=== PATIENT | male | born 1965 | race Caucasian/White ===

== ENCOUNTER → 2020-01-03 10:02 | Outpatient (BNVA) | payer OTHER, SELFPAY | PROVIDERS: PCP Internal Medicine; Referring Provider Internal Medicine; Visit Provider Surgery | DX: R91.8 Other nonspecific abnormal finding of lung field (principal); F17.200 Nicotine dependence, unspecified, uncomplicated; J44.9 Chronic obstructive pulmonary disease, unspecified; Z98.890 Other specified postprocedural states | CPT/HCPCS: 99211 ==

== ENCOUNTER → 2020-01-23 10:55 | Outpatient (BNVA) | payer OTHER, SELFPAY | PROVIDERS: PCP Internal Medicine; Referring Provider Internal Medicine; Visit Provider Internal Medicine | DX: Z76.89 Persons encountering health services in other specified circumstances (principal) ==

== ENCOUNTER 2020-03-04 09:12 | Outpatient (REF) | payer OTHER, SELFPAY ==
--- NOTE | 2020-03-04 09:14 | CT_ITS ---
EXAMINATION: CT CHEST WITHOUT CONTRAST CLINICAL INFORMATION: Follow-up pulmonary nodules. COMPARISON: Comparison CT chest 12/03/2019 and 03/13/2019. TECHNIQUE: Multidetector volumetric CT imaging of the chest was done. Axial MIP volume rendering provided. Sagittal and coronal reformatted images were obtained. This CT examination was performed using dose optimization techniques as appropriate, variously including the following: *Automated exposure control *Adjustment of mA and/or kV according to patient size (this includes techniques or standardized protocols for targeted exams where dose is matched to indication/reason for exam; i.e. extremities or head) *Use of iterative reconstruction technique DLP: 129 mGy-cm FINDINGS: BELL RINGER: Hyperinflated lungs. LUNGS: There is diffuse emphysematous changes of both lungs. There is a slightly lobulated nodule, right upper lobe, measuring 1.6 x 1.4 cm on axial image 300/7. Previously it measured 1.2 x 1.4 cm. There is a spiculated lesion in the left lower lobe measuring 1.4 x 1.8 cm on axial image 467/7. Previously it measured 1.2 x 2.5 cm. Both these lesions are stable. There are multiple 1-2 mm calcified nodules seen scattered throughout all segments of the lungs likely old granulomatous disease. There are bilateral peripheral reticular interstitial changes are seen in dependent segments of both lung bases similar to previous study. No new pulmonary nodule. No acute consolidation seen. Minimal atelectatic changes, right middle lobe, are noted. MEDIASTINUM: The thyroid lobes are symmetrical and normal. Central trachea and the bronchi are widely patent. Heart size and the great vessels are normal caliber. There are several shotty lymph nodes in the mediastinum. The largest left precarinal short axis lymph node measures 9 mm, axial image 32/3. PLEURA: There is no pleural effusion. No pleural mass or thickening. AXILLA: No lymphadenopathy. UPPER ABDOMEN: Visualized liver, spleen, pancreas and bilateral adrenal glands are unremarkable. OSSEOUS STRUCTURES: Unremarkable. CT/CT chest wo con IMPRESSION: 1. Essentially stable spiculated nodule in left lower lobe and a lobulated nodule in the right upper lobe. Multiple calcified granulomas are stable as well. 2. Reactionary lymph nodes in the mediastinum are stable. 3. There is significant emphysema most prominent in the upper lobes with chronic interstitial dependent changes in both lung bases. No pneumothorax.
== END 2020-03-04 09:13 | disposition home or self-care (01) ==
LOC: HO.CT 09:12
PROVIDERS: PCP Internal Medicine; Visit Provider Surgery
DX: R91.1 Solitary pulmonary nodule (principal)
CPT/HCPCS: 71250

== ENCOUNTER → 2020-04-10 11:14 | Outpatient (BNVA) | payer OTHER, SELFPAY | PROVIDERS: PCP Internal Medicine; Visit Provider Surgery | DX: Z76.89 Persons encountering health services in other specified circumstances (principal) | CPT/HCPCS: 99215 ==

== ENCOUNTER 2020-09-30 07:25 | Outpatient (REF) | payer OTHER, SELFPAY ==
--- NOTE | ~2020-09-30 | CT_ITS ---
EXAMINATION: CT CHEST WITHOUT CONTRAST CLINICAL INFORMATION: Pulmonary nodules COMPARISON: Previous chest CT scans most recent March 2020 TECHNIQUE: Multidetector volumetric CT imaging of the chest was done. Axial MIP volume rendering provided. Sagittal and coronal reformatted images were obtained. This CT examination was performed using dose optimization techniques as appropriate, variously including the following: *Automated exposure control *Adjustment of mA and/or kV according to patient size (this includes techniques or standardized protocols for targeted exams where dose is matched to indication/reason for exam; i.e. extremities or head) *Use of iterative reconstruction technique DLP: 121 mGy-cm FINDINGS: LUNGS: There is evidence of severe emphysema. There is interval increase in size in the lobulated right upper lobe nodule. This is irregular in shape and difficult to measure. The central nodule measures 1 x 1.5 cm axial image 243 series 6 0.6 x 1.2 cm axial image 299 series 7 on March 2020 exam. Including the exophytic posterior nodular component this measures 1.5 x 1.8 cm axial image 244 series 6 compared to 1.2 x 1.6 cm axial image 300 series 7. The spiculated left lower lobe nodule measures 0.9 x 1.7 cm axial image 388 series 6 compared to 1 x 1.8 cm axial image 467 series 7 and does not appear appreciably changed from most recent exam. There are numerous small calcified and noncalcified less than 4 mm coronary nodules that appear unchanged. No new pulmonary nodule is seen. There are increased peripheral interstitial markings questionable for interstitial lung disease. MEDIASTINUM: There are are small mediastinal lymph nodes. There is coronary artery calcification. The mediastinum is otherwise normal. PLEURA: There is no pleural effusion. No pleural mass or thickening. AXILLA: No lymphadenopathy. UPPER ABDOMEN: There is a small stone in the upper pole of the left kidney. OSSEOUS STRUCTURES: Unremarkable. CT/CT chest wo con IMPRESSION: Severe emphysema. Slight interval increase in size in the lobulated right upper lobe nodule. No appreciable change in the spiculated left lower lobe nodule. The numerous small calcified and noncalcified micronodules are stable.
== END 2020-09-30 07:26 | disposition home or self-care (01) ==
LOC: HO.CT 07:25
PROVIDERS: Visit Provider Surgery
DX: R91.8 Other nonspecific abnormal finding of lung field (principal)
CPT/HCPCS: 71250

== ENCOUNTER → 2020-10-23 11:01 | Outpatient (BNVA) | payer OTHER, SELFPAY | PROVIDERS: PCP Internal Medicine; Visit Provider Surgery | DX: R91.8 Other nonspecific abnormal finding of lung field (principal); J43.9 Emphysema, unspecified; F17.210 Nicotine dependence, cigarettes, uncomplicated; Z79.899 Other long term (current) drug therapy | CPT/HCPCS: 99212 ==

== ENCOUNTER → 2020-10-28 10:01 | Outpatient (BNVA) | payer OTHER, SELFPAY | PROVIDERS: PCP Internal Medicine; Visit Provider Internal Medicine ==

== ENCOUNTER 2021-03-09 13:05 | Outpatient (REF) | payer OTHER, SELFPAY ==
--- NOTE | ~2021-03-09 | PE_ITS ---
EXAMINATION: Fluorine-18 FDG PET/CT Scan CLINICAL INDICATION: Initial treatment management. Right upper lobe pulmonary nodule. PROCEDURE: 54 minutes following the intravenous administration of 17.3 mCi of fluorine 18 FDG, images from the base of the skull to the mid thighs were obtained using a combined PET/CT scanner with CT scan based attenuation correction. No oral contrast was administered. No intravenous contrast was administered. Transverse, coronal, sagittal, and volume reconstruction projections were obtained. The patient's blood glucose as determined by a finger stick, was 85 mg/dl immediately prior to injection. Total CT exam dose-length product 396.97 mGy-cm * These CT images were obtained using dose optimization techniques as appropriate, variously including the following: Automated exposure control * Adjustment of mA and/or kV according to patient size (this includes techniques or standardized protocols for targeted exams where dose is matched to indication/reason for exam; i.e. extremities or head) * Use of iterative reconstruction technique COMPARISON: No previous PET/CT scan is available for comparison. The diagnostic CT scan of the chest dated 09/30/2020 is available for comparison. FINDINGS: (Slice numbers described in this report are numbered superiorly to inferiorly with slice #1 in the head) NECK AND VISUALIZED HEAD: No foci of abnormal FDG activity are noted. The distribution of FDG activity is physiological. There is no cervical lymphadenopathy. THORAX: There is abnormal FDG activity associated with an irregular posterior right upper lobe pulmonary nodule showing SUVmax 7.8, slice 91/267. This corresponds to an irregular nodule on the CT images that measures approximately 1.7 x 1.3 cm in largest transverse dimensions and approximately 0.9 cm cephalocaudad. This appears slightly larger, more irregular and more spiculated when compared to the diagnostic CT scan dated 09/30/2020. 09/30/2020 CT scan also showed a spiculated posterior left lower lobe pulmonary nodule which is less well delineated on these nondiagnostic CT images, and on these images appears as a poorly marginated groundglass opacity measuring 1.4 x 0.9 cm in largest transverse dimensions and with weak FDG activity, SUVmax 1.9, slice 113/267. No additional foci of abnormal FDG activity are present in the chest. These nodules are superimposed in the setting of severe emphysema. There is also mild dependent atelectasis posteriorly in the lower lobes bilaterally. Most of the additional small subcentimeter nodules visualized on the 09/30/[address] scan are not well visualized on these nondiagnostic CT images performed without a breath-hold. A 0.4 cm calcified granuloma in the anterolateral base of the right upper lobe is visualized, slice 140/349, unchanged from 09/30/2020, an additional 0.5 cm densely calcified right lower lobe granuloma, slice 149/349 are unchanged from 09/30/2020, but additional small subcentimeter nodules visualized in the 09/30/2020 diagnostic study are not well visualized. There is no pleural or pericardial fluid or pneumothorax. A subcentimeter AP window lymph node shows mild FDG activity, SUVmax 2.7, slice 121/349. There is an additional left lower pretracheal mediastinal lymph node, subcentimeter in size, slice 125/349 showing no abnormal FDG activity. No additional mediastinal, supraclavicular, or axillary lymphadenopathy is present. ABDOMEN AND PELVIS: No foci of abnormal FDG activity are present in the abdomen or pelvis. There is some retained urinary FDG activity in the mid right ureter at the level of the pelvic inlet. There is mild FDG activity throughout the gastrointestinal tract without a suspicious focal component. The liver, gallbladder, spleen, kidneys, adrenal glands and pancreas appear unremarkable. There is no retroperitoneal, mesenteric, pelvic or inguinal lymphadenopathy. Several metallic surgical clips are present bilaterally in the anterior lower abdominal wall. The prostate gland is enlarged measuring 5.7 cm in largest transverse dimension. The pelvic organs are otherwise unremarkable. MUSCULOSKELETAL: There is mildly increased activity in the acromioclavicular joints bilaterally, likely arthritic. No other foci of abnormal FDG activity are present in the osseous structures. There are degenerative changes in the spine but no suspicious sclerotic or lytic lesions are visualized. VASCULAR: Diffuse vascular calcifications including coronary are noted. PET/PET CT fusion skull to thigh IMPRESSION: 1. An FDG avid right upper lobe pulmonary nodule shows abnormal FDG activity, strongly suspicious for malignancy. 2. A left lower lobe nodule shows weak FDG activity and is nonspecific. This appears to have decreased in size when compared to the previous diagnostic CT scan dated 09/30/2020, but the CT techniques are significantly different and this change may not be evidence of improvement. Correlation with a current diagnostic CT scan to better evaluate the CT changes of this lesion is recommended. 3. Mildly FDG avid normal-sized AP window and left lower paratracheal lymph nodes are nonspecific and may be inflammatory or malignant in etiology. 4. No additional abnormalities suspicious for metastatic or other malignant lesions are noted. 5. Severe emphysema. 6. Vascular calcifications including coronary.
== END 2021-03-09 13:06 | disposition home or self-care (01) ==
LOC: HO.PET 13:05
PROVIDERS: Visit Provider Surgery
DX: Z13.89 Encounter for screening for other disorder (principal)

== ENCOUNTER → 2021-03-19 10:37 | Outpatient (BNVA) | payer OTHER, SELFPAY | PROVIDERS: PCP Internal Medicine; Visit Provider Surgery | DX: R91.8 Other nonspecific abnormal finding of lung field (principal); J44.9 Chronic obstructive pulmonary disease, unspecified; F17.210 Nicotine dependence, cigarettes, uncomplicated; Z79.899 Other long term (current) drug therapy | CPT/HCPCS: 99212 ==

== ENCOUNTER → 2021-03-29 09:36 | Outpatient (BNVA) | payer OTHER, SELFPAY | PROVIDERS: PCP Internal Medicine; Visit Provider Internal Medicine ==

== ENCOUNTER → 2021-05-14 08:44 | Outpatient (BNVA) | payer OTHER, SELFPAY | PROVIDERS: PCP Internal Medicine; Visit Provider Surgery | DX: R91.8 Other nonspecific abnormal finding of lung field (principal); J44.9 Chronic obstructive pulmonary disease, unspecified; F17.210 Nicotine dependence, cigarettes, uncomplicated; Z71.6 Tobacco abuse counseling; Z79.899 Other long term (current) drug therapy | CPT/HCPCS: 99212 ==

== ENCOUNTER 2021-05-21 10:35 | Outpatient (REF) | payer OTHER, SELFPAY ==
--- NOTE | ~2021-05-21 | CT_ITS ---
EXAMINATION: CT CHEST WITHOUT CONTRAST CLINICAL INFORMATION: Follow-up pulmonary nodule COMPARISON: Previous chest CT most recent September 2020 and PET/CT March 2021 TECHNIQUE: Multidetector volumetric CT imaging of the chest was done. Axial MIP volume rendering provided. Sagittal and coronal reformatted images were obtained. This CT examination was performed using dose optimization techniques as appropriate, variously including the following: *Automated exposure control *Adjustment of mA and/or kV according to patient size (this includes techniques or standardized protocols for targeted exams where dose is matched to indication/reason for exam; i.e. extremities or head) *Use of iterative reconstruction technique DLP: 118 mGy-cm FINDINGS: DIRECTOR TRADING: Hyperinflation. Right pulmonary nodule. LUNGS: There is evidence of severe emphysema. There is an irregularly-shaped right upper lobe pulmonary nodule. This is increased in size from most recent chest CT September 2020. This measures 1.4 x 1.7 cm in AP and transverse dimension axial image 302 series 6 compared to 1.4 x 1 cm September 2020 exam. This is increased in longitudinal dimension and measures 1.7 cm in length and sagittal reconstructed image 79 compared to 0.4 cm sagittal reconstructed image 78 on October 2020 exam. There are small calcified right pulmonary nodules that are stable, right greater than left. The spiculated left lower lobe nodule may be slightly decreased in size in size and measures 9 x 11 mm axial image 465 series 6 compared to 10 x 13 mm on prior exam. There may be evidence of mild interstitial lung disease is seen at the lung bases with increased peripheral interlobular septal thickening and some, groundglass attenuation and traction bronchiolectasis. Some of these changes may be secondary to marked bolus changes in the upper lobes, particularly on the right. MEDIASTINUM: There are small mediastinal lymph nodes that are stable. No enlarged lymph nodes are seen. There is coronary artery calcification. The thoracic aorta is normal in caliber. The main pulmonary artery is upper normal in size. PLEURA: There is no pleural effusion. No pleural mass or thickening. AXILLA: No lymphadenopathy. UPPER ABDOMEN: Unremarkable. OSSEOUS STRUCTURES: Unremarkable CT/CT chest wo con IMPRESSION: Severe emphysema. Interval increase in size in the right upper lobe nodule. Stable to slightly smaller smaller spiculated left lower lobe nodule. Coronary artery calcification. Fleischner guidelines were followed.
== END 2021-05-21 10:36 | disposition home or self-care (01) ==
LOC: HO.CT 10:35
PROVIDERS: Visit Provider Surgery
DX: R91.8 Other nonspecific abnormal finding of lung field (principal)
CPT/HCPCS: 71250

== ENCOUNTER → 2021-06-04 11:19 | Outpatient (BNVA) | payer OTHER, SELFPAY | PROVIDERS: PCP Internal Medicine; Visit Provider Surgery | DX: R91.8 Other nonspecific abnormal finding of lung field (principal); F17.210 Nicotine dependence, cigarettes, uncomplicated; Z79.899 Other long term (current) drug therapy; Z71.6 Tobacco abuse counseling | CPT/HCPCS: 99212 ==

== ENCOUNTER → 2021-06-29 09:47 | Outpatient (BNVA) | payer OTHER, SELFPAY | PROVIDERS: PCP Internal Medicine; Visit Provider Internal Medicine | DX: J44.9 Chronic obstructive pulmonary disease, unspecified (principal); R09.02 Hypoxemia; R91.8 Other nonspecific abnormal finding of lung field; F17.210 Nicotine dependence, cigarettes, uncomplicated | CPT/HCPCS: 94618 ==

== ENCOUNTER → 2021-08-20 10:15 | Outpatient (BNVA) | payer OTHER, SELFPAY | PROVIDERS: PCP Internal Medicine; Visit Provider Surgery | DX: R91.8 Other nonspecific abnormal finding of lung field (principal) | CPT/HCPCS: 99212 ==

== ENCOUNTER → 2022-05-25 11:04 | Outpatient (BNVA) | payer OTHER, SELFPAY | PROVIDERS: PCP Internal Medicine; Visit Provider Internal Medicine | DX: Z13.89 Encounter for screening for other disorder (principal) ==

== ENCOUNTER → 2022-06-06 10:21 | Outpatient (BNVA) | payer OTHER, SELFPAY | PROVIDERS: PCP Nurse Practitioner Family; Visit Provider Internal Medicine | DX: Z13.89 Encounter for screening for other disorder (principal) ==

== ENCOUNTER 2022-06-16 13:04 | Emergency (ER) | payer OTHER, SELFPAY ==
--- NOTE | ~2022-06-16 | XR_ITS ---
EXAMINATION: XR CHEST CLINICAL INFORMATION: Short of breath COMPARISON: 02/20/2018 TECHNIQUE: Frontal view of the chest was obtained. FINDINGS: Hyperexpanded lungs. Patchy opacities at the left midlung. Right mid and lower lung patchy opacities. Mild interstitial prominence. No pleural effusion or pneumothorax. Oligemia of the upper lungs consistent with known severe emphysema. The cardiomediastinal silhouette is within normal limits. XR/XR chest 1V IMPRESSION: 1. Patchy opacities at the left midlung and right mid and lower lung. This could be infectious or inflammatory. 2. Background of severe emphysema.
[2022-06-16 13:06] VITALS: BP 113/78; PULSE 112; RESP 20; TEMP 36.1; O2SAT 91; BMI 16.5
--- NOTE | 2022-06-16 13:07 | ED.GENADULT ---
HPI - General Adult General Chief complaint: General Medical <CHING Wallace - Last Filed: 06/16/22 13:15> Stated complaint: Diarrhea/Not eating <CHING Wallace - Last Filed: 06/16/22 13:15> Time Seen by Provider: 06/16/22 16:05 <CHING Wallace - Last Filed: 06/16/22 13:15> Source: patient, family, RN notes reviewed and old records reviewed <Ender Hannah - Last Filed: 06/16/22 19:13> Mode of arrival: ambulatory <Ender Hannah - Last Filed: 06/16/22 19:13> Limitations: no limitations <Ender Hannah - Last Filed: 06/16/22 19:13> History of Present Illness HPI narrative: 57-year-old male past medical history significant for COPD O2 dependent, hyperlipidemia, recent diagnosis of mycobacterium avium complex presents for evaluation of fatigue Patient was seen by infectious disease specialist, Dr. Gabriel on 06/06/2022 and diagnosed with mycobacterium avium complex infection. He was recently started on azithromycin, ethambutol and rifampin daily Patient reports over the last 3 days he is complaint of increasing weakness, frequent nonbloody stools and shortness of breath the Denies any significant pain including abdominal pain, chest pain or back pain. He reports that he has felt the need to use his as needed oxygen almost constantly over the last few days. He continues to smoke half a pack of cigarettes per day <Ender Hannah - Last Filed: 06/16/22 19:13> Related Data Home medications: Home Medications Medication Instructions Recorded Confirmed Asprin PO DAILY 12/28/19 12/13/21 gabapentin 300 mg capsule 300 mg PO TID PAIN AND INSOMNIA 12/13/21 12/13/21 Previous Rx's Medication Instructions Recorded albuterol sulfate 90 mcg/actuation 2 puff inhalation Q4-6H PRN 03/12/20 aerosol inhaler (ProAir HFA) shortness of breath or wheezing #1 ea Trelegy Ellipta 100 mcg-62.5 1 ea PO DAILY #60 ea 04/05/22 mcg-25 mcg powder for inhalation (aazqwtykjdn-jncqfomqf-klefzvpl) simvastatin 40 mg tablet 40 mg PO BEDTIME #90 tabs 04/24/22 azithromycin 500 mg tablet 500 mg PO DAILY 30 days #30 tabs 06/06/22 ethambutol 400 mg tablet 800 mg PO DAILY 30 days #60 tabs 06/06/22 rifampin 300 mg capsule 300 mg PO DAILY 30 days #30 caps 06/06/22 <CHING Wallace - Last Filed: 06/16/22 13:15> Allergies/adverse reactions: Allergies Allergy/AdvReac Type Severity Reaction Status Date / Time No Known Allergies Allergy Verified 06/06/22 11:05 [No Known Allergies*] <CHING Wallace - Last Filed: 06/16/22 13:15> Review of Systems Constitutional: Constitutional: Reports as per HPI, Reports anorexia, Reports fatigue, Reports fever(s), Denies headache(s), Reports lethargy, Reports malaise and Reports poor appetite <Ender Hannah - Last Filed: 06/16/22 19:13> ENT: Denies headache(s) <Ender Hannah - Last Filed: 06/16/22 19:13> Cardiovascular: Cardiovascular: Denies chest pain and Reports dyspnea <Ender Hannah - Last Filed: 06/16/22 19:13> Respiratory: Respiratory: Denies cough and Reports dyspnea <Ender Hannah - Last Filed: 06/16/22 19:13> Gastrointestinal: Gastrointestinal: Denies abdominal pain, Denies constipation and Denies vomiting <Ender Hannah - Last Filed: 06/16/22 19:13> Genitourinary: Genitourinary: Denies difficulty urinating and Denies dysuria <Ender Hannah - Last Filed: 06/16/22 19:13> Neurologic: Denies headache(s) and Denies focal weakness <Ender Hannah - Last Filed: 06/16/22 19:13> Endocrine: Endocrine: Reports fatigue <Ender Hannah - Last Filed: 06/16/22 19:13> FORMERLY [facility] Past Medical History Medical History: Medical History COPD (chronic obstructive pulmonary disease) Exercise hypoxemia Hyperlipidemia Multiple pulmonary nodules Nicotine dependence, unspecified, uncomplicated <CHING Wallace - Last Filed: 06/16/22 13:15> Surgical History: Surgical History History of bronchoscopy (~12/2019) History of bronchoscopy (~04/2021) History of eye surgery (~11/2020) <CHING Wallace - Last Filed: 06/16/22 13:15> Family History Family History: Family History Father Lung cancer Brother COPD (chronic obstructive pulmonary disease) <CHING Wallace - Last Filed: 06/16/22 13:15> Social History Social History: Social History Patient Tobacco Use Status: Current someday Tobacco user Cigarette Packs Per Day: 0.5 Cigarettes Per Day: 5 Advance Directives: No Advance Directives Information Provided: Yes <CHING Wallace - Last Filed: 06/16/22 13:15> Physical Exam ED Vital Signs: Vital Signs - 24 hr 06/16/22 13:06 06/16/22 14:53 Temperature 97 F 97.6 F Pulse Rate 112 H 95 Respiratory Rate 20 14 Blood Pressure 113/78 111/66 Pulse Oximetry 91 L 94 Oxygen Delivery Method Nasal Cannula Nasal Cannula Oxygen Flow Rate 2.5 BMI result Body Mass Index 16.5 <CHING Wallace - Last Filed: 06/16/22 13:15> Vital Signs - 24 hr 06/16/22 13:06 06/16/22 14:53 Temperature 97 F 97.6 F Pulse Rate 112 H 95 Respiratory Rate 20 14 Blood Pressure 113/78 111/66 Pulse Oximetry 91 L 94 Oxygen Delivery Method Nasal Cannula Nasal Cannula Oxygen Flow Rate 2.5 BMI result Body Mass Index 16.5 <Ender Hannah - Last Filed: 06/16/22 19:13> Const General: comfortable, no acute distress, alert, awake and ill appearing <Ender Hannah - Last Filed: 06/16/22 19:13> Nutritional Appearance: malnourished and thin <Ender Hannah - Last Filed: 06/16/22 19:13> Orientation/consciousness: patient oriented x3 < - Last Filed: 06/16/22 19:13> HENMT Head: Yes normocephalic and Yes atraumatic < - Last Filed: 06/16/22 19:13> Throat: Yes posterior oropharynx normal < - Last Filed: 06/16/22 19:13> Eyes Eyelids: Yes eyelids normal < - Last Filed: 06/16/22 19:13> Conjunctivae: conjunctivae normal < - Last Filed: 06/16/22 19:13> Sclerae: sclerae normal < - Last Filed: 06/16/22 19:13> Corneas: corneas normal < - Last Filed: 06/16/22 19:13> Pupils: Equal, round and reactive pupils present < - Last Filed: 06/16/22 19:13> EOM: EOMs intact bilaterally < Last Filed: 06/16/22 19:13> Neck Neck: Yes full ROM < - Last Filed: 06/16/22 19:13> Resp Effort & Inspection: normal respiratory effort, able to speak in complete sentences and not labored < Last Filed: 06/16/22 19:13> Auscultation: other (Decreased breath sounds bilaterally) < - Last Filed: 06/16/22 19:13> Cardio Rate: regular rate < Last Filed: 06/16/22 19:13> Rhythm: regular rhythm < - Last Filed: 06/16/22 19:13> GI Inspection: No distended < - Last Filed: 06/16/22 19:13> Palpation (GI): Soft to palpation, not firm, nontender, no guarding and not rigid < - Last Filed: 06/16/22 19:13> Auscultation: normoactive bowel sounds < - Last Filed: 06/16/22 19:13> Skin General skin exam: no rashes or lesions noted and elasticity normal <Ender Machucay - Last Filed: 06/16/22 19:13> Neuro General: patient oriented x3 <Ender [place] - Last Filed: 06/16/22 19:13> Cranial nerves: Yes CN's II-XII intact bilaterally, Yes Equal, round and reactive pupils present and Yes Bilaterally intact EOM present <Ender [place] - Last Filed: 06/16/22 19:13> Cognition (Neuro): normal cognition <Ender LynneSanna - Last Filed: 06/16/22 19:13> Extrem Other: Moving all extremities well without any obvious deformities <Ender GenaroYuriy - Last Filed: 06/16/22 19:13> Course Course Course Narrative: RME-- 57 yo M w/PMHx COPD on home O2 2L, recently Dx with Mycobaterium avium started on Azithromycin, Ethambutol & Rifampin, presenting c/o worsening SOB, generalized fatigue/weakness, anorexia w/decreased PO intake and nonbloody diarrhea since Monday. Also reports fever 101. Admits O2 dropped as low as 79% on O2 at home with exertion. Satting 91% on 2L O2, diminished lung sounds bibsailarly. Appears chronically ill EKG, Labs, UA, CXR, SARS/FLU/RSV, Lactic/Blood Cx, stool studies ordered <CHING Wallace - Last Filed: 06/16/22 13:15> Reevaluation(s) Reevaluation #1: Patient feels better after IV fluids. He ambulated on department on oxygen saturation maintaining 87-88% lowest on her baseline O2. The patient reports that his baseline oxygen is 88% and he feels comfortable being discharged home. He has follow-up with infectious disease as well. <Ender Hannah - Last Filed: 06/16/22 19:13> Time: 19:09 <Ender Hannah - Last Filed: 06/16/22 19:13> Medications Administered Discontinued Medications Generic Name Dose Route Start Last Admin Trade Name Freq PRN Reason Stop Dose Admin Sodium Chloride 1,000 mls @ 999 mls/hr 06/16/22 16:30 06/16/22 18:17 Ns IV 06/16/22 17:30 Infused .Q1H1M JOSHUA Infusion Magnesium Sulfate 2 gm in 50 mls @ 25 mls/hr 06/16/22 16:24 06/16/22 17:03 Magnesium Sulfate/H2o IV 06/16/22 18:23 25 mls/hr ONCE ONE Administration <CHING Wallace - Last Filed: 06/16/22 13:15> Medications Administered Discontinued Medications Generic Name Dose Route Start Last Admin Trade Name Courtney PRN Reason Stop Dose Admin Sodium Chloride 1,000 mls @ 999 mls/hr 06/16/22 16:30 06/16/22 18:17 Ns IV 06/16/22 17:30 Infused .Q1H1M JOSHUA Infusion Magnesium Sulfate 2 gm in 50 mls @ 25 mls/hr 06/16/22 16:24 06/16/22 17:03 Magnesium Sulfate/H2o IV 06/16/22 18:23 25 mls/hr ONCE ONE Administration <Ender Hannah - Last Filed: 06/16/22 19:13> Medical Decision Making Medical Decision Making MDM Narrative: With 57-year-old male past medical history significant for is COPD on as needed oxygen at home presenting for evaluation of increased weakness. He was recently diagnosed with VICKY and was treated with azithromycin, rifampin, and ethambutol. This could be contributing to his increased lethargy. His labs are relatively unremarkable. He has a mild left shift which is likely related to his infection and recent antibiotic use. His magnesium was low at 1.5 which was treated with IV magnesium. We will treat with IV fluids, attempt to get a stool sample to rule out C diff. the patient will trial a ambulation trial to determine disposition. On arrival the patient's oxygen saturation was 91% with his 2 L any was slightly tachycardic to 116. <Ender Hannah - Last Filed: 06/16/22 19:13> Differential Diagnosis Weakness Mycobacterium avium complex Lethargy COPD exacerbation <Ender Hannah - Last Filed: 06/16/22 19:13> Lab Data [facility] Lab Attestation statement: I reviewed the patient's lab results. <Ender Hannah - Last Filed: 03/16/23 19:13> Result Diagrams: 06/16/22 13:59 06/16/22 13:59 <CHING Wallace - Last Filed: 06/16/22 13:15> Labs: Lab Results 06/16/22 06/16/22 06/16/22 Range/Units 13:58 13:58 13:59 WBC 8.3 (4.8-10.8) X10*3/uL RBC 5.29 (4.60-5.80) X10*6/uL Hgb 17.5 (14.0-18.0) g/dl Hct 50.7 (42.0-52.0) % MCV 95.8 (80.0-98.0) fL MCH 33.1 H (27.0-33.0) pg MCHC 34.5 (31.0-36.0) g/dl RDW 12.9 (11.0-16.0) % Plt Count 210 (160-400) X10*3/uL MPV 10.2 (9.4-12.4) fL Immature Gran % (Auto) 0.4 (0.0-0.4) % Neut % (Auto) 74.9 H (45-73) % Lymph % (Auto) 10.3 L (20-40) % Beadle % (Auto) 5.4 (2-11) % Eos % (Auto) 7.8 H (0-4) % Baso % (Auto) 1.2 (0-2) % Lymph # (Auto) 0.9 L (1.2-4.9) X10*3/uL Beadle # (Auto) 0.5 (0.1-1.2) X10*3/uL Eos # (Auto) 0.7 H (0.0-0.4) X10*3/uL Baso # (Auto) 0.1 (0.0-0.2) X10*3/uL Abs Immat Gran (auto) 0.03 (0.00-0.03) X10*3/uL Absolute Neuts (auto) 6.2 (2.0-8.3) x10*3/uL Absolute Nucleated RBC 0.000 (0.0-0.012) X10*3/uL Nucleated RBC % (auto) 0.0 (0.0-0.2) /100WBC PT (10.0-13.1) SEC INR (0.9-1.1) Sodium (135-145) mmol/L Potassium (3.3-5.1) mmol/L Chloride (96-108) mmol/L Carbon Dioxide (22-29) mmol/L Anion Gap (12-20) BUN (9-16) mg/dL Creatinine (0.5-1.4) mg/dL Estim Creat Clear Calc Estimated GFR Random Glucose (60-115) mg/dL Lactic Acid (0.5-2.0) mmol/L Calcium (8.4-10.2) mg/dL Magnesium (1.6-2.6) mg/dL Total Bilirubin (0.0-1.0) mg/dL Direct Bilirubin (0.0-0.5) mg/dL AST (5-37) U/L ALT (0-40) U/L Alkaline Phosphatase (39-117) U/L Troponin I High Sens (<3.5-35.0) ng/L B-Natriuretic Peptide 286 H (<100) pg/mL Total Protein (6.5-8.0) g/dL Albumin (3.5-5.0) g/dL Lipase (8-78) U/L Influenza Type A (PCR) NEGATIVE (Negative) Influenza Type B (PCR) NEGATIVE (Negative) RSV RNA Qual (PCR) NEGATIVE (Negative) SARS-CoV-2 RNA (RT-PCR) NEGATIVE (Negative) 06/16/22 06/16/22 06/16/22 Range/Units 13:59 13:59 13:59 WBC (4.8-10.8) X10*3/uL RBC (4.60-5.80) X10*6/uL Hgb (14.0-18.0) g/dl Hct (42.0-52.0) % MCV (80.0-98.0) fL MCH (27.0-33.0) pg MCHC (31.0-36.0) g/dl RDW (11.0-16.0) % Plt Count (160-400) X10*3/uL MPV (9.4-12.4) fL Immature Gran % (Auto) (0.0-0.4) % Neut % (Auto) (45-73) % Lymph % (Auto) (20-40) % Beadle % (Auto) (2-11) % Eos % (Auto) (0-4) % Baso % (Auto) (0-2) % Lymph # (Auto) (1.2-4.9) X10*3/uL Beadle # (Auto) (0.1-1.2) X10*3/uL Eos # (Auto) (0.0-0.4) X10*3/uL Baso # (Auto) (0.0-0.2) X10*3/uL Abs Immat Gran (auto) (0.00-0.03) X10*3/uL Absolute Neuts (auto) (2.0-8.3) x10*3/uL Absolute Nucleated RBC (0.0-0.012) X10*3/uL Nucleated RBC % (auto) (0.0-0.2) /100WBC PT 12.2 (10.0-13.1) SEC INR 1.1 (0.9-1.1) Sodium 142 (135-145) mmol/L Potassium 4.3 (3.3-5.1) mmol/L Chloride 105 (96-108) mmol/L Carbon Dioxide 25 (22-29) mmol/L Anion Gap 16 (12-20) BUN 9 (9-16) mg/dL Creatinine 0.80 (0.5-1.4) mg/dL Estim Creat Clear Calc 74.2 Estimated GFR > 60 Random Glucose 104 (60-115) mg/dL Lactic Acid 1.5 (0.5-2.0) mmol/L Calcium 9.5 (8.4-10.2) mg/dL Magnesium 1.5 L (1.6-2.6) mg/dL Total Bilirubin 1.1 H (0.0-1.0) mg/dL Direct Bilirubin 0.4 (0.0-0.5) mg/dL AST 16 (5-37) U/L ALT 12 (0-40) U/L Alkaline Phosphatase 173 H (39-117) U/L Troponin I High Sens (<3.5-35.0) ng/L B-Natriuretic Peptide (<100) pg/mL Total Protein 7.0 (6.5-8.0) g/dL Albumin 4.0 (3.5-5.0) g/dL Lipase 17 (8-78) U/L Influenza Type A (PCR) (Negative) Influenza Type B (PCR) (Negative) RSV RNA Qual (PCR) (Negative) SARS-CoV-2 RNA (RT-PCR) (Negative) 06/16/22 Range/Units 13:59 WBC (4.8-10.8) X10*3/uL RBC (4.60-5.80) X10*6/uL Hgb (14.0-18.0) g/dl Hct (42.0-52.0) % MCV (80.0-98.0) fL MCH (27.0-33.0) pg MCHC (31.0-36.0) g/dl RDW (11.0-16.0) % Plt Count (160-400) X10*3/uL MPV (9.4-12.4) fL Immature Gran % (Auto) (0.0-0.4) % Neut % (Auto) (45-73) % Lymph % (Auto) (20-40) % Beadle % (Auto) (2-11) % Eos % (Auto) (0-4) % Baso % (Auto) (0-2) % Lymph # (Auto) (1.2-4.9) X10*3/uL Beadle # (Auto) (0.1-1.2) X10*3/uL Eos # (Auto) (0.0-0.4) X10*3/uL Baso # (Auto) (0.0-0.2) X10*3/uL Abs Immat Gran (auto) (0.00-0.03) X10*3/uL Absolute Neuts (auto) (2.0-8.3) x10*3/uL Absolute Nucleated RBC (0.0-0.012) X10*3/uL Nucleated RBC % (auto) (0.0-0.2) /100WBC PT (10.0-13.1) SEC INR (0.9-1.1) Sodium (135-145) mmol/L Potassium (3.3-5.1) mmol/L Chloride (96-108) mmol/L Carbon Dioxide (22-29) mmol/L Anion Gap (12-20) BUN (9-16) mg/dL Creatinine (0.5-1.4) mg/dL Estim Creat Clear Calc Estimated GFR Random Glucose (60-115) mg/dL Lactic Acid (0.5-2.0) mmol/L Calcium (8.4-10.2) mg/dL Magnesium (1.6-2.6) mg/dL Total Bilirubin (0.0-1.0) mg/dL Direct Bilirubin (0.0-0.5) mg/dL AST (5-37) U/L ALT (0-40) U/L Alkaline Phosphatase (39-117) U/L Troponin I High Sens 9.7 (<3.5-35.0) ng/L B-Natriuretic Peptide (<100) pg/mL Total Protein (6.5-8.0) g/dL Albumin (3.5-5.0) g/dL Lipase (8-78) U/L Influenza Type A (PCR) (Negative) Influenza Type B (PCR) (Negative) RSV RNA Qual (PCR) (Negative) SARS-CoV-2 RNA (RT-PCR) (Negative) <CHING Wallace - Last Filed: 06/16/22 13:15> Lab Results 06/16/22 06/16/22 06/16/22 Range/Units 13:58 13:58 13:59 WBC 8.3 (4.8-10.8) X10*3/uL RBC 5.29 (4.60-5.80) X10*6/uL Hgb 17.5 (14.0-18.0) g/dl Hct 50.7 (42.0-52.0) % MCV 95.8 (80.0-98.0) fL MCH 33.1 H (27.0-33.0) pg MCHC 34.5 (31.0-36.0) g/dl RDW 12.9 (11.0-16.0) % Plt Count 210 (160-400) X10*3/uL MPV 10.2 (9.4-12.4) fL Immature Gran % (Auto) 0.4 (0.0-0.4) % Neut % (Auto) 74.9 H (45-73) % Lymph % (Auto) 10.3 L (20-40) % Beadle % (Auto) 5.4 (2-11) % Eos % (Auto) 7.8 H (0-4) % Baso % (Auto) 1.2 (0-2) % Lymph # (Auto) 0.9 L (1.2-4.9) X10*3/uL Beadle # (Auto) 0.5 (0.1-1.2) X10*3/uL Eos # (Auto) 0.7 H (0.0-0.4) X10*3/uL Baso # (Auto) 0.1 (0.0-0.2) X10*3/uL Abs Immat Gran (auto) 0.03 (0.00-0.03) X10*3/uL Absolute Neuts (auto) 6.2 (2.0-8.3) x10*3/uL Absolute Nucleated RBC 0.000 (0.0-0.012) X10*3/uL Nucleated RBC % (auto) 0.0 (0.0-0.2) /100WBC PT (10.0-13.1) SEC INR (0.9-1.1) Sodium (135-145) mmol/L Potassium (3.3-5.1) mmol/L Chloride (96-108) mmol/L Carbon Dioxide (22-29) mmol/L Anion Gap (12-20) BUN (9-16) mg/dL Creatinine (0.5-1.4) mg/dL Estim Creat Clear Calc Estimated GFR Random Glucose (60-115) mg/dL Lactic Acid (0.5-2.0) mmol/L Calcium (8.4-10.2) mg/dL Magnesium (1.6-2.6) mg/dL Total Bilirubin (0.0-1.0) mg/dL Direct Bilirubin (0.0-0.5) mg/dL AST (5-37) U/L ALT (0-40) U/L Alkaline Phosphatase (39-117) U/L Troponin I High Sens (<3.5-35.0) ng/L B-Natriuretic Peptide 286 H (<100) pg/mL Total Protein (6.5-8.0) g/dL Albumin (3.5-5.0) g/dL Lipase (8-78) U/L Influenza Type A (PCR) NEGATIVE (Negative) Influenza Type B (PCR) NEGATIVE (Negative) RSV RNA Qual (PCR) NEGATIVE (Negative) SARS-CoV-2 RNA (RT-PCR) NEGATIVE (Negative) 06/16/22 06/16/22 06/16/22 Range/Units 13:59 13:59 13:59 WBC (4.8-10.8) X10*3/uL RBC (4.60-5.80) X10*6/uL Hgb (14.0-18.0) g/dl Hct (42.0-52.0) % MCV (80.0-98.0) fL MCH (27.0-33.0) pg MCHC (31.0-36.0) g/dl RDW (11.0-16.0) % Plt Count (160-400) X10*3/uL MPV (9.4-12.4) fL Immature Gran % (Auto) (0.0-0.4) % Neut % (Auto) (45-73) % Lymph % (Auto) (20-40) % Beadle % (Auto) (2-11) % Eos % (Auto) (0-4) % Baso % (Auto) (0-2) % Lymph # (Auto) (1.2-4.9) X10*3/uL Beadle # (Auto) (0.1-1.2) X10*3/uL Eos # (Auto) (0.0-0.4) X10*3/uL Baso # (Auto) (0.0-0.2) X10*3/uL Abs Immat Gran (auto) (0.00-0.03) X10*3/uL Absolute Neuts (auto) (2.0-8.3) x10*3/uL Absolute Nucleated RBC (0.0-0.012) X10*3/uL Nucleated RBC % (auto) (0.0-0.2) /100WBC PT 12.2 (10.0-13.1) SEC INR 1.1 (0.9-1.1) Sodium 142 (135-145) mmol/L Potassium 4.3 (3.3-5.1) mmol/L Chloride 105 (96-108) mmol/L Carbon Dioxide 25 (22-29) mmol/L Anion Gap 16 (12-20) BUN 9 (9-16) mg/dL Creatinine 0.80 (0.5-1.4) mg/dL Estim Creat Clear Calc 74.2 Estimated GFR > 60 Random Glucose 104 (60-115) mg/dL Lactic Acid 1.5 (0.5-2.0) mmol/L Calcium 9.5 (8.4-10.2) mg/dL Magnesium 1.5 L (1.6-2.6) mg/dL Total Bilirubin 1.1 H (0.0-1.0) mg/dL Direct Bilirubin 0.4 (0.0-0.5) mg/dL AST 16 (5-37) U/L ALT 12 (0-40) U/L Alkaline Phosphatase 173 H (39-117) U/L Troponin I High Sens (<3.5-35.0) ng/L B-Natriuretic Peptide (<100) pg/mL Total Protein 7.0 (6.5-8.0) g/dL Albumin 4.0 (3.5-5.0) g/dL Lipase 17 (8-78) U/L Influenza Type A (PCR) (Negative) Influenza Type B (PCR) (Negative) RSV RNA Qual (PCR) (Negative) SARS-CoV-2 RNA (RT-PCR) (Negative) 06/16/22 Range/Units 13:59 WBC (4.8-10.8) X10*3/uL RBC (4.60-5.80) X10*6/uL Hgb (14.0-18.0) g/dl Hct (42.0-52.0) % MCV (80.0-98.0) fL MCH (27.0-33.0) pg MCHC (31.0-36.0) g/dl RDW (11.0-16.0) % Plt Count (160-400) X10*3/uL MPV (9.4-12.4) fL Immature Gran % (Auto) (0.0-0.4) % Neut % (Auto) (45-73) % Lymph % (Auto) (20-40) % Beadle % (Auto) (2-11) % Eos % (Auto) (0-4) % Baso % (Auto) (0-2) % Lymph # (Auto) (1.2-4.9) X10*3/uL Beadle # (Auto) (0.1-1.2) X10*3/uL Eos # (Auto) (0.0-0.4) X10*3/uL Baso # (Auto) (0.0-0.2) X10*3/uL Abs Immat Gran (auto) (0.00-0.03) X10*3/uL Absolute Neuts (auto) (2.0-8.3) x10*3/uL Absolute Nucleated RBC (0.0-0.012) X10*3/uL Nucleated RBC % (auto) (0.0-0.2) /100WBC PT (10.0-13.1) SEC INR (0.9-1.1) Sodium (135-145) mmol/L Potassium (3.3-5.1) mmol/L Chloride (96-108) mmol/L Carbon Dioxide (22-29) mmol/L Anion Gap (12-20) BUN (9-16) mg/dL Creatinine (0.5-1.4) mg/dL Estim Creat Clear Calc Estimated GFR Random Glucose (60-115) mg/dL Lactic Acid (0.5-2.0) mmol/L Calcium (8.4-10.2) mg/dL Magnesium (1.6-2.6) mg/dL Total Bilirubin (0.0-1.0) mg/dL Direct Bilirubin (0.0-0.5) mg/dL AST (5-37) U/L ALT (0-40) U/L Alkaline Phosphatase (39-117) U/L Troponin I High Sens 9.7 (<3.5-35.0) ng/L B-Natriuretic Peptide (<100) pg/mL Total Protein (6.5-8.0) g/dL Albumin (3.5-5.0) g/dL Lipase (8-78) U/L Influenza Type A (PCR) (Negative) Influenza Type B (PCR) (Negative) RSV RNA Qual (PCR) (Negative) SARS-CoV-2 RNA (RT-PCR) (Negative) <Ender O'Yuriy - Last Filed: 06/16/22 19:13> Radiology Impression Discussion of test interpretation with radiology: I have reviewed the radiologist's reading. <Ender Hannah - Last Filed: 06/16/22 19:13> Discharge Plan Discharge Clinical Impression: Mycobacterium avium complex <CHING Wallace - Last Filed: 06/16/22 13:15> Patient Disposition: Home, Self-Care <CHING Wallace - Last Filed: 06/16/22 13:15> Instructions: Acute Diarrhea (ED) <CHING Wallace - Last Filed: 06/16/22 13:15> Additional Instructions: Your symptoms are most likely related to side effects of the 3 antibiotics that you are taking. Your workup in the emergency department was reassuring. Your lab work was without significant abnormalities. Your chest x-ray confirms right-sided lung infection. Continue taking your antibiotics You may use [id number] Imodium for any further loose stools <CHING Wallace - Last Filed: 06/16/22 13:15> Prescriptions: No Action albuterol sulfate [ProAir HFA] 90 mcg/actuation HFA aerosol inhaler 2 puff inhalation Q4-6H PRN (Reason: shortness of breath or wheezing) Qty: 1 3RF Trelegy Ellipta 100-62.5-25 mcg blister with device 1 ea PO DAILY Qty: 60 3RF simvastatin 40 mg tablet 40 mg PO BEDTIME Qty: 90 1RF Asprin 81 mg tablet PO DAILY gabapentin 300 mg capsule 300 mg PO TID azithromycin 500 mg tablet 500 mg PO DAILY 30 Days Qty: 30 5RF ethambutol 400 mg tablet 800 mg PO DAILY 30 Days Qty: 60 5RF rifampin 300 mg capsule 300 mg PO DAILY 30 Days Qty: 30 0RF <CHING Wallace - Last Filed: 06/16/22 13:15>
--- NOTE | 2022-06-16 13:12 | ECG_ITS ---
Test Reason : SOB Blood Pressure : / mmHG Vent. Rate : 102 BPM Atrial Rate : 102 BPM P-R Int : 148 ms QRS Dur : 082 ms QT Int : 366 ms P-R-T Axes : 092 182 -61 degrees QTc Int : 477 ms Sinus tachycardia Right superior axis deviation Pulmonary disease pattern Cannot rule out Inferior infarct , age undetermined Abnormal ECG No previous ECGs available Referred By: Violet Young Electronically Signed By:Miller Last
--- OUTSIDE RECORDS SUMMARY | 2022-06-16 13:44 | XMS_ITS | Continuity of Care Document ---
:1965 Author Organization [facility] Address [address] [place] [id number]- Care Team Providers Name Role Phone Sarita SIMPSON, Merlin Hidalgo Primary Care Physician En[place] [facility] [place](s): 09/05/19 - 09/12/19 [facility] [address] [place] [id number]- [facility] Attending Physician: Vaishali Hernandez NP Admitting Physician: Vaishali Hernandez NP Referring Physician: Merlin Stein MD Allergies, Adverse Reactions, Alerts Substance Reaction Severity Status NKA Active Medications Aspir 81 Oral Enteric Coated Tablet 1 tablet = 81 mg, By Mouth, Daily, 0 Refills, Maintenance, 08/05/13 8:51:22 Start Date: 08/05/13 Status: OrderedSimvastatin By Mouth, Daily at bedtime, 0 Refills, Maintenance Start Date: 02/15/13 Status: OrderedTrelegy Ellipta 1 puffs, Inhalation, Daily, 0 Refills, Maintenance, 09/04/18 11:56:14 EDT Start Date: 09/04/18 Status: Ordered Social History Social History Type Response Smoking Status Current every day smoker entered on: 05/15/14 Sex
--- OUTSIDE RECORDS SUMMARY | 2022-06-16 13:44 | XMS_ITS | Continuity of Care Document ---
:1965 Author Organization [facility] Address [address] [place] [id number]- Care Team Providers Name Role Phone Sarita SIMPSON, Merlin Hidalgo Primary Care Physician [phone] Encounter [facility] [place] Date(s): 06/05/19 - 10/03/19 [facility] [address] [place] [id number]- [facility] Attending Physician: Vaishali Hernandez NP Admitting Physician: Vaishali Hernandez NP Referring Physician: Vaishali Hernandez NP Allergies, Adverse Reactions, Alerts Substance Reaction Severity [...]
--- OUTSIDE RECORDS SUMMARY | 2022-06-16 13:44 | XMS_ITS | Continuity of Care Document ---
:1965 Author Organization [facility] Address [address] [place] [id number]- Care Team Providers Name Role Phone Sarita SIMPSON, Merlin Hidalgo Primary Care Physician Encounter [facility] [place] Date(s): 09/12/19 - 01/10/20 [facility] [address] [place] [id number]- [facility] Attending Physician: Vaishali Hernandez NP Admitting [...]
--- OUTSIDE RECORDS SUMMARY | 2022-06-16 13:45 | XMS_ITS | Continuity of Care Document ---
:1965 Author Organization [facility] Address [address] [place] [id number]- Care Team Providers Name Role Phone Sarita SIMPSON, Merlin Hidalgo Primary Care Physician Encounter [facility] [place] Date(s): 12/11/19 - 01/10/20 [facility] [address] [place] [address]- [facility] Attending Physician: Rhiannon Miller Admitting Physician: AdmtrRhiannon Referring Physician: Admtr, ArConstantine Allergies, Adverse Reactions, Alerts Substance Reaction Severity [...]
--- OUTSIDE RECORDS SUMMARY | 2022-06-16 13:45 | XMS_ITS | Continuity of Care Document ---
:1965 Author Organization [facility] Address [address] [place] [address]- Care Team Providers Name Role Phone Sarita SIMPSON, Merlin Hidalgo Primary Care Physician Encounter [facility] [place] Date(s): 11/09/20 - 11/09/[address] [address]- Discharge Disposition: A-D/C Home Attending Physician: Leah Mckeon MD Admitting Physician: Leah Mckeon MD Referring Physician: Leah Mckeon MD Allergies, Adverse Reactions, Alerts Substance Reaction [...] 11:56:14 EDT Start Date: 09/04/18 Status: Ordered Vital Signs Most recent to oldest [Reference 1 2 3 Range]: Oxygen Saturation [94-100 %] 92 % 100 % 99 % *L* (11/09/20 4:30 PM) (11/09/20 4:28 PM ) (11/09/20 6:04 PM) Pulse Rate [55-90 bpm] 87 bpm (11/09/20 1:58 PM) Blood Pressure [90-138/55-84 mm 134/75 mm Hg 133/91 mm Hg 123/79 mm Hg Hg] (11/09/20 6:04 PM) (11/09/20 4:30 PM) (11/09/20 4:28 P M) Respiratory Rate [16-30 br/min] 18 br/min 21 br/min 23 br/min (11/09/20 6:04 PM) (11/09/20 4:30 PM) (11/09/20 1:58 P M) Temperature [96.8-100.4 DegF] 98.5 DegF 99.2 DegF (11/09/20 6:04 PM) (11/09/20 1:58 PM) Liters per Minute 3 L/min 3 L/min (11/09/20 4:30 PM) (11/09/20 4:28 PM) Mode of Delivery (Oxygen) Room air Room air Room a ir (11/09/20 6:30 PM) (11/09/20 6:04 PM) (11/09/20 4:30 P M) Blood pressure sites Arm, right Arm, left (11/09/20 6:04 PM) (11/09/20 1:58 PM) Temperature Route Temporal Temporal (11/09/20 6:04 PM) (11/09/20 1:58 PM) Dry Weight 56.1 kg (11/09/20 1:58 PM) Dry Weight Obtained Via Standing scale (11/09/20 1:58 PM) Social History Social History Type Response Smoking Status Current every day smoker entered on: 05/15/14 Sex
--- OUTSIDE RECORDS SUMMARY | 2022-06-16 13:45 | XMS_ITS | Continuity of Care Document ---
:1965 Author Organization [facility] Address [address] [place] [id number]- Care Team Providers Name Role Phone Sarita SIMPSON, Merlin Hidalgo Primary Care Physician [phone] [place] [facility] [place] 09/[place]19 - 01/05/20 [facility] [address] [place] [id number]- [facility] Attending Physician: Vaishali Hernandez NP Admitting [...]
--- OUTSIDE RECORDS SUMMARY | 2022-06-16 13:45 | XMS_ITS | Continuity of Care Document ---
:1965 Author Organization [facility] Address [address] [place] [id number]- Care Team Providers Name Role Phone Sarita SIMPSON, Merlin Hidalgo Primary Care Physician [phone] [place] [facility] [place] 12[place]06[place]19 - 01/05/20 [facility] [address] [place] [address]- [facility] Attending Physician: Rhiannon Miller Admitting Physician: Rhiannon Miller Referring Physician: AdmtrRhiannon Allergies, Adverse Reactions, Alerts Substance Reaction Severity [...]
[2022-06-16 14:06] LABS: MANUAL DIFF FLAG NO
[2022-06-16 14:08] LABS: Basophils Absolute Auto 0.1 X10*3/uL (0.0-0.2); Basophils Percent Auto 1.2 % (0-2); Eosinophils Absolute Auto 0.7 X10*3/uL (0.0-0.4); Eosinophils Percent Auto 7.8 % (0-4); Hematocrit 50.7 % (42.0-52.0); Hemoglobin 17.5 g/dl (14.0-18.0); Imm Gran Abs Auto 0.03 X10*3/uL (0.00-0.03); Imm Gran Pct Auto 0.4 % (0.0-0.4); Lymphocytes Absolute Auto 0.9 X10*3/uL (1.2-4.9); Lymphocytes Percent Auto 10.3 % (20-40); Mean Corpuscular HGB Conc 34.5 g/dl (31.0-36.0); Mean Corpuscular Hemoglobin 33.1 pg (27.0-33.0); Mean Corpuscular Volume 95.8 fL (80.0-98.0); Mean Platelet Volume 10.2 fL (9.4-12.4); Monocytes Absolute Auto 0.5 X10*3/uL (0.1-1.2); Monocytes Percent Auto 5.4 % (2-11); Neutrophils Absolute Auto 6.2 x10*3/uL (2.0-8.3); Neutrophils Percent Auto 74.9 % (45-73); Platelet Count 210 X10*3/uL (160-400); Red Blood Count 5.29 X10*6/uL (4.60-5.80); Red Cell Distribution Width 12.9 % (11.0-16.0); White Blood Count 8.3 X10*3/uL (4.8-10.8)
[2022-06-16 14:19] LABS: Lactic Acid 1.5 mmol/L (0.5-2.0)
[2022-06-16 14:20] LABS: INTERNATIONAL NORM RATIO 1.1 (0.9-1.1); Prothrombin Time 12.2 SEC (10.0-13.1)
[2022-06-16 14:23] LABS: Alanine Aminotransferase 12 U/L (0-40); Alkaline Phosphatase 173 U/L (39-117); Anion Gap 16 (12-20); Aspartate Amino Transferase 16 U/L (5-37); Bilirubin Direct 0.4 mg/dL (0.0-0.5); Bilirubin Total 1.1 mg/dL (0.0-1.0); Blood Urea Nitrogen 9 mg/dL (9-16); Calcium 9.5 mg/dL (8.4-10.2); Carbon Dioxide 25 mmol/L (22-29); Chloride 105 mmol/L (96-108); Creatinine Clr Calc Pharmacy 74.2; Estimated Glomerular Filt Rate > 60; Glucose Random 104 mg/dL (60-115); Lipase 17 U/L (8-78); Magnesium 1.5 mg/dL (1.6-2.6); Potassium 4.3 mmol/L (3.3-5.1); Sodium 142 mmol/L (135-145)
[2022-06-16 14:27] LABS: Troponin-I High Sensitivity 9.7 ng/L (<3.5-35.0)
[2022-06-16 14:28] LABS: B Type Natriuretic Peptide 286 pg/mL (<100)
[2022-06-16 14:48] LABS: Influenza A PCR NEGATIVE (Negative); Influenza B PCR NEGATIVE (Negative); Resp Syncy Virus RNA Qual PCR NEGATIVE (Negative); SARS COV2 PCR INHOUSE NEGATIVE (Negative)
[2022-06-16 14:53] VITALS: BP 111/66; PULSE 95; RESP 14; TEMP 36.4; O2SAT 94
[2022-06-16] MEDS: 0.9 % Sodium Chloride 1,000 ML 999 ML IV (17:01)
[2022-06-16] MEDS: Magnesium Sulfate/H2O 2 GM/50 ML PIGGYBACK IV (17:03)
--- NOTE | 2022-06-16 20:05 | PC.NURSE ---
Pt a&o, no sob or chest pain, Reviewed discharge instruction with pt, pt verbalized understanding notified understanding. Reported to Rn Jane.
--- NOTE | 2022-06-17 07:50 | ECG_ITS ---
Test Reason : SOB Blood Pressure : / mmHG Vent. Rate : 104 BPM Atrial Rate : 104 BPM P-R Int : 136 ms QRS Dur : 080 ms QT Int : 380 ms P-R-T Axes : 087 183 -61 degrees QTc Int : 499 ms Sinus tachycardia Right superior axis deviation Pulmonary disease pattern Nonspecific T wave abnormality Abnormal ECG When compared with ECG of 16-JUN-2022 13:38, No significant change was found Referred By: Radha Dutton Electronically Signed By:Miller Last
== END 2022-06-16 20:07 | disposition home or self-care (01) ==
PROVIDERS: Physician Assistant; Emergency Provider Emergency Medicine; PCP Nurse Practitioner Family
DX: A31.0 Pulmonary mycobacterial infection (principal); R19.7 Diarrhea, unspecified; R06.02 Shortness of breath; Z20.822 Contact with and (suspected) exposure to COVID-19; Z20.828 Contact with and (suspected) exposure to other viral communicable diseases; E78.5 Hyperlipidemia, unspecified; J44.9 Chronic obstructive pulmonary disease, unspecified; Z99.81 Dependence on supplemental oxygen; F17.210 Nicotine dependence, cigarettes, uncomplicated; Z79.02 Long term (current) use of antithrombotics/antiplatelets; Z79.82 Long term (current) use of aspirin; Z79.899 Other long term (current) drug therapy
CPT/HCPCS: 0241U; 71045; 80048; 80076; 83605; 83690; 83735; 83880; 84484; 85025; 85610; 87040; 93005; 96361; 96374; 99284; J3475

== ENCOUNTER → 2022-08-24 10:49 | Outpatient (BNVA) | payer OTHER, SELFPAY | PROVIDERS: PCP Nurse Practitioner Family; Visit Provider Internal Medicine ==

== ENCOUNTER 2022-09-14 07:10 | Emergency (ER) | payer OTHER, SELFPAY ==
--- NOTE | ~2022-09-14 | XR_ITS ---
EXAMINATION: XR CHEST CLINICAL INFORMATION: Left-sided shoulder pain. History of lung cancer. COMPARISON: Previous chest x-ray [address] May 2021 TECHNIQUE: 2 views of the chest were obtained. FINDINGS: The cardiac and mediastinal contours are stable. The lungs are well-inflated suggestive of emphysema and COPD. There are increased markings in the left suprahilar perihilar regions. These appear slightly more prominent than seen on prior chest x-ray. Previously identified right pulmonary nodule not definitely not appreciated. The lungs are otherwise clear. Atherosclerotic blunting at the costophrenic angles probably representing pleural thickening. No pleural effusion or pneumothorax. Bony structures are unremarkable. XR/XR chest 2V IMPRESSION: Severe emphysema/COPD. Increased markings in the left supra and perihilar regions question slightly increased from prior exams. Previously identified right pulmonary nodule not definitely seen. Findings could be better evaluated with chest CT.
--- NOTE | ~2022-09-14 | XR_ITS ---
EXAMINATION: XR SHOULDER, LEFT CLINICAL INFORMATION: Unable to move left arm COMPARISON: None available. TECHNIQUE: Three views of the left shoulder. FINDINGS: Bone alignment is normal. No fracture or dislocation. Normal glenohumeral joint. Mild arthritis at the acromioclavicular joint. Normal soft tissues. Question 1.5 cm left upper lobe nodule seen on the Y view. Perihilar suprahilar parenchymal changes. XR/XR shoulder LT min 2V IMPRESSION: 1. Mild arthritis at the acromioclavicular joint. 2. Question 1.5 cm left upper lobe nodule.
--- NOTE | ~2022-09-14 | US_ITS ---
EXAMINATION: US ABDOMEN LIMITED CLINICAL INFORMATION: Right upper quadrant pain. COMPARISON: None available. TECHNIQUE: Real-time imaging of the gallbladder only. FINDINGS: GALLBLADDER: The exam is somewhat limited secondary to the patient's inability to move into the decubitus position. The gallbladder is physiologically distended without evidence of stones, sludge, polyps, wall thickening or pericholecystic fluid. COMMON BILE DUCT: Normal in caliber measuring 0.3 cm in diameter. FREE FLUID: None. US/US abdomen limited IMPRESSION: No gallstones are seen.
--- NOTE | 2022-09-14 07:18 | ED.GENADULT ---
HPI - General Adult General Chief complaint: Extremity Injury, Upper Stated complaint: severe pain in L shoulder Time Seen by Provider: 09/14/22 07:18 Source: patient Mode of arrival: wheelchair Limitations: no limitations History of Present Illness HPI narrative: Patient is a 57 year old assigned male at with a history of COPD, HLD, lung cancer s/p radiation on 3LPM of oxygen via nasal cannula at all times, presenting to the emergency department today with severe left shoulder pain. Patient states that he has been having severe left shoulder pain since the evening of 09/12/2022. Patient states that this happened once last year when he had to lift his left arm all the way up for radiation but it resolved. Patient states that he is having difficulty lifting his left arm to put his shirt on secondary to pain. Patient states that he has never seen an orthopedic provider for this issue. Patient states he gets all of his care through [facility]. Patient denies any dizziness, lightheadedness, abdominal pain, nausea, vomiting, fever, chills, blurry vision, double vision, loss of vision, chest pain, difficulty breathing, shortness of breath, back pain, night sweats, pain with urination, increased urinary frequency, increased urinary urgency, blood in his urine or stool, syncope or a near syncopal episode, recent trauma or falls, bowel incontinence, bladder incontinence, bowel retention, bladder retention, or any other complaints at this time. Onset (ago): day(s) (2) Location: left and upper extremity Radiation: non-radiation Severity: mild Severity scale (1-10): 3 Quality: aching and dull Pain Consistency: constant Relieving factors: none Exacerbating factors: none and movement Associated symptoms: denies other symptoms Treatments prior to arrival: none Related Data Home Medications Medication Instructions Recorded Confirmed Asprin PO DAILY 12/28/19 08/09/22 Previous Rx's Medication Instructions Recorded simvastatin 40 mg tablet 40 mg PO BEDTIME #90 tabs 04/24/22 Trelegy Ellipta 100 mcg-62.5 1 ea PO DAILY #60 ea 08/24/22 mcg-25 mcg powder for inhalation ([id number]) gabapentin 400 mg capsule 400 mg PO TID #90 caps 08/25/22 Allergies Allergy/AdvReac Type Severity Reaction Status Date / Time No Known Allergies Allergy Verified 08/24/22 11:17 [No Known Allergies*] Review of Systems Constitutional: Constitutional: Reports no additional constitutional complaints, Denies chills, Denies fever(s) and Denies night sweats Eyes: Eyes: Reports no additional eye complaints, Denies blurry vision, Denies change in vision, Denies diplopia, Denies eye discharge, Denies loss of vision and Denies eye pain ENT: Denies dizziness Cardiovascular: Cardiovascular: Reports no additional cardiovascular complaints, Denies chest pain, Denies lightheadedness, Denies Loss of Consciousness and Denies dyspnea Respiratory: Respiratory: Reports no additional respiratory complaints and Denies dyspnea Gastrointestinal: Gastrointestinal: Reports no additional gastrointestinal complaints, Denies abdominal pain, Denies melena, Denies hematochezia, Denies change in bowel habits and Denies change in stool character Genitourinary: Genitourinary: Reports no additional male genitourinary complaints, Denies hematuria, Denies oliguria, Denies difficulty urinating, Denies dysuria, Denies urinary frequency, Denies urinary hesitancy, Denies urinary incontinence and Denies urinary urgency Musculoskeletal: Musculoskeletal: Reports no additional musculoskeletal complaints, Denies numbness and Denies tingling Comments: left shoulder pain Neurologic: Denies dizziness, Denies loss of vision, Denies numbness and Denies tingling Psychiatric: Psychiatric: Reports no additional psychiatric complaints Endocrine: Endocrine: Reports no additional endocrine complaints Hematologic/Lymphatic: Hematologic/Lymphatic: Reports no additional hematologic/lymphatic complaints Allergic/Immunologic: Allergic/Immunologic: Reports no additional allergic/immunologic complaints [facility] Past Medical History Attestation statement: The following information was validated with the patient. Source: old records reviewed and nursing notes reviewed Medical History COPD (chronic obstructive pulmonary disease) Exercise hypoxemia Hyperlipidemia Multiple pulmonary nodules Nicotine dependence, unspecified, uncomplicated Surgical History History of bronchoscopy (~12/2019) History of bronchoscopy (~04/2021) History of eye surgery (~11/2020) Family History Family History Father Lung cancer Brother COPD (chronic obstructive pulmonary disease) Substance use disorder Son Substance use disorder Social History Social History Housing: House Patient Tobacco Use Status: Current someday Tobacco user Cigarette Packs Per Day: 0.5 Cigarettes Per Day: 5 e-Cigarette/Vaping Use: Never Used Second Hand Smoke Exposure: Yes Advance Directives: No service: No Current occupational status: disabled Current occupational exposures/hazards: No Cognitive needs: No Hearing needs: No Vision needs: No Physical Exam ED Vital Signs: Vital Signs - 24 hr 09/14/22 07:25 09/14/22 08:34 Temperature 98 F Pulse Rate 101 H 96 Respiratory Rate 18 16 Blood Pressure 104/74 111/68 Pulse Oximetry 95 97 Oxygen Delivery Method Nasal Cannula Nasal Cannula Oxygen Flow Rate 3 BMI result Body Mass Index 15.6 Const General: cooperative, no acute distress, alert and awake Nutritional Appearance: well nourished Orientation/consciousness: patient oriented x3 Limitations: no limitations HENMT Head: Yes normal to inspection and Yes atraumatic Ears: hearing grossly normal bilaterally and external ears normal General nose exam: Normal external nose present, no nasal discharge noted and no epistaxis Face and sinus: Yes normal facial exam, No abrasion and No laceration Mouth: Normal oral and palatal mucosa present, no drooling and no muffled voice Eyes General: appearance normal, both eyes and all related structures Periorbital: periorbital findings normal Eyelids: Yes eyelids normal Conjunctivae: conjunctivae normal Pupils: Equal, round and reactive pupils present EOM: EOMs intact bilaterally Neck Neck: Yes normal visual inspection, Yes full ROM and Yes no lymphadenopathy Chest Chest palpation & inspection: normal inspection of the chest Resp Other: patient on 3LPM of oxygen via nasal cannula per his baseline Effort & Inspection: normal respiratory effort and able to speak in complete sentences GI Inspection: Yes normal to inspection Neuro General: patient oriented x3 and moves all extremities Cranial nerves: Yes Equal, round and reactive pupils present Cognition (Neuro): normal cognition Motor exam (neuro): 5/5 motor strength present throughout Sensory Exam: Normal double simultaneous stimulation for sensation Coordination: [id number] test normal Extrem Other: limited ROM of the left shoulder secondary to pain General: Yes normal to inspection and Yes capillary refill normal Psych Appearance: grossly normal Mental Status: mental status grossly normal Affect: normal affect Attitude: cooperative Thought process: Normal thought process present Thought content: Normal thought content present Insight: Good insight present (Psych) Medications Administered Discontinued Medications Generic Name Dose Route Start Last Admin Trade Name Courtney PRN Reason Stop Dose Admin Sodium Chloride 1,000 mls @ 999 mls/hr 09/14/22 08:30 09/14/22 09:50 Ns IV 09/14/22 09:30 Infused .Q1H1M JOSHUA Infusion Morphine Sulfate 2 mg 09/14/22 08:12 09/14/22 08:18 Morphine Sulfate 2 Mg/Ml Cartridge IVPUSH 09/14/22 08:13 2 mg ONCE ONE Administration Protocol Ondansetron HCl 4 mg 09/14/22 07:26 09/14/22 08:18 Ondansetron Hcl 4 Mg/2 Ml Vial IVPUSH 09/14/22 07:27 4 mg ONCE ONE Administration Medical Decision Making Medical Decision Making [facility] Narrative: Patient is a 57 year old assigned male at with a history of COPD, HLD, lung cancer s/p radiation on 3LPM of oxygen via nasal cannula at all times presenting to the emergency department today with left shoulder pain. Patient's physical exam was as noted in the physical exam portion of this chart. Patient's blood work showed a mildly elevated WBC count of 13.9, hyponatremia of 134, an elevated bilirubin of 2.8, an initial trop of 11.3 with a repeat of 12.6, and an initial lactic acid of 2.6. Patient's EKG was unremarkable. Patient's chest x-ray showed severe emphysema/COPD but otherwise unremarkable. Patent's left shoulder x-ray showed evidence of arthritis. Given the patient's elevated bilirubin, I obtained a gallbladder ultrasound that showed no acute process. I explained my physical exam findings as well as all test results to the patient. I answered all questions asked by the patient. Patient received IV fluids and morphine which he stated helped his symptoms significantly. Patient's clinical presentation is most consistent with a chronically ill individual with acute musculoskeletal left shoulder pain. Patient's clinical presentation is not consistent with sepsis (@1100). I stressed the importance of the patient taking his medication as prescribed. I stressed the importance of the patient following up with his primary care provider, his oncologist, and an orthopedic provider. I stressed the importance of the patient returning to the emergency department immediately if his symptoms were to worsen or if he were to develop any dizziness, shortness of breath, difficulty breathing, chest pain, blurry vision, loss of vision, nausea, vomiting, abdominal pain, fever, chills, back pain, or any other complaints. Patient verbalized agreement and understanding with this treatment plan and discharge. Differential Diagnosis Differential Diagnoses: The differential diagnosis associated with the presentation includes shoulder pain, COPD Admission/Observation Consideration of admission/observation: Escalation of care including admission/observation considered Patient would have been admitted to the hospital had his work up had any findings where hospital admission was appropriate. Lab Data [facility] Lab Attestation statement: I reviewed the patient's lab results. My interpretation of these results was documented in the [facility] portion of this chart. 09/14/22 07:26 09/14/22 07:27 Labs: Lab Results 09/14/22 09/14/22 09/14/22 Range/Units 07:26 07:27 07:27 WBC 13.9 H (4.8-10.8) X10*3/uL RBC 5.15 (4.60-5.80) X10*6/uL Hgb 16.6 (14.0-18.0) g/dl Hct 48.3 (42.0-52.0) % MCV 93.8 (80.0-98.0) fL MCH 32.2 (27.0-33.0) pg MCHC 34.4 (31.0-36.0) g/dl RDW 14.3 (11.0-16.0) % Plt Count 199 (160-400) X10*3/uL MPV 10.4 (9.4-12.4) fL Immature Gran % (Auto) 0.4 (0.0-0.4) % Neut % (Auto) 79.4 H (45-73) % Lymph % (Auto) 9.8 L (20-40) % [place] % (Auto) 9.3 (2-11) % Eos % (Auto) 0.8 (0-4) % Baso % (Auto) 0.3 (0-2) % Lymph # (Auto) 1.4 (1.2-4.9) X10*3/uL [place] # (Auto) 1.3 H (0.1-1.2) X10*3/uL Eos # (Auto) 0.1 (0.0-0.4) X10*3/uL Baso # (Auto) 0.0 (0.0-0.2) X10*3/uL Abs Immat Gran (auto) 0.05 H (0.00-0.03) X10*3/uL Absolute Neuts (auto) 11.1 H (2.0-8.3) x10*3/uL Absolute Nucleated RBC 0.000 (0.0-0.012) X10*3/uL Nucleated RBC % (auto) 0.0 (0.0-0.2) /100WBC VBG pH (7.32-7.43) VBG pCO2 mmHg VBG pO2 mmHg VBG HCO3 (22-26) mmol/L VBG O2 Saturation % VBG Base Excess mmol/L Sodium 134 L (135-145) mmol/L Potassium 4.2 (3.3-5.1) mmol/L Chloride 102 (96-108) mmol/L Carbon Dioxide 23 (22-29) mmol/L Anion Gap 13 (12-20) BUN 13 (9-16) mg/dL Creatinine 0.76 (0.5-1.4) mg/dL Estim Creat Clear Calc 73.7 Estimated GFR > 60 Random Glucose 120 H (60-115) mg/dL Lactic Acid (0.5-2.0) mmol/L Calcium 9.5 (8.4-10.2) mg/dL Magnesium 1.7 (1.6-2.6) mg/dL Total Bilirubin 2.8 H (0.0-1.0) mg/dL AST 17 (5-37) U/L ALT 13 (0-40) U/L Alkaline Phosphatase 214 H (39-117) U/L Troponin I High Sens 11.3 (<3.5-35.0) ng/L Total Protein 7.4 (6.5-8.0) g/dL Albumin 3.8 (3.5-5.0) g/dL 09/14/22 09/14/22 09/14/22 Range/Units 07:57 08:42 10:14 WBC (4.8-10.8) X10*3/uL RBC (4.60-5.80) X10*6/uL Hgb (14.0-18.0) g/dl Hct (42.0-52.0) % MCV (80.0-98.0) fL MCH (27.0-33.0) pg MCHC (31.0-36.0) g/dl RDW (11.0-16.0) % Plt Count (160-400) X10*3/uL MPV (9.4-12.4) fL Immature Gran % (Auto) (0.0-0.4) % Neut % (Auto) (45-73) % Lymph % (Auto) (20-40) % [place] % (Auto) (2-11) % Eos % (Auto) (0-4) % Baso % (Auto) (0-2) % Lymph # (Auto) (1.2-4.9) X10*3/uL [place] # (Auto) (0.1-1.2) X10*3/uL Eos # (Auto) (0.0-0.4) X10*3/uL Baso # (Auto) (0.0-0.2) X10*3/uL Abs Immat Gran (auto) (0.00-0.03) X10*3/uL Absolute Neuts (auto) (2.0-8.3) x10*3/uL Absolute Nucleated RBC (0.0-0.012) X10*3/uL Nucleated RBC % (auto) (0.0-0.2) /100WBC VBG pH 7.53 H (7.32-7.43) VBG pCO2 32 mmHg VBG pO2 67 mmHg VBG HCO3 27 H (22-26) mmol/L VBG O2 Saturation 95.0 % VBG Base Excess 5.2 mmol/L Sodium (135-145) mmol/L Potassium (3.3-5.1) mmol/L Chloride (96-108) mmol/L Carbon Dioxide (22-29) mmol/L Anion Gap (12-20) BUN (9-16) mg/dL Creatinine (0.5-1.4) mg/dL Estim Creat Clear Calc Estimated GFR Random Glucose (60-115) mg/dL Lactic Acid 2.6 H* (0.5-2.0) mmol/L Calcium (8.4-10.2) mg/dL Magnesium (1.6-2.6) mg/dL Total Bilirubin (0.0-1.0) mg/dL AST (5-37) U/L ALT (0-40) U/L Alkaline Phosphatase (39-117) U/L Troponin I High Sens 12.6 (<3.5-35.0) ng/L Total Protein (6.5-8.0) g/dL Albumin (3.5-5.0) g/dL Independent Interpretation I performed an independent interpretation of an: EKG, Plain X-Ray and Ultrasound Interpretation: Vent. Rate: 101 BPM ? ? Atrial Rate: 101 BPM P-R Int: 138 ms? QRS Dur: 084 ms QT Int: 358 ms ? ? ? P-R-T Axes: 090 145 011 degrees QTc Int: 464 ms ? Suspect limb lead reversal, interpretation assumes no reversal Sinus tachycardia with occasional Premature ventricular complexes Right axis deviation Pulmonary disease pattern Possible Inferior infarct , age undetermined T wave abnormality, consider anterior ischemia or RV strain Abnormal ECG When compared with ECG of 16-JUN-2022 13:38, Premature ventricular complexes are now Present Inverted T waves have replaced nonspecific T wave abnormality in Anterior leads Nonspecific T wave abnormality, improved in Lateral leads ? Electronically Signed By:VITOR ESCOBEDO MD Dictated By: Vitor Escobedo MD Signed By: Electronically signed by Vitor Escobedo MD 09/14/22 1149 My interpretation is in agreement with the radiologist's impression of this imaging study. EXAMINATION: XR CHEST CLINICAL INFORMATION: Left-sided shoulder pain. History of lung cancer. COMPARISON: Previous chest x-ray [address] May 2021 TECHNIQUE: 2 views of the chest were obtained. FINDINGS: The cardiac and mediastinal contours are stable. The lungs are well-inflated suggestive of emphysema and COPD. There are increased markings in the left suprahilar perihilar regions. These appear slightly more prominent than seen on prior chest x-ray. Previously identified right pulmonary nodule not definitely not appreciated. The lungs are otherwise clear. Atherosclerotic blunting at the costophrenic angles probably representing pleural thickening. No pleural effusion or pneumothorax. Bony structures are unremarkable. XR/XR chest 2V IMPRESSION: Severe emphysema/COPD. Increased markings in the left supra and perihilar regions question slightly increased from prior exams. Previously identified right pulmonary nodule not definitely seen. Findings could be better evaluated with chest CT. Dictated By: Soni Bates MD Signed By: Electronically signed by Soni Bates MD 09/14/22 0835 EXAMINATION: XR SHOULDER, LEFT CLINICAL INFORMATION: Unable to move left arm? COMPARISON: None available.? TECHNIQUE: Three views of the left shoulder. FINDINGS: Bone alignment is normal. No fracture or dislocation. Normal glenohumeral joint. Mild arthritis at the acromioclavicular joint. Normal soft tissues. Question 1.5 cm left upper lobe nodule seen on the Y view. Perihilar suprahilar parenchymal changes. XR/XR shoulder LT min 2V IMPRESSION: 1.? Mild arthritis at the acromioclavicular joint. 2.? Question 1.5 cm left upper lobe nodule. Dictated By: Soni Bates MD Signed By: Electronically signed by Soni Bates MD 09/14/22 0837 EXAMINATION: US ABDOMEN LIMITED CLINICAL INFORMATION: Right upper quadrant pain. COMPARISON: None available. TECHNIQUE: Real-time imaging of the gallbladder only. FINDINGS: GALLBLADDER: The exam is somewhat limited secondary to the patient's inability to move into the decubitus position. The gallbladder is physiologically distended without evidence of stones, sludge, polyps, wall thickening or pericholecystic fluid. COMMON BILE DUCT: Normal in caliber measuring 0.3 cm in diameter. FREE FLUID: None. US/US abdomen limited IMPRESSION: No gallstones are seen. Dictated By: Bc Wiggins MD Signed By: Electronically signed by Bc Wiggins MD 09/14/22 0857 Critical Care Time Critical Care Time Critical Care Time: Yes Total Critical Care Time: 30 Attestation: I spent 30 minutes of Critical Care Time with this patient. This does not include time spent on separately reported billable procedures. Discharge Plan Discharge Clinical Impression: Acute shoulder pain Patient Disposition: Home, Self-Care Instructions: Shoulder Pain (ED) Additional Instructions: Follow up with your primary care provider, your oncologist, and an orthopedic provider. Return to the emergency department immediately if your symptoms worsen or if you develop any dizziness, shortness of breath, difficulty breathing, chest pain, blurry vision, loss of vision, nausea, vomiting, abdominal pain, fever, chills, back pain, or any other complaints. Prescriptions: No Action simvastatin 40 mg tablet 40 mg PO BEDTIME Qty: 90 1RF Trelegy Ellipta 100-62.5-25 mcg blister with device 1 ea PO DAILY Qty: 60 0RF gabapentin 400 mg capsule 400 mg PO TID Qty: 90 2RF Asprin 81 mg tablet PO DAILY Referrals: [facility] [Provider Group] (Call to establish and follow up with an orthopedic provider. ) John Jurado, PULLING MACHINE OPERATOR-BC [Primary Care Provider] - Interventions: ED Discharge Assessment Last Done: 09/14/22 11:24 Discharge Date/Time: 09/14/22 11:26 Print Language: Tanzanian
[2022-09-14 07:25] VITALS: BP 104/74; PULSE 101; RESP 18; TEMP 36.6; O2SAT 95; BMI 15.6
--- NOTE | 2022-09-14 07:27 | ECG_ITS ---
Test Reason : LT SHLDR PAIN Blood Pressure : / mmHG Vent. Rate : 101 BPM Atrial Rate : 101 BPM P-R Int : 138 ms QRS Dur : 084 ms QT Int : 358 ms P-R-T Axes : 090 145 011 degrees QTc Int : 464 ms Suspect limb lead reversal, interpretation assumes no reversal Sinus tachycardia with occasional Premature ventricular complexes Right axis deviation Pulmonary disease pattern Possible Inferior infarct , age undetermined T wave abnormality, consider anterior ischemia or RV strain Abnormal ECG When compared with ECG of 16-JUN-2022 13:38, Premature ventricular complexes are now Present Inverted T waves have replaced nonspecific T wave abnormality in Anterior leads Nonspecific T wave abnormality, improved in Lateral leads Referred By: Mariella Ambrose Electronically Signed By:SUSANA ESCOBEDO MD
[2022-09-14 07:59] LABS: MANUAL DIFF FLAG NO
[2022-09-14 08:01] LABS: Venous Blood Gas Refer to POC result
[2022-09-14 08:02] LABS: Basophils Percent Auto 0.3 % (0-2); Eosinophils Absolute Auto 0.1 X10*3/uL (0.0-0.4); Eosinophils Percent Auto 0.8 % (0-4); Hematocrit 48.3 % (42.0-52.0); Hemoglobin 16.6 g/dl (14.0-18.0); Imm Gran Abs Auto 0.05 X10*3/uL (0.00-0.03); Imm Gran Pct Auto 0.4 % (0.0-0.4); Lymphocytes Absolute Auto 1.4 X10*3/uL (1.2-4.9); Lymphocytes Percent Auto 9.8 % (20-40); Mean Corpuscular HGB Conc 34.4 g/dl (31.0-36.0); Mean Corpuscular Hemoglobin 32.2 pg (27.0-33.0); Mean Corpuscular Volume 93.8 fL (80.0-98.0); Mean Platelet Volume 10.4 fL (9.4-12.4); Monocytes Absolute Auto 1.3 X10*3/uL (0.1-1.2); Monocytes Percent Auto 9.3 % (2-11); Neutrophils Absolute Auto 11.1 x10*3/uL (2.0-8.3); Neutrophils Percent Auto 79.4 % (45-73); Platelet Count 199 X10*3/uL (160-400); Red Blood Count 5.15 X10*6/uL (4.60-5.80); Red Cell Distribution Width 14.3 % (11.0-16.0); White Blood Count 13.9 X10*3/uL (4.8-10.8)
[2022-09-14 08:04] LABS: VBG Base Excess 5.2 mmol/L; VBG HCO3 27 mmol/L (22-26); VBG pCO2 32 mmHg; VBG pH 7.53 (7.32-7.43); VBG pO2 67 mmHg
[2022-09-14 08:17] LABS: Alanine Aminotransferase 13 U/L (0-40); Albumin Level 3.8 g/dL (3.5-5.0); Alkaline Phosphatase 214 U/L (39-117); Anion Gap 13 (12-20); Aspartate Amino Transferase 17 U/L (5-37); Bilirubin Total 2.8 mg/dL (0.0-1.0); Blood Urea Nitrogen 13 mg/dL (9-16); Calcium 9.5 mg/dL (8.4-10.2); Carbon Dioxide 23 mmol/L (22-29); Chloride 102 mmol/L (96-108); Creatinine Clr Calc Pharmacy 73.7; Estimated Glomerular Filt Rate > 60; Glucose Random 120 mg/dL (60-115); Magnesium 1.7 mg/dL (1.6-2.6); Potassium 4.2 mmol/L (3.3-5.1); Sodium 134 mmol/L (135-145); Total Protein 7.4 g/dL (6.5-8.0)
[2022-09-14] MEDS: ondansetron HCL 4 MG/2 ML VIAL IVPUSH (08:18)
[2022-09-14] MEDS: Morphine Sulfate 2 MG/ML CARTRIDGE IVPUSH (08:18)
[2022-09-14 08:24] LABS: Troponin-I High Sensitivity 11.3 ng/L (<3.5-35.0)
[2022-09-14] MEDS: 0.9 % Sodium Chloride 1,000 ML 999 ML IV (08:27)
[2022-09-14 08:34] VITALS: BP 111/68; PULSE 96; RESP 16; O2SAT 97
[2022-09-14 09:07] LABS: Lactic Acid 2.6 mmol/L (0.5-2.0)
[2022-09-14 10:39] LABS: Troponin-I High Sensitivity 12.6 ng/L (<3.5-35.0)
[2022-09-14 10:47] LABS: Reflex Lactate? Lactic Acid Added
== END 2022-09-14 11:26 | disposition home or self-care (01) ==
PROVIDERS: Physician Assistant Medical; Emergency Provider Internal Medicine; PCP Nurse Practitioner Family
DX: M25.512 Pain in left shoulder (principal); J44.9 Chronic obstructive pulmonary disease, unspecified; E78.5 Hyperlipidemia, unspecified; R10.11 Right upper quadrant pain; Z85.118 Personal history of other malignant neoplasm of bronchus and lung; Z92.3 Personal history of irradiation; Z99.3 Dependence on wheelchair; Z99.81 Dependence on supplemental oxygen
CPT/HCPCS: 36415; 71046; 73030; 76705; 80053; 82803; 83605; 83735; 84484; 85025; 87040; 93005; 96361; 96374; 96375; 99284; J2270; J2405

== ENCOUNTER → 2022-09-29 12:56 | Outpatient (BNVA) | payer OTHER, SELFPAY | PROVIDERS: PCP Nurse Practitioner Family; Visit Provider Orthopaedic Surgery ==

== ENCOUNTER 2022-10-11 13:34 | Inpatient (IN) | payer OTHER, SELFPAY ==
--- NOTE | ~2022-10-11 | CT_ITS ---
Examination: CT chest, abdomen pelvis with IV contrast. TECHNIQUE: Left perihilar mass. COMPARISON: Chest x-ray 10/11/2022. CT chest TECHNIQUE: 3 mm thin axial and reformatted 3 minutes thin sagittal coronal images of chest, abdomen pelvis were obtained following IV however mL Omnipaque 350. DLP 407. This CT examination was performed using dose optimization technique as appropriate, variously including the following: Automated exposure control Adjustment of MA and/or KV according to patient size(this includes techniques or standardized protocols for targeted exams where dose is matched to indication/reason for exam; extremities or head. Use of iterative reconstruction techniques. FINDINGS: Chest: LUNGS: There is diffuse emphysematous changes with significant bullous changes in both upper lobes. A dense opacity left upper lobe with air bronchogram suggestive of a primary lung mass, new since the last study . Differential diagnoses includes pneumonic infiltrate. It measures approximately 5.7 x 3.3 cm on axial image 38/6. Previously seen right upper lobe pulmonary nodule posteriorly has resolved with chronic scarring or atelectasis seen in its place. Focal subpleural left lower lobe pleural-based parenchymal density with air bronchograms likely chronic atelectasis or scarring is noted. This is new since 2021.Focal atelectatic changes seen right middle and lower lobe. There is a calcified nodule right upper lobe axial image 48/6 and right lower lobe axial image 50/6 Mediastinum: Thyroid lobes are symmetrical and normal. There is good opacification of thoracic arch and the pulmonary arteries without aneurysmal dilatation. There are numerous abnormal size mediastinal lymph nodes which are slightly larger than the previous exam. They are abnormal. The largest left paratracheal lymph node measures 1.4 cm axial image 36/5. No hilar lymph nodes seen. There is mild coronary artery calcifications present. No pericardial effusion. Pleura: There is pleural thickening or calcified pleural plaques. No effusion seen. Axilla: No abnormal size axillary lymph nodes seen. Abdomen and pelvis: Liver, ducts and gallbladder: The liver is normal size, density and contour. No focal lesion or intrahepatic ductal dilatation seen. The gallbladder is well delineated appears unremarkable. Spleen: Unremarkable. Pancreas: Unremarkable. Adrenal glands: Unremarkable. Kidneys: There is normal bilateral symmetrical nephrograms without any enhancing renal mass, cyst, radiopaque calculi or hydronephrosis. GI tract: There is scattered stool, diverticuli and gas seen throughout the colon without any distention or diverticulitis.. The small bowel loops are normal caliber. Appendix is not visualized. No free air or inflammatory process. Lymphovascular structures: The abdominal aorta is atherosclerotic and calcified. No abnormal size retroperitoneal lymph nodes or mass seen. Abdominal wall: There is likely lower anterior abdominal wall mesh from hernia repair. No evidence of recurrent hernia. Pelvis: The bladder is unremarkable and not distended. No free fluid seen. The prostate gland is mildly enlarged. Osseous structures: No aggressive lytic or sclerotic process seen. CT/CT abdomen pelvis w IV con IMPRESSION: 1. Large left upper lobe mass with air bronchograms, new since the last study 2221. Differential diagnoses includes pneumonic infiltrate. Recommend follow-up chest x-ray following course of antibiotic treatment. Diffuse severe emphysema with bullous changes in both upper lobes 2. Previously seen right upper lobe pulmonary nodule has resolved. There is chronic scarring or atelectasis in the right upper lobe and left lower lobe. 3. There are abnormal mediastinal lymph nodes which have slightly increased in size. 4. No acute process seen in the abdomen or pelvis. 5. Mild constipation with colonic diverticulosis without diverticulitis. 6. Lower anterior abdominal wall mesh from hernia repair. No recurrent hernia seen.
--- NOTE | ~2022-10-11 | US_ITS ---
EXAMINATION: US ABDOMEN LIMITED CLINICAL INFORMATION: Elevated LFTs. COMPARISON: CT scan of the abdomen and pelvis dated 10/11/2022 and abdominal ultrasound dated 09/14/2022. TECHNIQUE: Real-time imaging of the right upper quadrant abdominal viscera. FINDINGS: PANCREAS: Visualized portions unremarkable. LIVER: Unremarkable. GALLBLADDER: Unremarkable. COMMON BILE DUCT: Normal in caliber measuring 0.5 cm in diameter. RIGHT KIDNEY: 10.1 cm. Unremarkable. FREE FLUID: None. US/US abdomen limited IMPRESSION: Unremarkable right upper quadrant ultrasound.
--- NOTE | ~2022-10-11 | XR_ITS ---
EXAMINATION: XR CHEST CLINICAL INFORMATION: SOB (shortness of breath) COMPARISON: Chest 09/14/2022, chest 06/16/2022 TECHNIQUE: Frontal and lateral views of the chest was obtained. FINDINGS: The lungs are hyperinflated. Right mid lung streaky opacity are unchanged since 06/16/2022 and likely represents scar. Streaky opacity in the left midlung is minimally more extensive compared to chest 09/14/2022 or possibly simply better aerated. No significant opacity is seen in the right lung base. There is blunting of the costophrenic angles which may be due to hyperinflation and/or small pleural effusions. Oligemia of the upper lungs is consistent with known severe emphysema. The hemidiaphragms are flat. There is increase of the anterior clear space. No significant abnormality is noted involving the heart, mediastinum, bony thorax or soft tissues. XR/XR chest 1V IMPRESSION: 1. Streaky opacity in the left midlung is minimally more extensive compared to chest radiograph 09/14/2022 or possibly better aerated. 2. No significant opacity in the right lung base.
[2022-10-11 13:36] VITALS: BP 96/68; PULSE 108; RESP 20; TEMP 37; O2SAT 89; BMI 14.3
--- NOTE | 2022-10-11 13:36 | ED.GENADULT ---
HPI - General Adult General Chief complaint: Upper Respiratory Symptoms Stated complaint: Fever Infection Time Seen by Provider: 10/11/22 14:05 Source: patient Mode of arrival: ambulatory Limitations: no limitations History of Present Illness HPI narrative: 57-year-old male past medical history of COPD lung cancer presents to the emergency department with multiple complaints. Patient and his spouse states that they been taking his temperature with rebound on his abdomen. He has episodes where his belly is warm and the temperature has been up to 103. He has never had fever orally. They are concerned that he has some kind of infection. Patient initially told triage that he had nausea and vomiting he states he has not had any nausea vomiting but has had no appetite. Patient is obviously cachectic and has not been eating for several months he states this has been getting worse since October 03. Onset (ago): minute(s) Related Data Home Medications Medication Instructions Recorded Confirmed aspirin 81 mg tablet,delayed 81 mg PO BEDTIME 10/11/22 10/11/22 release fluticasone fur. 100 mcg-umeclid 1 ea PO BEDTIME 10/11/22 10/11/22 62.5 mcg-vilant 25 mcg inhalat.powder (Trelegy Ellipta) Previous Rx's Medication Instructions Recorded simvastatin 40 mg tablet 40 mg PO BEDTIME #90 tabs 04/24/22 gabapentin 400 mg capsule 400 mg PO TID #90 caps 08/25/22 Allergies Allergy/AdvReac Type Severity Reaction Status Date / Time No Known Allergies Allergy Verified 08/24/22 11:17 [No Known Allergies*] Review of Systems Review of Systems: Review of systems: General: Patient denies any fever chills recent illness or falls Musculoskeletal: Denies back pain or body aches or other injuries HEENT: denies headache, runny nose, ear pain Respiratory: shortness of breath, cough Cardiovascular: no chest pain or palpitations : denies dysuria, frequency Abdomen: no nausea vomiting denies abdominal pain Extremities: no swelling, no pain Skin: no diaphoresis Yes all other systems are reviewed and are negative [facility] Past Medical History Medical History COPD (chronic obstructive pulmonary disease) Exercise hypoxemia Hyperlipidemia Multiple pulmonary nodules Nicotine dependence, unspecified, uncomplicated Surgical History History of bronchoscopy (~12/2019) History of bronchoscopy (~04/2021) History of eye surgery (~11/2020) Family History Family History Father Lung cancer Brother COPD (chronic obstructive pulmonary disease) Substance use disorder Son Substance use disorder Social History Social History Housing: House Alcohol intake: never Patient Tobacco Use Status: Current someday Tobacco user Cigarette Packs Per Day: 0.5 Cigarettes Per Day: 5 Smoked in Last 30 Days: Yes e-Cigarette/Vaping Use: Never Used Second Hand Smoke Exposure: Yes Use of substances other than those prescribed or required for medical reasons: No Advance Directives: No Advance Directives Information Provided: Yes service: No Current occupational status: disabled Current occupational exposures/hazards: No Cognitive needs: No Hearing needs: No Vision needs: No Physical Exam ED Vital Signs: Vital Signs - 24 hr 10/11/22 13:36 10/11/22 16:07 10/11/22 16:20 Temperature 98.6 F Pulse Rate 108 H 96 Respiratory Rate 20 24 H Blood Pressure 96/68 100/64 Pulse Oximetry 89 L 96 93 Oxygen Delivery Method Nasal Cannula Nasal Cannula Nasal Cannula Oxygen Flow Rate 3 10/11/22 16:23 Temperature 97.6 F Pulse Rate 96 Respiratory Rate 20 Blood Pressure 94/64 Pulse Oximetry 94 Oxygen Delivery Method Nasal Cannula Oxygen Flow Rate 3 BMI result Body Mass Index 14.3 Neurological exam: CN II- XII tested. Patient is alert and oriented to person place and time. Patient has no dysphagia or dysarthia, denies good vision in all four vision lobo no nystagmus on exam, good strength to upper and lower extremities with normal reflexes to brachioradialis, wrist, patella and achilles. Negative romberg, good finger to nose and heel to dickey. General: Cachectic Well-appearing well-nourished in no signs of distress HEENT: Normocephalic atraumatic Neck: No signs of JVD, no masses no tenderness or lymphadenopathy Cardiovascular: Regular rate and rhythm Respiratory: Clear to auscultation bilaterally Abdomen: Soft nontender no masses Extremities: Normal pedal pulses no signs of edema Skin: Dry warm no rashes Back: No tenderness full ROM Course Course Course Narrative: This is an RME: Additional HPI, ROS, PE not included below will be deferred to primary provider. Patient is a 57 year old male with a PMH of COPD and hyperlipidemia presenting with abdominal pain, difficulty breathing, fatigue, malaise for 7 days. patient denies nausea, vomiting, numbnes, tingling. Plan: labs, imaging Medications Administered Discontinued Medications Generic Name Dose Route Start Last Admin Trade Name Freq PRN Reason Stop Dose Admin Sodium Chloride 1,000 mls @ 999 mls/hr 10/11/22 16:30 10/11/22 16:48 Ns IV 10/11/22 17:30 999 mls/hr .Q1H1M JOSHUA Administration Iohexol 100 ml 10/11/22 15:57 10/11/22 15:58 Iohexol 350 Mg/Ml 100 Ml Infus..Btl IV 10/11/22 15:58 85 ml ONCE ONE Administration Medical Decision Making Medical Decision Making [facility] Narrative: Patient with complaints of concern he has some sort of infection x-ray was performed which shows the same lesion in the left perihilar region they recommend getting CT scan on the previous x-ray so order a CT of the chest CT abdomen pelvis was ordered by triage apparently did have some belly pain at that time does not have belly pain for me I will continue with labs CT chest abdomen. Differential Diagnosis Differential Diagnoses: The differential diagnosis associated with the presentation includes Continue mycobacterium pneumonia lung cancer weakness depression patient is adamant he is not depressed. Admission/Observation Consideration of admission/observation: Escalation of care including admission/observation considered Consult Healthcare Provider Management of the patient was discussed with: Hospitalist Lab Data [facility] Lab Attestation statement: I reviewed the patient's lab results. 10/11/22 14:30 10/11/22 14:30 Labs: Lab Results 10/11/22 10/11/22 10/11/22 Range/Units 14:30 14:30 14:30 WBC 7.9 (4.8-10.8) X10*3/uL RBC 5.05 (4.60-5.80) X10*6/uL Hgb 15.9 (14.0-18.0) g/dl Hct 46.7 (42.0-52.0) % MCV 92.5 (80.0-98.0) fL MCH 31.5 (27.0-33.0) pg MCHC 34.0 (31.0-36.0) g/dl RDW 13.0 (11.0-16.0) % Plt Count 259 D (160-400) X10*3/uL MPV 9.9 (9.4-12.4) fL Immature Gran % (Auto) 0.3 (0.0-0.4) % Neut % (Auto) 77.5 H (45-73) % Lymph % (Auto) 8.1 L (20-40) % [place] % (Auto) 11.2 H (2-11) % Eos % (Auto) 2.1 (0-4) % Baso % (Auto) 0.8 (0-2) % Lymph # (Auto) 0.6 L (1.2-4.9) X10*3/uL [place] # (Auto) 0.9 (0.1-1.2) X10*3/uL Eos # (Auto) 0.2 (0.0-0.4) X10*3/uL Baso # (Auto) 0.1 (0.0-0.2) X10*3/uL Abs Immat Gran (auto) 0.02 (0.00-0.03) X10*3/uL Absolute Neuts (auto) 6.1 (2.0-8.3) x10*3/uL Absolute Nucleated RBC 0.000 (0.0-0.012) X10*3/uL Nucleated RBC % (auto) 0.0 (0.0-0.2) /100WBC Sodium 133 L (135-145) mmol/L Potassium 4.2 (3.3-5.1) mmol/L Chloride 98 (96-108) mmol/L Carbon Dioxide 26 (22-29) mmol/L Anion Gap 13 (12-20) BUN 11 (9-16) mg/dL Creatinine 0.74 (0.5-1.4) mg/dL Estim Creat Clear Calc 69.8 Estimated GFR > 60 Random Glucose 104 (60-115) mg/dL Lactic Acid 1.3 (0.5-2.0) mmol/L Calcium 10.1 D (8.4-10.2) mg/dL Magnesium 1.7 (1.6-2.6) mg/dL Total Bilirubin 1.8 H (0.0-1.0) mg/dL AST 26 (5-37) U/L ALT 21 (0-40) U/L Alkaline Phosphatase 436 H (39-117) U/L Troponin I High Sens (<3.5-35.0) ng/L B-Natriuretic Peptide (<100) pg/mL Total Protein 7.1 (6.5-8.0) g/dL Albumin 3.5 (3.5-5.0) g/dL Lipase 10 (8-78) U/L Urine Color Urine Appearance Urine pH (5.0-9.0) Ur Specific [place] (1.005-1.025) Urine Protein (Neg-Trace) mg/dL Urine Glucose (UA) (Negative) mg/dL Urine Ketones (Negative) mg/dL Urine Blood (Negative) Urine Nitrite (Negative) Ur Leukocyte Esterase (Negative) Urine RBC (0-2) /HPF Urine WBC (0-5) /HPF Ur Squamous Epith Cells (0-2) /HPF Urine Bacteria (None Seen) Hyaline Casts (0-2) /LPF COVID-19 (KAREL) (Negative) COVID-19 Clin Com 10/11/22 10/11/22 10/11/22 Range/Units 14:30 14:30 14:30 WBC (4.8-10.8) X10*3/uL RBC (4.60-5.80) X10*6/uL Hgb (14.0-18.0) g/dl Hct (42.0-52.0) % MCV (80.0-98.0) fL MCH (27.0-33.0) pg MCHC (31.0-36.0) g/dl RDW (11.0-16.0) % Plt Count (160-400) X10*3/uL MPV (9.4-12.4) fL Immature Gran % (Auto) (0.0-0.4) % Neut % (Auto) (45-73) % Lymph % (Auto) (20-40) % [place] % (Auto) (2-11) % Eos % (Auto) (0-4) % Baso % (Auto) (0-2) % Lymph # (Auto) (1.2-4.9) X10*3/uL [place] # (Auto) (0.1-1.2) X10*3/uL Eos # (Auto) (0.0-0.4) X10*3/uL Baso # (Auto) (0.0-0.2) X10*3/uL Abs Immat Gran (auto) (0.00-0.03) X10*3/uL Absolute Neuts (auto) (2.0-8.3) x10*3/uL Absolute Nucleated RBC (0.0-0.012) X10*3/uL Nucleated RBC % (auto) (0.0-0.2) /100WBC Sodium (135-145) mmol/L Potassium (3.3-5.1) mmol/L Chloride (96-108) mmol/L Carbon Dioxide (22-29) mmol/L Anion Gap (12-20) BUN (9-16) mg/dL Creatinine (0.5-1.4) mg/dL Estim Creat Clear Calc Estimated GFR Random Glucose (60-115) mg/dL Lactic Acid (0.5-2.0) mmol/L Calcium (8.4-10.2) mg/dL Magnesium (1.6-2.6) mg/dL Total Bilirubin (0.0-1.0) mg/dL AST (5-37) U/L ALT (0-40) U/L Alkaline Phosphatase (39-117) U/L Troponin I High Sens 8.3 (<3.5-35.0) ng/L B-Natriuretic Peptide 220 H (<100) pg/mL Total Protein (6.5-8.0) g/dL Albumin (3.5-5.0) g/dL Lipase (8-78) U/L Urine Color Urine Appearance Urine pH (5.0-9.0) Ur Specific [place] (1.005-1.025) Urine Protein (Neg-Trace) mg/dL Urine Glucose (UA) (Negative) mg/dL Urine Ketones (Negative) mg/dL Urine Blood (Negative) Urine Nitrite (Negative) Ur Leukocyte Esterase (Negative) Urine RBC (0-2) /HPF Urine WBC (0-5) /HPF Ur Squamous Epith Cells (0-2) /HPF Urine Bacteria (None Seen) Hyaline Casts (0-2) /LPF COVID-19 (KAREL) Negative (Negative) COVID-19 Clin Com See Note 10/11/22 Range/Units 15:05 WBC (4.8-10.8) X10*3/uL RBC (4.60-5.80) X10*6/uL Hgb (14.0-18.0) g/dl Hct (42.0-52.0) % MCV (80.0-98.0) fL MCH (27.0-33.0) pg MCHC (31.0-36.0) g/dl RDW (11.0-16.0) % Plt Count (160-400) X10*3/uL MPV (9.4-12.4) fL Immature Gran % (Auto) (0.0-0.4) % Neut % (Auto) (45-73) % Lymph % (Auto) (20-40) % [place] % (Auto) (2-11) % Eos % (Auto) (0-4) % Baso % (Auto) (0-2) % Lymph # (Auto) (1.2-4.9) X10*3/uL [place] # (Auto) (0.1-1.2) X10*3/uL Eos # (Auto) (0.0-0.4) X10*3/uL Baso # (Auto) (0.0-0.2) X10*3/uL Abs Immat Gran (auto) (0.00-0.03) X10*3/uL Absolute Neuts (auto) (2.0-8.3) x10*3/uL Absolute Nucleated RBC (0.0-0.012) X10*3/uL Nucleated RBC % (auto) (0.0-0.2) /100WBC Sodium (135-145) mmol/L Potassium (3.3-5.1) mmol/L Chloride (96-108) mmol/L Carbon Dioxide (22-29) mmol/L Anion Gap (12-20) BUN (9-16) mg/dL Creatinine (0.5-1.4) mg/dL Estim Creat Clear Calc Estimated GFR Random Glucose (60-115) mg/dL Lactic Acid (0.5-2.0) mmol/L Calcium (8.4-10.2) mg/dL Magnesium (1.6-2.6) mg/dL Total Bilirubin (0.0-1.0) mg/dL AST (5-37) U/L ALT (0-40) U/L Alkaline Phosphatase (39-117) U/L Troponin I High Sens (<3.5-35.0) ng/L B-Natriuretic Peptide (<100) pg/mL Total Protein (6.5-8.0) g/dL Albumin (3.5-5.0) g/dL Lipase (8-78) U/L Urine Color Dark Yellow Urine Appearance Clear Urine pH 5.5 (5.0-9.0) Ur Specific [place] 1.025 (1.005-1.025) Urine Protein Trace (Neg-Trace) mg/dL Urine Glucose (UA) Negative (Negative) mg/dL Urine Ketones Trace (Negative) mg/dL Urine Blood Negative (Negative) Urine Nitrite Negative (Negative) Ur Leukocyte Esterase Trace H (Negative) Urine RBC 0-2 (0-2) /HPF Urine WBC 0-5 (0-5) /HPF Ur Squamous Epith Cells 0-2 (0-2) /HPF Urine Bacteria None Seen (None Seen) Hyaline Casts 0-2 (0-2) /LPF COVID-19 (KAREL) (Negative) COVID-19 Clin Com Independent Interpretation I performed an independent interpretation of an: EKG, Plain X-Ray and CT Scan Interpretation: CT shows a large mass versus infiltrate obstruct the patient vancomycin Zosyn will give patient has sepsis fluids the patient has no other signs of sepsis Independent Historian Clinical information obtained from an independent historian. History obtained from or confirmed by: Spouse is at the bedside in External Record Review External record reviewed: Inpatient record, Office record and Outpatient record Chronic Conditions Patient?s care impacted by: Cancer Social Determinants Patient?s care significantly limited by Social Determinants of Health including: Inadequate housing Core Measures AMI core measures followed: Yes Critical Care Time Critical Care Time Critical Care Time: Yes Total Critical Care Time: 40 Attestation: Patient with pneumonia concern for weight loss and cachexia labs are okay but XR showed infiltrate vs mass CT confirms pneumonia. I consulted medicine. Did have low BP requiring fluids. Discharge Plan Discharge Clinical Impression: Upper respiratory infection, Pneumonia, Multiple pulmonary nodules Prescriptions: No Action simvastatin 40 mg tablet 40 mg PO BEDTIME Qty: 90 1RF gabapentin 400 mg capsule 400 mg PO TID Qty: 90 2RF aspirin 81 mg Tablet,Delayed Release (Dr/Ec) 81 mg PO BEDTIME Trelegy Ellipta 100-62.5-25 mcg blister with device 1 ea PO BEDTIME
--- NOTE | 2022-10-11 13:40 | ECG_ITS ---
Test Reason : weakness Blood Pressure : / mmHG Vent. Rate : 103 BPM Atrial Rate : 103 BPM P-R Int : 134 ms QRS Dur : 086 ms QT Int : 388 ms P-R-T Axes : 091 115 -30 degrees QTc Int : 508 ms Suspect limb lead reversal, interpretation assumes no reversal Sinus tachycardia Right axis deviation Pulmonary disease pattern Possible Inferior infarct (cited on or before 14-SEP-2022) Abnormal ECG When compared with ECG of 14-SEP-2022 07:30, Premature ventricular complexes are no longer Present Referred By: Светлана Magaña Electronically Signed By:SUSANA ESCOBEDO MD
[2022-10-11 14:38] LABS: MANUAL DIFF FLAG NO
[2022-10-11 14:40] LABS: Basophils Absolute Auto 0.1 X10*3/uL (0.0-0.2); Basophils Percent Auto 0.8 % (0-2); Eosinophils Absolute Auto 0.2 X10*3/uL (0.0-0.4); Eosinophils Percent Auto 2.1 % (0-4); Hematocrit 46.7 % (42.0-52.0); Hemoglobin 15.9 g/dl (14.0-18.0); Imm Gran Abs Auto 0.02 X10*3/uL (0.00-0.03); Imm Gran Pct Auto 0.3 % (0.0-0.4); Lymphocytes Absolute Auto 0.6 X10*3/uL (1.2-4.9); Lymphocytes Percent Auto 8.1 % (20-40); Mean Corpuscular Hemoglobin 31.5 pg (27.0-33.0); Mean Corpuscular Volume 92.5 fL (80.0-98.0); Mean Platelet Volume 9.9 fL (9.4-12.4); Monocytes Absolute Auto 0.9 X10*3/uL (0.1-1.2); Monocytes Percent Auto 11.2 % (2-11); Neutrophils Absolute Auto 6.1 x10*3/uL (2.0-8.3); Neutrophils Percent Auto 77.5 % (45-73); Platelet Count 259 X10*3/uL (160-400); Red Blood Count 5.05 X10*6/uL (4.60-5.80); White Blood Count 7.9 X10*3/uL (4.8-10.8)
[2022-10-11 14:54] LABS: Alanine Aminotransferase 21 U/L (0-40); Albumin Level 3.5 g/dL (3.5-5.0); Alkaline Phosphatase 436 U/L (39-117); Anion Gap 13 (12-20); Aspartate Amino Transferase 26 U/L (5-37); Bilirubin Total 1.8 mg/dL (0.0-1.0); Blood Urea Nitrogen 11 mg/dL (9-16); Calcium 10.1 mg/dL (8.4-10.2); Carbon Dioxide 26 mmol/L (22-29); Chloride 98 mmol/L (96-108); Creatinine Clr Calc Pharmacy 69.8; Estimated Glomerular Filt Rate > 60; Glucose Random 104 mg/dL (60-115); Lactic Acid 1.3 mmol/L (0.5-2.0); Lipase 10 U/L (8-78); Magnesium 1.7 mg/dL (1.6-2.6); Potassium 4.2 mmol/L (3.3-5.1); Sodium 133 mmol/L (135-145); Total Protein 7.1 g/dL (6.5-8.0)
[2022-10-11 14:55] LABS: COVID-19 Test Negative (Negative); IDNOW Serial# 08D9AD1C
[2022-10-11 15:00] LABS: B Type Natriuretic Peptide 220 pg/mL (<100)
[2022-10-11 15:02] LABS: Troponin-I High Sensitivity 8.3 ng/L (<3.5-35.0)
[2022-10-11 15:13] LABS: Appearance Urine Clear; Color Urine Dark Yellow; Glucose Urine UA Negative (Negative); Leukocyte Esterase Urine Trace (Negative); Nitrite Urine Negative (Negative); PH 5.5 (5.0-9.0); Specific Gravity - Urine 1.025 (1.005-1.025); UMIC TRIGGER UACC YES; Urine Blood Negative (Negative); Urine Ketones Trace mg/dL (Negative); Urine Protein Trace mg/dL (Neg-Trace)
[2022-10-11 15:18] LABS: Bacteria Urine None Seen (None Seen); Hyaline Casts Urine 0-2 /LPF (0-2); RBC Urine 0-2 /HPF (0-2); Squamous Epithelial Cell Urine 0-2 /HPF (0-2); WBC Urine 0-5 /HPF (0-5)
[2022-10-11] MEDS: iohexoL 350 MG/ML 100 ML INFUS..BTL IV (15:58)
--- NOTE | 2022-10-11 15:59 | PHA.MEDREC ---
Pharmacy Consult ? Medication Reconciliation Pharmacy has completed the medication reconciliation. Spoke to patient's spouse to confirm meds.
[2022-10-11 16:07] VITALS: BP 100/64; PULSE 96; RESP 24; O2SAT 96
[2022-10-11 16:20] VITALS: O2SAT 93
[2022-10-11 16:23] VITALS: BP 94/64; PULSE 96; RESP 20; TEMP 36.4; O2SAT 94
[2022-10-11] MEDS: 0.9 % Sodium Chloride 1,000 ML 999 ML IV ×3 (16:48→20:41)
[2022-10-11] MEDS: Piperacillin Sodium/Tazobactam 4.5 GM in 0.9 % Sodium Chloride 100 ML IV (18:02)
[2022-10-11 18:29] VITALS: BP 95/62; PULSE 71; RESP 26; TEMP 36.5; O2SAT 94
--- NOTE | 2022-10-11 18:42 | P.HPHOSP_ITS ---
patient seen and examined at bedside. I agree with the AP P assessment and plan. Patient will be admitted for further management of pneumonia likely postobstructive with likely cancerous lung mass. Her pulmonology consulted, patient will be on IV antibiotics. For full H&P please see below History of Present Illness Date of Service: 10/11/22 Attending physician on admission: Tamar Almaguer Chief Complaint: weakness, anorexia 57-year-old male with history of COPD, hyperlipidemia, chronic hypoxemic respiratory failure using 3 L supplemental O2 at baseline, multiple pulmonary nodules, left lung mass, multiple mediastinal lymph nodes (never diagnosed as cancer per patient) following with [facility] and Dr. Condon treated with right sided radiation, and VICKY started on azithro ethambutol and rifampin but stopped these after having seizure and did not resume presented to the ED for evaluation. He has had fevers at home with temp up to 103, rebound tender ness, weight loss of 40 pounds, anorexia, nausea, but no vomiting. Has chronic cough at baseline and no increased sob. No lightheadedness, palpitations, chest pain, urinary symptoms, focal weakness, or paresthesias. He has been smoking 0.5 PPD for many years and states he his quitting as of today. Also smokes MJ. No etoh or illicit drug use. He follows with Dr. Francois in pulmonology. On arrival, VSS. No leukocytosis. Renal function and electorlytes normal. Total bili 1.8, AST 26, ALT 21, Alk phos 436, trops WNL, BNP 220. GGT pending. UA unremarkable. Abdominal U.S. was unremarkable. CXR showed streaky opacity in the left mid lung minimally more extensive compared to priors. CT abdomen/pe lvis and chest also ordered showing large left upper lobe mass with air bronchograms which are new since prior study, differential to include pneumonic infiltrate. There is also diffuse severe emphysema with bullous changes in the bilateral upper lobes. Previously seen right upper lobe nodule has resolved. Chronic scarring versus atelectasis in the right upper lobe and left lower lobe. There also abnormal mediastinal lymph nodes which have slightly increased in size. No acute process in the abdomen or pelvis. In the ED, given 2L IV NS, IV zosyn, and Vanco. Review of Systems Review of Systems: General: +subjective fevers, +malaise, +anorexia, +unintentional weight loss HEENT: No blurred vision, diplopia. No sore throat, nasal congestion, rhinorrhea, sinus pain, ear pain Cardiovascular: No chest pain, palpitations, or leg edema Respiratory: +cough. No shortness of breath, wheezing GI: No abdominal pain, nausea, vomiting, diarrhea, constipation, melena, hematochezia : No dysuria, hematuria, increased urinary frequency, decreased urinary output MSK: No myalgia, back pain Neuro: No headaches, weakness, paresthesias Skin: No rashes or lesions [facility] Medical History COPD (chronic obstructive pulmonary disease) Exercise hypoxemia Hyperlipidemia Multiple pulmonary nodules Nicotine dependence, unspecified, uncomplicated Family History Father Lung cancer Brother COPD (chronic obstructive pulmonary disease) Substance use disorder Son Substance use disorder Surgical History History of bronchoscopy (~12/2019) History of bronchoscopy (~04/2021) History of eye surgery (~11/2020) Social History Housing: House Alcohol intake: never Patient Tobacco Use Status: Current someday Tobacco user Cigarette Packs Per Day: 0.5 Cigarettes Per Day: 5 Smoked in Last 30 Days: Yes e-Cigarette/Vaping Use: Never Used Second Hand Smoke Exposure: Yes Use of substances other than those prescribed or required for medical reasons: No Advance Directives: No Advance Directives Information Provided: Yes service: No Current occupational status: disabled Current occupational exposures/hazards: No Cognitive needs: No Hearing needs: No Vision needs: No Meds Allergies Allergy/AdvReac Type Severity Reaction Status Date / Time No Known Allergies Allergy Verified 08/24/22 11:17 [No Known Allergies*] Active Medications: Current Medications Acetaminophen (Acetaminophen 325 Mg Tablet) 650 mg PO Q6H PRN PRN Reason: Pain, Mild (Pain Scale 1-3) Aspirin (Aspirin Enteric Coated 81 Mg Tablet.) 81 mg PO BEDTIME JOSHUA Atorvastatin Calcium (Atorvastatin Calcium 20 Mg Tablet) 20 mg PO BEDTIME JOSHUA Docusate Sodium (Docusate Sodium 100 Mg Capsule) 100 mg PO DAILY PRN PRN Reason: Constipation Enoxaparin Sodium (Enoxaparin Sodium 40 Mg/0.4 Ml Syringe) 40 mg SUBCUT Q24H JOSHUA Fluticasone/Umeclidinium/Vilanterol (Fluticasone/Umeclidinium/Vilanterol 100/62.5/25 Blst.W.Dev) 1 puff INHALE BEDTIME [facility] Gabapentin (Gabapentin 400 Mg Capsule) 400 mg PO TID JOSHUA Sodium Chloride (Ns) 1,000 mls @ 999 mls/hr IV .Q1H1M JOSHUA Stop: 10/11/22 18:45 Last Admin: 10/11/22 18:06 Dose: 999 mls/hr Vancomycin HCl 1,000 mg/ (Sodium Chloride) 270 mls @ 270 mls/hr IV ONCE ONE Stop: 10/11/22 18:45 Sodium Chloride (Ns) 1,000 mls @ 999 mls/hr IV .Q1H1M [facility] Stop: 10/11/22 19:00 Piperacillin Sod/Tazobactam (Sod 4.5 gm/ Sodium Chloride) 100 mls @ 200 mls/hr IV Q6H JOSHUA Ondansetron HCl (Ondansetron Hcl 4 Mg/2 Ml Vial) 4 mg IVPUSH Q8H PRN PRN Reason: Nausea and Vomiting Pharmacy Consult (Consult Rx Perform Med Rec) 1 each MISCELLANE ONCE PRN PRN Reason: Consult order Sodium Chloride (0.9 % Sodium Chloride Flush 3 Ml Syringe) 3 ml IVFLUSH QSHIFT [facility] Home Medications Medication Instructions Recorded Confirmed Last Taken Type aspirin 81 mg tablet,delayed 81 mg PO BEDTIME 10/11/22 10/11/22 10/10/22 History release fluticasone fur. 100 mcg-umeclid 1 ea PO BEDTIME 10/11/22 10/11/22 10/10/22 History 62.5 mcg-vilant 25 mcg inhalat.powder (Trelegy Ellipta) Physical Exam Vital Signs and Narrative: Vital Signs: Last Vital Signs Temp 97.6 F 10/11/22 16:23 Pulse 96 10/11/22 16:23 Resp 20 10/11/22 16:23 BP 94/64 10/11/22 16:23 Pulse Ox 94 10/11/22 16:23 O2 Del Method Nasal Cannula 10/11/22 16:23 O2 Flow Rate 3 10/11/22 16:23 Oxygen Flow Rate 3 10/11/22 13:36 BMI result Body Mass Index 14.3 Constitutional - Awake and Alert, No apparent distress, cachectic appearing Eyes - PERRLA, EOMI Cardiovascular - S1S2, RRR, No edema Respiratory - Normal lung expansion, Normal respiratory effort, No respiratory distress, CTA bilaterally Gastrointestinal - NT / ND; +BS; No rebound or guarding Extremities - no calf tenderness bilaterally, no swelling Skin - Warm/Dry Neurological - Alert & oriented x3, CN II-XII in tact, 5/5 strength BUE and BLE Psychological - Appropriate affect Results Labs 10/11/22 14:30 10/11/22 14:30 Labs: Laboratory Results - last 24 hr 10/11/22 10/11/22 10/11/22 14:30 14:30 14:30 MCV 92.5 MCH 31.5 MCHC 34.0 RDW 13.0 Plt Count 259 D MPV 9.9 Immature Gran % (Auto) 0.3 Neut % (Auto) 77.5 H Lymph % (Auto) 8.1 L Bailey % (Auto) 11.2 H Eos % (Auto) 2.1 Baso % (Auto) 0.8 Lymph # (Auto) 0.6 L Bailey # (Auto) 0.9 Eos # (Auto) 0.2 Baso # (Auto) 0.1 Abs Immat Gran (auto) 0.02 Absolute Neuts (auto) 6.1 Absolute Nucleated RBC 0.000 Nucleated RBC % (auto) 0.0 Anion Gap 13 Estim Creat Clear Calc 69.8 Estimated GFR > 60 Random Glucose 104 Lactic Acid 1.3 Calcium 10.1 D Magnesium 1.7 Total Bilirubin 1.8 H AST 26 ALT 21 Alkaline Phosphatase 436 H Troponin I High Sens B-Natriuretic Peptide Total Protein 7.1 Albumin 3.5 Lipase 10 Urine Color Urine Appearance Urine pH Ur Specific [place] Urine Protein Urine Glucose (UA) Urine Ketones Urine Blood Urine Nitrite Ur Leukocyte Esterase Urine RBC Urine WBC Ur Squamous Epith Cells Urine Bacteria Hyaline Casts COVID-19 (KAREL) COVID-19 Clin Com 10/11/22 10/11/22 10/11/22 14:30 14:30 14:30 MCV MCH MCHC RDW Plt Count MPV Immature Gran % (Auto) Neut % (Auto) Lymph % (Auto) Bailey % (Auto) Eos % (Auto) Baso % (Auto) Lymph # (Auto) Bailey # (Auto) Eos # (Auto) Baso # (Auto) Abs Immat Gran (auto) Absolute Neuts (auto) Absolute Nucleated RBC Nucleated RBC % (auto) Anion Gap Estim Creat Clear Calc Estimated GFR Random Glucose Lactic Acid Calcium Magnesium Total Bilirubin AST ALT Alkaline Phosphatase Troponin I High Sens 8.3 B-Natriuretic Peptide 220 H Total Protein Albumin Lipase Urine Color Urine Appearance Urine pH Ur Specific [place] Urine Protein Urine Glucose (UA) Urine Ketones Urine Blood Urine Nitrite Ur Leukocyte Esterase Urine RBC Urine WBC Ur Squamous Epith Cells Urine Bacteria Hyaline Casts COVID-19 (KAREL) Negative COVID-19 Clin Com See Note 10/11/22 15:05 MCV MCH MCHC RDW Plt Count MPV Immature Gran % (Auto) Neut % (Auto) Lymph % (Auto) Bailey % (Auto) Eos % (Auto) Baso % (Auto) Lymph # (Auto) Bailey # (Auto) Eos # (Auto) Baso # (Auto) Abs Immat Gran (auto) Absolute Neuts (auto) Absolute Nucleated RBC Nucleated RBC % (auto) Anion Gap Estim Creat Clear Calc Estimated GFR Random Glucose Lactic Acid Calcium Magnesium Total Bilirubin AST ALT Alkaline Phosphatase Troponin I High Sens B-Natriuretic Peptide Total Protein Albumin Lipase Urine Color Dark Yellow Urine Appearance Clear Urine pH 5.5 Ur Specific [place] 1.025 Urine Protein Trace Urine Glucose (UA) Negative Urine Ketones Trace Urine Blood Negative Urine Nitrite Negative Ur Leukocyte Esterase Trace H Urine RBC 0-2 Urine WBC 0-5 Ur Squamous Epith Cells 0-2 Urine Bacteria None Seen Hyaline Casts 0-2 COVID-19 (KAREL) COVID-19 Clin Com Imaging Radiologist's Impressions: Impressions Chest X-Ray 10/11/22 14:02 IMPRESSION: 1. Streaky opacity in the left midlung is minimally more extensive compared to chest radiograph 09/14/2022 or possibly better aerated. 2. No significant opacity in the right lung base. Chest CT 10/11/22 15:50 IMPRESSION: 1. Large left upper lobe mass with air bronchograms, new since the last study 2221. Differential diagnoses includes pneumonic infiltrate. Recommend follow-up chest x-ray following course of antibiotic treatment. Diffuse severe emphysema with bullous changes in both upper lobes 2. Previously seen right upper lobe pulmonary nodule has resolved. There is chronic scarring or atelectasis in the right upper lobe and left lower lobe. 3. There are abnormal mediastinal lymph nodes which have slightly increased in size. 4. No acute process seen in the abdomen or pelvis. 5. Mild constipation with colonic diverticulosis without diverticulitis. 6. Lower anterior abdominal wall mesh from hernia repair. No recurrent hernia seen. Abdomen/Pelvis CT 10/11/22 15:55 IMPRESSION: 1. Large left upper lobe mass with air bronchograms, new since the last study 2221. Differential diagnoses includes pneumonic infiltrate. Recommend follow-up chest x-ray following course of antibiotic treatment. Diffuse severe emphysema with bullous changes in both upper lobes 2. Previously seen right upper lobe pulmonary nodule has resolved. There is chronic scarring or atelectasis in the right upper lobe and left lower lobe. 3. There are abnormal mediastinal lymph nodes which have slightly increased in size. 4. No acute process seen in the abdomen or pelvis. 5. Mild constipation with colonic diverticulosis without diverticulitis. 6. Lower anterior abdominal wall mesh from hernia repair. No recurrent hernia seen. Abdomen Ultrasound 10/11/22 16:35 IMPRESSION: Unremarkable right upper quadrant ultrasound. Assessment and Plan (1) Postobstructive pneumonia: Status: Acute (2) Mass of left lung: Status: Acute (3) Mediastinal adenopathy: Status: Acute Plan 57-year-old male with history of COPD, hyperlipidemia, chronic hypoxemic respiratory failure using 3 L supplemental O2 at baseline, multiple pulmonary no dules, left lung mass, multiple mediastinal lymph nodes (never diagnosed as cancer per patient) following with [facility] and Dr. Condon treated with right sided radiation, and VICKY started on azithro ethambutol and rifampin but stopped these after having seizure and did not resume admitted for post obstructive pneumonia. #Acute postobstructive pneumonia -Large CASSIUS mass with new air bronchograms -IV zosyn (initiated 10/11) -symptomatic management -pulmonology consult -no leukocytosis, VSS. No sepsis -follow CBC, cultures #Large CASSIUS Mass with concern for malignangy and metastasis -with abn mediastinal nodes and elevated alk-phos (ggt pending) -pulmonology consult -Follow with [facility] outpt- obtain notes, and consider inpt onc consult #Recent VICKY lung infection -positive culture, seen by ID 06/2022 and started on triple therapy -Pt stopped meds due to seizure and did not resume -Pulmonology consult #Chronic hypoxemic respiratory failure 2/2 COPD -no acute exacerbation -Continue baseline supplemental O2 at 2 L -continue home maintenance inhaler, albuterol p.r.n. #HLD -continue statin #Moderate malnutrition r/t protein deficiency -Nutrition consult, ensures bid Time Spent With Patient Time: Total time managing care of this patient today ____ minutes. Quality Stroke Does the patient have a stroke diagnosis?: No VTE Prior VTE?: No VTE Risk Level:: Medical - moderate - high VTE Device Contraindication: Treatment Not Indicated VTE Drug Contraindication: N/A - Med Ordered
[2022-10-11 19:16] LABS: Gamma Glutamyl Transpeptidase 170 U/L (11-51)
[2022-10-11] MEDS: vancomycin HCL 1,000 MG in 0.9 % Sodium Chloride 250 ML 270 MG IV (20:42)
--- NOTE | 2022-10-11 20:45 | PC.NURSE ---
late entry. pt aox4, reporting increased weakness, decreased PO intake xa few weeks. Pt reports that they have lost weight over the past couple of months. Satting in the 70s in triage, pt was brought straight back. 3L O2 at baseline at home. currently, fluids and vanco are running per MAR. pt in good spirits, reports some back pain, but is calm and vitals are stable. will cont to efra
[2022-10-11] MEDS: Fluticasone/Umeclidinium/Vilanterol 100/62.5/25 BLST.W.DEV 1 PUFF INHALE (21:27)
[2022-10-11 21:38] VITALS: BP 105/67; PULSE 95; RESP 20; TEMP 36.6; O2SAT 97
[2022-10-11] MEDS: Enoxaparin Sodium 40 MG/0.4 ML SYRINGE SUBCUT (21:47)
[2022-10-11] MEDS: Gabapentin 400 MG CAPSULE PO (21:48)
[2022-10-11] MEDS: Atorvastatin Calcium 20 MG TABLET PO (21:48)
[2022-10-11] MEDS: Aspirin Enteric Coated 81 MG TABLET.DR PO (21:48)
--- NOTE | 2022-10-11 21:55 | PC.NURSE ---
Medicated per Jun, notified Acosta Cosme
--- NOTE | 2022-10-11 22:16 | PC.NURSE ---
pt arrived via Main ED, no resp distress observed
--- NOTE | 2022-10-11 23:13 | MHC.CM.PN ---
Pt admitted. No IMM necessary. Lives with of 42 years. A&Ox4. No DME/Services. Uses home Oxygen @3L from [employer]. Pfizer x2/booster. HCP reviewed, completed and signed. Copies given Uploaded into [employer] and [facility]. HCP/ Leda Nguyen ([phone]). D/C plan: Home without services. Family will transport. CM will follow for discharge needs.
[2022-10-12] MEDS: Piperacillin Sodium/Tazobactam 4.5 GM in 0.9 % Sodium Chloride 100 ML IV ×2 (00:07→06:00)
[2022-10-12 05:39] LABS: MANUAL DIFF FLAG NO
[2022-10-12 05:45] LABS: Basophils Percent Auto 0.5 % (0-2); Eosinophils Absolute Auto 0.1 X10*3/uL (0.0-0.4); Hematocrit 43.9 % (42.0-52.0); Hemoglobin 14.6 g/dl (14.0-18.0); Imm Gran Abs Auto 0.02 X10*3/uL (0.00-0.03); Imm Gran Pct Auto 0.3 % (0.0-0.4); Lymphocytes Absolute Auto 0.5 X10*3/uL (1.2-4.9); Lymphocytes Percent Auto 5.6 % (20-40); Mean Corpuscular HGB Conc 33.3 g/dl (31.0-36.0); Mean Corpuscular Hemoglobin 31.4 pg (27.0-33.0); Mean Corpuscular Volume 94.4 fL (80.0-98.0); Mean Platelet Volume 10.2 fL (9.4-12.4); Monocytes Absolute Auto 0.6 X10*3/uL (0.1-1.2); Neutrophils Absolute Auto 6.7 x10*3/uL (2.0-8.3); Neutrophils Percent Auto 84.6 % (45-73); Platelet Count 236 X10*3/uL (160-400); Red Blood Count 4.65 X10*6/uL (4.60-5.80); Red Cell Distribution Width 13.2 % (11.0-16.0)
[2022-10-12 06:07] LABS: Anion Gap 15 (12-20); Blood Urea Nitrogen 7 mg/dL (9-16); Calcium 8.5 mg/dL (8.4-10.2); Carbon Dioxide 20 mmol/L (22-29); Chloride 104 mmol/L (96-108); Creatinine Clr Calc Pharmacy 78.2; Estimated Glomerular Filt Rate > 60; Glucose Random 107 mg/dL (60-115); Potassium 3.8 mmol/L (3.3-5.1); Sodium 135 mmol/L (135-145)
[2022-10-12 06:18] VITALS: BP 104/65; PULSE 104; TEMP 36.7; O2SAT 91
[2022-10-12 08:03] VITALS: BP 104/65; PULSE 104; O2SAT 91
[2022-10-12] MEDS: 0.9 % Sodium Chloride Flush 3 ML SYRINGE IVFLUSH ×3 (08:53→19:44)
--- NOTE | 2022-10-12 09:23 | PM.CNPUL ---
History of Present Illness History of Present Illness Consult date: 10/12/22 Chief complaint: Fever Infection Narrative: This is an inpatient pulmonary consultation. The patient is a 57-year-old male with history of COPD, hyperlipidemia, chronic hypoxemic respiratory failure using 3 L supplemental O2 at baseline, multiple pulmonary nodules, left lung mass, multiple mediastinal lymph nodes (never diagnosed as cancer per patient) following with [facility] and Dr. Condon treated with right sided radiation, and VICKY started on azithro ethambutol and rifampin but stopped these after having seizure and did not resume presented to the ED for evaluation. He has had fevers at home with temp up to 103, rebound tenderness, weight loss of 40 pounds, anorexia, nausea, but no vomiting. Has chronic cough at baseline and no increased sob. No lightheadedness, palpitations, chest pain, urinary symptoms, focal weakness, or paresthesias. He has been smoking 0.5 PPD for many years and states he his quitting as of today. Also smokes MJ. No etoh or illicit drug use. He follows with Dr. Francois in pulmonology. CT chest also ordered showing large left upper lobe mass like consolidation which are new since prior study.? There is also diffuse severe emphysema with bullous changes in the bilateral upper lobes.? Previously seen right upper lobe nodule has resolved.? Chronic scarring versus atelectasis in the right upper lobe and left lower lobe.? There also abnormal mediastinal lymph nodes which have slightly increased in size.? Review of Systems Review of Systems: General: +subjective fevers, +malaise, +anorexia, +unintentional weight loss HEENT: No blurred vision, diplopia. No sore throat, nasal congestion, rhinorrhea, sinus pain, ear pain Cardiovascular: No chest pain, palpitations, or leg edema Respiratory: +cough. No shortness of breath, wheezing GI: No abdominal pain, nausea, vomiting, diarrhea, constipation, melena, hematochezia : No dysuria, hematuria, increased urinary frequency, decreased urinary output MSK: No myalgia, back pain Neuro: No headaches, weakness, paresthesias Skin: No rashes or lesions PMFSH Past Medical History Medical History COPD (chronic obstructive pulmonary disease) Exercise hypoxemia Hyperlipidemia Multiple pulmonary nodules Nicotine dependence, unspecified, uncomplicated Family History Family History Father Lung cancer Brother COPD (chronic obstructive pulmonary disease) Substance use disorder Son Substance use disorder Surgical History Surgical History History of bronchoscopy (~12/2019) History of bronchoscopy (~04/2021) History of eye surgery (~11/2020) Social History Social History Housing: House Alcohol intake: never Patient Tobacco Use Status: Current everyday Tobacco user Cigarette Packs Per Day: 0.5 Cigarettes Per Day: 5 Smoked in Last 30 Days: Yes e-Cigarette/Vaping Use: Never Used Second Hand Smoke Exposure: Yes Use of substances other than those prescribed or required for medical reasons: No Advance Directives: Yes Advance Directives on File: Yes Advance Directives Date on File: 10/12/22 Nutrition Risks: No Nutritional Risk service: No Current occupational status: disabled Current occupational exposures/hazards: No Cognitive needs: No Hearing needs: No Vision needs: No Meds Allergies Allergy/AdvReac Type Severity Reaction Status Date / Time No Known Allergies Allergy Verified 08/24/22 11:17 [No Known Allergies*] Active Medications: Current Medications Acetaminophen (Acetaminophen 325 Mg Tablet) 650 mg PO Q6H PRN PRN Reason: Pain, Mild (Pain Scale 1-3) Albuterol Sulfate (Albuterol Sulfate (0.083%) 2.5 Mg/3 Ml Vial.Neb) 2.5 mg INHALE Q4H PRN PRN Reason: Shortness of Breath/Wheezing Aspirin (Aspirin Enteric Coated 81 Mg Tablet.) 81 mg PO BEDTIME [facility] Last Admin: 10/11/22 21:48 Dose: 81 mg Atorvastatin Calcium (Atorvastatin Calcium 20 Mg Tablet) 20 mg PO BEDTIME [facility] Last Admin: 10/11/22 21:48 Dose: 20 mg Docusate Sodium (Docusate Sodium 100 Mg Capsule) 100 mg PO DAILY PRN PRN Reason: Constipation Enoxaparin Sodium (Enoxaparin Sodium 40 Mg/0.4 Ml Syringe) 40 mg SUBCUT Q24H [facility] Last Admin: 10/11/22 21:47 Dose: 40 mg Fluticasone/Umeclidinium/Vilanterol (Fluticasone/Umeclidinium/Vilanterol 100/62.5/25 Blst.W.Dev) 1 puff INHALE BEDTIME [facility] Last Admin: 10/11/22 21:27 Dose: 1 puff Gabapentin (Gabapentin 400 Mg Capsule) 400 mg PO TID [facility] Last Admin: 10/12/22 08:53 Dose: Not Given Guaifenesin (Guaifenesin 200 Mg/10 Ml 10 Ml Liquid) 10 ml PO Q4H PRN PRN Reason: Cough Levofloxacin (Levaquin) 500 mg in 100 mls @ 100 mls/hr IV Q24H [facility] Ondansetron HCl (Ondansetron Hcl 4 Mg/2 Ml Vial) 4 mg IVPUSH Q8H PRN PRN Reason: Nausea and Vomiting Pharmacy Consult (Consult Rx Perform Med Rec) 1 each MISCELLANE ONCE PRN PRN Reason: Consult order Sodium Chloride (0.9 % Sodium Chloride Flush 3 Ml Syringe) 3 ml IVFLUSH QSHIFT [facility] Last Admin: 10/12/22 08:53 Dose: 3 ml Home Medications Medication Instructions Recorded Confirmed Last Taken Type aspirin 81 mg tablet,delayed 81 mg PO BEDTIME 10/11/22 10/11/22 10/10/22 History release fluticasone fur. 100 mcg-umeclid 1 ea PO BEDTIME 10/11/22 10/11/22 10/10/22 History 62.5 mcg-vilant 25 mcg inhalat.powder (Trelegy Ellipta) Physical Exam Vital Signs: Vital Signs: Last Vital Signs Temp 98.1 F 10/12/22 06:18 Pulse 104 H 10/12/22 08:03 Resp 20 10/11/22 21:38 BP 104/65 10/12/22 08:03 Pulse Ox 91 L 10/12/22 08:03 O2 Del Method Nasal Cannula 10/12/22 06:18 O2 Flow Rate 3 10/12/22 06:18 Oxygen Flow Rate 3 10/11/22 13:36 BMI result Body Mass Index 14.3 Const: General: comfortable, no acute distress, alert and awake Orientation/consciousness: patient oriented x3 HEENT: Head: Yes normal to inspection General nose exam: No nasal polyps present and No nasal discharge present Face and sinus: Yes sinuses nontender Mouth: oropharynx normal Throat: Yes posterior oropharynx normal Eyes: General: appearance normal, both eyes and all related structures Neck: Neck: Yes normal visual inspection, Yes no lymphadenopathy, Yes trachea midline and Yes no JVD Thyroid: Thyroid normal Chest: Chest palpation & inspection: normal inspection of the chest, normal palpation of entire chest wall and no tenderness Resp: Effort & Inspection: normal respiratory effort Auscultation: diminished lung sounds Cardio: Rate: regular rate Rhythm: regular rhythm Heart sounds: no gallops and no murmurs GI: Palpation (GI): Soft to palpation, nontender, No hepatosplenomegaly present and no masses Auscultation: normal bowel sounds Back/Spine/Pelvis: Thoracic/Lumbar Spine: thoracic and lumbar spine normal to inspection Skin: General skin exam: no rashes or lesions noted Neuro: General: patient oriented x3 and no focal motor deficits Cranial nerves: Yes CN's II-XII intact bilaterally Extrem: General: Yes no clubbing, cyanosis or edema Psych: Appearance: well kempt Speech and movement: Normal speech and movement present Results Laboratory Findings 10/12/22 05:18 10/12/22 05:18 Abnormal lab findings: Abnormal Labs 10/11/22 10/11/22 10/11/22 14:30 14:30 14:30 Neut % (Auto) 77.5 H Lymph % (Auto) 8.1 L [place] % (Auto) 11.2 H Lymph # (Auto) 0.6 L Sodium 133 L Carbon Dioxide BUN Total Bilirubin 1.8 H GGT 170 H Alkaline Phosphatase 436 H B-Natriuretic Peptide 220 H Ur Leukocyte Esterase 10/11/22 10/12/22 10/12/22 15:05 05:18 05:18 Neut % (Auto) 84.6 H Lymph % (Auto) 5.6 L [place] % (Auto) Lymph # (Auto) 0.5 L Sodium Carbon Dioxide 20 L BUN 7 L Total Bilirubin GGT Alkaline Phosphatase B-Natriuretic Peptide Ur Leukocyte Esterase Trace H Assessment and Plan (1) Mass of left lung: Status: Acute (2) Pneumonia: Status: Acute (3) Mycobacterium avium complex: Status: Acute (4) Multiple pulmonary nodules: Status: Acute (5) COPD (chronic obstructive pulmonary disease): Status: Acute Plan The patient appears to have a new finding of the masslike consolidation on the left hemithorax. Likely smoldering infection. No evidence of any disease a year prior. For extensive masslike density would be expected to have some than his previous CT scan. He has a history of non tuberculosis mycobacteria infection. Unfortunately could not tolerate the therapy due to seizures or seizure-like activity. Recommendations: Switch antibiotics to Levaquin as this may also treat the VICKY and other bacteria respiratory pathogens Check MRSA screen to see if he needs anti-Staph therapy The patient is being closely monitored by thoracic surgery and by the [facility] oncology department. Therefore, will treat him for an infectious process in the hope that he can follow-up as an outpatient have repeat imaging within 4-6 weeks. I am hoping that after a course of antibiotics this will clear. If it is not clear to recommend a diagnostic intervention with bronchoscopy for deep cultures and potential biopsies. Time Spent With Patient Time: Total time managing care of this patient today ____ minutes. Procedures Date of Service Date of Service: 10/12/22
[2022-10-12] MEDS: levoFLOXacin/D5W 500 MG/100 ML PIGGYBACK 100 MG IV (09:32)
--- NOTE | 2022-10-12 09:58 | HO.PM.IMPN ---
Subjective Subjective Date of Service: 10/12/22 Review of Systems Follow-up postobstructive pneumonia Denies chest pain, reports some shortness of breath more than usual Physical Exam Vital Signs: Vital Signs: Last Vital Signs Temp 98.1 F 10/12/22 06:18 Pulse 104 H 10/12/22 08:03 Resp 20 10/11/22 21:38 BP 104/65 10/12/22 08:03 Pulse Ox 91 L 10/12/22 08:03 O2 Del Method Nasal Cannula 10/12/22 06:18 O2 Flow Rate 3 10/12/22 06:18 Oxygen Flow Rate 3 10/11/22 13:36 BMI result Body Mass Index 14.3 Appearing in no acute distress lung sounds diminished heart regular rate rhythm, clear S1, S2 positive bowel sounds, abdomen is soft, nontender neuro patient is alert x3, no focal deficits Objective Data Active Medications Acetaminophen (Acetaminophen 325 Mg Tablet) 650 mg PO Q6H PRN PRN Reason: Pain, Mild (Pain Scale 1-3) Albuterol Sulfate (Albuterol Sulfate (0.083%) 2.5 Mg/3 Ml Vial.Neb) 2.5 mg INHALE Q4H PRN PRN Reason: Shortness of Breath/Wheezing Aspirin (Aspirin Enteric Coated 81 Mg Tablet.) 81 mg PO BEDTIME [facility] Last Admin: 10/11/22 21:48 Dose: 81 mg Documented By: RADHA Atorvastatin Calcium (Atorvastatin Calcium 20 Mg Tablet) 20 mg PO BEDTIME [facility] Last Admin: 10/11/22 21:48 Dose: 20 mg Documented By: RADHA Docusate Sodium (Docusate Sodium 100 Mg Capsule) 100 mg PO DAILY PRN PRN Reason: Constipation Enoxaparin Sodium (Enoxaparin Sodium 40 Mg/0.4 Ml Syringe) 40 mg SUBCUT Q24H [facility] Last Admin: 10/11/22 21:47 Dose: 40 mg Documented By: RADHA Fluticasone/Umeclidinium/Vilanterol (Fluticasone/Umeclidinium/Vilanterol 100/62.5/25 Blst.W.Dev) 1 puff INHALE BEDTIME [facility] Last Admin: 10/11/22 21:27 Dose: 1 puff Documented By: MARIUSZ Gabapentin (Gabapentin 400 Mg Capsule) 400 mg PO TID [facility] Last Admin: 10/12/22 08:53 Dose: Not Given Documented By: TERRELL Non-Admin Reason: Patient Refused Guaifenesin (Guaifenesin 200 Mg/10 Ml 10 Ml Liquid) 10 ml PO Q4H PRN PRN Reason: Cough Levofloxacin (Levaquin) 500 mg in 100 mls @ 100 mls/hr IV Q24H [facility] Last Admin: 10/12/22 09:32 Dose: 100 mls/hr Documented By: TERRELL Ondansetron HCl (Ondansetron Hcl 4 Mg/2 Ml Vial) 4 mg IVPUSH Q8H PRN PRN Reason: Nausea and Vomiting Pharmacy Consult (Consult Rx Perform Med Rec) 1 each MISCELLANE ONCE PRN PRN Reason: Consult order Sodium Chloride (0.9 % Sodium Chloride Flush 3 Ml Syringe) 3 ml IVFLUSH QSHIFT [facility] Last Admin: 10/12/22 08:53 Dose: 3 ml Documented By: TERRELL Labs 10/12/22 05:18 10/12/22 05:18 Labs: Laboratory Results - last 24 hr 10/11/22 10/11/22 10/11/22 14:30 14:30 14:30 MCV 92.5 MCH 31.5 MCHC 34.0 RDW 13.0 Plt Count 259 D MPV 9.9 Immature Gran % (Auto) 0.3 Neut % (Auto) 77.5 H Lymph % (Auto) 8.1 L [place] % (Auto) 11.2 H Eos % (Auto) 2.1 Baso % (Auto) 0.8 Lymph # (Auto) 0.6 L [place] # (Auto) 0.9 Eos # (Auto) 0.2 Baso # (Auto) 0.1 Abs Immat Gran (auto) 0.02 Absolute Neuts (auto) 6.1 Absolute Nucleated RBC 0.000 Nucleated RBC % (auto) 0.0 Anion Gap 13 Estim Creat Clear Calc 69.8 Estimated GFR > 60 Random Glucose 104 Lactic Acid 1.3 Calcium 10.1 D Magnesium 1.7 Total Bilirubin 1.8 H GGT 170 H AST 26 ALT 21 Alkaline Phosphatase 436 H Troponin I High Sens B-Natriuretic Peptide Total Protein 7.1 Albumin 3.5 Lipase 10 Urine Color Urine Appearance Urine pH Ur Specific [place] Urine Protein Urine Glucose (UA) Urine Ketones Urine Blood Urine Nitrite Ur Leukocyte Esterase Urine RBC Urine WBC Ur Squamous Epith Cells Urine Bacteria Hyaline Casts COVID-19 ([facility]) COVID-19 Clin Com 10/11/22 10/11/22 10/11/22 14:30 14:30 14:30 MCV MCH MCHC RDW Plt Count MPV Immature Gran % (Auto) Neut % (Auto) Lymph % (Auto) [place] % (Auto) Eos % (Auto) Baso % (Auto) Lymph # (Auto) [place] # (Auto) Eos # (Auto) Baso # (Auto) Abs Immat Gran (auto) Absolute Neuts (auto) Absolute Nucleated RBC Nucleated RBC % (auto) Anion Gap Estim Creat Clear Calc Estimated GFR Random Glucose Lactic Acid Calcium Magnesium Total Bilirubin GGT AST ALT Alkaline Phosphatase Troponin I High Sens 8.3 B-Natriuretic Peptide 220 H Total Protein Albumin Lipase Urine Color Urine Appearance Urine pH Ur Specific [place] Urine Protein Urine Glucose (UA) Urine Ketones Urine Blood Urine Nitrite Ur Leukocyte Esterase Urine RBC Urine WBC Ur Squamous Epith Cells Urine Bacteria Hyaline Casts COVID-19 ([facility]AREL) Negative COVID-19 Clin Com See Note 10/11/22 10/12/22 10/12/22 15:05 05:18 05:18 MCV 94.4 MCH 31.4 MCHC 33.3 RDW 13.2 Plt Count 236 MPV 10.2 Immature Gran % (Auto) 0.3 Neut % (Auto) 84.6 H Lymph % (Auto) 5.6 L [place] % (Auto) 8.0 Eos % (Auto) 1.0 Baso % (Auto) 0.5 Lymph # (Auto) 0.5 L [place] # (Auto) 0.6 Eos # (Auto) 0.1 Baso # (Auto) 0.0 Abs Immat Gran (auto) 0.02 Absolute Neuts (auto) 6.7 Absolute Nucleated RBC 0.000 Nucleated RBC % (auto) 0.0 Anion Gap 15 Estim Creat Clear Calc 78.2 Estimated GFR > 60 Random Glucose 107 Lactic Acid Calcium 8.5 D Magnesium Total Bilirubin GGT AST ALT Alkaline Phosphatase Troponin I High Sens B-Natriuretic Peptide Total Protein Albumin Lipase Urine Color Dark Yellow Urine Appearance Clear Urine pH 5.5 Ur Specific [place] 1.025 Urine Protein Trace Urine Glucose (UA) Negative Urine Ketones Trace Urine Blood Negative Urine Nitrite Negative Ur Leukocyte Esterase Trace H Urine RBC 0-2 Urine WBC 0-5 Ur Squamous Epith Cells 0-2 Urine Bacteria None Seen Hyaline Casts 0-2 COVID-19 ([facility]) COVID-19 Clin Com Assessment and Plan (1) Postobstructive pneumonia: Status: Acute Plan 57-year-old male with history of COPD, hyperlipidemia, chronic hypoxemic respiratory failure using 3 L supplemental O2 at baseline, multiple pulmonary nodules, left lung mass, multiple mediastinal lymph nodes (never diagnosed as cancer per patient) following with [facility] and Dr. Condon treated with right sided radiation, and VICKY started on azithro ethambutol and rifampin but stopped these after having seizure and did not resume admitted for post obstructive pneumonia. Acute postobstructive pneumonia Large CASSIUS mass with new air bronchograms IV zosyn (initiated 10/11) symptomatic management pulmonology following no leukocytosis, VSS.? No sepsis CBC, cultures Large CASSIUS Mass with concern for malignangy and metastasis with abn mediastinal nodes and elevated alk-phos (ggt pending) pulmonology consult> rec treating infection at this point and patient follow up with CT surgeon o/p Follow with [facility] outpt Recent VICKY lung infection positive culture, seen by ID 06/2022 and started on triple therapy Pt stopped meds due to seizure and did not resume Pulmonology following Chronic hypoxemic respiratory failure 2/2 COPD no acute exacerbation Continue baseline supplemental O2 at 2 L continue home maintenance inhaler, albuterol p.r.n. HLD continue statin Moderate malnutrition r/t protein deficiency Nutrition consult, ensures bid DVT prophylaxis with Attending Dr. Velasquez Full code Continue hospital stay for treatment of postobstructive pneumonia requiring IV antibiotics Time Spent With Patient Time: Total time managing care of this patient today ____ minutes. Quality Stroke Does the patient have a stroke diagnosis?: No VTE Prior VTE?: No VTE Risk Level:: Medical - moderate - high VTE Device Contraindication: Treatment Not Indicated VTE Drug Contraindication: N/A - Med Ordered
[2022-10-12] MEDS: Albuterol Sulfate (0.083%) 2.5 MG/3 ML VIAL.NEB INHALE (14:38)
[2022-10-12 14:47] VITALS: BP 98/66; PULSE 108; RESP 20; TEMP 37.2; O2SAT 95
[2022-10-12] MEDS: Atorvastatin Calcium 20 MG TABLET PO (19:44)
[2022-10-12] MEDS: Enoxaparin Sodium 40 MG/0.4 ML SYRINGE SUBCUT (19:44)
[2022-10-12] MEDS: Aspirin Enteric Coated 81 MG TABLET.DR PO (19:44)
[2022-10-12] MEDS: traMADoL HCL 50 MG TABLET PO (19:44)
[2022-10-12 19:49] VITALS: BP 100/64; PULSE 103; RESP 20; TEMP 36.3; O2SAT 93
[2022-10-12] MEDS: Fluticasone/Umeclidinium/Vilanterol 100/62.5/25 BLST.W.DEV 1 PUFF INHALE (21:37)
[2022-10-12 21:38] VITALS: PULSE 96; RESP 18; O2SAT 94
[2022-10-13] VITALS (8 sets, daily range): BP systolic 95–110; BP diastolic 60–70; PULSE 82–102; RESP 16–20; TEMP 36.1–37.2; O2SAT 86–98; BMI 14.3
[2022-10-13] MEDS: 0.9 % Sodium Chloride Flush 3 ML SYRINGE IVFLUSH ×2 (07:35→17:30)
[2022-10-13] MEDS: levoFLOXacin/D5W 500 MG/100 ML PIGGYBACK 100 MG IV (09:43)
[2022-10-13] MEDS: traMADoL HCL 50 MG TABLET PO (09:48)
[2022-10-13 11:12] LABS: MRSA Nasal PCR NEGATIVE (Negative); SA Nasal PCR NEGATIVE (Negative)
--- NOTE | 2022-10-13 15:44 | P.PNIM_ITS ---
Subjective Subjective Date of Service: 10/13/22 Interval History: seen and examined this morning Follow-up for postobstructive pneumonia Patient reports he is beginning to feel better Having some intermittent cough productive of yellow phlegm. Denies fever, chills Review of Systems Review of Systems: Yes all other systems are reviewed and are negative Constitutional Constitutional: Denies chills and Denies fever(s) Cardiovascular Cardiovascular: Denies chest pain, Denies palpitations and Denies dyspnea Respiratory Respiratory: Reports cough and Denies dyspnea Gastrointestinal Gastrointestinal: Denies abdominal pain, Denies nausea and Denies vomiting Endocrine Endocrine: Denies palpitations Physical Exam Vital Signs: Vital Signs: Last Vital Signs Temp 97.1 F 10/13/22 07:14 Pulse 87 10/13/22 07:14 Resp 18 10/13/22 07:14 BP 102/68 10/13/22 07:14 Pulse Ox 96 10/13/22 07:14 O2 Del Method Aerosol Mask 10/13/22 07:14 O2 Flow Rate 4.5 10/13/22 07:14 Oxygen Flow Rate 3 10/11/22 13:36 BMI result Body Mass Index 14.3 Const: General: cooperative, comfortable, no acute distress, alert and awake Nutritional Appearance: thin Orientation/consciousness: patient oriented x3 Resp: Other: scattered expiratory wheezes Effort & Inspection: normal respiratory effort, able to speak in complete sentences, no respiratory distress and no use of accessory muscles Cardio: Rate: regular rate Heart sounds: S1 normal heart sound present and S2 normal heart sound present GI: Inspection: No distended Palpation (GI): Soft to palpation and nontender Neuro: General: patient oriented x3, moves all extremities and CN's II-XI intact bilaterally Extrem: General: Yes no pedal edema Objective Data Active Medications Acetaminophen (Acetaminophen 325 Mg Tablet) 650 mg PO Q6H PRN PRN Reason: Pain, Mild (Pain Scale 1-3) Albuterol Sulfate (Albuterol Sulfate (0.083%) 2.5 Mg/3 Ml Vial.Neb) 2.5 mg INHALE Q4H PRN PRN Reason: Shortness of Breath/Wheezing Last Admin: 10/12/22 14:38 Dose: 2.5 mg Documented By: COOPEB Aspirin (Aspirin Enteric Coated 81 Mg Tablet.) 81 mg PO BEDTIME [facility] Last Admin: 10/12/22 19:44 Dose: 81 mg Documented By: CHARLIE Atorvastatin Calcium (Atorvastatin Calcium 20 Mg Tablet) 20 mg PO BEDTIME [facility] Last Admin: 10/12/22 19:44 Dose: 20 mg Documented By: CHARLIE Docusate Sodium (Docusate Sodium 100 Mg Capsule) 100 mg PO DAILY PRN PRN Reason: Constipation Enoxaparin Sodium (Enoxaparin Sodium 40 Mg/0.4 Ml Syringe) 40 mg SUBCUT Q24H [facility] Last Admin: 10/12/22 19:44 Dose: 40 mg Documented By: CHARLIE Fluticasone/Umeclidinium/Vilanterol (Fluticasone/Umeclidinium/Vilanterol 100/62.5/25 Blst.W.Dev) 1 puff INHALE BEDTIME [facility] Last Admin: 10/12/22 21:37 Dose: 1 puff Documented By: LATRICIA Gabapentin (Gabapentin 400 Mg Capsule) 400 mg PO TID [facility] Last Admin: 10/13/22 13:05 Dose: Not Given Documented By: RIDGE Non-Admin Reason: Patient Refused Guaifenesin (Guaifenesin 200 Mg/10 Ml 10 Ml Liquid) 10 ml PO Q4H PRN PRN Reason: Cough Levofloxacin (Levaquin) 500 mg in 100 mls @ 100 mls/hr IV Q24H [facility] Last Infusion: 10/13/22 10:47 Dose: 0 mls/hr Documented By: RIDGE Ondansetron HCl (Ondansetron Hcl 4 Mg/2 Ml Vial) 4 mg IVPUSH Q8H PRN PRN Reason: Nausea and Vomiting Pharmacy Consult (Consult Rx Perform Med Rec) 1 each MISCELLANE ONCE PRN PRN Reason: Consult order Sodium Chloride (0.9 % Sodium Chloride Flush 3 Ml Syringe) 3 ml IVFLUSH QSHIFT [facility] Last Admin: 10/13/22 07:35 Dose: 3 ml Documented By: RIDGE Tramadol HCl (Tramadol Hcl 50 Mg Tablet) 50 mg PO Q12H PRN PRN Reason: Pain, Severe (Pain Scale 7-10) Last Admin: 10/13/22 09:48 Dose: 50 mg Documented By: RIDGE Labs 10/12/22 05:18 10/12/22 05:18 Labs: Laboratory Results - last 24 hr 10/12/22 18:16 Nasal Screen MRSA (PCR) NEGATIVE Nasal S. aureus Screen NEGATIVE Nasal MRSA/S.aureus Interp SEE NOTE Microbiology Microbiology Results: Microbiology 10/11/22 14:30 Blood Culture - Preliminary Blood - Venous No growth after 24 hours. 10/11/22 14:30 Blood Culture - Preliminary Blood - Venous No growth after 24 hours. Assessment and Plan (1) Postobstructive pneumonia: Status: Acute Plan 57-year-old male with history of COPD, hyperlipidemia, chronic hypoxemic respiratory failure using 3 L supplemental O2 at baseline, multiple pulmonary nodules, left lung mass, multiple mediastinal lymph nodes (never diagnosed as cancer per patient) following with [facility] and Dr. Alan treated with right sided radiation, and VICKY started on azithro ethambutol and rifampin but stopped these after having seizure and did not resume admitted for post obstructive pneumonia. Acute postobstructive pneumonia Large CASSIUS mass with new air bronchograms no evidence of sepsis initially treated with zosyn (initiated 10/11), changed to IV levaquin 10/12 pulmonology following, rec 14 days levaquin, outpatient follow up with thoracic surgery blood cultures negative to date Large CASSIUS Mass with concern for malignangy and metastasis with abn mediastinal nodes and elevated alk-phos (ggt pending) pulmonology consult> rec treating infection at this point and patient follow up with CT surgeon o/p Follow with [facility] outpt Recent VICKY lung infection positive culture, seen by ID 06/2022 and started on triple therapy Pt stopped meds due to seizure and did not resume outpatient follow up Acute on Chronic hypoxemic respiratory failure 2/2 COPD on 4.5L, 3L at baseline continue home maintenance inhaler, albuterol p.r.n. wean supplemental oxygen as tolerated HLD continue statin Moderate malnutrition r/t protein deficiency Nutrition consult, ensures bid DVT prophylaxis with lovenox Attending Dr. Velasquez Full code Continue hospital stay for treatment of postobstructive pneumonia requiring IV antibiotics Time Spent With Patient Time: Total time managing care of this patient today ____ minutes. Quality Stroke Does the patient have a stroke diagnosis?: No VTE Prior VTE?: No VTE Risk Level:: Medical - moderate - high VTE Device Contraindication: Treatment Not Indicated VTE Drug Contraindication: N/A - Med Ordered
--- NOTE | 2022-10-13 16:07 | MHC.CLN ---
NUTRITION CONSULT FOR WEIGHT LOSS. DIET=REGULAR. TAKES CHOCOLATE ENSURE SUPPLEMENT AT HOME. CHANGING SUPPLEMENT TO ENSURE TID. PROVIDES 1050 KCALS, 60 G PROTEIN. WEIGHT LOSS X ONE YEAR -14%. BMI=14.3. NUTRITION DX SEVERE MALNUTRITION IN THE CONTEXT OF CHRONIC ILLNESS EVIDENCED BY SEVERE DEPLETION OF BODY FAT AND MUSCLE MASS. CONTINUE REGULAR DIET AND NUTRITIONAL SUPPLEMENT. FOLLOW FOR INTAKE, MEDICAL DX, AND WEIGHT.
--- NOTE | 2022-10-13 18:28 | PC.NURSE ---
pt ambulated to doorway with 3 L NC pt o2 dropped to 86% , HR 114
[2022-10-13] MEDS: Aspirin Enteric Coated 81 MG TABLET.DR PO (19:41)
[2022-10-13] MEDS: Enoxaparin Sodium 40 MG/0.4 ML SYRINGE SUBCUT (19:42)
[2022-10-13] MEDS: Atorvastatin Calcium 20 MG TABLET PO (19:42)
[2022-10-13] MEDS: Fluticasone/Umeclidinium/Vilanterol 100/62.5/25 BLST.W.DEV 1 PUFF INHALE (20:14)
[2022-10-14] MEDS: 0.9 % Sodium Chloride Flush 3 ML SYRINGE IVFLUSH ×2 (00:13→09:07)
[2022-10-14 04:00] VITALS: BP 105/61; PULSE 62; RESP 17; TEMP 36.4; O2SAT 96
[2022-10-14 08:00] VITALS: BP 97/62; PULSE 104; RESP 18; TEMP 36.6; O2SAT 93
[2022-10-14] MEDS: levoFLOXacin/D5W 500 MG/100 ML PIGGYBACK 100 MG IV (09:07)
[2022-10-14] MEDS: traMADoL HCL 50 MG TABLET PO (10:37)
--- NOTE | 2022-10-14 10:43 | MHC.CLN ---
F/U DIET=REGULAR. ENSURE TID PROVIDES ADDITIONAL 1050 KCALS, 60 G PROTEIN. INTAKE APPEARS GOOD, 75-100% CONTINUE REGULAR DIET AND NUTRITIONAL SUPPLEMENT. FOLLOW FOR INTAKE, MEDICAL DX, AND WEIGHT.
--- NOTE | 2022-10-14 11:51 | PM.DS ---
DS: Providers Provider Date of Service: 10/14/22 Date of admission: 10/11/22 18:29 Date of discharge: 10/14/22 Primary care physician: VENUS Ricks Consults: 10/11/22 18:28 Consult to Pulmonology Routine Consulting Provider: [facility] Pulmonology Services Reason for consultation: post obstructive pneumonia Attending physician on discharge: Atif Velasquez Discharging clinician: Paris Silevr DS: Diagnosis Discharge Diagnosis (1) Postobstructive pneumonia: Status: Acute DS: Summary Hospital Course Hospital Course: From H&P on day of admission 57-year-old male with history of COPD, hyperlipidemia, chronic hypoxemic respiratory failure using 3 L supplemental O2 at baseline, multiple pulmonary nodules, left lung mass, multiple mediastinal lymph nodes (never diagnosed as cancer per patient) following with [facility] and Dr. Condon treated with right sided radiation, and VICKY started on azithro ethambutol and rifampin but stopped these after having seizure and did not resume presented to the ED for evaluation. He has had fevers at home with temp up to 103, rebound tenderness, weight loss of 40 pounds, anorexia, nausea, but no vomiting. Has chronic cough at baseline and no increased sob. No lightheadedness, palpitations, chest pain, urinary symptoms, focal weakness, or paresthesias. He has been smoking 0.5 PPD for many years and states he his quitting as of today. Also smokes MJ. No etoh or illicit drug use. He follows with Dr. Francois in pulmonology. On arrival, VSS. No leukocytosis. Renal function and electorlytes normal. Total bili 1.8, AST 26, ALT 21, Alk phos 436, trops WNL, BNP 220. GGT pending. UA unremarkable.? Abdominal U.S. was unremarkable.? CXR showed streaky opacity in the left mid lung minimally more extensive compared to priors.? CT abdomen/pelvis and chest also ordered showing large left upper lobe mass with air bronchograms which are new since prior study, differential to include pneumonic infiltrate.? There is also diffuse severe emphysema with bullous changes in the bilateral upper lobes.? Previously seen right upper lobe nodule has resolved.? Chronic scarring versus atelectasis in the right upper lobe and left lower lobe.? There also abnormal mediastinal lymph nodes which have slightly increased in size.? No acute process in the abdomen or pelvis. In the ED, given 2L IV NS, IV zosyn, and Vanco. Acute postobstructive pneumonia Imaging with Large CASSIUS mass with new air bronchograms. no evidence of sepsis initially treated with zosyn (initiated 10/11), changed to IV levaquin 10/12. seen by pulmonology, recommends 14 days levaquin, outpatient follow up with thoracic surgeon blood cultures negative to date Recent VICKY lung infection positive culture, seen by ID 06/2022 and started on triple therapy. Pt stopped meds due to seizure and did not resume. outpatient follow up as above. Acute on Chronic hypoxemic respiratory failure 2/2 COPD. weaned down to baseline supplemental oxygen. Home oxygen evaluation was obtained no changes were required. Continue current supplemental oxygen at 3 L encourage protein intake Time Spent with Patient Time attestation: Total time managing care of this patient today ____ minutes. Discharge coordination time: Greater than 30 minutes Quality: Safe Use of Opioids Does Pt have an Active Cancer Diagnosis on the Problem List?: No Quality: Stroke Does the patient have a stroke diagnosis?: No Physical Exam Vital Signs: Vital Signs: Last Vital Signs Temp 97.9 F 10/14/22 08:00 Pulse 104 H 10/14/22 08:00 Resp 18 10/14/22 08:00 BP 97/62 10/14/22 08:00 Pulse Ox 93 10/14/22 08:00 O2 Del Method Nasal Cannula 10/14/22 08:00 O2 Flow Rate 4.5 10/14/22 08:00 Oxygen Flow Rate 3 10/11/22 13:36 BMI result Body Mass Index 14.3 Const: General: cooperative, comfortable, no acute distress, alert and awake Nutritional Appearance: thin Orientation/consciousness: patient oriented x3 Resp: Effort & Inspection: normal respiratory effort, able to speak in complete sentences, no respiratory distress and no use of accessory muscles Cardio: Rate: regular rate Heart sounds: S1 normal heart sound present and S2 normal heart sound present GI: Inspection: No distended Palpation (GI): Soft to palpation and nontender Neuro: General: patient oriented x3, moves all extremities and CN's II-XI intact bilaterally Extrem: General: Yes no pedal edema DS: Data Data Completed and Pending Labs on day of discharge: Preliminary micro results at discharge 10/11/22 14:30 Blood Culture - Preliminary Blood - Venous No growth after 48 hours. 10/11/22 14:30 Blood Culture - Preliminary Blood - Venous No growth after 48 hours. Discharge Plan Discharge Anticipated Discharge Date/Time: 10/14/22 11:54 Patient Disposition: Home, Self-Care Discharge Diagnosis: pneumonia Referrals: John Jurado FNP- [Primary Care Provider] - 1 Week Cindy Mathis MD [Physician] - 1 Week Discharge Medications: New levofloxacin 750 mg tablet 750 mg PO Q24H 12 Days Qty: 12 0RF Continued simvastatin 40 mg tablet 40 mg PO BEDTIME Qty: 90 1RF gabapentin 400 mg capsule 400 mg PO TID Qty: 90 2RF aspirin 81 mg Tablet,Delayed Release (Dr/Ec) 81 mg PO BEDTIME Trelegy Ellipta 100-62.5-25 mcg blister with device 1 ea PO BEDTIME Discharge Orders: Discharge Order (Routine); Ordered 10/14/22 Ordered By: Paris Silver Activity on Discharge: As tolerated Stand Alone Forms: Patient Portal Discharge page Care Plan Goals: see below Health Concerns: pneumonia Plan of Treatment: Complete antibiotics as prescribed continue to use supplemental oxygen at 3L/min call to schedule follow-up appointment with Dr. Mathis for follow up with lung nodules recommend repeat imaging within 4-6 weeks Assessment: see discharge summary
== END 2022-10-14 14:14 | disposition home or self-care (01) | DRG 139 ==
LOC: HO.ED 14:37 → HO.EDOVER 18:35 → HO.S3 10-12 17:36
PROVIDERS: Hospitalist; Physician Assistant; Admitting Provider Physician Assistant; Emergency Provider Student in an Organized Health Care Education/Training Program; PCP Nurse Practitioner Family; Visit Provider Physician Assistant Medical
DX: J18.9 Pneumonia, unspecified organism (principal); J96.21 Acute and chronic respiratory failure with hypoxia; E44.0 Moderate protein-calorie malnutrition; Z99.81 Dependence on supplemental oxygen; E78.5 Hyperlipidemia, unspecified; R91.8 Other nonspecific abnormal finding of lung field; J44.0 Chronic obstructive pulmonary disease with (acute) lower respiratory infection; Z68.1 Body mass index [BMI] 19.9 or less, adult; F17.210 Nicotine dependence, cigarettes, uncomplicated; Z71.6 Tobacco abuse counseling; Z20.822 Contact with and (suspected) exposure to COVID-19; Z79.82 Long term (current) use of aspirin; Z79.899 Other long term (current) drug therapy
CPT/HCPCS: 36415; 71045; 71260; 74177; 76705; 80048; 80053; 81001; 82977; 83605; 83690; 83735; 83880; 84484; 85025; 87040; 87635; 87640; 87641; 93005; 97162; 99285; J1650; J1956; J2543; J3370; Q9967

== ENCOUNTER → 2022-10-11 13:40 | Outpatient (BNV) | payer OTHER, SELFPAY | PROVIDERS: Admitting Provider Physician Assistant; Emergency Provider Student in an Organized Health Care Education/Training Program; PCP Nurse Practitioner Family; Visit Provider Internal Medicine Cardiovascular Disease | DX: R00.0 Tachycardia, unspecified (principal); R94.31 Abnormal electrocardiogram [ECG] [EKG] | CPT/HCPCS: 93010 ==

== ENCOUNTER → 2022-10-11 18:29 | Outpatient (BNV) | payer OTHER, SELFPAY | PROVIDERS: Admitting Provider Physician Assistant; Emergency Provider Student in an Organized Health Care Education/Training Program; PCP Nurse Practitioner Family; Visit Provider Hospitalist | DX: R91.8 Other nonspecific abnormal finding of lung field (principal); J18.9 Pneumonia, unspecified organism; A31.0 Pulmonary mycobacterial infection; J44.9 Chronic obstructive pulmonary disease, unspecified | CPT/HCPCS: 99223 ==

== ENCOUNTER → 2022-10-11 18:29 | Outpatient (BNV) | payer OTHER, SELFPAY | PROVIDERS: Admitting Provider Physician Assistant; Emergency Provider Student in an Organized Health Care Education/Training Program; PCP Nurse Practitioner Family; Visit Provider Nurse Practitioner Acute Care | DX: J18.9 Pneumonia, unspecified organism (principal); R91.8 Other nonspecific abnormal finding of lung field; R59.0 Localized enlarged lymph nodes | CPT/HCPCS: 99223; 99232; 99239 ==

== ENCOUNTER 2022-11-02 11:33 | Outpatient (REF) | payer OTHER, SELFPAY ==
--- NOTE | ~2022-11-02 | XR_ITS ---
EXAMINATION: XR CHEST CLINICAL INFORMATION: COPD. COMPARISON: 10/11/2022 chest radiographs and chest CT scan. TECHNIQUE: 2 views of the chest were obtained. FINDINGS: Persistent opacities are seen in the left mid and upper lung lobo with mild interval increase. Underlying emphysema is again noted. The heart and mediastinal structures are unremarkable. XR/XR chest 2V IMPRESSION: Worsening infiltrates in the left lung. This could represent pneumonia however an underlying mass as previously suggested cannot be excluded. Continued radiographic/CT follow-up is recommended as clinically indicated to assess for change.
== END 2022-11-02 11:34 | disposition home or self-care (01) ==
LOC: HO.XRAY 11:33
PROVIDERS: PCP Nurse Practitioner Family; Visit Provider Internal Medicine
DX: R91.8 Other nonspecific abnormal finding of lung field (principal); J18.9 Pneumonia, unspecified organism; J96.91 Respiratory failure, unspecified with hypoxia; J44.9 Chronic obstructive pulmonary disease, unspecified
CPT/HCPCS: 71046

== ENCOUNTER 2022-11-02 11:33 | Outpatient (AMB) | payer OTHER, SELFPAY ==
--- NOTE | 2022-11-02 11:40 | MHC.OFFVIS ---
Intake Intake Visit Reasons: lung mass Intake Note: pt is on the phone for follow up from the hospital and needs direction on care. breathing is better, walking is getting better, but he pulled the tendons in legs from walking, now somewhat better. He is decreasing his smoking,. Narcotics Investigator Required: No Allergies No Known Allergies [No Known Allergies*] Allergy (Verified 11/02/22 11:48) Medication List - Last Reconciled 11/02/22 by Vance Francois MD acetaminophen (Tylenol Extra Strength) 500 mg PO QID PRN 7 days aspirin 81 mg PO BEDTIME [id number]-umjnhrujz-modcjcua 100-62.5-25 mcg (Trelegy Ellipta) 1 ea PO BEDTIME gabapentin 400 mg PO TID simvastatin 40 mg PO BEDTIME tramadol 50 mg PO BID PRN Do you need a note to return to daycare/school/sports/work: No HPI lung mass HPI Details 57 years old gentleman well known to us for his end-stage chronic obstructive pulmonary disease/chronic hypoxemic respiratory failure. He has also been treated for a neoplastic pulmonary nodules, in right upper lobe. And the nodule has resolved. In September 2022, CT scan of the chest had shown a new nodule in the left upper lobe with positive FDG, activity on a PET scan. Patient has been followed up by Dr. Cindy Mathis, and the plan was for him to go back to oncology service [facility], for consideration of empiric radiation therapy. 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 Dr. Sylvester, the ID specialist, had started him on triple antibiotic therapy but patient developed seizure disorder and had to stop the antibiotics. He was admitted to [facility] with cough and increased shortness of breath fever. His chest x-ray and CT scan of the chest showed a larger density in the left upper lobe with air bronchogram effect, Possibilities included to pneumonia worse is increased neoplastic process. He was treated for pneumonia empirically initially with IV Zosyn which was later on changed to Levaquin 500 mg p.o. daily. He did complete 14 days course of Levaquin. He developed to painful neuropathy like symptoms in the legs treated with the tramadol for pain control and also gabapentin. Patient did not tolerate gabapentin so it was stopped. At present he denies any fever or chills. He remains very weak in general and has difficulty. In walking Appetite remains poor. In the last few days since he has stopped Levaquin his legs are a little stronger and. He is eating better. [facility] Medical History (Updated 11/02/22 @ 12:14 by Vance Francois MD) COPD (chronic obstructive pulmonary disease) Exercise hypoxemia Hyperlipidemia Lung mass Multiple pulmonary nodules Mycobacterium avium complex Nicotine dependence, unspecified, uncomplicated Respiratory failure with hypoxia Surgical History History of bronchoscopy (~12/2019) History of bronchoscopy (~04/2021) History of eye surgery (~11/2020) Family History Father Lung cancer Brother COPD (chronic obstructive pulmonary disease) Substance use disorder Son Substance use disorder Social History Household Members: Family Housing: House Do you presently have visiting nurse or other home services: No Alcohol intake: never Patient Tobacco Use Status: Current everyday Tobacco user Tobacco use type: Cigarette Cigarette Packs Per Day: 0.5 Cigarettes Per Day: 10.0 e-Cigarette/Vaping Use: Never Used Second Hand Smoke Exposure: No Substance Use Type: Marijuana Advance Directives Date on File: 10/12/22 service: No Current occupational status: disabled Current occupational exposures/hazards: No Cognitive needs: No Hearing needs: No Vision needs: No Review of Systems Const All systems reviewed & are unremarkable except as noted in HPI and below Eyes Details: Has had treatment to for 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 ENT Reports no additional complaints Card Reports no additional complaints Resp Reports as per HPI GI Reports no additional complaints Reports no additional complaints Musc Reports no additional complaints Skin/Breast Reports system reviewed and no additional complaints, except as documented Neuro Reports no additional complaints Physical Exam TELE VISIT PHYSICAL EXAM NOT PERFORMED. Assessment & Plan Assessment & Plan (1) Mass of left lung: Comment: PATIENT HAS A LARGE DENSITY IN THE LEFT UPPER LOBE WITH AIR BRONCHOGRAM EFFECT. DIFF. DIAG. PNEUMONIA VERSUS NEOPLASTIC PROCESS. PATIENT HAS BEEN TREATED FOR POSSIBLE PNEUMONIA. NEEDS A FOLLOW-UP CHEST X-RAY AND THEN MAY BE CT SCAN OF THE CHEST. IF THE MASS IS PERSISTING THEN IT IS MOST LIKELY NEOPLASTIC. AND HE WILL BE REFERRED TO AND COLLAGEN DEPARTMENT AT [facility] TO CONSIDER RADIATION THERAPY. Code(s): R91.8 - Other nonspecific abnormal finding of lung field (2) Pneumonia: Comment: NOTED ABOVE HE WAS TREATED FOR POSSIBLE PNEUMONIA WITH A COURSE OF LEVAQUIN 500 MG ONCE A DAY FOR 14 DAYS. HE HAS NO ACTIVE. SYMPTOMS OF PNEUMONIA AT THIS TIME CHEST X-RAY IS ORDERED FOR FOLLOW-UP. Code(s): J18.9 - Pneumonia, unspecified organism (3) Respiratory failure with hypoxia: Comment: DUE TO HIS ADVANCED COPD HE HAS HYPOXEMIC RESPIRATORY FAILURE, HE IS ON OXYGEN 24 HOURS A DAY. ADVISED TO CONTINUE O2 2 L/MINUTE. Code(s): J96.91 - Respiratory failure, unspecified with hypoxia (4) COPD (chronic obstructive pulmonary disease): Comment: (Advanced/end stage COPD - IT IS THE WELL CONTROLLED AND STABLE WITH HIS CURRENT REGIMEN BELOW: [place] : TRELEGY ONE INH DAILY ALBUTEROL HFA 2 PUFFS Q 4-6 HRS PRN Code(s): J44.9 - Chronic obstructive pulmonary disease, unspecified Orders: Orders XR chest 2V Today J18.9 - Pneumonia, unspecified organism, J44.9 - Chronic obstructive pulmonary disease, unspecified, R91.8 - Other nonspecific abnormal finding of lung field Medications: Discontinued Trelegy Ellipta 100-62.5-25 mcg 1 ea PO DAILY 60 ea 0RF NS Telehealth Telehealth Location of provider rendering services: practice address Location of patient: address on file Patient Identification confirmed using: Name, : Yes Telehealth method: voice only Patient verbally consented to treatment: Yes Patient verbally consented to billing insurance company: Yes Patient informed of any privacy concerns related to visit: Yes Coding Level of Care Code Tele New Pt Level 4 (50295) Diagnoses Mass of left lung R91.8 Pneumonia J18.9 Respiratory failure with hypoxia J96.91 COPD (chronic obstructive pulmonary disease) J44.9
== END 2022-11-02 12:48 | disposition home or self-care (01) ==
PROVIDERS: PCP Nurse Practitioner Family; Visit Provider Internal Medicine
DX: R91.8 Other nonspecific abnormal finding of lung field (principal); J18.9 Pneumonia, unspecified organism; J96.91 Respiratory failure, unspecified with hypoxia; J44.9 Chronic obstructive pulmonary disease, unspecified
CPT/HCPCS: 99214

== ENCOUNTER 2022-12-07 15:13 | Outpatient (AMB) | payer OTHER, SELFPAY ==
[2022-12-07 15:25] VITALS: BP 90/60; PULSE 110; O2SAT 96
--- NOTE | 2022-12-07 15:25 | A.OFFVIS_ITS ---
Intake Vital Signs 12/07/22 15:25 Height 5 ft 10 in BP 90/60 Blood Pressure Location Lt brachial Position Sitting Pulse 110 H Pulse Source Pulse Oximeter Pulse Oximetry (%) 96 Oxygen Delivery Method Nasal Cannula Intake Visit Reasons: Discuss bronch/abx therapy per [facility] oncology Intake Note: pt is here for follow up and he states not bad, some coughing, discomfort on left side. on 4 liters most of the time, especially going outside. Watch Technician Required: No Allergies No Known Allergies [No Known Allergies*] Allergy (Verified 12/07/22 16:10) Medication List - Last Reconciled 12/07/22 by Vance Francois MD acetaminophen (Tylenol Extra Strength) 500 mg PO QID PRN 7 days aspirin 81 mg PO BEDTIME rybktwfnsdr-uoxbrabng-lhqushvn 100-62.5-25 mcg (Trelegy Ellipta) 1 ea PO BEDTIME simvastatin 40 mg PO BEDTIME tramadol 50 mg PO BID PRN HPI Discuss bronch/abx therapy per [facility] oncology HPI Details SHOSHANA IS 57 YEARS OLD GENTLEMAN WITH PAST TO HEAVY SMOKING, CASE OF ADVANCED CHRONIC OBSTRUCTIVE PULMONARY DISEASE/RESPIRATORY FAILURE. CASE OF LUNG CANCER, HAS HAD PALLIATIVE RADIATION IN THE PAST, NOW HAS INCREASED ALVEOLAR DENSITY IN THE LEFT UPPER LOBE AND LEFT LOWER LOBE, PET SCAN SHOWS INCREASED FDG ACTIVITY, SUGGESTING NEOPLASTIC VERSUS INFECTIOUS PROCESS. DR. CERVANTES PERFORMED NAVIGATIONAL BRONCHOSCOPY AT [facility] IN MAY 2022, THE CULTURES GREW MYCOBACTERIUM AVIUM SPECIES. PATIENT WAS REFERRED TO INFECTION DISEASE SPECIALIST DR. Neumann WHO STARTED TIME ON TRIPLE ANTI TB . THERAPY, TIME DEVELOPED TO VERY SIGNIFICANT GI SIDE EFFECTS, AND STOP USING THE ANTIBIOTIC REGIMEN. LATELY HE HAS LOST WEIGHT, APPETITE WAS POOR, AND HE HAS BECOME MORE DEBILITATED. HE TELLS ME THAT THIS WAS MAINLY BECAUSE OF GABAPENTIN WHICH WAS GIVEN TO HIM FOR PAIN CONTROL OR. GAVE UP AND AND TOOK AWAY HIS TASTE, AND HE COULD NOT EAT MUCH. NOW THAT HE IS OFF GABAPENTIN HIS TASTE IS IMPROVED, AND HE IS STARTING, TO EAT BETTER HIS WEIGHT HAS STABILIZED, BUT HE STILL REMAINS GROSSLY UNDERWEIGHT. TIME HAS DIFFICULTY IN CLEARING THE SECRETIONS SOMETIMES AND WOULD LIKE TO HAVE A NEBULIZER AT HOME. HE DOES USE TRELEGY 1 INHALATION DAILY. THE ONCOLOGY SERVICE AT [facility] HAS REVIEWED THE PET SCAN FINDINGS, AND RECOMMEND USE OF ANTIBIOTICS, OR PROCEED WITH BRONCHOSCOPY TO GET MORE CULTURES. [facility] Medical History COPD (chronic obstructive pulmonary disease) Exercise hypoxemia Hyperlipidemia Lung mass Multiple pulmonary nodules Mycobacterium avium complex Nicotine dependence, unspecified, uncomplicated Respiratory failure with hypoxia Surgical History History of bronchoscopy (~12/2019) History of bronchoscopy (~04/2021) History of eye surgery (~11/2020) Family History Father Lung cancer Brother COPD (chronic obstructive pulmonary disease) Substance use disorder Son Substance use disorder Social History Household Members: Family Housing: House Do you presently have visiting nurse or other home services: No Alcohol intake: never Patient Tobacco Use Status: Current everyday Tobacco user Tobacco use type: Cigarette Cigarette Packs Per Day: 0.5 Cigarettes Per Day: 10.0 e-Cigarette/Vaping Use: Never Used Second Hand Smoke Exposure: No Substance Use Type: Marijuana Advance Directives Date on File: 10/12/22 service: No Current occupational status: disabled Current occupational exposures/hazards: No Cognitive needs: No Hearing needs: No Vision needs: No Review of Systems Const All systems reviewed & are unremarkable except as noted in HPI and below Eyes Details: Has had treatment to for 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 ENT Reports no additional complaints Card Reports no additional complaints Resp Reports as per HPI GI Reports no additional complaints Reports no additional complaints Musc Reports no additional complaints Skin/Breast Reports system reviewed and no additional complaints, except as documented Neuro Reports no additional complaints Physical Exam Vital Signs: Last Vital Signs Pulse 110 H 12/07/22 15:25 BP 90/60 12/07/22 15:25 Pulse Ox 96 12/07/22 15:25 Oxygen Delivery Method Nasal Cannula 12/07/22 15:25 Const Other: CHRONICALLY SICK-LOOKING AND EMACIATED General: comfortable, no acute distress, alert and awake Orientation/consciousness: patient oriented x3 HEENT Head: Yes normal to inspection General nose exam: No nasal polyps present and No nasal discharge present Face and sinus: Yes sinuses nontender Mouth: oropharynx normal Throat: Yes posterior oropharynx normal Eyes General: appearance normal, both eyes and all related structures Neck Neck: Yes normal visual inspection, Yes no lymphadenopathy, Yes trachea midline and Yes no JVD Thyroid: Thyroid normal Chest Chest palpation & inspection: normal inspection of the chest and no tenderness Resp Other: PERCUSSION NOTE HYPER-RESONANT, BREATH SOUNDS ARE VERY DISTANT ON BOTH SIDES. A FEW INSPIRATORY CRACKLES OVER THE BASILAR AREAS., NO WHEEZES. Cardio Palpation: normal PMI Rate: regular rate Rhythm: regular rhythm Heart sounds: no gallops and no murmurs GI Palpation (GI): Soft to palpation, nontender, No hepatosplenomegaly present and no masses Auscultation: normal bowel sounds Back/Spine/Pelvis Thoracic/Lumbar Spine: thoracic and lumbar spine normal to inspection Skin General skin exam: no rashes or lesions noted Neuro General: patient oriented x3, No gait normal (GAIT MARKEDLY IMPAIRED DUE TO GENERAL WEAKNESS, PATIENT IS IN WHEELCHAIR) and no focal motor deficits Cranial nerves: Yes CN's II-XII intact bilaterally Extrem General: Yes normal to inspection, Yes no clubbing, cyanosis or edema and Yes no calf tenderness Psych Appearance: grossly normal Speech and movement: Normal speech and movement present Assessment & Plan Assessment & Plan (1) COPD (chronic obstructive pulmonary disease): Comment: (Advanced/end stage COPD - IT IS THE WELL CONTROLLED AND STABLE WITH HIS CURRENT REGIMEN BELOW, BUT HE HAS FREQUENT URGE TO CLEAR SECRETIONS, FOR THIS REASON I WOULD ORDER A NEBULIZER FOR HIM TO USE IPRATROPIUM/ALBUTEROL SOLUTION Q 6 HOURS P.R.N.. CONTINUE TRELEGY ONE INH DAILY ALBUTEROL HFA 2 PUFFS Q 4-6 HRS PRN Code(s): J44.9 - Chronic obstructive pulmonary disease, unspecified (2) Respiratory failure with hypoxia: Comment: DUE TO HIS ADVANCED COPD HE HAS HYPOXEMIC RESPIRATORY FAILURE, HE IS ON OXYGEN 24 HOURS A DAY. ADVISED TO CONTINUE O2 3 L/MINUTE. Code(s): J96.91 - Respiratory failure, unspecified with hypoxia (3) Mass of left lung: Comment: PATIENT HAS A LARGE DENSITY IN THE LEFT UPPER LOBE WITH AIR BRONCHOGRAM EFFECT. DIFF. DIAG. PNEUMONIA VERSUS NEOPLASTIC PROCESS. PATIENT HAS BEEN TREATED FOR POSSIBLE PNEUMONIA. PET-CT SCAN AT [facility] SHOWS INCREASED DENSITIES ON BOTH SIDES ESPECIALLY IN THE LEFT LUNG, DIFF DX IN PHLEGM A JOSE/INFECTIOUS VS NEOPLASTIC PROCESS. BRONCHOSCOPY EXAM , AND ALSO POSSIBLE TREATMENT FOR VICKY , HAS BEEN RECOMMENDED. DISCUSSED WITH THE PATIENT AND HIS IN DETAIL. HE IS AGREEABLE TO UNDERGO BRONCHOSCOPY, TO OBTAIN CULTURES AND ALSO FOR CYTOLOGY. Code(s): R91.8 - Other nonspecific abnormal finding of lung field Medications: Discontinued Trelegy Ellipta 100-62.5-25 mcg 1 ea PO DAILY 60 ea 0RF NS Coding Level of Care Code Est Pt Level 4 (17226) Diagnoses COPD (chronic obstructive pulmonary disease) J44.9 Respiratory failure with hypoxia J96.91 Mass of left lung R91.8
== END 2022-12-07 16:08 | disposition home or self-care (01) ==
PROVIDERS: PCP Nurse Practitioner Family; Visit Provider Internal Medicine
DX: J44.9 Chronic obstructive pulmonary disease, unspecified (principal); J96.91 Respiratory failure, unspecified with hypoxia; R91.8 Other nonspecific abnormal finding of lung field
CPT/HCPCS: 99214

== ENCOUNTER → 2022-12-07 15:13 | Outpatient (BNVA) | payer OTHER, SELFPAY | PROVIDERS: PCP Nurse Practitioner Family; Visit Provider Internal Medicine ==

== ENCOUNTER → 2022-12-15 06:21 | Outpatient (BNV) | payer OTHER, SELFPAY | PROVIDERS: PCP Nurse Practitioner Family; Visit Provider Hospitalist | DX: R91.8 Other nonspecific abnormal finding of lung field (principal) | CPT/HCPCS: 31623; 31624; 31628 ==

== ENCOUNTER → 2022-12-15 06:21 | Day surgery (SDC) | payer OTHER, SELFPAY ==
--- NOTE | 2022-12-14 10:03 | P.CONAN_ITS ---
Documented by User: Tess Muniz NP 12/14/22 10:12 HPI - Anesthesia Eval Consult details Narrative: 57yo M for Bronchoscopy Fiberoptic Per pulmo CASE OF ADVANCED CHRONIC OBSTRUCTIVE PULMONARY DISEASE/RESPIRATORY FAILURE. CASE OF LUNG CANCER, HAS HAD PALLIATIVE RADIATION IN THE PAST, Bronch 05/2022 at [facility]. Cultures grew Mycobacterium avium. Pt did not complete abx course d/t GI side effects. PMFSH Active Problems Active Problems: All Active Problems (Updated 12/07/22 @ 16:42 by Vance Francois MD) COPD (chronic obstructive pulmonary disease) (Acute) Respiratory failure with hypoxia (Acute) Lung mass (Acute) Postobstructive pneumonia (Acute) Mediastinal adenopathy (Acute) Mass of left lung (Acute) Pneumonia (Acute) Bursitis of left shoulder (Acute) Insomnia (Acute) Exercise hypoxemia (Acute) Hyperlipidemia (Acute) Nicotine dependence, unspecified, uncomplicated (Acute) Past Medical History Medical History COPD (chronic obstructive pulmonary disease) Exercise hypoxemia Hyperlipidemia Lung mass Multiple pulmonary nodules Mycobacterium avium complex Nicotine dependence, unspecified, uncomplicated Respiratory failure with hypoxia Family History Family History Father Lung cancer Brother COPD (chronic obstructive pulmonary disease) Substance use disorder Son Substance use disorder Surgical History Surgical History History of bronchoscopy (~12/2019) History of bronchoscopy (~04/2021) History of eye surgery (~11/2020) Social History Social History Household Members: Family Housing: House Do you presently have visiting nurse or other home services: No Alcohol intake: never Patient Tobacco Use Status: Current everyday Tobacco user Tobacco use type: Cigarette Cigarette Packs Per Day: 0.5 Cigarettes Per Day: 3 e-Cigarette/Vaping Use: Never Used Second Hand Smoke Exposure: No Use of substances other than those prescribed or required for medical reasons: Yes Substance Use Type: Marijuana Are you DNR?: No Advance Directives: No Advance Directives Information Provided: Yes Advance Directives Date on File: 10/12/22 How much weight loss: 2-13 pounds service: No Current occupational status: disabled Current occupational exposures/hazards: No Cognitive needs: No Hearing needs: No Vision needs: No Meds Allergies Allergy/AdvReac Type Severity Reaction Status Date / Time No Known Allergies Allergy Verified 12/07/22 16:10 [No Known Allergies*] Home Medications Medication Instructions Recorded Confirmed Last Taken Type aspirin 81 mg tablet,delayed 81 mg PO BEDTIME 10/11/22 10/11/22 10/10/22 History release tramadol 50 mg tablet 50 mg PO BID PRN 11/02/22 Unknown History Exam Exam Date and Time: December 14, 2022 1003 Pertinent Lab Results Pertinent Lab Results: Laboratory Tests 10/12/22 05:18 WBC 8.0 Hgb 14.6 Hct 43.9 Plt Count 236 Sodium 135 Potassium 3.8 Chloride 104 Carbon Dioxide 20 L BUN 7 L Creatinine 0.66 Narrative Narrative: EKG 10/2022 Vent. Rate : 103 BPM Atrial Rate : 103 BPM P-R Int : 134 ms QRS Dur : 086 ms QT Int : 388 ms P-R-T Axes : 091 115 -30 degrees QTc Int : 508 ms Suspect limb lead reversal, interpretation assumes no reversal Sinus tachycardia Right axis deviation Pulmonary disease pattern Possible Inferior infarct (cited on or before 14-SEP-2022) Abnormal ECG When compared with ECG of 14-SEP-2022 07:30, Premature ventricular complexes are no longer Present Assessment and Plan Assessment Anesthesia Assessment: Chart Reviewed Documented by User: Sabino Morgan MD 12/15/22 07:55 PMF Past Medical History Medical History COPD (chronic obstructive pulmonary disease) Exercise hypoxemia Hyperlipidemia Lung mass Multiple pulmonary nodules Mycobacterium avium complex Nicotine dependence, unspecified, uncomplicated Respiratory failure with hypoxia Narrative: wears 3L NC at home, Sats 93-95%. Dyspnea w slightest exertion. Family History Family History Father Lung cancer Brother COPD (chronic obstructive pulmonary disease) Substance use disorder Son Substance use disorder Family history of problems with anesthesia: No Surgical History Surgical History History of bronchoscopy (~12/2019) History of bronchoscopy (~04/2021) History of eye surgery (~11/2020) History of Problems with Anesthesia: No Social History Social History Household Members: Family Housing: House Do you presently have visiting nurse or other home services: No Alcohol intake: never Patient Tobacco Use Status: Current everyday Tobacco user Tobacco use type: Cigarette Cigarette Packs Per Day: 0.5 Cigarettes Per Day: 3 e-Cigarette/Vaping Use: Never Used Second Hand Smoke Exposure: No Use of substances other than those prescribed or required for medical reasons: Yes Substance Use Type: Marijuana Are you DNR?: No Advance Directives: No Advance Directives Information Provided: Yes Advance Directives Date on File: 10/12/22 How much weight loss: 2-13 pounds service: No Current occupational status: disabled Current occupational exposures/hazards: No Cognitive needs: No Hearing needs: No Vision needs: No Meds Allergies Allergy/AdvReac Type Severity Reaction Status Date / Time No Known Allergies Allergy Verified 12/07/22 16:10 [No Known Allergies*] Home Medications Medication Instructions Recorded Confirmed Last Taken Type aspirin 81 mg tablet,delayed 81 mg PO BEDTIME 10/11/22 10/11/22 10/10/22 History release tramadol 50 mg tablet 50 mg PO BID PRN 11/02/22 Unknown History Exam Airway Mallampati Class: II (small mouth) TM Dist: >3cm Neck ROM: Full Heart: ok Lungs: Sat 95% on 3L, borderline labored breathing at rest. Assessment and Plan Assessment Anesthesia Assessment: Anesthesia Plan Discussed Final Anesthetic Review Family History of Problems with Anesthesia: No History of Problems with Anesthesia: No NPO: Yes ASA Class: IV Final Preanesthetic Review: No Changes in Pt Med Stat, Meds/Allgs Chart Reviewed, Consent Obtained/Reviewed and Anes Risks/Benef Reviewed Patient Risk: High Procedure Risk: Intermediate Anesthetic Plan Anesthetic Plan: GA and Agree w/ Assess. and Plan Disposition: Standard PACU
[2022-12-15] VITALS (8 sets, daily range): BP systolic 86–104; BP diastolic 55–70; PULSE 94–106; RESP 18–20; TEMP 35.9–36.8; O2SAT 90–96; BMI 13.4
--- NOTE | ~2022-12-15 | XR_ITS ---
EXAMINATION: XR CHEST CLINICAL INFORMATION: COPD. COMPARISON: Chest x-ray 11/02/[address] chest 10/11/2022. TECHNIQUE: Frontal view of the chest was obtained. FINDINGS: There is emphysematous changes in both lungs most prominent in the upper lungs. There is chronic parenchymal masslike density left upper lobe which has improved in size from 11/02/2022. Ill-defined parenchymal small densities are seen in the right midlung likely scarring similar to previous study. Heart size and pulmonary vascularity is normal. No gross bony abnormality seen. XR/XR chest 1V IMPRESSION: 1. Emphysematous changes in both lungs most prominent in both upper lobes. 2. There is chronic masslike density in left upper lobe which has improved from previous chest x-ray .
--- NOTE | 2022-12-15 07:21 | PC.NURSE ---
sob upon exerction once patient is resting his oxygen level improves.
[2022-12-15] MEDS: Lactated Ringers 1,000 ML 100 ML IVCONT (07:27)
--- NOTE | 2022-12-15 08:05 | MHC.SHP ---
Pre-Procedural Eval Section A Date of Service: 12/15/22 The patient is an INPATIENT: No Changes since office visit: No Cold of Flu in the past 2 weeks, No New Medical Problems, No Changes in Medication and No Patient answered all questions Section B Chief Complaint: Other nonspecific abnormal finding of lung field Details of Present Illness: worsening cough and weifht losss. +MAC but did not tolerate the therapy. Now with worsening disease. PET was abnormal Relevant Family History (Specify if Yes): No Relevant Social History: None Present Medications: see Short Stay Collaborative assessment Medical History: Significant History History of Previous Operations: Relevant previous surgery/procedure and date(s) Allergies: Allergies Allergy/AdvReac Type Severity Reaction Status Date / Time No Known Allergies Allergy Verified 12/07/22 16:10 [No Known Allergies*] Review of Systems Sugical H&P ROS: Negative: Cardiovascular, Neurological, Psychiatric, Hem-Onc, Allergic/Immunologic, Genitourinary, Musculoskeletal and Integumentary and Yes, Specify: Constitution (weight loss), Respiratory (cough) and Gastrointestinal (poor appt) Exam Surgical H&P Exam: Normal: HEENT, Normal: Heart, Normal: Lungs, Normal: Extremities, Normal: Abdomen, Normal: Skin and Normal: Neurological Plan Diagnosis/Plan: Unchanged (bronchosocpy) I have reviewed the history and physical and performed a pertinent physical examination on my patient. No changes have occurred unless specified. Time Spent With Patient Time: Total time managing care of this patient today ____ minutes.
--- NOTE | 2022-12-15 09:27 | P.BOP_ITS ---
Brief Operative Note Date of Service: 12/15/22 Pre-op diagnosis: mass like consolidation Post-op diagnosis: same Procedure: Bronchoscopy with trasbronchial biopsies, BAL, washings, brushings Surgeon: Romeor Templeton MD Anesthesia: GLMA Was an Parts Casting Machine Operator used for this Procedure?: No Estimated blood loss (mL): 1 Pathology: other (CASSIUS biopsies) Condition: stable Disposition: same day
--- NOTE | 2022-12-15 13:13 | OP_ITS ---
DATE OF SERVICE: 12/15/2022 SURGEON: Romero Templeton MD PREOPERATIVE DIAGNOSIS: Mass-like consolidation. POSTOPERATIVE DIAGNOSIS: Mass-like consolidation. PROCEDURE PERFORMED: Bronchoscopy with transbronchial biopsies, washings, brushings, and BAL. ESTIMATED BLOOD LOSS: COMPLICATIONS: ANESTHESIA: LMA. ASSISTANTS: None. SPECIMENS: ASA: 4. DESCRIPTION OF PROCEDURE: After the patient was adequately sedated, LMA in place. The flexible digital bronchoscope was inserted via the LMA to the level of the larynx. The vocal cords moved symmetrically to the midline. After instilling the lidocaine, the bronchoscope was then passed to the vocal cords to the level of the trachea. There was a moderate amount of purulent secretions in the trachea about midway down. After instilling the additional lidocaine, the bronchoscope was then navigated to the entire tracheobronchial tree that was examined up to the subsegmental level. There were purulent secretions moderately throughout, left more than right, primarily in the left upper lobe where he has the mass like consolidation. In addition to that, some friability to the airways in the left upper lobe area. No endobronchial lesions or masses definitely noted. The bronchoscope was navigated to the left upper lobe, where BAL was done with 50 cc of normal saline, with covering back about 20. There were indeed a lot of mucous plugs. Bronchial washings were also collected bilaterally and sent also for cytology and microbiology. Next, a microscopic brush was introduced into the left upper lobe for additional microbiology. Next, the bronchoscope again navigated to the left upper lobe using forceps and transbronchial biopsies collected from the left upper lobe. Sent in formalin for the pathologist to evaluate. Therapeutic cleaning of the airways was done. The patient's airways looked a lot better at the end of the procedure. He tolerated the procedure well. Vital signs were stable. The bronchoscope was then removed. The total endoscopic time approximately was 15 minutes. No evidence of any complications. Epinephrine was used at the site of the biopsies prophylactically. He tolerated it well. His chest x-ray post procedure still demonstrates a mass like consolidation in the suprahilar area. Appears to be worse compared to previous. No evidence of any pneumothorax. No apparent complications. MD JAJA Hess/MARCL / [id number] [facility]
== END | disposition home or self-care (01) ==
PROVIDERS: PCP Nurse Practitioner Family; Visit Provider Hospitalist
PROC: 0BJ08ZZ Inspection of Tracheobronchial Tree, Via Natural or Artificial Opening Endoscopic (ICD-10-PCS; CPT 31622; principal; 2022-12-15 08:00)
DX: R91.8 Other nonspecific abnormal finding of lung field (principal); J44.9 Chronic obstructive pulmonary disease, unspecified; J96.91 Respiratory failure, unspecified with hypoxia; F17.210 Nicotine dependence, cigarettes, uncomplicated
CPT/HCPCS: 31628; 31624; 31623; 71045; 87070; 87102; 87116; 87205; 87206; 88112; 88305; J0171; J2371; J3010

== ENCOUNTER 2023-01-12 09:42 | Outpatient (AMB) | payer OTHER, SELFPAY ==
[2023-01-12 09:51] VITALS: BP 90/52; PULSE 121; O2SAT 88; BMI 13.8
--- NOTE | 2023-01-12 09:51 | A.OFFVIS_ITS ---
Intake Vital Signs 01/12/23 09:51 Height 5 ft 10 in Weight 95 lb 14.417 oz BMI 13.8 BP 90/52 L Blood Pressure Location Rt brachial Position Sitting Pulse 121 H Pulse Source Pulse Oximeter Pulse Oximetry (%) 88 L Oxygen Delivery Method Nasal Cannula Oxygen Flow Rate 3 Intake Visit Reasons: S/p bronch Intake Note: pt is here for follow up and states he is feeling sitting and relaxed he is good, whenever moving or walking takes all his energy to get it done. Appetite is getting better. Off gabapentin and this is helping with his appetite. Geospatial Technologist Required: No Allergies No Known Allergies [No Known Allergies*] Allergy (Verified 01/12/23 10:07) Medication List - Last Reconciled 01/12/23 by Vance Francois MD acetaminophen (Tylenol Extra Strength) 500 mg PO QID PRN 7 days aspirin 81 mg PO BEDTIME zrikaliromq-zsdwvnbyb-vcyvvcpf 100-62.5-25 mcg (Trelegy Ellipta) 1 ea PO BEDTIME ipratropium-albuterol 0.5 mg-3 mg(2.5 mg base)/3 mL 3 mL inhalation Q6-8H PRN 30 days simvastatin 40 mg PO BEDTIME tramadol 50 mg PO BID PRN Do you need a note to return to daycare/school/sports/work: No HPI S/p bronch HPI Details SHOSHANA IS 57 YEARS OLD GENTLEMAN, A CASE OF END-STAGE CHRONIC OBSTRUCTIVE PULMONARY DISEASE, STATUS POST RADIATION THERAPY TO THE RIGHT UPPER LOBE FOR PULMONARY NODULE WHICH HAS RESOLVED. HE HAS INFILTRATE IN THE LEFT LINGULAR LOBE, ON TOP OF SEVERE EMPHYSEMATOUS CHANGES. PATIENT HAD BRONCHOSCOPIC EXAMINATION BY DR. DOREEN SHETH ON BRONCHOSCOPIC WASHINGS, NEGATIVE FOR MALIGNANT CELLS, BUT GREW MYCOBACTERIUM AVIUM. PREVIOUSLY PATIENT HAD BEEN STARTED ON TRIPLE AND TUBERCULOUS REGIMEN BUT HE HAD SEIZURE ACTIVITY, AND STOPPED THIS REGIMEN. THE TRIPLE A REGIMEN INCLUDED AZITHROMYCIN, ETHAMBUTOL AND RIFAMPIN. IT IS NOT CLEAR WHICH AGENT MAY HAVE CAUSED THE SEES AIR ACTIVITY. HE IS DEFINITELY IMMUNE COMPROMISED, DEBILITATED, AND UNDER NOURISHED. HE DENIES FEVER OR CHILLS OR ANY NIGHT SWEATING. HE REMAINS MOSTLY IN THE WHEELCHAIR OR BED AT HOME, HE IS ON OXYGEN 2-3 L/MINUTE CONTINUOUSLY. HIS RESPIRATORY TREATMENT INCLUDES TRELEGY ELLIPTA 1 INHALATION DAILY AND DUONEB UPDRAFTS 3 TO 4 TIMES A DAY. [facility] Medical History (Updated 01/12/23 @ 11:29 by Vance Francois MD) Mycobacterium avium complex Pulmonary nodule, right Respiratory failure with hypoxia Lung mass Exercise hypoxemia Hyperlipidemia COPD (chronic obstructive pulmonary disease) Nicotine dependence, unspecified, uncomplicated Multiple pulmonary nodules Surgical History History of bronchoscopy (~04/2021) History of eye surgery (~11/2020) History of bronchoscopy (~12/2019) Family History Father Lung cancer Brother COPD (chronic obstructive pulmonary disease) Substance use disorder Son Substance use disorder Social History Household Members: Family Housing: House Do you presently have visiting nurse or other home services: No Alcohol intake: never Patient Tobacco Use Status: Current everyday Tobacco user Tobacco use type: Cigarette Cigarette Packs Per Day: 0.5 Cigarettes Per Day: 3 e-Cigarette/Vaping Use: Never Used Second Hand Smoke Exposure: No Substance Use Type: Marijuana Advance Directives Date on File: 10/12/22 service: No Current occupational status: disabled Current occupational exposures/hazards: No Cognitive needs: No Hearing needs: No Vision needs: No Review of Systems Const All systems reviewed & are unremarkable except as noted in HPI and below Eyes Details: Has had treatment to for 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 ENT Reports no additional complaints Card Reports no additional complaints Resp Reports as per HPI GI Reports no additional complaints Reports no additional complaints Musc Reports no additional complaints Skin/Breast Reports system reviewed and no additional complaints, except as documented Neuro Reports no additional complaints Physical Exam Vital Signs: Last Vital Signs Pulse 121 H 01/12/23 09:51 BP 90/52 L 01/12/23 09:51 Pulse Ox 88 L 01/12/23 09:51 Oxygen Delivery Method Nasal Cannula 01/12/23 09:51 Oxygen Flow Rate 3 01/12/23 09:51 BMI result Body Mass Index 13.8 Const Other: CHRONICALLY SICK-LOOKING AND EMACIATED General: comfortable, no acute distress, alert and awake Orientation/consciousness: patient oriented x3 HEENT Head: Yes normal to inspection General nose exam: No nasal polyps present and No nasal discharge present Face and sinus: Yes sinuses nontender Mouth: oropharynx normal Throat: Yes posterior oropharynx normal Eyes General: appearance normal, both eyes and all related structures Neck Neck: Yes normal visual inspection, Yes no lymphadenopathy, Yes trachea midline and Yes no JVD Thyroid: Thyroid normal Chest Chest palpation & inspection: normal inspection of the chest and no tenderness Resp Other: PERCUSSION NOTE HYPER-RESONANT, BREATH SOUNDS ARE VERY DISTANT ON BOTH SIDES. A FEW INSPIRATORY CRACKLES OVER THE BASILAR AREAS., NO WHEEZES. Cardio Palpation: normal PMI Rate: regular rate Rhythm: regular rhythm Heart sounds: no gallops and no murmurs GI Palpation (GI): Soft to palpation, nontender, No hepatosplenomegaly present and no masses Auscultation: normal bowel sounds Back/Spine/Pelvis Thoracic/Lumbar Spine: thoracic and lumbar spine normal to inspection Skin General skin exam: no rashes or lesions noted Neuro General: patient oriented x3, No gait normal (GAIT MARKEDLY IMPAIRED DUE TO GENERAL WEAKNESS, PATIENT IS IN WHEELCHAIR) and no focal motor deficits Cranial nerves: Yes CN's II-XII intact bilaterally Extrem General: Yes normal to inspection, Yes no clubbing, cyanosis or edema and Yes no calf tenderness Psych Appearance: grossly normal Speech and movement: Normal speech and movement present Results Reviewed Results Reviewed: BRONCHIAL WASHINGS, AF-CULTURE. FINAL RESULT. MYCOBACTERIUM CHIMAERA INTRACELLULARE . PATIENT ALSO HAD FINDING OF STREP VIRIDANS , THAT HAS BEEN TREATED WITH A COURSE OF AUGMENTIN. BRONCHIAL WASHINGS, NEGATIVE FOR MALIGNANT CELLS Assessment & Plan Assessment & Plan (1) COPD (chronic obstructive pulmonary disease): Comment: (Advanced/end stage COPD - IT IS THE WELL CONTROLLED AND STABLE WITH HIS CURRENT REGIMEN BELOW . TRELEGY ELLIPTA 1 INHALATION DAILY DUONEB VASURAFTS Q 6 HOURS WHILE AWAKE AND P.R.N.. BUT HE HAS FREQUENT URGE TO CLEAR SECRETIONS, Code(s): J44.9 - Chronic obstructive pulmonary disease, unspecified (2) Respiratory failure with hypoxia: Comment: DUE TO HIS ADVANCED COPD HE HAS HYPOXEMIC RESPIRATORY FAILURE, HE IS ON OXYGEN 24 HOURS A DAY. ADVISED TO CONTINUE O2 3 L/MINUTE. Code(s): J96.91 - Respiratory failure, unspecified with hypoxia (3) Mass of left lung: Comment: PATIENT HAS A LARGE DENSITY IN THE LEFT MID LUNG/ LINGULAR LOBE PET-CT SCAN AT [facility] SHOWEDS INCREASED DENSITIES ON BOTH SIDES ESPECIALLY IN THE LEFT LUNG, DIFF DX :INFLAMMATORY /NFECTIOUS VS NEOPLASTIC PROCESS. BRONCHOSCOPY , BY DR. SHETH : BRONCHIAL WASHINGS GRAM STAIN AND CULTURE POSITIVE FOR MYCOBACTERIUM AVIUM INTERCELLULAIRE AND NEGATIVE FOR MALIGNANT CELLS. DISCUSSED WITH THE PATIENT AND HIS IN DETAIL. Code(s): R91.8 - Other nonspecific abnormal finding of lung field (4) Pulmonary nodule, right: Comment: PATIENT HAD A LARGE PULMONARY NODULE IN THE RIGHT UPPER LOBE, BIOPSY WAS INCONCLUSIVE, CLINICALLY HIGH SUSPICION OF THIS BEING NEOPLASTIC. IT WAS TREATED WITH PALLIATIVE RADIATION IN 2021 AND THE NODULE HAS RESOLVED. Code(s): R91.1 - Solitary pulmonary nodule (5) Mycobacterium avium complex: Comment: He has VICKY and fibronodular disease. BRONCHOSCOPIC EXAMINATION AND BRONCHIAL WASHINGS ARE AGAIN POSITIVE FOR VICKY COMPLEX. PREVIOUSLY PATIENT WAS STARTED ON COMBINATION OF 3 ANTI TUBERCULOSIS AGENTS BY , BUT HE STOPPED DUE TO ONSET OF SEIZURE ACTIVITY. AFTER RECONFIRM NG THE DIAGNOSIS, WE HAVE MADE EFFORT TO REFER HIM BACK TO THE INFECTION DISEASE SERVICE, BUT HAS DECLINED TO SEE HIM. I HAD A DETAILED DISCUSSION WITH THE PATIENT AND HIS THIS MORNING. PLAN IS TO INTRODUCE 1 AGENT AT A TIME, IN SMALL DOES AND HOPE THAT. HE WILL START TOLERATING [place] AZITHROMYCIN 250 MG DAILY IS STARTED IF HE TOLERATES IT WELL THEN THE DOSE WILL BE INCREASED TO 500 MG DAILY. AFTER THAT WE CAN INTRODUCE THE OTHER AGENTS SUCH ETHAMBUTOL AND RIFAMPIN. Code(s): A31.0 - Pulmonary mycobacterial infection Medications: New azithromycin 250 mg PO DAILY 30 days 30 tabs 2RF MYCOBACTERIUM AVIUM Coding Level of Care Code Est Pt Level 4 (69336) Diagnoses COPD (chronic obstructive pulmonary disease) J44.9 Respiratory failure with hypoxia J96.91 Mass of left lung R91.8 Pulmonary nodule, right R91.1 Mycobacterium avium complex A31.0
== END 2023-01-12 10:21 | disposition home or self-care (01) ==
PROVIDERS: PCP Nurse Practitioner Family; Visit Provider Internal Medicine
DX: J44.9 Chronic obstructive pulmonary disease, unspecified (principal); J96.91 Respiratory failure, unspecified with hypoxia; R91.8 Other nonspecific abnormal finding of lung field; R91.1 Solitary pulmonary nodule; A31.0 Pulmonary mycobacterial infection
CPT/HCPCS: 99214

== ENCOUNTER 2023-01-12 09:42 | Outpatient (REF) | payer OTHER, SELFPAY ==
[2023-01-12 10:40] LABS: MANUAL DIFF FLAG NO
[2023-01-12 11:53] LABS: Basophils Absolute Auto 0.1 X10*3/uL (0.0-0.2); Basophils Percent Auto 0.5 % (0-2); Eosinophils Absolute Auto 0.1 X10*3/uL (0.0-0.4); Hematocrit 45.4 % (42.0-52.0); Hemoglobin 14.6 g/dl (14.0-18.0); Imm Gran Abs Auto 0.13 X10*3/uL (0.00-0.03); Lymphocytes Absolute Auto 0.9 X10*3/uL (1.2-4.9); Lymphocytes Percent Auto 6.5 % (20-40); Mean Corpuscular HGB Conc 32.2 g/dl (31.0-36.0); Mean Corpuscular Hemoglobin 30.2 pg (27.0-33.0); Mean Platelet Volume 9.9 fL (9.4-12.4); Monocytes Absolute Auto 1.1 X10*3/uL (0.1-1.2); Monocytes Percent Auto 8.2 % (2-11); Neutrophils Percent Auto 82.8 % (45-73); Platelet Count 412 X10*3/uL (160-400); Red Blood Count 4.83 X10*6/uL (4.60-5.80); Red Cell Distribution Width 14.4 % (11.0-16.0); White Blood Count 13.3 X10*3/uL (4.8-10.8)
[2023-01-12 12:06] LABS: Appearance Urine Clear; Color Urine Dark Yellow; Glucose Urine UA Negative (Negative); Leukocyte Esterase Urine Negative (Negative); Nitrite Urine Negative (Negative); PH 5.5 (5.0-9.0); Urine Blood Negative (Negative); Urine Ketones Negative (Negative); Urine Protein Trace mg/dL (Neg-Trace)
[2023-01-12 13:18] LABS: Prostate Specific Antigen Scr 1.43 ng/mL (<0.05-4.0)
[2023-01-12 13:21] LABS: Alanine Aminotransferase 18 U/L (0-40); Albumin Level 3.3 g/dL (3.5-5.0); Alkaline Phosphatase 419 U/L (39-117); Anion Gap 17 (12-20); Aspartate Amino Transferase 28 U/L (5-37); Bilirubin Total 0.7 mg/dL (0.0-1.0); Blood Urea Nitrogen 11 mg/dL (9-16); Calcium 9.5 mg/dL (8.4-10.2); Carbon Dioxide 21 mmol/L (22-29); Chloride 103 mmol/L (96-108); Cholesterol 154 mg/dL (<200); Estimated Glomerular Filt Rate > 60; Glucose Fasting 108 mg/dL (60-99); HDL Cholesterol 38 mg/dL (>40); LDL Cholesterol Calculated 103 mg/dL (<100); Potassium 4.3 mmol/L (3.3-5.1); Sodium 137 mmol/L (135-145); Total Protein 7.5 g/dL (6.5-8.0); Triglycerides 65 mg/dL (<150)
[2023-01-12 13:25] LABS: TSH reflex Free T4 0.56 uIU/mL (0.32-4.0)
== END 2023-01-12 09:43 | disposition home or self-care (01) ==
LOC: HO.LAB 09:42
PROVIDERS: Absent Provider Nurse Practitioner Family; PCP Nurse Practitioner Family; Visit Provider Internal Medicine
DX: Z00.00 Encounter for general adult medical examination without abnormal findings (principal); J44.9 Chronic obstructive pulmonary disease, unspecified; J96.91 Respiratory failure, unspecified with hypoxia; A31.0 Pulmonary mycobacterial infection; Z79.899 Other long term (current) drug therapy; Z12.5 Encounter for screening for malignant neoplasm of prostate
CPT/HCPCS: 36415; 80053; 80061; 81003; 84153; 84443; 85025

== ENCOUNTER 2023-02-07 09:25 | Outpatient (AMB) | payer OTHER, SELFPAY ==
--- NOTE | 2023-02-07 09:28 | MHC.PC.OV ---
Vital Signs 02/07/23 09:31 Height 5 ft 10 in Weight 98 lb 6 oz BMI 14.1 BP 112/78 Blood Pressure Location Lt brachial Position Sitting Pulse 113 H Pulse Source Pulse Oximeter Pulse Oximetry (%) 92 Oxygen Delivery Method Nasal Cannula Intake Visit Reasons: 6m follow up Intake Note: Patient would like to get a refill on tramadol as this really helped in the past with his arthritis pain in shoulder, neck and upper back. Allergies No Known Allergies [No Known Allergies*] Allergy (Verified 01/12/23 10:07) Medication List - Last Reconciled 02/07/23 by LISA Kyle acetaminophen (Tylenol Extra Strength) 500 mg PO QID PRN 7 days aspirin 81 mg PO BEDTIME azithromycin 250 mg PO DAILY 30 days ouwlofpketd-jzfwbqsho-txdtjzwk 100-62.5-25 mcg (Trelegy Ellipta) 1 ea PO BEDTIME ipratropium-albuterol 0.5 mg-3 mg(2.5 mg base)/3 mL 3 mL inhalation Q6-8H PRN 30 days simvastatin 40 mg PO BEDTIME tramadol 50 mg PO BID PRN 30 days Tobacco use date assessed: 08/09/22 HPI 6m follow up HPI Details Pt reports some lower back pain. He does have a very skinny stature with bone protrusion to his coccyx. Instructed pt's family on monitoring this area for any skin breakdown as well as keeping pt off of this area. Pt is tachycardic today. Note: Unable to perform EKG due to significant artifact. ? machine issue vs pt's bony stature. Will order holter. Pt is currently on oxygen. Denies any chest pain,increased shortness of breath, and dizziness. Pt is in significant pain (coccyx region). Will refill tramadol. Educated pt on risk of addiction, this is not a long-term med. Pt understands that they can not drive while taking this med, share this med, and to only take as prescribed. Recent leukocytosis, will recheck labs. Denies any fever or chills. [facility] Medical History (Updated 02/07/23 @ 10:55 by LISA Kyle) Mycobacterium avium complex Pulmonary nodule, right Respiratory failure with hypoxia Lung mass Exercise hypoxemia Hyperlipidemia COPD (chronic obstructive pulmonary disease) Nicotine dependence, unspecified, uncomplicated Multiple pulmonary nodules Surgical History History of bronchoscopy (~04/2021) History of eye surgery (~11/2020) History of bronchoscopy (~12/2019) Family History Father Lung cancer Brother COPD (chronic obstructive pulmonary disease) Substance use disorder Son Substance use disorder Social History Household Members: Family Housing: House Do you presently have visiting nurse or other home services: No Alcohol intake: never Patient Tobacco Use Status: Current everyday Tobacco user Tobacco use type: Cigarette Cigarette Packs Per Day: 0.5 Cigarettes Per Day: 3 e-Cigarette/Vaping Use: Never Used Second Hand Smoke Exposure: No Substance Use Type: Marijuana Advance Directives Date on File: 10/12/22 service: No Current occupational status: disabled Current occupational exposures/hazards: No Cognitive needs: No Hearing needs: No Vision needs: No Questionnaire Thrive Questionnaire Date Thrive assessed: 10/11/22 Review of Systems Const Reports as per HPI Physical exam (Primary Care) Vital Signs: Last Vital Signs Pulse 113 H 02/07/23 09:31 BP 112/78 02/07/23 09:31 Pulse Ox 92 02/07/23 09:31 Oxygen Delivery Method Nasal Cannula 02/07/23 09:31 BMI result Body Mass Index 14.1 Tobacco/Smoking Status: Tobacco use Status Tobacco use date assessed 08/09/22 02/07/23 09:30 Patient Tobacco Use Status Current everyday Tobacco 02/07/23 09:30 Tobacco use type Cigarette 02/07/23 09:30 e-Cigarette/Vaping Use Never Used 02/07/23 09:30 Thrive Assessment: Date of Thrive Assessment Date Thrive assessed 10/11/22 02/07/23 09:30 Const Other: very skinny stature, wheelchair General: cooperative Orientation/consciousness: patient oriented x3 Resp Other: lungs diminished though moving air Effort & Inspection: normal respiratory effort Cardio Rate: tachycardic Rhythm: regular rhythm Heart sounds: S1 normal heart sound present and S2 normal heart sound present Back/Spine/Pelvis Other: bone protrusion to coccyx, no skin breakdown, though stage 1 (redness) Neuro General: patient oriented x3 Psych Appearance: grossly normal Mental Status: mental status grossly normal Speech and movement: Normal speech and movement present Affect: normal affect Attitude: cooperative Thought process: Normal thought process present Thought content: Normal thought content present Insight: Good insight present (Psych) Judgement: Good judgement present (Psych) Assessment and Plan Assessment & Plan (1) Tachycardia: Code(s): R00.0 - Tachycardia, unspecified (2) Leukocytosis: Code(s): D72.829 - Elevated white blood cell count, unspecified (3) Coccyx pain: Code(s): M53.3 - Sacrococcygeal disorders, not elsewhere classified Plan: tramadol, repositioning, cushions Plan The patient agreed to the use of a biomedical equipment tech for this encounter. Scribed for LISA Mix by Alondra Cano biomedical equipment tech, on 02/07/2023 at 09:40 EST. Orders: Orders ECG holter monitor 48 hour Today R00.0 - Tachycardia, unspecified Complete Blood Count Auto Diff Today D72.829 - Elevated white blood cell count, unspecified, R00.0 - Tachycardia, unspecified Medications: Changed From tramadol 50 mg PO BID PRN To tramadol 50 mg PO BID PRN 60 tabs 0RF pain 30 days Coding Level of Care Code Est Pt Level 3 (18709) Diagnoses Tachycardia R00.0 Leukocytosis D72.829 Coccyx pain M53.3
[2023-02-07 09:31] VITALS: BP 112/78; PULSE 113; O2SAT 92; BMI 14.1
== END 2023-02-07 10:27 | disposition home or self-care (01) ==
PROVIDERS: Visit Provider Nurse Practitioner Family
DX: R00.0 Tachycardia, unspecified (principal); D72.829 Elevated white blood cell count, unspecified; M53.3 Sacrococcygeal disorders, not elsewhere classified
CPT/HCPCS: 99213

== ENCOUNTER 2023-02-07 13:40 | Outpatient (AMB) | payer OTHER, SELFPAY ==
--- NOTE | 2023-02-07 13:41 | MHC.OFFVIS ---
Intake Vital Signs 02/07/23 13:44 Height 5 ft 10 in Weight 98 lb 0.6 oz BMI 14.1 BP 90/52 L Blood Pressure Location Lt brachial Position Sitting Pulse 108 H Pulse Source Pulse Oximeter Pulse Oximetry (%) 93 Oxygen Delivery Method Nasal Cannula Oxygen Flow Rate 3 Intake Visit Reasons: S/p bronch Intake Note: pt is here for follow up and states he is doing well with medication. Had EKG done today, and thinks he will be having a heart monitor. [employer] Required: No Allergies No Known Allergies [No Known Allergies*] Allergy (Verified 02/07/23 14:04) Medication List - Last Reconciled 02/07/23 by Vance Francois MD acetaminophen (Tylenol Extra Strength) 500 mg PO QID PRN 7 days aspirin 81 mg PO BEDTIME azithromycin 250 mg PO DAILY 30 days juaodoahfmp-gwuklcdao-czsnevrk 100-62.5-25 mcg (Trelegy Ellipta) 1 ea PO BEDTIME ipratropium-albuterol 0.5 mg-3 mg(2.5 mg base)/3 mL 3 mL inhalation Q6-8H PRN 30 days simvastatin 40 mg PO BEDTIME tramadol 50 mg PO BID PRN 30 days Do you need a note to return to daycare/school/sports/work: No HPI S/p bronch HPI Details THIS 57 YEARS OLD VERY PLEASANT GENTLEMAN WITH ADVANCED CHRONIC OBSTRUCTIVE PULMONARY DISEASE AND PAST HISTORY OF LUNG CANCER, HAS MYCOBACTERIUM AVIUM SPECIES INFECTION IN LEFT LUNG. HE DID NOT TOLERATE TRIPLE THERAPY. FROM HIS LAST VISIT WE HAVE STARTED HIM ON AZITHROMYCIN 250 MG A DAY, AND HE IS TOLERATING IT VERY WELL. HE DENIES ANY GASTRIC SIDE EFFECT, INFECT HIS BREATHING IS BETTER AND LUNGS ARE LESS CONGESTED. HE HAS PUT ON 3 LB OF WEIGHT. [facility] Medical History Mycobacterium avium complex Pulmonary nodule, right Respiratory failure with hypoxia Lung mass Exercise hypoxemia Hyperlipidemia COPD (chronic obstructive pulmonary disease) Nicotine dependence, unspecified, uncomplicated Multiple pulmonary nodules Surgical History History of bronchoscopy (~04/2021) History of eye surgery (~11/2020) History of bronchoscopy (~12/2019) Family History Father Lung cancer Brother COPD (chronic obstructive pulmonary disease) Substance use disorder Son Substance use disorder Social History Household Members: Family Housing: House Do you presently have visiting nurse or other home services: No Alcohol intake: never Patient Tobacco Use Status: Current everyday Tobacco user Tobacco use type: Cigarette Cigarette Packs Per Day: 0.5 Cigarettes Per Day: 3 e-Cigarette/Vaping Use: Never Used Second Hand Smoke Exposure: No Substance Use Type: Marijuana Advance Directives Date on File: 10/12/22 service: No Current occupational status: disabled Current occupational exposures/hazards: No Cognitive needs: No Hearing needs: No Vision needs: No Review of Systems Const All systems reviewed & are unremarkable except as noted in HPI and below Eyes Details: Has had treatment to for 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 ENT Reports no additional complaints Card Reports no additional complaints Resp Reports as per HPI GI Reports no additional complaints Reports no additional complaints Musc Reports no additional complaints Skin/Breast Reports system reviewed and no additional complaints, except as documented Neuro Reports no additional complaints Physical Exam Vital Signs: Last Vital Signs Pulse 108 H 02/07/23 13:44 BP 90/52 L 02/07/23 13:44 Pulse Ox 93 02/07/23 13:44 Oxygen Delivery Method Nasal Cannula 02/07/23 13:44 Oxygen Flow Rate 3 02/07/23 13:44 BMI result Body Mass Index 14.1 Const Other: CHRONICALLY SICK-LOOKING AND EMACIATED General: comfortable, no acute distress, alert and awake Orientation/consciousness: patient oriented x3 HEENT Head: Yes normal to inspection General nose exam: No nasal polyps present and No nasal discharge present Face and sinus: Yes sinuses nontender Mouth: oropharynx normal Throat: Yes posterior oropharynx normal Eyes General: appearance normal, both eyes and all related structures Neck Neck: Yes normal visual inspection, Yes no lymphadenopathy, Yes trachea midline and Yes no JVD Thyroid: Thyroid normal Chest Chest palpation & inspection: normal inspection of the chest and no tenderness Resp Other: PERCUSSION NOTE HYPER-RESONANT, BREATH SOUNDS ARE VERY DISTANT ON BOTH SIDES. A FEW INSPIRATORY CRACKLES OVER THE BASILAR AREAS., NO WHEEZES. Cardio Palpation: normal PMI Rate: regular rate Rhythm: regular rhythm Heart sounds: no gallops and no murmurs GI Palpation (GI): Soft to palpation, nontender, No hepatosplenomegaly present and no masses Auscultation: normal bowel sounds Back/Spine/Pelvis Thoracic/Lumbar Spine: thoracic and lumbar spine normal to inspection Skin General skin exam: no rashes or lesions noted Neuro General: patient oriented x3, No gait normal (GAIT MARKEDLY IMPAIRED DUE TO GENERAL WEAKNESS, PATIENT IS IN WHEELCHAIR) and no focal motor deficits Cranial nerves: Yes CN's II-XII intact bilaterally Extrem General: Yes normal to inspection, Yes no clubbing, cyanosis or edema and Yes no calf tenderness Psych Appearance: grossly normal Speech and movement: Normal speech and movement present Assessment & Plan Assessment & Plan (1) COPD (chronic obstructive pulmonary disease): Comment: (Advanced/end stage COPD - COPD IS WELL CONTROLLED AND STABLE WITH HIS CURRENT REGIMEN BELOW . TRELEGY ELLIPTA 1 INHALATION DAILY DUONEB UPDRAFTS Q 6 HOURS WHILE AWAKE AND P.R.N.. BUT HE HAS FREQUENT URGE TO CLEAR SECRETIONS, Code(s): J44.9 - Chronic obstructive pulmonary disease, unspecified (2) Respiratory failure with hypoxia: Comment: DUE TO HIS ADVANCED COPD HE HAS HYPOXEMIC RESPIRATORY FAILURE, HE IS ON OXYGEN 24 HOURS A DAY. ADVISED TO CONTINUE O2 3 L/MINUTE. Code(s): J96.91 - Respiratory failure, unspecified with hypoxia (3) Pulmonary nodule, right: Comment: PATIENT HAD A LARGE PULMONARY NODULE IN THE RIGHT UPPER LOBE, BIOPSY WAS INCONCLUSIVE, CLINICALLY HIGH SUSPICION OF THIS BEING NEOPLASTIC. IT WAS TREATED WITH PALLIATIVE RADIATION IN 2021 AND THE NODULE HAS RESOLVED. Code(s): R91.1 - Solitary pulmonary nodule (4) Mycobacterium avium complex: Comment: He has VICKY and fibronodular disease. BRONCHOSCOPIC EXAMINATION AND BRONCHIAL WASHINGS ARE AGAIN POSITIVE FOR VICKY COMPLEX. PREVIOUSLY PATIENT WAS STARTED ON COMBINATION OF 3 ANTI TUBERCULOSIS AGENTS BY , BUT HE STOPPED DUE TO ONSET OF SEIZURE ACTIVITY. AFTER RECONFIRM NG THE DIAGNOSIS, WE HAVE MADE EFFORT TO REFER HIM BACK TO THE INFECTION DISEASE SERVICE, BUT HAS DECLINED TO SEE HIM. I HAD A DETAILED DISCUSSION WITH THE PATIENT AND HIS THIS MORNING. PLAN IS TO INTRODUCE 1 AGENT AT A TIME, IN SMALL DOES AND HOPE THAT. HE WILL START TOLERATING [place] AZITHROMYCIN INCREASED TO 500 MG DAILY . AFTER THAT WE CAN INTRODUCE THE OTHER AGENTS SUCH ETHAMBUTOL AND RIFAMPIN. Code(s): A31.0 - Pulmonary mycobacterial infection Medications: Changed From azithromycin 250 mg PO DAILY 30 days 30 tabs 2RF MYCOBACTERIUM AVIUM To azithromycin 500 mg (2 x 250 mg) PO DAILY 60 tabs 3RF MYCOBACTERIUM AVIUM COMPLEX 30 days Coding Level of Care Code Est Pt Level 3 (73034) Diagnoses COPD (chronic obstructive pulmonary disease) J44.9 Respiratory failure with hypoxia J96.91 Pulmonary nodule, right R91.1 Mycobacterium avium complex A31.0
[2023-02-07 13:44] VITALS: BP 90/52; PULSE 108; O2SAT 93; BMI 14.1
== END 2023-02-07 14:05 | disposition home or self-care (01) ==
PROVIDERS: PCP Nurse Practitioner Family; Visit Provider Internal Medicine
DX: J44.9 Chronic obstructive pulmonary disease, unspecified (principal); J96.91 Respiratory failure, unspecified with hypoxia; R91.1 Solitary pulmonary nodule; A31.0 Pulmonary mycobacterial infection
CPT/HCPCS: 99213

== ENCOUNTER → 2023-02-07 13:40 | Outpatient (BNVA) | payer OTHER, SELFPAY | PROVIDERS: PCP Nurse Practitioner Family; Visit Provider Internal Medicine ==

== ENCOUNTER 2023-02-07 14:07 | Outpatient (REF) | payer OTHER, SELFPAY ==
[2023-02-07 14:19] LABS: MANUAL DIFF FLAG NO
[2023-02-07 15:23] LABS: Basophils Absolute Auto 0.1 X10*3/uL (0.0-0.2); Basophils Percent Auto 0.8 % (0-2); Eosinophils Absolute Auto 0.2 X10*3/uL (0.0-0.4); Eosinophils Percent Auto 1.2 % (0-4); Hematocrit 42.6 % (42.0-52.0); Hemoglobin 13.8 g/dl (14.0-18.0); Imm Gran Abs Auto 0.07 X10*3/uL (0.00-0.03); Imm Gran Pct Auto 0.6 % (0.0-0.4); Lymphocytes Absolute Auto 1.2 X10*3/uL (1.2-4.9); Lymphocytes Percent Auto 9.8 % (20-40); Mean Corpuscular HGB Conc 32.4 g/dl (31.0-36.0); Mean Corpuscular Hemoglobin 30.1 pg (27.0-33.0); Mean Platelet Volume 10.1 fL (9.4-12.4); Monocytes Absolute Auto 1.1 X10*3/uL (0.1-1.2); Monocytes Percent Auto 8.4 % (2-11); Neutrophils Percent Auto 79.2 % (45-73); Platelet Count 355 X10*3/uL (160-400); Red Blood Count 4.58 X10*6/uL (4.60-5.80); Red Cell Distribution Width 14.2 % (11.0-16.0); White Blood Count 12.6 X10*3/uL (4.8-10.8)
[2023-02-07 15:46] LABS: Gamma Glutamyl Transpeptidase 104 U/L (11-51)
[2023-02-14 17:19] LABS: Alk.Phos Iso. Macrohepatic 17 % (<=0); Alk.Phos Isoenzymes Bone 22 % (28-66); Alk.Phos Isoenzymes Intest 8 % (1-24); Alk.Phos Isoenzymes Liver 53 % (25-69); Alk.Phos Isoenzymes Placental 0 % (<=0); Alk.Phos Isoenzymes Total 241 U/L (35-144)
== END 2023-02-07 14:08 | disposition home or self-care (01) ==
LOC: HO.LAB 14:07
PROVIDERS: PCP Nurse Practitioner Family; Visit Provider Nurse Practitioner Family
DX: R74.8 Abnormal levels of other serum enzymes (principal); D72.829 Elevated white blood cell count, unspecified; R00.0 Tachycardia, unspecified
CPT/HCPCS: 36415; 82977; 84080; 85025

== ENCOUNTER → 2023-02-14 13:23 | Outpatient (REF) | payer OTHER, SELFPAY ==
--- NOTE | 2023-02-14 13:25 | HM_ITS ---
* Total monitoring time 2 days. * Underlying rhythm is sinus. Average ventricular rate 101/Min. Range 64 to 138/Min. * About 51% of the time, rate greater than 100/Min. * Rare supraventricular ectopy. Brief runs noted. * Rare ventricular ectopy with some couplets. * No significant pauses or AV blocks. * No patient markers or events in diary. MTDD
== END ==
LOC: HO.CARD 13:23
PROVIDERS: PCP Nurse Practitioner Family; Visit Provider Nurse Practitioner Family
DX: I47.10 Supraventricular tachycardia, unspecified (principal)
CPT/HCPCS: 93225

== ENCOUNTER → 2023-02-14 13:25 | Outpatient (BNV) | payer OTHER, SELFPAY | PROVIDERS: PCP Nurse Practitioner Family; Visit Provider Internal Medicine | DX: I47.10 Supraventricular tachycardia, unspecified (principal) | CPT/HCPCS: 93227 ==

== ENCOUNTER 2023-03-15 12:52 | Inpatient (IN) | payer OTHER, SELFPAY ==
[2023-03-15] VITALS (9 sets, daily range): BP systolic 83–107; BP diastolic 62–72; PULSE 113–129; RESP 14–32; TEMP 36.6–36.8; O2SAT 90–97; BMI 14.1; BMI 14.7
--- NOTE | ~2023-03-15 | CT_ITS ---
EXAMINATION: CT ANGIOGRAM OF THE CHEST WITH AND WITHOUT CONTRAST (CT PULMONARY ANGIOGRAM FOR PE) CLINICAL INFORMATION: Reason for Exam + dimer, sob COMPARISON: Previous chest CT October 2022 and chest x-ray most recent from earlier the same day TECHNIQUE: Prior to contrast administration, noncontrast localization images were obtained. Subsequently, multidetector volumetric imaging was performed from the thoracic inlet to below the diaphragms following the administration of 65 mL Omnipaque 350 intravenous contrast. No contrast reaction reported Sagittal, coronal, and MIP oblique sagittal reformatted images were obtained on the CT workstation, uploaded to PACS, and reviewed. This CT examination was performed using dose optimization techniques as appropriate, variously including the following: *Automated exposure control *Adjustment of mA and/or kV according to patient size (this includes techniques or standardized protocols for targeted exams where dose is matched to indication/reason for exam; i.e. extremities or head) *Use of iterative reconstruction technique Total exam dose-length product 146 mGy-cm FINDINGS: QUALITY OF STUDY/CONTRAST BOLUS: Satisfactory. PULMONARY ARTERIES: No pulmonary emboli. Coronary arteries are upper normal in size. THORACIC AORTA: No aneurysm. LUNG: Severe bullous emphysema. Right: Crowding or volume loss of the right middle and right lower lobes secondary to right upper lobe bullous emphysema. Scarring in the posterior segment of the right upper lobe that is stable. 2 5 mm calcified right upper lobe nodules axial image 300 series 7 , stable. Bronchial wall thickening, soft tissue opacification/mucous plugging in the right lower lobe and new patchy nodular opacities and consolidation in the posterior costophrenic sulcus probably representing pneumonia. Left: Interval decrease in size in the central consolidation left upper lobe probably representing resolving pneumonia. There is still central left upper lobe bronchiectasis. New areas of more peripheral consolidation and bronchiectasis in the left upper lobe and superior segment of the left lower lobe probably representing pneumonia. PLEURA: No pleural effusion or pneumothorax. MEDIASTINUM: Normal heart size. No pericardial effusion. Small mediastinal and bilateral hilar lymph nodes. No evidence of septal bowing or right heart strain. CORONARY ARTERY CALCIFICATION: Mild CHEST WALL/AXILLA: No axillary or internal mammary lymphadenopathy. OSSEOUS STRUCTURES: No acute or suspicious osseous abnormality. UPPER ABDOMEN: Mild reflux of contrast into the hepatic veins to suggest elevated right heart pressures. Left upper pole renal stone. CT/CT angio chest PE protocol IMPRESSION: 1. No evidence of pulmonary embolism. Severe bullous emphysema. New areas of consolidation in the right lower lobe probably representing pneumonia. Interval improvement in the more central left upper lobe pneumonia. New more peripheral areas of consolidation left upper lobe and superior segment of the left lower lobe probably representing pneumonia. 2. VTE: negative.
--- NOTE | ~2023-03-15 | XR_ITS ---
EXAMINATION: XR CHEST CLINICAL INFORMATION: Chest pain. COMPARISON: 12/15/2022. Correlation made with CT performed 10/11/2022. TECHNIQUE: 2 views of the chest were obtained. FINDINGS: The cardiomediastinal silhouette is stable. The lung lobo are hyperinflated and hyperlucent with upper lobe bullous disease similar to previous. There is an irregular/nodular left mid to upper lung field opacity which has a similar appearance compared to previous. There is bilateral lower lung field increased markings. There is no new consolidation. There is no significant pleural effusion. The bony structures and soft tissues are unremarkable. XR/XR chest 2V IMPRESSION: Changes secondary to emphysema/COPD similar to previous with hyperinflation and hyperlucency and mid to lower lung field increased markings. Stable left mid to upper lung field irregular/nodular opacity. No new consolidation or evidence for significant pleural effusion
--- NOTE | 2023-03-15 12:54 | ECG_ITS ---
Test Reason : CP Blood Pressure : / mmHG Vent. Rate : 123 BPM Atrial Rate : 123 BPM P-R Int : 132 ms QRS Dur : 080 ms QT Int : 322 ms P-R-T Axes : 088 256 030 degrees QTc Int : 460 ms Sinus tachycardia Right superior axis deviation Pulmonary disease pattern Right ventricular hypertrophy Cannot rule out Inferior infarct (cited on or before 14-SEP-2022) Abnormal ECG When compared with ECG of 11-OCT-2022 14:12, Questionable change in QRS axis T wave inversion no longer evident in Inferior leads Referred By: Violet Young Electronically Signed By:Miller Last
--- NOTE | 2023-03-15 12:56 | ED_ITS ---
HPI - Chest Pain General Chief Complaint: Chest Pain Stated Complaint: Chest pain Time Seen by Provider: 03/15/23 13:54 Source: patient Mode of arrival: EMS Limitations: no limitations History of Present Illness HPI narrative: 58-year-old male with COPD and mycobacterium avium complex presents today for evaluation of chest pain. He reports around 730 this morning that he started experiencing pleuritic chest pain and centralized chest heaviness. The pain does not radiate. He reports a chronic cough with no sputum. He denies shortness of breath. Denies palpitations, lightheadedness, and dizziness. He denies headache and vision changes. He denies nausea, vomiting, diarrhea, constipation, and abdominal pain. No fevers or chills. He denies calf pain and leg swelling. He is normally on 2-3 L of oxygen home. He takes 500 mg of azithromycin daily for MAC. He denies recent surgeries and travel. He say he has been more sedentary recently since starting Tramadol for coccyx pain in February. He denies recent upper and lower respiratory infections and sick contacts. Related Data Home Medications Medication Instructions Recorded Confirmed aspirin 81 mg tablet,delayed 81 mg PO BEDTIME 10/11/22 02/07/23 release Previous Rx's Medication Instructions Recorded acetaminophen 500 mg oral powder 500 mg PO QID PRN pain 7 days #28 10/21/22 packet (Tylenol Extra Strength) ea simvastatin 40 mg tablet 40 mg PO BEDTIME #90 tabs 10/21/22 ipratropium 0.5 mg-albuterol 3 mg 3 ml inhalation Q6-8H PRN wheezing 12/07/22 (2.5 mg base)/3 mL nebulization 30 days #180 mL soln azithromycin 250 mg tablet 500 mg (2 x 250 mg) PO DAILY 02/07/23 MYCOBACTERIUM AVIUM COMPLEX 30 days #60 tabs fluticasone fur. 100 mcg-umeclid 1 ea PO BEDTIME #60 ea 02/22/23 62.5 mcg-vilant 25 mcg inhalat.powder (Trelegy Ellipta) tramadol 50 mg tablet 50 mg PO BID PRN pain 30 days #60 03/14/23 tabs Allergies Allergy/AdvReac Type Severity Reaction Status Date / Time No Known Allergies Allergy Verified 03/15/23 13:24 [No Known Allergies*] Review of Systems 2 Review of Systems: Constitutional : No Weight loss, No Fever, No Chills ENT/Mouth :? No sore throat, No Rhinorrhea Eyes: No Eye Pain, No Swelling Cardiovascular : pos Chest Pain with inspiration, no SOB, no Dyspnea on Exertion, No Orthopnea, No Edema, No Palpitations Respiratory : No Cough, No Sputum Gastrointestinal : No Nausea, No Vomiting, No Diarrhea, No abdominal Pain, No Hematochezia, No Melena Genitourinary : No Dysuria, No Urinary Frequency Musculoskeletal : No joint pain, No Myalgias, No Joint Swelling Skin : No Skin Lesions, No rash Neuro : No Weakness, No Numbness, No Dizziness, No Headache Psych : No Anxiety/Panic, No Depression All other systems reviewed and are negative Yes all other systems are reviewed and are negative [facility] Past Medical History Attestation statement: The following information was validated with the patient. Source: old records reviewed and nursing notes reviewed Medical History Mycobacterium avium complex Pulmonary nodule, right Respiratory failure with hypoxia Lung mass Exercise hypoxemia Hyperlipidemia COPD (chronic obstructive pulmonary disease) Nicotine dependence, unspecified, uncomplicated Multiple pulmonary nodules Surgical History History of bronchoscopy (~04/2021) History of eye surgery (~11/2020) History of bronchoscopy (~12/2019) Family History Family History Father Lung cancer Brother COPD (chronic obstructive pulmonary disease) Substance use disorder Son Substance use disorder Social History Social History Household Members: Family Housing: House Do you presently have visiting nurse or other home services: No Alcohol intake: never Patient Tobacco Use Status: Current everyday Tobacco user Tobacco use type: Cigarette Cigarette Packs Per Day: 0.5 Cigarettes Per Day: 3 Smoked in Last 30 Days: Yes e-Cigarette/Vaping Use: Never Used Second Hand Smoke Exposure: No Use of substances other than those prescribed or required for medical reasons: No Substance Use Type: Marijuana Advance Directives: Yes Advance Directives on File: Yes Advance Directives Date on File: 10/12/22 service: No Current occupational status: disabled Current occupational exposures/hazards: No Cognitive needs: No Hearing needs: No Vision needs: No Physical Exam 2 Vital Signs: Vital Signs: Last Vital Signs Temp 98.1 F 03/15/23 15:44 Pulse 121 H 03/15/23 15:44 Resp 32 H 03/15/23 15:44 BP 102/71 03/15/23 15:44 Pulse Ox 94 03/15/23 15:44 O2 Del Method Nasal Cannula 03/15/23 15:44 O2 Flow Rate 4 03/15/23 15:44 Oxygen Flow Rate 4 03/15/23 13:24 BMI result Body Mass Index 14.1 Appearance: Alert.? Oriented X3.? No acute distress.?Cachectic. Head: Normocephalic, atraumatic, no step-offs or deformities Eyes: Pupils equal, round and reactive to light.? Neck: Normal inspection.? Neck supple.?+Cervical lymphadenopathy in b/l anterior chain. CVS: Tachycardic with regular rhythm.? Pulses normal.? Respiratory: No respiratory distress.? Breath sounds normal.? Abdomen: Soft and nontender.? Skin: Skin warm and dry.? Pale.? Normal skin turgor.? Extremities: No lower extremity edema.? No calf ttp. 5/5 strength to bilateral upper and lower extremities. Neuro: Oriented X 3.? No motor deficit.? No sensory deficit. CN 2-12 intact Course Course Course Narrative: RME: 58-year-old male with a past medical history of mycobacterium avium complex, respiratory failure with hypoxia on 3L O2 @ baseline, lung mass, COPD, HLD, c/o chest heaviness x this morning, worse w/deep breathing. Denies SOB or taking AC, does take ASA. denies hx clots, N/V 93% on baseline O2, tachycardic EKG, Labs, Viral testing, Blood Cx/lactic, CXR ordered Full HPI, ROS and PE to be performed by primary ED provider. Reevaluation(s) Reevaluation #1: CBC with leukocytosis, this appears to be around patient's baseline the past few visits. Chemistry no acute findings. Lactic normal. Troponin negative, EKG nonischemic. BNP around patient's baseline. CTA ordered due to elevated D- dimer. Sign out to Frank GANNON Time: 16:11 Reevaluation #2: Patient received in sign-out at change in shift pending CTA to evaluate for PE. Patient's CT was negative for VTE, or he has worsening pneumonia burden when compared to previous study. He is slightly hypotensive, tachycardic, he is currently meeting sepsis criteria. Patient does meet sepsis criteria, but not severe sepsis. Will call sepsis alert and will discuss with the patient's sleeve tailor covering to determine antibiotic coverage as the patient has had difficulty with triple antibiotic therapy in the past and is currently on azithromycin with worsening symptoms. In the meantime will cover with ceftriaxone for broad-spectrum coverage. Time: 16:57 Reevaluation #3: Received call back from pulmonology, Dr. Francois who recommends levofloxacin. He feel the patient likely has superimposed community-acquired pneumonia as MAC does not typically cause sepsis. Levofloxacin accident, so this was canceled. Time: 17:10 Medications Administered Discontinued Medications Generic Name Dose Route Start Last Admin Trade Name Freq PRN Reason Stop Dose Admin Iohexol 100 ml 03/15/23 15:37 03/15/23 15:37 Iohexol 350 Mg/Ml 100 Ml Infus..Btl IV 03/15/23 15:38 65 ml ONCE ONE Administration Medical Decision Making Medical Decision Making [facility] Narrative: 58-year-old male with COPD and mycobacterium avium complex presents today for evaluation of pleuritic chest pain and chest heaviness. PE revealed tachycardia with regular rhythm Concern for COPD exacerbation vs PE vs pneumonia vs pericarditis vs arrhythmia vs CHF vs bronchitis. Unlikely STEMI, NSTEMI, aortic dissection, cardiac tamponade Plan- labs, imaging Differential Diagnosis Differential Diagnoses: The differential diagnosis associated with the presentation includes Concern for COPD exacerbation vs PE vs pneumonia vs pericarditis vs arrhythmia vs CHF vs bronchitis. Unlikely STEMI, NSTEMI, aortic dissection, cardiac tamponade Admission/Observation Consideration of admission/observation: Escalation of care including admission/observation considered Lab Data [facility] Lab Attestation statement: I reviewed the patient's lab results. 03/15/23 13:22 03/15/23 13:22 Labs: Lab Results 03/15/23 03/15/23 03/15/23 Range/Units 13:22 13:55 14:37 WBC 15.5 H (4.8-10.8) X10*3/uL RBC 5.15 (4.60-5.80) X10*6/uL Hgb 15.6 (14.0-18.0) g/dl Hct 47.8 (42.0-52.0) % MCV 92.8 (80.0-98.0) fL MCH 30.3 (27.0-33.0) pg MCHC 32.6 (31.0-36.0) g/dl RDW 14.1 (11.0-16.0) % Plt Count 292 (160-400) X10*3/uL MPV 9.8 (9.4-12.4) fL Immature Gran % (Auto) 0.5 H (0.0-0.4) % Neut % (Auto) 89.9 H (45-73) % Lymph % (Auto) 3.5 L (20-40) % [place] % (Auto) 5.5 (2-11) % Eos % (Auto) 0.3 (0-4) % Baso % (Auto) 0.3 (0-2) % Lymph # (Auto) 0.6 L (1.2-4.9) X10*3/uL [place] # (Auto) 0.9 (0.1-1.2) X10*3/uL Eos # (Auto) 0.1 (0.0-0.4) X10*3/uL Baso # (Auto) 0.0 (0.0-0.2) X10*3/uL Abs Immat Gran (auto) 0.08 H (0.00-0.03) X10*3/uL Absolute Neuts (auto) 13.9 H (2.0-8.3) x10*3/uL Absolute Nucleated RBC 0.000 (0.0-0.012) X10*3/uL Nucleated RBC % (auto) 0.0 (0.0-0.2) /100WBC PT 12.2 (11.1-13.3) SEC INR 1.0 (0.9-1.1) D-Dimer High Sensitivty 539 NG/ML Sodium 136 (135-145) mmol/L Potassium 4.6 (3.3-5.1) mmol/L Chloride 102 (96-108) mmol/L Carbon Dioxide 25 (22-29) mmol/L Anion Gap 14 (12-20) BUN 6 L (9-16) mg/dL Creatinine 0.71 (0.5-1.4) mg/dL Estim Creat Clear Calc 70.4 Estimated GFR > 60 Random Glucose 80 (60-115) mg/dL Lactic Acid 1.9 (0.5-2.0) mmol/L Calcium 10.0 (8.4-10.2) mg/dL Magnesium 1.6 (1.6-2.6) mg/dL Total Bilirubin 0.7 (0.0-1.0) mg/dL Direct Bilirubin 0.4 (0.0-0.5) mg/dL AST 26 (5-37) U/L ALT 18 (0-40) U/L Alkaline Phosphatase 257 H (39-117) U/L Troponin I High Sens 3.8 D (<3.5-35.0) ng/L B-Natriuretic Peptide 285 H (<100) pg/mL Total Protein 7.4 (6.5-8.0) g/dL Albumin 3.6 (3.5-5.0) g/dL Influenza Type A (PCR) NEGATIVE (Negative) Influenza Type B (PCR) NEGATIVE (Negative) RSV RNA Qual (PCR) NEGATIVE (Negative) SARS-CoV-2 RNA (RT-PCR) NEGATIVE (Negative) Independent Interpretation I performed an independent interpretation of an: CT Scan Chronic Conditions Patient?s care impacted by: Hypertension Critical Care Time Critical Care Time Critical Care Time: No Discharge Plan Discharge Clinical Impression: Pleuritic chest pain, Pneumonia, Sepsis Patient Disposition: Admitted As Inpatient Prescriptions: No Action simvastatin 40 mg tablet 40 mg PO BEDTIME Qty: 90 1RF Tylenol Extra Strength 500 mg powder in packet 500 mg PO QID PRN (Reason: pain) 7 Days Qty: 28 0RF Trelegy Ellipta 100-62.5-25 mcg blister with device 1 ea PO BEDTIME Qty: 60 0RF tramadol 50 mg tablet 50 mg PO BID PRN (Reason: pain) 30 Days Qty: 60 0RF aspirin 81 mg Tablet,Delayed Release (Dr/Ec) 81 mg PO BEDTIME ipratropium-albuterol 0.5 mg-3 mg(2.5 mg base)/3 mL solution for nebulization 3 ml inhalation Q6-8H PRN (Reason: wheezing) 30 Days Qty: 180 2RF azithromycin 250 mg tablet 500 mg PO DAILY 30 Days Qty: 60 3RF
[2023-03-15 13:27] LABS: MANUAL DIFF FLAG NO
[2023-03-15 13:32] LABS: Basophils Percent Auto 0.3 % (0-2); Eosinophils Absolute Auto 0.1 X10*3/uL (0.0-0.4); Eosinophils Percent Auto 0.3 % (0-4); Hematocrit 47.8 % (42.0-52.0); Hemoglobin 15.6 g/dl (14.0-18.0); Imm Gran Abs Auto 0.08 X10*3/uL (0.00-0.03); Imm Gran Pct Auto 0.5 % (0.0-0.4); Lymphocytes Absolute Auto 0.6 X10*3/uL (1.2-4.9); Lymphocytes Percent Auto 3.5 % (20-40); Mean Corpuscular HGB Conc 32.6 g/dl (31.0-36.0); Mean Corpuscular Hemoglobin 30.3 pg (27.0-33.0); Mean Corpuscular Volume 92.8 fL (80.0-98.0); Mean Platelet Volume 9.8 fL (9.4-12.4); Monocytes Absolute Auto 0.9 X10*3/uL (0.1-1.2); Monocytes Percent Auto 5.5 % (2-11); Neutrophils Absolute Auto 13.9 x10*3/uL (2.0-8.3); Neutrophils Percent Auto 89.9 % (45-73); Platelet Count 292 X10*3/uL (160-400); Red Blood Count 5.15 X10*6/uL (4.60-5.80); Red Cell Distribution Width 14.1 % (11.0-16.0); White Blood Count 15.5 X10*3/uL (4.8-10.8)
[2023-03-15 13:34] LABS: Prothrombin Time 12.2 SEC (11.1-13.3)
[2023-03-15 13:43] LABS: Alanine Aminotransferase 18 U/L (0-40); Albumin Level 3.6 g/dL (3.5-5.0); Alkaline Phosphatase 257 U/L (39-117); Anion Gap 14 (12-20); Aspartate Amino Transferase 26 U/L (5-37); Bilirubin Direct 0.4 mg/dL (0.0-0.5); Bilirubin Total 0.7 mg/dL (0.0-1.0); Blood Urea Nitrogen 6 mg/dL (9-16); Carbon Dioxide 25 mmol/L (22-29); Chloride 102 mmol/L (96-108); Creatinine Clr Calc Pharmacy 70.4; Estimated Glomerular Filt Rate > 60; Glucose Random 80 mg/dL (60-115); Magnesium 1.6 mg/dL (1.6-2.6); Potassium 4.6 mmol/L (3.3-5.1); Sodium 136 mmol/L (135-145); Total Protein 7.4 g/dL (6.5-8.0)
[2023-03-15 13:50] LABS: B Type Natriuretic Peptide 285 pg/mL (<100); Troponin-I High Sensitivity 3.8 ng/L (<3.5-35.0)
--- NOTE | 2023-03-15 14:06 | PC.NURSE ---
Addendum entered by Elayne Anderson RN 03/15/23 14:08: Pt states he has no known hx of any heart dx. Original Note: pt reports being on ABX for lung infection . Pt reports hx of emphysema and frequent respiratory infections. Pt states he was on 250mg azithromycin for one month and dose was increased to 500mg. Pt states he is still currently on abx therapy. Pt also reports hx COPD; dx in 1998. Pt is on 3L nc at baseline, now he is requiring 4L.
[2023-03-15 14:16] LABS: D Dimer High Sensitivity 539 NG/ML
[2023-03-15 14:37] LABS: Influenza A PCR NEGATIVE (Negative); Influenza B PCR NEGATIVE (Negative); Resp Syncy Virus RNA Qual PCR NEGATIVE (Negative); SARS COV2 PCR INHOUSE NEGATIVE (Negative)
[2023-03-15 14:56] LABS: Lactic Acid 1.9 mmol/L (0.5-2.0)
[2023-03-15] MEDS: iohexoL 350 MG/ML 100 ML INFUS..BTL IV (15:37)
[2023-03-15] MEDS: 0.9 % Sodium Chloride 1,000 ML 999 ML IV ×2 (17:04→18:38)
[2023-03-15] MEDS: cefTRIAXone sodium 1 GM in 0.9 % Sodium Chloride 50 ML IV (17:08)
[2023-03-15] MEDS: levoFLOXacin/D5W 750 MG/150 ML PIGGYBACK 100 MG IV (17:10)
[2023-03-15] MEDS: methylPREDNISolone Sod Succ 125 MG/2 ML VIAL IVPUSH (17:17)
--- NOTE | 2023-03-15 17:23 | PHA.MEDREC ---
Pharmacy Consult ? Medication Reconciliation Pharmacy has completed the medication reconciliation. Patient reported medications. Michell Luna, ConnieD
--- NOTE | 2023-03-15 17:27 | PM.IMHP ---
History of Present Illness Date of Service: 03/15/23 Attending physician on admission: Nikki Baugh Chief Complaint: Pleuritic chest pain Pt is a 58-year-old male with a PMH significant for?advanced COPD followed by Dr. Francois, chronic hypoxemic respiratory failure using 3L home O2 at baseline, HLD, multiple pulmonary nodules, left lung mass, multiple mediastinal lymph nodes (never diagnosed as cancer per patient) following with [facility] and Dr. Condon treated with right sided radiation, and HLD who presents to the ED with?pleuritic chest pain. Patient developed a mycobacterium avium complex infection earlier this year and started on triple antibiotic therapy on 06/06/2022 which was then stopped due to the pt having seizures or seizure-like activity. Patient has since been on azithromycin 250 mg daily for the past month, which was then increased to 500 mg daily over the last 1-2 weeks. Pt presents today after waking up with inspiratory and expiratory pleuritic, non-radiating chest pain, which is new and unlike what he has experienced before. Rates pain 8/10 at its worst. Chronic SOB and nonproductive cough at baseline. Denies chest pressure or palpitations. No fever, chills, nausea, vomiting, abdominal pain. Denies lightheadedness, dizziness, headache. In the ED pt was patient was afebrile, but tachycardic up to 129, tachypneic up to 32, and hypotensive as low as 83/62. Labs were significant for leukocytosis 15.5, alk-phos 257, and BNP 285. Stable H&H. Electrolytes WNL. Renal function baseline. CXR showed changes secondary to emphysema/COPD similar to previous, with stable left mid to upper lung field irregularity, and no new consolidation or evidence for significant pleural effusion. CTA?found no evidence of pulmonary embolism, but did show severe Pena is emphysema and new areas of consolidation in the right lower lung probably representing pneumonia did show interval improvement in the more central left upper lobe pneumonia in new and more peripheral areas of consolidation in the left upper lobe and superior segment of the left lower lobe probably indicating pneumonia. EKG with significant artifact but demonstrated sinus tachycardia without evidence for significant ST elevations or depressions. ED contacted Dr. Francois who recommended treatment with levofloxacin. Pt was treated with IVF, ceftriaxone, levofloxacin, Solu-Medrol, and DuoNebs. Pt will be admitted to the hospital for treatment further evaluation of worsening mycobacterium avium complex pneumonia that failed outpatient therapy. Review of Systems Review of Systems: Pleuritic chest pain Chronic cough, at baseline Chronic SOB, at baseline No chest pressure, palpitations Denies headache, dizziness No fever, chills, nausea, vomiting, abdominal pain PMFSH Medical History Mycobacterium avium complex Pulmonary nodule, right Respiratory failure with hypoxia Lung mass Exercise hypoxemia Hyperlipidemia COPD (chronic obstructive pulmonary disease) Nicotine dependence, unspecified, uncomplicated Multiple pulmonary nodules Family History Father Lung cancer Brother COPD (chronic obstructive pulmonary disease) Substance use disorder Son Substance use disorder Surgical History History of bronchoscopy (~04/2021) History of eye surgery (~11/2020) History of bronchoscopy (~12/2019) Social History Household Members: Spouse Household Members Other:: son Housing: House Do you presently have visiting nurse or other home services: No Alcohol intake: never Patient Tobacco Use Status: Current everyday Tobacco user Tobacco use type: Cigarette Cigarette Packs Per Day: 0.5 Cigarettes Per Day: 4 Smoked in Last 30 Days: Yes e-Cigarette/Vaping Use: Never Used Patient Interested in Nicotine Replacement: No Patient Given Instructions on How to Stop Smoking: Yes Date Education Initiated: 03/15/23 Second Hand Smoke Exposure: No Use of substances other than those prescribed or required for medical reasons: No Substance Use Type: Marijuana Substance Use Frequency: Daily Last Used Substance: Days (ago) Last Used Substance Other:: 2 Currently Displaying Signs/Symptoms of Drug Intoxication Withdrawal: No Any prior treatment program specific to substance use: No Have you been hit, kicked, punched, or otherwise hurt by someone within the past year? If so, by whom?: No Do you feel safe in your current relationship?: Yes Is there a partner from a previous relationship who is making you feel unsafe now?: No Are you made to feel afraid or neglected: No Spiritual Healthcare Practices: none Christianity Healthcare Practices: none Cultural Healthcare Practices: none Advance Directives: Yes Advance Directives on File: Yes Advance Directives Date on File: 10/12/22 Do you have thoughts of harming others: None Do you have a plan to hurt others: No Plan Recently lost weight without trying: Yes How much weight loss: 14-23 pounds Eating poorly because of decreased appetite: Yes Nutrition screen score: 5 Nutrition Risks: Emaciation/Cachexia and Poor intake 0-25% >4 days service: No Current occupational status: disabled Current occupational exposures/hazards: No Cognitive needs: No Hearing needs: No Vision needs: No Meds Allergies Allergy/AdvReac Type Severity Reaction Status Date / Time No Known Allergies Allergy Verified 03/15/23 13:24 [No Known Allergies*] Active Medications: Current Medications Sodium Chloride (Ns) 1,000 mls @ 999 mls/hr IV .Q1H1M JOSHUA Stop: 03/15/23 18:00 Last Admin: 03/15/23 17:04 Dose: 999 mls/hr Levofloxacin (Levaquin) 750 mg in 150 mls @ 100 mls/hr IV ONCE ONE Stop: 03/15/23 18:37 Last Admin: 03/15/23 17:10 Dose: 100 mls/hr Home Medications Medication Instructions Recorded Confirmed Last Taken Type aspirin 81 mg tablet,delayed 81 mg PO BEDTIME 10/11/22 03/15/23 03/14/23 History release azithromycin 250 mg tablet 500 mg PO DAILY@1500 MYCOBACTERIUM 03/15/23 03/15/23 03/14/23 History AVIUM COMPLEX tramadol 50 mg tablet 50 mg PO BID pain 03/15/23 03/15/23 03/14/23 History Physical Exam Vital Signs and Narrative: Vital Signs: Last Vital Signs Temp 98.1 F 03/15/23 15:44 Pulse 121 H 03/15/23 15:44 Resp 32 H 03/15/23 15:44 BP 102/71 03/15/23 15:44 Pulse Ox 94 03/15/23 15:44 O2 Del Method Nasal Cannula 03/15/23 15:44 O2 Flow Rate 4 03/15/23 15:44 Oxygen Flow Rate 4 03/15/23 13:24 BMI result Body Mass Index 14.1 Constitutional: Alert, cachectic, frail looking, in no acute distress. Mental Status: Oriented to person, place and time. Eyes: Pupils are equal, round, and reactive to light. Ear, Nose, and Throat: Oropharynx clear, mucous membranes moist. Ears and nose without deformities. Trachea midline. Respiratory: Coarse breath sounds. Cardiovascular: S1, S2 regular. No murmurs, rubs, or gallops. Gastrointestinal: Abdomen soft, non-tender, non-distended. Normal bowel sounds. Neurologic: Cranial nerves II-XII are grossly intact bilaterally. No focal neurological deficits. Moves all extremities spontaneously. Skin: Warm, dry. Musculoskeletal: No cyanosis or clubbing. Extremities: No edema. Psychiatric: Normal mood and affect. Results Labs 03/16/23 06:03 03/16/23 06:03 Labs: Laboratory Results - last 24 hr 03/15/23 03/15/23 03/15/23 13:22 13:55 14:37 MCV 92.8 MCH 30.3 MCHC 32.6 RDW 14.1 Plt Count 292 MPV 9.8 Immature Gran % (Auto) 0.5 H Neut % (Auto) 89.9 H Lymph % (Auto) 3.5 L [place] % (Auto) 5.5 Eos % (Auto) 0.3 Baso % (Auto) 0.3 Lymph # (Auto) 0.6 L [place] # (Auto) 0.9 Eos # (Auto) 0.1 Baso # (Auto) 0.0 Abs Immat Gran (auto) 0.08 H Absolute Neuts (auto) 13.9 H Absolute Nucleated RBC 0.000 Nucleated RBC % (auto) 0.0 PT 12.2 INR 1.0 D-Dimer High Sensitivty 539 Anion Gap 14 Estim Creat Clear Calc 70.4 Estimated GFR > 60 Random Glucose 80 Lactic Acid 1.9 Calcium 10.0 Magnesium 1.6 Total Bilirubin 0.7 Direct Bilirubin 0.4 AST 26 ALT 18 Alkaline Phosphatase 257 H B-Natriuretic Peptide 285 H Total Protein 7.4 Albumin 3.6 Influenza Type A (PCR) NEGATIVE Influenza Type B (PCR) NEGATIVE RSV RNA Qual (PCR) NEGATIVE SARS-CoV-2 RNA (RT-PCR) NEGATIVE Imaging Radiologist's Impressions: Impressions Chest X-Ray 03/15/23 13:35 IMPRESSION: Changes secondary to emphysema/COPD similar to previous with hyperinflation and hyperlucency and mid to lower lung field increased markings. Stable left mid to upper lung field irregular/nodular opacity. No new consolidation or evidence for significant pleural effusion Chest CTA 03/15/23 15:44 IMPRESSION: 1. No evidence of pulmonary embolism. Severe bullous emphysema. New areas of consolidation in the right lower lobe probably representing pneumonia. Interval improvement in the more central left upper lobe pneumonia. New more peripheral areas of consolidation left upper lobe and superior segment of the left lower lobe probably representing pneumonia. 2. VTE: negative. Assessment and Plan (1) Pneumonia: Status: Acute (2) Sepsis: Status: Acute (3) Pleuritic chest pain: Status: Acute (4) Mycobacterium avium complex: Status: Acute Plan Pt is a 58-year-old male with a PMH significant for?advanced COPD followed by Dr. Francois, chronic hypoxemic respiratory failure using 3L home O2 at baseline, HLD, multiple pulmonary nodules, left lung mass, multiple mediastinal lymph nodes (never diagnosed as cancer per patient) following with [facility] and Dr. Condon treated with right sided radiation, and HLD who presents to the ED with?pleuritic chest pain. Pt will be admitted to the hospital for treatment further evaluation of worsening mycobacterium avium complex pneumonia that failed outpatient therapy. Pneumonia with sepsis Likely secondary to mycobacterium avium complex infection Pt with new pleuritic chest pain, CTA with multiple new areas of consolidation Pt meets sepsis criteria: Tachycardia, tachypnea, leukocytosis; lactic acid WNL at 1.9 Patient received IVF, and started on broad-spectrum antibiotics in the ED Patient received Solu-Medrol 125 mg IV in ED; lung sounds coarse, but no wheezing, will hold on additional steroids at this time Will treat with levofloxacin 750 mg IV daily, started 03/15/2023 [facility] Pulmonology consult Hypotension Pt with soft BP as low as Received IVF in ED Will give additional 1 L of IVF, albumin Monitor BP Coccyx pain Continue tramadol HLD Continue statin Full Code Attending:?Dr. Baugh DVT Prophylaxis: Lovenox Pt will require a hospitalization of at least two nights for treatment of sepsis in the setting of pneumonia secondary to mycobacterium avium complex infection. Patient will need IV antibiotics, close monitoring, and specialist consultation. Quality Stroke Does the patient have a stroke diagnosis?: No VTE Prior VTE?: No VTE Risk Level:: Medical - moderate - high VTE Device Contraindication: Treatment Not Indicated VTE Drug Contraindication: N/A - Med Ordered
[2023-03-15] MEDS: Albuterol Sulfate 2.5 MG, Albuterol Sulfate (0.083%) 2.5 MG 5 MG INHALE (17:38)
[2023-03-15] MEDS: Albumin Human 25 % 100 ML IV ×2 (18:37→20:14)
[2023-03-15] MEDS: Enoxaparin Sodium 40 MG/0.4 ML SYRINGE SUBCUT (18:38)
--- NOTE | 2023-03-15 19:43 | PC.NURSE ---
Pt ca&ox4, no signs of distress. Pt reports he ambulates independently. Pt reports 8/10 chest pain when he breathes in. Pts family at bedside. Plan of care ongoing.
[2023-03-15] MEDS: Albuterol/Iprat 2.5/0.5MG 3 ML AMPUL.NEB INHALE (20:37)
[2023-03-15] MEDS: Acetaminophen 325 MG TABLET 650 MG PO (22:01)
[2023-03-15] MEDS: Atorvastatin Calcium 20 MG TABLET PO (22:03)
[2023-03-15] MEDS: Melatonin 3 MG TABLET 6 MG PO (22:03)
[2023-03-15] MEDS: traMADoL HCL 50 MG TABLET PO (22:03)
[2023-03-15] MEDS: Aspirin Enteric Coated 81 MG TABLET.DR PO (22:04)
[2023-03-15] MEDS: 0.9 % Sodium Chloride Flush 3 ML SYRINGE IVFLUSH (22:05)
[2023-03-16] VITALS (11 sets, daily range): BP systolic 87–108; BP diastolic 50–61; PULSE 83–116; RESP 16–24; TEMP 36.4–36.9; O2SAT 92–99; BMI 14.7
[2023-03-16 06:19] LABS: Hematocrit 36.3 % (42.0-52.0); Hemoglobin 12.3 g/dl (14.0-18.0); Mean Corpuscular HGB Conc 33.9 g/dl (31.0-36.0); Mean Corpuscular Hemoglobin 30.8 pg (27.0-33.0); Mean Corpuscular Volume 90.8 fL (80.0-98.0); Mean Platelet Volume 10.1 fL (9.4-12.4); Platelet Count 176 X10*3/uL (160-400); Red Cell Distribution Width 14.3 % (11.0-16.0); White Blood Count 5.7 X10*3/uL (4.8-10.8)
[2023-03-16 06:34] LABS: Anion Gap 12 (12-20); Blood Urea Nitrogen 9 mg/dL (9-16); Calcium 9.6 mg/dL (8.4-10.2); Carbon Dioxide 23 mmol/L (22-29); Chloride 106 mmol/L (96-108); Creatinine Clr Calc Pharmacy 75.8; Estimated Glomerular Filt Rate > 60; Glucose Random 231 mg/dL (60-115); Potassium 3.7 mmol/L (3.3-5.1); Sodium 137 mmol/L (135-145)
[2023-03-16] MEDS: 0.9 % Sodium Chloride 1,000 ML 999 ML IV (07:50)
[2023-03-16] MEDS: 0.9 % Sodium Chloride Flush 3 ML SYRINGE IVFLUSH ×3 (07:50→20:53)
[2023-03-16] MEDS: Albuterol/Iprat 2.5/0.5MG 3 ML AMPUL.NEB INHALE ×3 (08:00→15:38)
[2023-03-16] MEDS: Fluticasone/Umeclidinium/Vilanterol 100/62.5/25 BLST.W.DEV 1 PUFF INHALE (08:19)
[2023-03-16] MEDS: traMADoL HCL 50 MG TABLET PO ×2 (09:09→20:45)
--- NOTE | 2023-03-16 09:49 | MHC.CM.PN ---
Addendum entered by Lizzy Cho 03/16/23 14:16: Per retail service specialist, pt is malnourished. Specialty Finishing Utility Person asking if MD can give pt a script for supplements at time of D/C. Original Note: Pt lives at home with his /HCP Leda, uses a wheelchair only for medically appointments, and has home O2 at 3-4L through [employer]. Pts will transport him home. PCP: Dr. John Jurado
--- NOTE | 2023-03-16 10:22 | P.PNIM_ITS ---
Subjective Subjective Date of Service: 03/16/23 Interval History: seen and evaluated chest pain has improved still on 4L O2 no fever or chills no other overnight events Review of Systems Review of Systems: Yes all other systems are reviewed and are negative Physical Exam 2 Vital Signs: Vital Signs: Last Vital Signs Temp 98.0 F 03/16/23 07:35 Pulse 83 03/16/23 08:03 Resp 16 03/16/23 08:03 BP 108/60 03/16/23 08:55 Pulse Ox 93 03/16/23 07:35 O2 Del Method Nasal Cannula 03/16/23 07:35 O2 Flow Rate 4 03/16/23 07:35 Oxygen Flow Rate 4 03/15/23 13:24 BMI result Body Mass Index 14.7 Const: Other: Constitutional : Awake, cachectic , not in distress Neck : Normal inspection, Supple Cardiovascular : RRR, no JVP, no lower extremity edema Respiratory : fair bilateral air entry, no crackles, expiratory fine wheezes Gastrointestinal: soft, lax, Normal bowel sounds, Non tender Skin : Warm, Dry Neurological : Alert & oriented x3, No focal deficit Objective Data Active Medications Acetaminophen (Acetaminophen 325 Mg Tablet) 650 mg PO Q6H PRN PRN Reason: Pain, Mild (Pain Scale 1-3) Last Admin: 03/15/23 22:01 Dose: 650 mg Documented By: TREMAYNE Albuterol/Ipratropium (Albuterol/Iprat 2.5/0.5mg 3 Ml Ampul.Neb) 3 ml INHALE RQ4H WHILE AWAKE [facility] Last Admin: 03/16/23 08:00 Dose: 3 ml Documented By: ALISHA Aspirin (Aspirin Enteric Coated 81 Mg Tablet.Dr) 81 mg PO BEDTIME [facility] Last Admin: 03/15/23 22:04 Dose: 81 mg Documented By: TREMAYNE Atorvastatin Calcium (Atorvastatin Calcium 20 Mg Tablet) 20 mg PO BEDTIME [facility] Last Admin: 03/15/23 22:03 Dose: 20 mg Documented By: TREMAYNE Benzonatate (Benzonatate 100 Mg Capsule) 100 mg PO TID PRN PRN Reason: Cough Docusate Sodium (Docusate Sodium 100 Mg Capsule) 100 mg PO DAILY PRN PRN Reason: Constipation Enoxaparin Sodium (Enoxaparin Sodium 40 Mg/0.4 Ml Syringe) 40 mg SUBCUT Q24H [facility] Last Admin: 03/15/23 18:38 Dose: 40 mg Documented By: JUANA Fluticasone/Umeclidinium/Vilanterol (Fluticasone/Umeclidinium/Vilanterol 100/62.5/25 Blst.W.Dev) 1 puff INHALE BEDTIME [facility] Last Admin: 03/16/23 08:19 Dose: 1 puff Documented By: ALISHA Levofloxacin (Levaquin) 750 mg in 150 mls @ 100 mls/hr IV Q24H [facility] Melatonin (Melatonin 3 Mg Tablet) 6 mg PO BEDTIME PRN PRN Reason: Insomnia Last Admin: 03/15/23 22:03 Dose: 6 mg Documented By: BEATRIZTRGlenn Sodium Chloride (0.9 % Sodium Chloride Flush 3 Ml Syringe) 3 ml IVFLUSH QSHIFT [facility] Last Admin: 03/16/23 07:50 Dose: 3 ml Documented By: CORNEL Tramadol HCl (Tramadol Hcl 50 Mg Tablet) 50 mg PO BID [facility] Last Admin: 03/16/23 09:09 Dose: 50 mg Documented By: CORNEL Labs 03/16/23 06:03 03/16/23 06:03 Labs: Laboratory Results - last 24 hr 03/15/23 03/15/23 03/15/23 13:22 13:55 14:37 MCV 92.8 MCH 30.3 MCHC 32.6 RDW 14.1 Plt Count 292 MPV 9.8 Immature Gran % (Auto) 0.5 H Neut % (Auto) 89.9 H Lymph % (Auto) 3.5 L [place] % (Auto) 5.5 Eos % (Auto) 0.3 Baso % (Auto) 0.3 Lymph # (Auto) 0.6 L [place] # (Auto) 0.9 Eos # (Auto) 0.1 Baso # (Auto) 0.0 Abs Immat Gran (auto) 0.08 H Absolute Neuts (auto) 13.9 H Absolute Nucleated RBC 0.000 Nucleated RBC % (auto) 0.0 PT 12.2 INR 1.0 D-Dimer High Sensitivty 539 Anion Gap 14 Estim Creat Clear Calc 70.4 Estimated GFR > 60 Random Glucose 80 Lactic Acid 1.9 Calcium 10.0 Magnesium 1.6 Total Bilirubin 0.7 Direct Bilirubin 0.4 AST 26 ALT 18 Alkaline Phosphatase 257 H B-Natriuretic Peptide 285 H Total Protein 7.4 Albumin 3.6 Influenza Type A (PCR) NEGATIVE Influenza Type B (PCR) NEGATIVE RSV RNA Qual (PCR) NEGATIVE SARS-CoV-2 RNA (RT-PCR) NEGATIVE 03/16/23 06:03 MCV 90.8 MCH 30.8 MCHC 33.9 RDW 14.3 Plt Count 176 D MPV 10.1 Immature Gran % (Auto) Neut % (Auto) Lymph % (Auto) [place] % (Auto) Eos % (Auto) Baso % (Auto) Lymph # (Auto) [place] # (Auto) Eos # (Auto) Baso # (Auto) Abs Immat Gran (auto) Absolute Neuts (auto) Absolute Nucleated RBC 0.000 Nucleated RBC % (auto) 0.0 PT INR D-Dimer High Sensitivty Anion Gap 12 Estim Creat Clear Calc 75.8 Estimated GFR > 60 Random Glucose 231 H Lactic Acid Calcium 9.6 Magnesium Total Bilirubin Direct Bilirubin AST ALT Alkaline Phosphatase B-Natriuretic Peptide Total Protein Albumin Influenza Type A (PCR) Influenza Type B (PCR) RSV RNA Qual (PCR) SARS-CoV-2 RNA (RT-PCR) Assessment and Plan (1) Sepsis: Status: Acute (2) Pneumonia: Status: Acute (3) Mycobacterium avium complex: Status: Acute Plan Pt is a 58-year-old male with a PMH significant for?advanced COPD followed by Dr. Francois, chronic hypoxemic respiratory failure using 3L home O2 at baseline, HLD, multiple pulmonary nodules, left lung mass, multiple mediastinal lymph nodes (never diagnosed as cancer per patient) following with [facility] and Dr. Condon treated with right sided radiation, and HLD who presents to the ED with?pleuritic chest pain. Pt will be admitted to the hospital for treatment further evaluation of worsening mycobacterium avium complex pneumonia that failed outpatient therapy. Sepsis 2/2 Pneumonia secondary to mycobacterium avium complex infection pleuritic chest pain improving CTA with multiple new areas of consolidation pending cultures hold on additional steroids at this time levofloxacin 750 mg IV daily, started 03/15/2023 [facility] consult Hypotension Pt with soft BP at baseline IVF, monitor BP Coccyx pain Continue tramadol HLD Continue statin Full Code DVT Prophylaxis: Lovenox Pt will require a hospitalization of overnight for treatment of sepsis in the setting of pneumonia secondary to mycobacterium avium complex infection. Patient will need IV antibiotics, close monitoring, and specialist consultation. Quality Stroke Does the patient have a stroke diagnosis?: No VTE Prior VTE?: No VTE Risk Level:: Medical - moderate - high VTE Device Contraindication: Treatment Not Indicated VTE Drug Contraindication: N/A - Med Ordered
--- NOTE | 2023-03-16 11:49 | MHC.CLN ---
PT IS SEVERELY MALNOURISHED PT WITH SEVERELY DEPLETED SUBCUTANEOUS FAT AND MUSCLE MASS WITH BMI 14.7 PT REPORTS WT LOSS HAS BEEN SLOWLY DECREASING OVER THE PAST YEAR. HIS USUAL BODY WT 120-125# (04/2022) PT REPORTS 4# WT GAIN SINCE FEBRUARY PO INTAKE 100% AT BREAKFAST PER PT DIET RX: REGULAR-APPROPRIATE PT RECEPTIVE TO DRINKING ENSURE TID TO INCREASE KCALS SUPP TO PROVIDE 1050KCALS, 60G PROTEIN MONITOR PO INTAKE AND ENCOURAGE SUPPLEMENTS SEE ALSO FULL CLINICAL NUTRITION ASSESSMENT
--- NOTE | 2023-03-16 12:16 | P.CONPL_ITS ---
History of Present Illness History of Present Illness Consult date: 03/16/23 Requesting physician: Nikki Baugh Chief complaint: Worsening mycobacterium avium complex pneumonia Narrative: 58-year-old gentleman with underlying severe advanced COPD, supplemental oxygen 3 L dependent, pulmonary nodules? Cancer status post radio tactic therapy, and history VICKY, previously intolerant of 3 drug regimen admitted on 03/15/2023 with dyspnea and chest tightness. CT chest with multifocal infiltrates. Patient was started on nebulized bronchodilators, systemic glucocorticoids, and Levaquin and today reports significant improvement in his symptoms. Review of Systems 2 Constitutional: Constitutional: Denies daytime sleepiness, Denies excessive sweating, Denies fatigue, Denies fever(s), Denies lethargy, Denies malaise, Denies night sweats, Denies snoring and Denies weight loss Eyes: Eyes: Denies blurry vision and Denies itchy eyes ENT: Denies nasal congestion, Denies post nasal drip, Denies sinus pain, Denies sinus pressure and Denies other ( Thrush) Cardiovascular: Cardiovascular: Denies chest pain, Denies pedal edema, Denies dyspnea, Denies orthopnea and Denies paroxysmal nocturnal dyspnea Respiratory: Respiratory: Reports cough, Denies hemoptysis, Denies excessive phlegm production, Denies dyspnea, Denies snoring and Reports wheezing Gastrointestinal: Gastrointestinal: Denies abdominal pain and Denies heartburn Musculoskeletal: Musculoskeletal: Denies myalgias, Denies arthralgias and Denies joint swelling Integumentary/Breasts: Skin/Breast: Denies rash Neurologic: Denies memory loss and Denies seizure-like activity Psychiatric: Psychiatric: Denies abnormal sleep pattern, Denies anxiety and Denies memory loss Endocrine: Endocrine: Denies excessive sweating, Denies fatigue and Denies heat intolerance Hematologic/Lymphatic: Hematologic/Lymphatic: Denies easy bruising Allergic/Immunologic: Allergic/Immunologic: Denies itchy eyes, Denies seasonal rhinorrhea and Reports wheezing PMFSH Past Medical History Medical History Mycobacterium avium complex Pulmonary nodule, right Respiratory failure with hypoxia Lung mass Exercise hypoxemia Hyperlipidemia COPD (chronic obstructive pulmonary disease) Nicotine dependence, unspecified, uncomplicated Multiple pulmonary nodules Family History Family History Father Lung cancer Brother COPD (chronic obstructive pulmonary disease) Substance use disorder Son Substance use disorder Surgical History Surgical History History of bronchoscopy (~04/2021) History of eye surgery (~11/2020) History of bronchoscopy (~12/2019) Social History Social History Household Members: Spouse Household Members Other:: son Housing: House Do you presently have visiting nurse or other home services: No Alcohol intake: never Patient Tobacco Use Status: Current everyday Tobacco user Tobacco use type: Cigarette Cigarette Packs Per Day: 0.5 Cigarettes Per Day: 4 Smoked in Last 30 Days: Yes e-Cigarette/Vaping Use: Never Used Patient Interested in Nicotine Replacement: No Patient Given Instructions on How to Stop Smoking: Yes Date Education Initiated: 03/15/23 Second Hand Smoke Exposure: No Use of substances other than those prescribed or required for medical reasons: No Substance Use Type: Marijuana Substance Use Frequency: Daily Last Used Substance: Days (ago) Last Used Substance Other:: 2 Currently Displaying Signs/Symptoms of Drug Intoxication Withdrawal: No Any prior treatment program specific to substance use: No Have you been hit, kicked, punched, or otherwise hurt by someone within the past year? If so, by whom?: No Do you feel safe in your current relationship?: Yes Is there a partner from a previous relationship who is making you feel unsafe now?: No Are you made to feel afraid or neglected: No Spiritual Healthcare Practices: none Taoist Healthcare Practices: none Cultural Healthcare Practices: none Advance Directives: Yes Advance Directives on File: Yes Advance Directives Date on File: 10/12/22 Do you have thoughts of harming others: None Do you have a plan to hurt others: No Plan Recently lost weight without trying: Yes How much weight loss: 14-23 pounds Eating poorly because of decreased appetite: Yes Nutrition screen score: 5 Nutrition Risks: Emaciation/Cachexia and Poor intake 0-25% >4 days service: No Current occupational status: disabled Current occupational exposures/hazards: No Cognitive needs: No Hearing needs: No Vision needs: No Meds Allergies Allergy/AdvReac Type Severity Reaction Status Date / Time No Known Allergies Allergy Verified 03/15/23 13:24 [No Known Allergies*] Active Medications: Current Medications Acetaminophen (Acetaminophen 325 Mg Tablet) 650 mg PO Q6H PRN PRN Reason: Pain, Mild (Pain Scale 1-3) Last Admin: 03/15/23 22:01 Dose: 650 mg Albuterol/Ipratropium (Albuterol/Iprat 2.5/0.5mg 3 Ml Ampul.Neb) 3 ml INHALE RQ4H WHILE AWAKE [facility] Last Admin: 03/16/23 11:35 Dose: 3 ml Aspirin (Aspirin Enteric Coated 81 Mg Tablet.Dr) 81 mg PO BEDTIME [facility] Last Admin: 03/15/23 22:04 Dose: 81 mg Atorvastatin Calcium (Atorvastatin Calcium 20 Mg Tablet) 20 mg PO BEDTIME [facility] Last Admin: 03/15/23 22:03 Dose: 20 mg Benzonatate (Benzonatate 100 Mg Capsule) 100 mg PO TID PRN PRN Reason: Cough Docusate Sodium (Docusate Sodium 100 Mg Capsule) 100 mg PO DAILY PRN PRN Reason: Constipation Enoxaparin Sodium (Enoxaparin Sodium 40 Mg/0.4 Ml Syringe) 40 mg SUBCUT Q24H [facility] Last Admin: 03/15/23 18:38 Dose: 40 mg Fluticasone/Umeclidinium/Vilanterol (Fluticasone/Umeclidinium/Vilanterol 100/62.5/25 Blst.W.Dev) 1 puff INHALE BEDTIME [facility] Last Admin: 03/16/23 08:19 Dose: 1 puff Levofloxacin (Levaquin) 750 mg in 150 mls @ 100 mls/hr IV Q24H [facility] Melatonin (Melatonin 3 Mg Tablet) 6 mg PO BEDTIME PRN PRN Reason: Insomnia Last Admin: 03/15/23 22:03 Dose: 6 mg Sodium Chloride (0.9 % Sodium Chloride Flush 3 Ml Syringe) 3 ml IVFLUSH QSHIFT [facility] Last Admin: 03/16/23 07:50 Dose: 3 ml Tramadol HCl (Tramadol Hcl 50 Mg Tablet) 50 mg PO BID [facility] Last Admin: 03/16/23 09:09 Dose: 50 mg Home Medications Medication Instructions Recorded Confirmed Last Taken Type aspirin 81 mg tablet,delayed 81 mg PO BEDTIME 10/11/22 03/15/23 03/14/23 History release azithromycin 250 mg tablet 500 mg PO DAILY@1500 MYCOBACTERIUM 03/15/23 03/15/23 03/14/23 History AVIUM COMPLEX tramadol 50 mg tablet 50 mg PO BID pain 03/15/23 03/15/23 03/14/23 History Physical Exam 2 Vital Signs: Vital Signs: Last Vital Signs Temp 98.5 F 03/16/23 11:03 Pulse 103 H 03/16/23 11:36 Resp 18 03/16/23 11:36 BP 94/55 L 03/16/23 11:03 Pulse Ox 94 03/16/23 11:03 O2 Del Method Nasal Cannula 03/16/23 11:03 O2 Flow Rate 4 03/16/23 11:03 Oxygen Flow Rate 4 03/15/23 13:24 BMI result Body Mass Index 14.7 Const: General: no acute distress and alert Nutritional Appearance: c achectic Orientation/consciousness: Other orientation findings ( oriented) HEENT: Head: Yes atraumatic Eyes: General: appearance normal, both eyes and all related structures S clerae: sclerae normal EOM: EOMs intact bilaterally Neck: Neck: Yes supple Lymphatic: no lymphadenopathy noted Resp: Effort & Inspection: normal respiratory effort and no use of accessory muscles Auscultation: clear to auscultation bilaterally Cardio: Rate: regular rate Rhythm: regular rhythm Heart sounds: no gallops, no murmurs and no rubs Skin: General skin exam: other ( warm) Extrem: General: No clubbing, No cyanosis and No edema Results Laboratory Findings 03/16/23 06:03 03/16/23 06:03 ABG, PT/INR, D-dimer: PT/INR, D-dimer PT 12.2 SEC (11.1-13.3) 03/15/23 13:22 INR 1.0 (0.9-1.1) 03/15/23 13:22 Abnormal lab findings: Abnormal Labs 03/15/23 03/16/23 13:22 06:03 WBC 15.5 H RBC 4.00 L D Hgb 12.3 L D Hct 36.3 L D Immature Gran % (Auto) 0.5 H Neut % (Auto) 89.9 H Lymph % (Auto) 3.5 L Lymph # (Auto) 0.6 L Abs Immat Gran (auto) 0.08 H Absolute Neuts (auto) 13.9 H BUN 6 L Random Glucose 231 H Alkaline Phosphatase 257 H B-Natriuretic Peptide 285 H Assessment and Plan (1) COPD exacerbation: Status: Acute (2) VICKY (mycobacterium avium-intracellulare): Status: Acute Plan Impression: 58-year-old gentleman with underlying advanced essentially end- stage COPD admitted with COPD exacerbation. Patient was treated with systemic glucocorticoids, Levaquin, nebulized bronchodilators and reports significant improvement of his symptoms, essentially at baseline. May have underlying community-acquired pneumonia, though resolution of leukocytosis and no other clinical symptoms of pneumonia argue against it. Recommendations: Agree with continuation of Levaquin for total of 7 days. Prednisone taper. No evidence of acute VICKY exacerbation. Procedures Date of Service Date of Service: 03/16/23
--- NOTE | 2023-03-16 13:22 | P.CDIM_ITS ---
PROVIDER RESPONSE TEXT: To clarify, the appropriate diagnosis supported by the clinical indicators: Severe QUERY TEXT: PHYSICIAN'S DOCUMENTATION REQUEST Date of Query: 03/16/2023 12:54 PM EST Patient Name: Edenilson Nguyen Admit Date: 03/15/2023 Dear Nikki Baugh, A review of the medical record indicates additional documentation may be needed. Please review below and update the documentation accordingly. Clinical indicators: Dietitian progress note - Patient is severely malnourished with BMI of 14.7 46.5KG weight loss, severely depleted subcutaneous fat and muscle mass. Ensure TID If possible, please provide additional specificity regarding the severity of the malnutrition using t he above information: Mild Moderate Severe Other (explain) Clinically unable to determine (explain) Thank you, Jessica Marina, CCS, CDIS Use of terms such as suspected, likely, concern for, or probable (associated with a specific diagnosi s that is being evaluated, monitored, or treated as if it exists) are acceptable and can be coded in the inpatient se tting, when documented at the time of discharge. Please use your independent medical judgment in providing your response. THIS QUERY IS PART OF THE PERMANENT MEDICAL RECORD
[2023-03-16] MEDS: predniSONE 20 MG TABLET 40 MG PO (15:21)
[2023-03-16] MEDS: levoFLOXacin/D5W 750 MG/150 ML PIGGYBACK 100 MG IV (15:27)
[2023-03-16] MEDS: Enoxaparin Sodium 40 MG/0.4 ML SYRINGE SUBCUT (17:58)
[2023-03-16] MEDS: Atorvastatin Calcium 20 MG TABLET PO (20:44)
[2023-03-16] MEDS: Aspirin Enteric Coated 81 MG TABLET.DR PO (20:46)
[2023-03-17] MEDS: Melatonin 3 MG TABLET 6 MG PO (00:52)
[2023-03-17 03:43] VITALS: BP 95/58; PULSE 99; RESP 18; TEMP 36.2; O2SAT 98
[2023-03-17 07:19] LABS: Anion Gap 10 (12-20); Blood Urea Nitrogen 8 mg/dL (9-16); Calcium 9.2 mg/dL (8.4-10.2); Carbon Dioxide 27 mmol/L (22-29); Chloride 107 mmol/L (96-108); Creatinine Clr Calc Pharmacy 85.7; Estimated Glomerular Filt Rate > 60; Glucose Random 113 mg/dL (60-115); Potassium 3.6 mmol/L (3.3-5.1); Sodium 140 mmol/L (135-145)
[2023-03-17] MEDS: Albuterol/Iprat 2.5/0.5MG 3 ML AMPUL.NEB INHALE ×2 (07:45→11:17)
[2023-03-17 07:46] VITALS: PULSE 81; RESP 18; O2SAT 97
[2023-03-17 07:52] VITALS: BP 98/66; PULSE 94; RESP 18; TEMP 36
[2023-03-17] MEDS: predniSONE 20 MG TABLET 40 MG PO (08:05)
[2023-03-17] MEDS: traMADoL HCL 50 MG TABLET PO (08:06)
[2023-03-17] MEDS: 0.9 % Sodium Chloride Flush 3 ML SYRINGE IVFLUSH (08:06)
--- NOTE | 2023-03-17 10:55 | PM.DS ---
DS: Providers Provider Date of Service: 03/17/23 Date of admission: 03/15/23 18:14 Primary care physician: LISA Ricks Consults: 03/15/23 19:06 Consult to Pulmonology Routine Consulting Provider: [facility] Reason for consultation: Mycobacterium avium complex infection DS: Diagnosis Discharge Diagnosis (1) COPD exacerbation: Status: Acute (2) VICKY (mycobacterium avium-intracellulare): Status: Acute (3) Sepsis: Status: Acute (4) Pneumonia: Status: Acute (5) Pleuritic chest pain: Status: Acute DS: Summary Hospital Course Hospital Course: Admission note HPI Pt is a 58-year-old male with a PMH significant for?advanced COPD followed by Dr. Francois, chronic hypoxemic respiratory failure using 3L home O2 at baseline, HLD, multiple pulmonary nodules, left lung mass, multiple mediastinal lymph nodes (never diagnosed as cancer per patient) following with [facility] and Dr. Condon treated with right sided radiation, and HLD who presents to the ED with?pleuritic chest pain. Patient developed a mycobacterium avium complex infection earlier this year and started on triple antibiotic therapy on 06/06/2022 which was then stopped due to the pt having seizures or seizure-like activity. Patient has since been on azithromycin 250 mg daily for the past month, which was then increased to 500 mg daily over the last 1-2 weeks. Pt presents today after waking up with inspiratory and expiratory pleuritic, non-radiating chest pain, which is new and unlike what he has experienced before. Rates pain 8/10 at its worst. Chronic SOB and nonproductive cough at baseline. Denies chest pressure or palpitations. No fever, chills, nausea, vomiting, abdominal pain. Denies lightheadedness, dizziness, headache. In the ED pt was patient was afebrile, but tachycardic up to 129, tachypneic up to 32, and hypotensive as low as 83/62. Labs were significant for leukocytosis 15.5, alk-phos 257, and BNP 285. Stable H&H. Electrolytes WNL. Renal function baseline. CXR showed changes secondary to emphysema/COPD similar to previous, with stable left mid to upper lung field irregularity, and no new consolidation or evidence for significant pleural effusion. CTA?found no evidence of pulmonary embolism, but did show severe Pena is emphysema and new areas of consolidation in the right lower lung probably representing pneumonia did show interval improvement in the more central left upper lobe pneumonia in new and more peripheral areas of consolidation in the left upper lobe and superior segment of the left lower lobe probably indicating pneumonia. EKG with significant artifact but demonstrated sinus tachycardia without evidence for significant ST elevations or depressions. ED contacted Dr. Francois who recommended treatment with levofloxacin. Pt was treated with IVF, ceftriaxone, levofloxacin, Solu-Medrol, and DuoNebs. Pt will be admitted to the hospital for treatment further evaluation of worsening mycobacterium avium complex pneumonia that failed outpatient therapy. Hospital course Sepsis 2/2 Pneumonia secondary to mycobacterium avium complex infection and COPD exacerbation. CTA with multiple new areas of consolidation. Presented with pleuritic chest pain improved as the patient was treated with Levofloxacin , duonebs and steroids as he was evaluated by athletic equipment manager who thinks it is more of a pneumonia and COPD exacerbation rather that VICKY worsening infection. Patient stable on 3-4L of O2 similar to baseline. cultures remained negative. given his severe malnutrition and low body weight. he is known to have soft BP at baseline. Encouraged oral intake, given IVF. Practice Billing Associate evaluated him and recommended Ensure on discahrge. he was advised to increase calorie and protein intake. Continue Prednisone and Levofloxacin as prescribed Hold Azithromycin while on Levofloxacin then restart Use home nebulizer 4-6 times daily for the next week then as needed Increase Protein and Calorie intake Time Attestation Discharge coordination time: Greater than 30 minutes Quality: Safe Use of Opioids Does Pt have an Active Cancer Diagnosis on the Problem List?: No Quality: Stroke Does the patient have a stroke diagnosis?: No Physical Exam Vital Signs: Vital Signs: Last Vital Signs Temp 96.8 F 03/17/23 07:52 Pulse 94 03/17/23 07:52 Resp 18 03/17/23 07:52 BP 98/66 03/17/23 07:52 Pulse Ox 98 03/17/23 03:43 O2 Del Method Room Air 03/17/23 07:52 O2 Flow Rate 3 03/17/23 03:43 Oxygen Flow Rate 4 03/15/23 13:24 BMI result Body Mass Index 14.7 Const: Other: Constitutional : Awake, cachectic , not in distress Neck : Normal inspection, Supple Cardiovascular : RRR, no JVP, no lower extremity edema Respiratory : fair bilateral air entry, no crackles, fine wheezes, On 3-4L Gastrointestinal: soft, lax, Normal bowel sounds, Non tender Skin : Warm, Dry Neurological : Alert & oriented x3, No focal deficit DS: Data Data Completed and Pending Labs on day of discharge: Laboratory Results - last 24 hr 03/17/23 06:56 Hold Purple Top SEE NOTE Sodium 140 Potassium 3.6 Chloride 107 Carbon Dioxide 27 Anion Gap 10 L BUN 8 L Creatinine 0.61 Estim Creat Clear Calc 85.7 Estimated GFR > 60 Random Glucose 113 Calcium 9.2 Preliminary micro results at discharge 03/15/23 14:38 Blood Culture - Preliminary Blood - Venous No growth after 24 hours. 03/15/23 13:55 Blood Culture - Preliminary Blood - Venous No growth after 24 hours. Imaging Chest x-ray: Radiologist's impression: ITS Impressions Chest X-Ray 03/15/23 13:35 IMPRESSION: Changes secondary to emphysema/COPD similar to previous with hyperinflation and hyperlucency and mid to lower lung field increased markings. Stable left mid to upper lung field irregular/nodular opacity. No new consolidation or evidence for significant pleural effusion Chest CTA 03/15/23 15:44 IMPRESSION: 1. No evidence of pulmonary embolism. Severe bullous emphysema. New areas of consolidation in the right lower lobe probably representing pneumonia. Interval improvement in the more central left upper lobe pneumonia. New more peripheral areas of consolidation left upper lobe and superior segment of the left lower lobe probably representing pneumonia. 2. VTE: negative. Discharge Plan Discharge Anticipated Discharge Date/Time: 03/17/23 10:47 Patient Disposition: Home, Self-Care Discharge Diagnosis: COPD exacerbation Pneumonia Referrals: John Jurado, [employer] [Primary Care Provider] - 1 Week Discharge Medications: New prednisone 20 mg Tablet 40 mg PO DAILY Qty: 14 0RF levofloxacin 750 mg tablet 750 mg PO Q24H Qty: 7 0RF Ensure Liquid 1 ea PO TID Qty: 5688 2RF Continued simvastatin 40 mg tablet 40 mg PO BEDTIME Qty: 90 1RF Trelegy Ellipta 100-62.5-25 mcg blister with device 1 ea PO BEDTIME Qty: 60 0RF aspirin 81 mg Tablet,Delayed Release (Dr/Ec) 81 mg PO BEDTIME tramadol 50 mg tablet 50 mg PO BID ipratropium-albuterol 0.5 mg-3 mg(2.5 mg base)/3 mL solution for nebulization 3 ml inhalation Q6-8H PRN (Reason: wheezing) 30 Days Qty: 180 2RF Held azithromycin 250 mg tablet 500 mg PO DAILY@1500 Hold Instructions: Hold while on Levofloxacin. can restart in 1 week Discharge Orders: Discharge Order (Routine); Ordered 03/17/23 Ordered By: Nikki Baugh Diet: Advance to usual diet Activity on Discharge: As tolerated Stand Alone Forms: Patient Portal Discharge page Care Plan Goals: Read below Health Concerns: Read below Plan of Treatment: Read below Assessment: Continue Prednisone and Levofloxacin as prescribed Hold Azithromycin while on Levofloxacin then restart Use home nebulizer 4-6 times daily for the next week then as needed Increase Protein and Calorie intake Patient Instructions: Malnutrition (GEN), Nutrition Guidelines for People with COPD (DC)
[2023-03-17 11:19] VITALS: PULSE 105; RESP 18; O2SAT 96
--- NOTE | 2023-03-17 11:31 | MHC.CM.PN ---
Pt is medically cleared for D/C home with resumption of home O2 through [employer]. Pts will transport him home.
== END 2023-03-17 12:12 | disposition home or self-care (01) | DRG 720 ==
LOC: HO.ED 17:11 → HO.EDOVER 18:28 → HO.IMC 19:27
PROVIDERS: Physician Assistant; Admitting Provider Student in an Organized Health Care Education/Training Program; Emergency Provider Student in an Organized Health Care Education/Training Program; PCP Nurse Practitioner Family; Visit Provider Student in an Organized Health Care Education/Training Program
DX: A31.2 Disseminated mycobacterium avium-intracellulare complex (DMAC) (principal); E43 Unspecified severe protein-calorie malnutrition; J96.11 Chronic respiratory failure with hypoxia; I95.9 Hypotension, unspecified; Z99.81 Dependence on supplemental oxygen; J44.1 Chronic obstructive pulmonary disease with (acute) exacerbation; E78.5 Hyperlipidemia, unspecified; F17.210 Nicotine dependence, cigarettes, uncomplicated; Z20.822 Contact with and (suspected) exposure to COVID-19; Z68.1 Body mass index [BMI] 19.9 or less, adult; Z71.6 Tobacco abuse counseling; Z79.51 Long term (current) use of inhaled steroids; Z79.899 Other long term (current) drug therapy
CPT/HCPCS: 0241U; 36415; 71046; 71275; 80048; 80076; 83605; 83735; 83880; 84484; 85025; 85027; 85379; 85610; 87040; 93005; 94640; 99285; J0696; J1650; J1956; J2930; P9047; Q9967

== ENCOUNTER → 2023-03-15 12:54 | Outpatient (BNV) | payer OTHER, SELFPAY | PROVIDERS: Admitting Provider Student in an Organized Health Care Education/Training Program; Emergency Provider Student in an Organized Health Care Education/Training Program; PCP Nurse Practitioner Family; Visit Provider Internal Medicine Cardiovascular Disease | DX: R00.0 Tachycardia, unspecified (principal) | CPT/HCPCS: 93010 ==

== ENCOUNTER → 2023-03-15 18:14 | Outpatient (BNV) | payer OTHER, SELFPAY | PROVIDERS: Admitting Provider Student in an Organized Health Care Education/Training Program; Emergency Provider Student in an Organized Health Care Education/Training Program; PCP Nurse Practitioner Family; Visit Provider Student in an Organized Health Care Education/Training Program | DX: J44.1 Chronic obstructive pulmonary disease with (acute) exacerbation (principal); A31.0 Pulmonary mycobacterial infection; A41.9 Sepsis, unspecified organism; J18.9 Pneumonia, unspecified organism; R07.81 Pleurodynia | CPT/HCPCS: 99223; 99232; 99239 ==

== ENCOUNTER → 2023-03-15 18:14 | Outpatient (BNV) | payer OTHER, SELFPAY | PROVIDERS: Admitting Provider Student in an Organized Health Care Education/Training Program; Emergency Provider Student in an Organized Health Care Education/Training Program; PCP Nurse Practitioner Family; Visit Provider Internal Medicine Pulmonary Disease | DX: J44.1 Chronic obstructive pulmonary disease with (acute) exacerbation (principal); A31.0 Pulmonary mycobacterial infection; Z99.81 Dependence on supplemental oxygen | CPT/HCPCS: 99222 ==

== ENCOUNTER 2023-04-11 13:42 | Outpatient (AMB) | payer OTHER, SELFPAY ==
[2023-04-11 13:52] VITALS: BP 98/62; PULSE 101; O2SAT 95; BMI 13.9
--- NOTE | 2023-04-11 13:52 | MHC.OFFVIS ---
Intake Vital Signs 04/11/23 13:52 Height 5 ft 10 in Weight 97 lb 0.054 oz BMI 13.9 BP 98/62 Blood Pressure Location Lt brachial Position Sitting Pulse 101 H Pulse Source Pulse Oximeter Pulse Oximetry (%) 95 Oxygen Delivery Method Nasal Cannula Oxygen Flow Rate 3 Intake Visit Reasons: COPD Allergies No Known Allergies [No Known Allergies*] Allergy (Verified 04/11/23 13:58) Medication List - Last Reconciled 04/11/23 by Vance Francois MD aspirin 81 mg PO BEDTIME azithromycin 500 mg PO DAILY@1500 nzlyjmlakwt-prahnbmvu-yfcylpcw 100-62.5-25 mcg (Trelegy Ellipta) 1 ea PO BEDTIME food supplemt, lactose-reduced (Ensure oral liquid) 1 ea PO TID ipratropium-albuterol 0.5 mg-3 mg(2.5 mg base)/3 mL 3 mL inhalation Q6-8H PRN 30 days simvastatin 40 mg PO BEDTIME tramadol 50 mg PO BID Do you need a note to return to daycare/school/sports/work: No HPI COPD HPI Details 58 YEARS OLD GENTLEMAN, COMES FOR FOLLOW-UP. FOUR WEEKS AGO HE WAS ADMITTED TO [facility] WITH THE ACUTE RESPIRATORY INFECTION. CTA OF THE CHEST WAS NEGATIVE FOR PULMONARY EMBOLI BUT DID SHOW SCATTERED INFILTRATES, CONSIDERED TO BE SECONDARY TO PNEUMONIA. HE RESPONDED WELL TO TREATMENT WITH LEVAQUIN AND PREDNISONE, AFTER COMPLETING THE 1 WEEK COURSE OF LEVAQUIN HE WENT BACK TO AZITHROMYCIN 500 MG DAILY. HE HAS BEEN TOLERATING THIS VERY WELL. AT PRESENT HE SEEMS TO BE AT BASELINE. HE REMAINS WEAK AND DEBILITATED. AT HOME CAN WALK WITH THE WALKER BUT OUTDOORS HE COMES IN THE WHEELCHAIR. HE HAS VERY LITTLE COUGH OR WHEEZING, AND HAS HAD NO FEVER. [facility] Medical History (Updated 04/11/23 @ 14:19 by Vance Francois MD) Malnutrition Mycobacterium avium complex VICKY (mycobacterium avium-intracellulare) Pulmonary nodule, right Respiratory failure with hypoxia Lung mass Exercise hypoxemia Hyperlipidemia COPD (chronic obstructive pulmonary disease) Nicotine dependence, unspecified, uncomplicated Multiple pulmonary nodules Surgical History History of bronchoscopy (~04/2021) History of eye surgery (~11/2020) History of bronchoscopy (~12/2019) Family History Father Lung cancer Brother COPD (chronic obstructive pulmonary disease) Substance use disorder Son Substance use disorder Social History Household Members: Spouse Household Members Other:: son Housing: House Do you presently have visiting nurse or other home services: No Alcohol intake: never Patient Tobacco Use Status: Current everyday Tobacco user Tobacco use type: Cigarette Cigarette Packs Per Day: 0.5 Cigarettes Per Day: 4 e-Cigarette/Vaping Use: Never Used Second Hand Smoke Exposure: No Substance Use Type: Marijuana Advance Directives Date on File: 10/12/22 service: No Current occupational status: disabled Current occupational exposures/hazards: No Cognitive needs: No Hearing needs: No Vision needs: No Review of Systems Const All systems reviewed & are unremarkable except as noted in HPI and below Eyes Details: Has had treatment to for 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 ENT Reports no additional complaints Card Reports no additional complaints Resp Reports as per HPI GI Reports no additional complaints Reports no additional complaints Musc Reports no additional complaints Skin/Breast Reports system reviewed and no additional complaints, except as documented Neuro Reports no additional complaints Physical Exam Vital Signs: Last Vital Signs Pulse 101 H 04/11/23 13:52 BP 98/62 04/11/23 13:52 Pulse Ox 95 04/11/23 13:52 Oxygen Delivery Method Nasal Cannula 04/11/23 13:52 Oxygen Flow Rate 3 04/11/23 13:52 BMI result Body Mass Index 13.9 Const Other: CHRONICALLY SICK-LOOKING AND EMACIATED General: comfortable, no acute distress, alert and awake Orientation/consciousness: patient oriented x3 HEENT Head: Yes normal to inspection General nose exam: No nasal polyps present and No nasal discharge present Face and sinus: Yes sinuses nontender Mouth: oropharynx normal Throat: Yes posterior oropharynx normal Eyes General: appearance normal, both eyes and all related structures Neck Neck: Yes normal visual inspection, Yes no lymphadenopathy, Yes trachea midline and Yes no JVD Thyroid: Thyroid normal Chest Chest palpation & inspection: normal inspection of the chest and no tenderness Resp Other: PERCUSSION NOTE HYPER-RESONANT, BREATH SOUNDS ARE VERY DISTANT ON BOTH SIDES. A FEW INSPIRATORY CRACKLES OVER THE BASILAR AREAS., NO WHEEZES. Cardio Palpation: normal PMI Rate: regular rate Rhythm: regular rhythm Heart sounds: no gallops and no murmurs GI Palpation (GI): Soft to palpation, nontender, No hepatosplenomegaly present and no masses Auscultation: normal bowel sounds Back/Spine/Pelvis Thoracic/Lumbar Spine: thoracic and lumbar spine normal to inspection Skin General skin exam: no rashes or lesions noted Neuro General: patient oriented x3, No gait normal (GAIT MARKEDLY IMPAIRED DUE TO GENERAL WEAKNESS, PATIENT IS IN WHEELCHAIR) and no focal motor deficits Cranial nerves: Yes CN's II-XII intact bilaterally Extrem General: Yes normal to inspection, Yes no clubbing, cyanosis or edema and Yes no calf tenderness Psych Appearance: grossly normal Speech and movement: Normal speech and movement present Assessment & Plan Assessment & Plan (1) COPD (chronic obstructive pulmonary disease): Comment: (Advanced/end stage COPD - COPD IS WELL CONTROLLED AND STABLE WITH HIS CURRENT REGIMEN BELOW . TRELEGY ELLIPTA 1 INHALATION DAILY DUONEB UPDRAFTS Q 6 HOURS WHILE AWAKE AND P.R.N.. BUT HE HAS FREQUENT URGE TO CLEAR SECRETIONS, Code(s): J44.9 - Chronic obstructive pulmonary disease, unspecified Plan: CONTINUE THE PRESENT REGIMEN (2) Pulmonary nodule, right: Comment: PATIENT HAD A LARGE PULMONARY NODULE IN THE RIGHT UPPER LOBE, BIOPSY WAS INCONCLUSIVE, CLINICALLY HIGH SUSPICION OF THIS BEING NEOPLASTIC. IT WAS TREATED WITH PALLIATIVE RADIATION IN 2021 AND THE NODULE HAS RESOLVED. Code(s): R91.1 - Solitary pulmonary nodule Plan: CONTINUE TO MONITOR CLOSELY (3) Respiratory failure with hypoxia: Comment: DUE TO HIS ADVANCED COPD HE HAS HYPOXEMIC RESPIRATORY FAILURE, HE IS ON OXYGEN 24 HOURS A DAY. Code(s): J96.91 - Respiratory failure, unspecified with hypoxia Plan: ADVISED TO CONTINUE O2 3 L/MINUTE. (4) Mycobacterium avium complex: Comment: He has VICKY and fibronodular disease. BRONCHOSCOPIC EXAMINATION AND BRONCHIAL WASHINGS ARE AGAIN POSITIVE FOR VICKY COMPLEX. PREVIOUSLY PATIENT WAS STARTED ON COMBINATION OF 3 ANTI TUBERCULOSIS AGENTS BY , BUT HE STOPPED DUE TO ONSET OF SEIZURE ACTIVITY. WE HAD DECIDED TO INTRODUCE 1 AGENT AT A TIME HE HAS BEEN TOLERATING AZITHROMYCIN 500 MG DAILY . NOW WILL ADD A RIFAMPIN , 150 MG DAILY AND HE WILL MONITOR FOR ANY SIDE EFFECTS Code(s): A31.0 - Pulmonary mycobacterial infection Plan: ABOVE (5) Malnutrition: Comment: DUE TO END-STAGE COPD/ VICKY INFECTION/ AND HISTORY OF LUNG CANCER, HIS APPETITE AND ORAL INTAKE IS VERY POOR. HE IS SEVERELY DEBILITATED AND MALNOURISHED. Code(s): E46 - Unspecified protein-calorie malnutrition Plan: HE IS ADVISED TO USE NUTRITION SUPPLEMENTS, SUCH BOOST 2 TO 3 TIMES A DAY. PRESCRIPTION HAS BEEN SENT TO [facility] , AND HOPEFULLY WILL BE APPROVED BY HIS INSURANCE. Medications: New rifampin 150 mg PO DAILY 30 caps 3RF VICKY 30 days Coding Level of Care Code Est Pt Level 4 (00910) Diagnoses COPD (chronic obstructive pulmonary disease) J44.9 Pulmonary nodule, right R91.1 Respiratory failure with hypoxia J96.91 Mycobacterium avium complex A31.0 Malnutrition E46
== END 2023-04-11 14:14 | disposition home or self-care (01) ==
PROVIDERS: PCP Nurse Practitioner Family; Visit Provider Internal Medicine
DX: J44.9 Chronic obstructive pulmonary disease, unspecified (principal); R91.1 Solitary pulmonary nodule; J96.91 Respiratory failure, unspecified with hypoxia; A31.0 Pulmonary mycobacterial infection; E46 Unspecified protein-calorie malnutrition
CPT/HCPCS: 99214

== ENCOUNTER → 2023-04-11 13:42 | Outpatient (BNVA) | payer OTHER, SELFPAY | PROVIDERS: PCP Nurse Practitioner Family; Visit Provider Internal Medicine ==

== ENCOUNTER 2023-05-19 16:07 | Inpatient (IN) | payer OTHER, SELFPAY ==
--- NOTE | 2023-05-19 | EEG_ITS ---
FINDINGS: Waking background activity consists of low voltage fast frequencies seen diffusely intermixed with moderate voltage, intermittent 5 to 6 hertz posterior quadrant slowing bilaterally and muscle artifacts. Photic stimulation is without activation. During sleep, light sleep stages are identified. Arousals are unremarkable. No paroxysmal discharges are seen. IMPRESSION: This waking EEG is considered abnormal due to intermittent bilateral posterior quadrant slowing consistent with posterior quadrant dysfunction or structural abnormalities. No seizure discharges are seen. MD JOCELYNE Butts/ALLAN / [id number]
--- NOTE | ~2023-05-19 | CT_ITS ---
EXAMINATION: CT CERVICAL SPINE WITHOUT CONTRAST CLINICAL INFORMATION: Fall. COMPARISON: None available. TECHNIQUE: Noncontrast computed tomography of the cervical spine was performed. This CT examination was performed using dose optimization techniques as appropriate, variously including the following: *Automated exposure control *Adjustment of mA and/or kV according to patient size (this includes techniques or standardized protocols for targeted exams where dose is matched to indication/reason for exam; i.e. extremities or head) *Use of iterative reconstruction technique DLP: 293.67 mGy-cm FINDINGS: There is straightening of the cervical lordosis. Spinal alignment is otherwise anatomic. The vertebral bodies demonstrate preserved stature. There is mild narrowing of the C3-C4, C4-C5, and C5-C6 intervertebral disc spaces. There are endplate sclerotic changes, most notable at C3-C4. The facet joints are anatomically aligned. The C1-C2 relationship is anatomic. The dens is intact. The prevertebral soft tissue is normal in appearance. There is no cervical spine fracture. The paraspinal soft tissue is normal in appearance. The thyroid gland is normal in appearance. The right lung apex demonstrates severe bullous/emphysematous changes. The left lung apex demonstrates severe/bullous emphysematous changes. Superimposed infection is suspected posteriorly on the left. Please correlate with dedicated chest CT performed 05/19/[address]/CT cervical spine wo IV con IMPRESSION: No acute osseous cervical spine abnormality. Severe pulmonary disease as described. Please correlate with chest CT performed 05/19/2023. Fleischner guidelines were followed.
--- NOTE | ~2023-05-19 | XR_ITS ---
EXAMINATION: XR CHEST CLINICAL INFORMATION: Pneumonia COMPARISON: Chest x-ray on 03/15/2023 TECHNIQUE: Frontal view of the chest was obtained. FINDINGS: vascularity. LUNGS: Lungs are markedly hyperinflated with upper lobe hyperlucency especially in the right upper lobe. Extensive branching patchy alveolar densities with air bronchograms are seen in the left upper lung. Predominantly reticular interstitial densities superimposed patchy alveolar densities are seen in the right lower lung. Persistent calcified granulomas up to 0.4 cm in diameter are seen in right mid and lower lung. No pneumothorax is seen. BONES: Bony skeleton is intact. XR/XR chest 1V IMPRESSION: 1. Unchanged severe emphysematous lung disease, extensive left upper lobe lung fibrosis, organizing pneumonia with traction bronchiectasis. 2. Persistent extensive right lower lobe interstitial fibrosis with interval appearance of patchy alveolar infiltrates compatible with superimposed pneumonia. 3. Unchanged right mid and lower lung calcified granulomas, visualized on CT pulmonary angiogram on 05/20/2023.
--- NOTE | ~2023-05-19 | CT_ITS ---
EXAMINATION: CT ANGIOGRAM OF THE CHEST WITH AND WITHOUT CONTRAST (CT PULMONARY ANGIOGRAM FOR PE) CLINICAL INFORMATION: Reason for Exam hypoxia COMPARISON: None available. TECHNIQUE: Prior to contrast administration, noncontrast localization images were obtained. Subsequently, multidetector volumetric imaging was performed from the thoracic inlet to below the diaphragms following the administration of 80 mL Omnipaque 350 intravenous contrast. No contrast reaction reported Sagittal, coronal, and MIP oblique sagittal reformatted images were obtained on the CT workstation, uploaded to PACS, and reviewed. This CT examination was performed using dose optimization techniques as appropriate, variously including the following: *Automated exposure control *Adjustment of mA and/or kV according to patient size (this includes techniques or standardized protocols for targeted exams where dose is matched to indication/reason for exam; i.e. extremities or head) *Use of iterative reconstruction technique Total exam dose-length product 162 mGy-cm FINDINGS: QUALITY OF STUDY/CONTRAST BOLUS: Satisfactory. PULMONARY ARTERIES: No pulmonary emboli. Prominent consistent pulmonary hypertension. THORACIC AORTA: No aneurysm. LUNG: Advanced emphysema with marked hyperinflation. Extensive pleural-parenchymal scarring left apex unchanged. No air-fluid levels. No developing abnormality. Bibasilar fibrotic findings also's stable dependently. Scattered granulomata stable.. No new findings. PLEURA: No pleural effusion or pneumothorax. MEDIASTINUM: Normal heart size. No pericardial effusion. No hilar or mediastinal lymphadenopathy. No evidence of septal bowing or right heart strain. CORONARY ARTERY CALCIFICATION: Present CHEST WALL/AXILLA: No axillary or internal mammary lymphadenopathy. OSSEOUS STRUCTURES: No acute or suspicious osseous abnormality. UPPER ABDOMEN: Unremarkable. Reflux of contrast into hepatic veins and IVC. CT/CT angio chest PE protocol IMPRESSION: 1. No evidence for acute or chronic pulmonary embolism. 2. Advanced emphysema. 3. Evidence of pulmonary hypertension. Elevated right heart pressures. VTE: negative.
--- NOTE | ~2023-05-19 | CT_ITS ---
EXAMINATION: CT CHEST WITHOUT CONTRAST CLINICAL INFORMATION: Shortness of breath COMPARISON: Previous chest CTA March 2013 chest x-ray March 2013 TECHNIQUE: Multidetector volumetric CT imaging of the chest was done. Axial MIP volume rendering provided. Sagittal and coronal reformatted images were obtained. This CT examination was performed using dose optimization techniques as appropriate, variously including the following: *Automated exposure control *Adjustment of mA and/or kV according to patient size (this includes techniques or standardized protocols for targeted exams where dose is matched to indication/reason for exam; i.e. extremities or head) *Use of iterative reconstruction technique DLP: 221 mGy-cm FINDINGS: LUNGS: Severe bullous emphysema. Stable calcified right upper lobe nodules. Stable scarring posterior segment of the right upper lobe. Crowded lung markings in the right middle and right lower lobes. Right lower lobe of the wall thickening, some bronchial soft tissue opacification and more peripheral consolidation suggestive of bronchopneumonia. Stable left upper lobe scarring dictation bronchiectasis and consolidation. There may be some involvement of the superior segment of the left lower lobe as well. Stable scarring or subsegmental atelectasis left lower lobe. MEDIASTINUM: The mediastinum is normal. CORONARY ARTERY CALCIFICATION: Moderate PLEURA: There is no pleural effusion. No pleural mass or thickening. AXILLA: No lymphadenopathy. UPPER ABDOMEN: Small stone in the upper pole of the left kidney. Trace ascites. OSSEOUS STRUCTURES: Unremarkable. CT/CT chest wo IV con IMPRESSION: Severe bullous emphysema. Probable acute right lower lobe bronchopneumonia. Otherwise stable pulmonary findings from March 2023. Fleischner guidelines were followed.
--- NOTE | ~2023-05-19 | CT_ITS ---
EXAMINATION: CT HEAD WITHOUT CONTRAST CLINICAL INFORMATION: Fall. COMPARISON: None available. TECHNIQUE: Contiguous axial imaging was performed from the skull base to vertex without intravenous administration of contrast. This CT examination was performed using dose optimization techniques as appropriate, variously including the following: *Automated exposure control *Adjustment of mA and/or kV according to patient size (this includes techniques or standardized protocols for targeted exams where dose is matched to indication/reason for exam; i.e. extremities or head) *Use of iterative reconstruction technique DLP: 637.67 mGy-cm FINDINGS: There is no intracranial hemorrhage. There is no evidence of acute/subacute cerebral or cerebellar infarction. There is mild small vessel ischemic change. No midline shift or mass effect. No extra-axial fluid collection. No hydrocephalus. There is calcific atherosclerotic disease of the cavernous carotid arteries. The right ocular lens is surgically absent. The orbits are otherwise unremarkable. The calvarium is intact. The mastoid air cells are clear. There is mild ethmoid air cell mucosal disease. There is minimal right maxillary and left sphenoid sinus mucosal disease. CT/CT head/brain wo IV con IMPRESSION: No acute intracranial pathology.
--- NOTE | 2023-05-19 16:18 | ECG_ITS ---
Test Reason : DYSPNEA Blood Pressure : / mmHG Vent. Rate : 084 BPM Atrial Rate : 084 BPM P-R Int : 162 ms QRS Dur : 084 ms QT Int : 412 ms P-R-T Axes : 089 166 085 degrees QTc Int : 486 ms Sinus rhythm with Premature supraventricular complexes Indeterminate axis Pulmonary disease pattern Right ventricular hypertrophy Nonspecific ST and T wave abnormality Abnormal ECG When compared with ECG of 15-MAR-2023 13:11, Premature supraventricular complexes are now Present Nonspecific T wave abnormality now evident in Inferior leads Nonspecific T wave abnormality, worse in Lateral leads Referred By: Ender Hannah Electronically Signed By:Miller Last
[2023-05-19] MEDS: 0.9 % Sodium Chloride 1,000 ML 999 ML IV ×3 (16:30→20:31)
[2023-05-19 16:34] VITALS: BP 101/72; BP 118/68; PULSE 83; RESP 20; O2SAT 80; O2SAT 96; BMI 16.7
[2023-05-19 17:37] LABS: MANUAL DIFF FLAG NO
[2023-05-19 17:38] LABS: Basophils Absolute Auto 0.1 X10*3/uL (0.0-0.2); Basophils Percent Auto 0.3 % (0-2); Eosinophils Percent Auto 0.1 % (0-4); Hematocrit 46.2 % (42.0-52.0); Hemoglobin 14.6 g/dl (14.0-18.0); Imm Gran Abs Auto 0.22 X10*3/uL (0.00-0.03); Lymphocytes Absolute Auto 0.9 X10*3/uL (1.2-4.9); Lymphocytes Percent Auto 4.1 % (20-40); Mean Corpuscular HGB Conc 31.6 g/dl (31.0-36.0); Mean Corpuscular Hemoglobin 30.7 pg (27.0-33.0); Mean Corpuscular Volume 97.1 fL (80.0-98.0); Mean Platelet Volume 10.7 fL (9.4-12.4); Monocytes Absolute Auto 1.3 X10*3/uL (0.1-1.2); Monocytes Percent Auto 5.9 % (2-11); NRBC Pct Auto 0.1 /100WBC (0.0-0.2); Neutrophils Absolute Auto 19.2 x10*3/uL (2.0-8.3); Neutrophils Percent Auto 88.6 % (45-73); Platelet Count 240 X10*3/uL (160-400); Red Blood Count 4.76 X10*6/uL (4.60-5.80); White Blood Count 21.7 X10*3/uL (4.8-10.8)
[2023-05-19 17:53] LABS: Lactic Acid 8.7 mmol/L (0.5-2.0)
[2023-05-19 17:54] LABS: Alanine Aminotransferase 53 U/L (0-40); Albumin Level 3.6 g/dL (3.5-5.0); Alkaline Phosphatase 171 U/L (39-117); Anion Gap 23 (12-20); Aspartate Amino Transferase 99 U/L (5-37); Bilirubin Total 1.1 mg/dL (0.0-1.0); Blood Urea Nitrogen 20 mg/dL (9-16); Calcium 9.1 mg/dL (8.4-10.2); Carbon Dioxide 16 mmol/L (22-29); Chloride 104 mmol/L (96-108); Creatinine Clr Calc Pharmacy 51.5; Estimated Glomerular Filt Rate > 60; Glucose Random 61 mg/dL (60-115); Lipase 10 U/L (8-78); Potassium 5.7 mmol/L (3.3-5.1); Sodium 137 mmol/L (135-145); Total Protein 6.9 g/dL (6.5-8.0)
[2023-05-19 17:55] VITALS: PULSE 84; RESP 25; O2SAT 95
[2023-05-19] MEDS: Albuterol Sulfate 7.5 MG, Albuterol/Iprat 2.5/0.5MG 3 ML 3 ML INHALE (17:55)
[2023-05-19 17:59] LABS: COVID-19 Test Negative (Negative); IDNOW Serial# 6674DD1D
--- NOTE | 2023-05-19 18:10 | ED.GENADULT ---
HPI - General Adult General Chief complaint: Fall Stated complaint: fell out of bed was up against radiator Time Seen by Provider: 05/19/23 16:15 Source: patient, family (Patient's is bedside) and RN notes reviewed Mode of arrival: EMS Limitations: altered mental status History of Present Illness HPI narrative: 58-year-old male presents for evaluation after an unwitnessed fall. Patient's returned home from work at around 2:00 p.m.. She found him on the ground next to the bed leaning up against a radiator. The patient does not remember falling or how he fell but believes he fell 3 times today Per the patient's , the patient usually gets out of bed around noon but she left the house at 7:30 a.m. in the morning The patient denies any pain and states that he feels okay He is on chronic oxygen dependence of 4 L via nasal cannula due to advanced COPD He is also currently taking triple antibiotic therapy with rifampin, ethambutol and azithromycin for mycobacterium avium complex These medications were discontinued in the past due to seizure-like activity while taking them. Per the patient's these medications were restarted in March of last year, 2 months ago The patient denies any pain Related Data Home Medications Medication Instructions Recorded Confirmed aspirin 81 mg tablet,delayed 81 mg PO BEDTIME 10/11/22 03/15/23 release Previous Rx's Medication Instructions Recorded simvastatin 40 mg tablet 40 mg PO BEDTIME #90 tabs 10/21/22 food supplemt, lactose-reduced 1 ea PO TID #5,688 mL 03/17/23 (Ensure oral liquid) rifampin 150 mg capsule 150 mg PO DAILY VICKY 30 days #30 04/11/23 caps tramadol 50 mg tablet 50 mg PO BID PRN pain 30 days #60 04/16/23 tabs azithromycin 250 mg tablet 500 mg (2 x 250 mg) PO DAILY@1500 04/18/23 MYCOBACTERIUM AVIUM COMPLEX 30 days #60 tabs fluticasone fur. 100 mcg-umeclid 1 ea PO BEDTIME #60 ea 04/20/23 62.5 mcg-vilant 25 mcg inhalat.powder (Trelegy Ellipta) ipratropium 0.5 mg-albuterol 3 mg 3 ml inhalation Q6-8H PRN wheezing 05/18/23 (2.5 mg base)/3 mL nebulization 30 days #180 mL soln Allergies Allergy/AdvReac Type Severity Reaction Status Date / Time No Known Allergies Allergy Verified 04/11/23 13:58 [No Known Allergies*] Review of Systems Constitutional: Constitutional: Reports anorexia, Denies body ache(s), Denies chills, Reports fatigue and Denies fever(s) Cardiovascular: Cardiovascular: Denies chest pain and Reports dyspnea Respiratory: Respiratory: Reports dyspnea and Reports wheezing Gastrointestinal: Gastrointestinal: Denies abdominal pain, Denies nausea and Denies vomiting Musculoskeletal: Musculoskeletal: Denies back pain Integumentary/Breasts: Skin/Breast: Reports wounds (Left forearm) Endocrine: Endocrine: Reports fatigue Allergic/Immunologic: Allergic/Immunologic: Reports wheezing PMFSH Past Medical History Medical History Malnutrition Mycobacterium avium complex VICKY (mycobacterium avium-intracellulare) Pulmonary nodule, right Respiratory failure with hypoxia Lung mass Exercise hypoxemia Hyperlipidemia COPD (chronic obstructive pulmonary disease) Nicotine dependence, unspecified, uncomplicated Multiple pulmonary nodules Surgical History History of bronchoscopy (~04/2021) History of eye surgery (~11/2020) History of bronchoscopy (~12/2019) Family History Family History Father Lung cancer Brother COPD (chronic obstructive pulmonary disease) Substance use disorder Son Substance use disorder Social History Social History Household Members: Spouse Household Members Other:: son Housing: House Do you presently have visiting nurse or other home services: No Alcohol intake: never Patient Tobacco Use Status: Never used Tobacco Tobacco use type: Cigarette Cigarette Packs Per Day: 0.5 Cigarettes Per Day: 4 e-Cigarette/Vaping Use: Never Used Second Hand Smoke Exposure: No Substance Use Type: Marijuana Advance Directives: Yes Advance Directives on File: Yes Advance Directives Date on File: 10/12/22 service: No Current occupational status: disabled Current occupational exposures/hazards: No Cognitive needs: No Hearing needs: No Vision needs: No Physical Exam ED Vital Signs: Vital Signs - 24 hr 05/19/23 16:34 05/19/23 17:55 05/19/23 22:47 Temperature 96.0 F L Pulse Rate 83 84 Respiratory Rate 20 25 H Blood Pressure 118/68 Pulse Oximetry 96 Oxygen Delivery Method Non-Rebreather Mask BMI result Body Mass Index 16.7 Const General: comfortable, no acute distress, alert and awake; No healthy appearing Nutritional Appearance: malnourished Orientation/consciousness: patient oriented x3 Eyes Eyelids: Yes eyelids normal Conjunctivae: conjunctivae normal Sclerae: sclerae normal Corneas: corneas normal Pupils: pupils not ERRL (Right pupils slightly larger than the left, but both are responsive) EOM: EOMs intact bilaterally Resp Auscultation: not clear to auscultation bilaterally and wheezes (Diminished with diffuse wheezing throughout) GI Inspection: No distended Palpation (GI): Soft to palpation, not firm, nontender, no guarding and not rigid Skin General skin exam: elasticity normal Neuro General: patient oriented x3 Cranial nerves: No Equal, round and reactive pupils present (Right pupils slightly larger than the left, but both are responsive) and Yes Bilaterally intact EOM present Cognition (Neuro): normal cognition Extrem Other: Moving all extremities well without any obvious deformities Course Reevaluation(s) Reevaluation #1: Patient's CT chest shows acute right sided bronchopneumonia. At this time, there is documented source of infection. The lactic acid is still likely related to a seizure rather than sepsis. The patient did receive IV fluids and antibiotics, Levaquin ordered by the admitting doctor. The patient be admitted to the hospitalist service Time: 22:25 Reevaluation #2: Patient's repeat troponin came back over a 1000, discussed with the hospitalist, the patient was started on anticoagulation. Cardiology consult in the morning as the EKG does not show any evidence of STEMI shared Time: 23:40 Medications Administered Generic Name Dose Route Start Last Admin Trade Name Freq PRN Reason Stop Dose Admin Levofloxacin 750 mg in 150 mls @ 100 mls/hr 05/19/23 22:00 05/19/23 22:12 Levaquin IV 100 mls/hr Q24H JOSHUA Administration Discontinued Medications Generic Name Dose Route Start Last Admin Trade Name Freq PRN Reason Stop Dose Admin Albuterol Sulfate 7.5 mg/ 0 mg 05/19/23 17:45 05/19/23 17:55 Albuterol/Ipratropium 3 ml INHALE 05/19/23 17:46 10 each ONCE ONE Administration Sodium Chloride 1,000 mls @ 999 mls/hr 05/19/23 16:30 05/19/23 18:04 Ns IV 05/19/23 17:30 Infused .Q1H1M JOSHUA Infusion Sodium Chloride 1,000 mls @ 999 mls/hr 05/19/23 18:00 05/19/23 20:31 Ns IV 05/19/23 20:00 999 mls/hr .Q1H1M JOSHUA Administration Methylprednisolone Sodium Succinate 125 mg 05/19/23 17:45 05/19/23 18:31 Methylprednisolone Sod Succ 125 Mg/2 Ml Vial IVPUSH 05/19/23 17:46 125 mg ONCE ONE Administration Sodium Zirconium Cyclosilicate 10 gm 05/19/23 21:39 05/19/23 22:02 Sodium Zirconium Cyclosilicate 10 Gm Powd.Pack PO 05/19/23 21:40 10 gm ONCE ONE Administration Medical Decision Making Medical Decision Making [facility] Narrative: 58-year-old male with complex past medical history presents for evaluation after an unwitnessed fall. Given his history of seizure-like activity/seizure disorder while taking the triple antibiotic it is possible the patient had a seizure. This is supported by the lactic acid elevated to 8.7 the patient does have a leukocytosis to 21.7 K. This also can be related to seizure activity. There is no obvious acute infection at this time, so it would be less likely sepsis. The patient's vital signs are all within normal limits. He is afebrile. Plan for imaging of the head, C-spine and chest to assess for acute pneumonia. Patient likely has some degree of rhabdomyolysis with a CK elevated to 1222. He is receiving IV fluids for this Differential Diagnosis Differential Diagnoses: The differential diagnosis associated with the presentation includes Syncope Seizure disorder ACS Sepsis Pneumonia COPD COPD exacerbation Admission/Observation Consideration of admission/observation: Escalation of care including admission/observation considered Consult Healthcare Provider Management of the patient was discussed with: Hospitalist Lab Data [facility] Lab Attestation statement: I reviewed the patient's lab results. As above leukocytosis. No anemia. Patient's sodium is within normal limits, potassium elevated to 5.7. CO2 is decreased to 16 and he has an anion gap of 23. Patient's BUN is elevated at 20 within normal 1.15 05/19/23 17:29 05/19/23 17:29 Labs: Lab Results 05/19/23 05/19/23 05/19/23 Range/Units 17:29 20:01 20:28 WBC 21.7 H (4.8-10.8) X10*3/uL RBC 4.76 (4.60-5.80) X10*6/uL Hgb 14.6 (14.0-18.0) g/dl Hct 46.2 D (42.0-52.0) % MCV 97.1 (80.0-98.0) fL MCH 30.7 (27.0-33.0) pg MCHC 31.6 (31.0-36.0) g/dl RDW 16.0 (11.0-16.0) % Plt Count 240 D (160-400) X10*3/uL MPV 10.7 (9.4-12.4) fL Immature Gran % (Auto) 1.0 H (0.0-0.4) % Neut % (Auto) 88.6 H (45-73) % Lymph % (Auto) 4.1 L (20-40) % [place] % (Auto) 5.9 (2-11) % Eos % (Auto) 0.1 (0-4) % Baso % (Auto) 0.3 (0-2) % Lymph # (Auto) 0.9 L (1.2-4.9) X10*3/uL [place] # (Auto) 1.3 H (0.1-1.2) X10*3/uL Eos # (Auto) 0.0 (0.0-0.4) X10*3/uL Baso # (Auto) 0.1 (0.0-0.2) X10*3/uL Abs Immat Gran (auto) 0.22 H (0.00-0.03) X10*3/uL Absolute Neuts (auto) 19.2 H (2.0-8.3) x10*3/uL Absolute Nucleated RBC 0.030 H (0.0-0.012) X10*3/uL Nucleated RBC % (auto) 0.1 (0.0-0.2) /100WBC PT 16.0 H D (11.1-13.3) SEC INR 1.3 H (0.9-1.1) O2 Saturation 98.0 % ABG pH at Pt Temp 7.22 L (7.35-7.45) ABG pCO2 at Pt Temp 33 (32-45) mmHg ABG pO2 at Pt Temp 111 H (83-108) mmHg ABG HCO3 14 L (22-26) mmol/L ABG Base Excess (Actual) -12.4 mmol/L Sodium 137 (135-145) mmol/L Potassium 5.7 H (3.3-5.1) mmol/L Chloride 104 (96-108) mmol/L Carbon Dioxide 16 L (22-29) mmol/L Anion Gap 23 H (12-20) BUN 20 H (9-16) mg/dL Creatinine 1.15 (0.5-1.4) mg/dL Estim Creat Clear Calc 51.5 Estimated GFR > 60 Random Glucose 61 (60-115) mg/dL Lactic Acid 8.7 H* (0.5-2.0) mmol/L Lactic Acid F/U @ 2Hr 6.9 H* (0.5-2.0) mmol/L Lactic Acid F/U @ 4Hr (0.5-2.0) mmol/L Calcium 9.1 (8.4-10.2) mg/dL Total Bilirubin 1.1 H (0.0-1.0) mg/dL AST 99 H (5-37) U/L ALT 53 H (0-40) U/L Alkaline Phosphatase 171 H (39-117) U/L Total Creatine Kinase 1222 H (38-174) U/L Troponin I High Sens 350.0 H* D (<3.5-35.0) ng/L B-Natriuretic Peptide 995 H (<100) pg/mL Total Protein 6.9 (6.5-8.0) g/dL Albumin 3.6 (3.5-5.0) g/dL Lipase 10 (8-78) U/L COVID-19 (KAREL) Negative (Negative) COVID-19 Clin Com See Note Influenza Type A (DINESH) Negative (Negative) Influenza Type B (DINESH) Negative (Negative) Influenza A & B Note See Note 05/19/23 05/19/23 Range/Units 22:44 22:45 WBC (4.8-10.8) X10*3/uL RBC (4.60-5.80) X10*6/uL Hgb (14.0-18.0) g/dl Hct (42.0-52.0) % MCV (80.0-98.0) fL MCH (27.0-33.0) pg MCHC (31.0-36.0) g/dl RDW (11.0-16.0) % Plt Count (160-400) X10*3/uL MPV (9.4-12.4) fL Immature Gran % (Auto) (0.0-0.4) % Neut % (Auto) (45-73) % Lymph % (Auto) (20-40) % [place] % (Auto) (2-11) % Eos % (Auto) (0-4) % Baso % (Auto) (0-2) % Lymph # (Auto) (1.2-4.9) X10*3/uL [place] # (Auto) (0.1-1.2) X10*3/uL Eos # (Auto) (0.0-0.4) X10*3/uL Baso # (Auto) (0.0-0.2) X10*3/uL Abs Immat Gran (auto) (0.00-0.03) X10*3/uL Absolute Neuts (auto) (2.0-8.3) x10*3/uL Absolute Nucleated RBC (0.0-0.012) X10*3/uL Nucleated RBC % (auto) (0.0-0.2) /100WBC PT (11.1-13.3) SEC INR (0.9-1.1) O2 Saturation % ABG pH at Pt Temp (7.35-7.45) ABG pCO2 at Pt Temp (32-45) mmHg ABG pO2 at Pt Temp (83-108) mmHg ABG HCO3 (22-26) mmol/L ABG Base Excess (Actual) mmol/L Sodium (135-145) mmol/L Potassium (3.3-5.1) mmol/L Chloride (96-108) mmol/L Carbon Dioxide (22-29) mmol/L Anion Gap (12-20) BUN (9-16) mg/dL Creatinine (0.5-1.4) mg/dL Estim Creat Clear Calc Estimated GFR Random Glucose (60-115) mg/dL Lactic Acid (0.5-2.0) mmol/L Lactic Acid F/U @ 2Hr (0.5-2.0) mmol/L Lactic Acid F/U @ 4Hr 5.6 H* (0.5-2.0) mmol/L Calcium (8.4-10.2) mg/dL Total Bilirubin (0.0-1.0) mg/dL AST (5-37) U/L ALT (0-40) U/L Alkaline Phosphatase (39-117) U/L Total Creatine Kinase (38-174) U/L Troponin I High Sens 1488.9 H* D (<3.5-35.0) ng/L B-Natriuretic Peptide (<100) pg/mL Total Protein (6.5-8.0) g/dL Albumin (3.5-5.0) g/dL Lipase (8-78) U/L COVID-19 (KAREL) (Negative) COVID-19 Clin Com Influenza Type A (DINESH) (Negative) Influenza Type B (DINESH) (Negative) Influenza A & B Note Discharge Plan Discharge Clinical Impression: Pneumonia, Acidosis, lactic, Elevated troponin Patient Disposition: Admitted As Inpatient
[2023-05-19] MEDS: methylPREDNISolone Sod Succ 125 MG/2 ML VIAL IVPUSH (18:31)
[2023-05-19 18:46] LABS: B Type Natriuretic Peptide 995 pg/mL (<100)
[2023-05-19 19:35] LABS: Reflex Lactate? Lactic Acid Added
[2023-05-19 20:08] LABS: ABG Base Excess -12.4 mmol/L; ABG HCO3 14 mmol/L (22-26); ABG pCO2 33 mmHg (32-45); ABG pH 7.22 (7.35-7.45); ABG pO2 111 mmHg (83-108)
--- NOTE | 2023-05-19 20:20 | PC.NURSE ---
Pt resting in bed at this time. Pt is still in c-collar, pending CT scan at this time. Pt is on 4 LPM O2, satting well.
[2023-05-19 20:34] LABS: ABG Refer to POC result
[2023-05-19 20:43] LABS: INTERNATIONAL NORM RATIO 1.3 (0.9-1.1)
[2023-05-19 20:50] LABS: ~Lactic Acid-LAB USE ONLY 6.9 mmol/L (0.5-2.0)
--- NOTE | 2023-05-19 21:59 | P.HPHOSP_ITS ---
History of Present Illness Date of Service: 05/19/23 Attending physician on admission: Irwin Ramirez Chief Complaint: Fall at home Pt is a 58-year-old male with a PMH significant for??advanced COPD followed by Dr. Francois, chronic hypoxemic respiratory failure on 3L home O2 at baseline, HLD, multiple pulmonary nodules, left lung mass, multiple mediastinal lymph nodes (never diagnosed as cancer per patient) following with [facility] and Dr. Condon treated with right sided radiation who presents to the ED for evaluation of fall at home with unknown downtime. Patient was found on the floor fallen out of bed by his at 14:00 this afternoon when she came home from lunch. Patient does not remember events surrounding fall, but states that it occurred sometime between 09:00 and 14:00. Unclear whether this was a seizure or. Seizure-like activity patient denies any loss of bowel or bladder function. No tongue bite. Patient reports he has had significant increase in SOB and overall general weakness with exertion, especially walking, the past 2 weeks. Reports has also had loss of appetite and been drinking less than normal during this time. Of note, patient developed a mycobacterium avium complex infection last year and started on triple antibiotic therapy on 06/06/2022 which was then stopped due to the pt having seizures or seizure-like activity. Was then started on azithromycin 500 mg daily. However, in April of this year bronchoscopic examination and bronchial washings again tested positive for VICKY infection and patient was started on rifampin 150 mg daily. Patient reports today's episode was his first one since restarting rifampin. Reports chronic cough around baseline. Denies chest pain/pressure, palpitations. Reports chronic chills, but denies fever. In the ED pt was tachypneic up to 25. Labs were significant for leukocytosis of 21.7. Potassium 5.7, bicarb 16, creatinine 1.15 (baseline around 0.70), initial lactic acid 8.7 with repeat 6.9, AST 99, ALT 53, alk-phos 171, CPK 1222, initial troponin 350.0, BNP elevated at 995. Head CT negative for acute intracranial pathology. CT of cervical spine negative for acute osseous abnormality. CT of chest showed severe bolus emphysema with probable acute right lower lobe bronchopneumonia, otherwise stable pulmonary findings. EKG demonstrated sinus rhythm with PSVCs with pulmonary disease pattern with nonspecific T-wave abnormalities. Pt was treated with Lokelma, IVF, DuoNebs, and Solu-Medrol. Pt will be admitted to the hospital for treatment and further evaluation of acute pneumonia with sepsis as well as possible seizure activity in the setting of VICKY antibiotic use. Review of Systems 2 Review of Systems: Fall at home Question of seizure Worsening SOB with exertion Increased fatigue, generalized weakness Decreased p.o. intake Denies chest pain/pressure, palpitations [facility] Medical History Malnutrition Mycobacterium avium complex VICKY (mycobacterium avium-intracellulare) Pulmonary nodule, right Respiratory failure with hypoxia Lung mass Exercise hypoxemia Hyperlipidemia COPD (chronic obstructive pulmonary disease) Nicotine dependence, unspecified, uncomplicated Multiple pulmonary nodules Family History Father Lung cancer Brother COPD (chronic obstructive pulmonary disease) Substance use disorder Son Substance use disorder Surgical History History of bronchoscopy (~04/2021) History of eye surgery (~11/2020) History of bronchoscopy (~12/2019) Social History Household Members: Spouse Household Members Other:: son Housing: House Do you presently have visiting nurse or other home services: No Alcohol intake: never Patient Tobacco Use Status: Never used Tobacco Tobacco use type: Cigarette Cigarette Packs Per Day: 0.5 Cigarettes Per Day: 4 e-Cigarette/Vaping Use: Never Used Second Hand Smoke Exposure: No Substance Use Type: Marijuana Advance Directives: Yes Advance Directives on File: Yes Advance Directives Date on File: 10/12/22 service: No Current occupational status: disabled Current occupational exposures/hazards: No Cognitive needs: No Hearing needs: No Vision needs: No Meds Allergies Allergy/AdvReac Type Severity Reaction Status Date / Time No Known Allergies Allergy Verified 04/11/23 13:58 [No Known Allergies*] Active Medications: Current Medications Acetaminophen (Acetaminophen 325 Mg Tablet) 650 mg PO Q6H PRN PRN Reason: Pain, Mild (Pain Scale 1-3) Albuterol/Ipratropium (Albuterol/Iprat 2.5/0.5mg 3 Ml Ampul.Neb) 3 ml INHALE RQ4H WHILE AWAKE JOSHUA Albuterol/Ipratropium (Albuterol/Iprat 2.5/0.5mg 3 Ml Ampul.Neb) 3 ml INHALE Q4H PRN PRN Reason: Wheezing Enoxaparin Sodium (Enoxaparin Sodium 40 Mg/0.4 Ml Syringe) 40 mg SUBCUT Q24H JOSHUA Levofloxacin (Levaquin) 750 mg in 150 mls @ 100 mls/hr IV Q24H JOSHUA Melatonin (Melatonin 3 Mg Tablet) 6 mg PO BEDTIME PRN PRN Reason: Insomnia Ondansetron HCl (Ondansetron Hcl 4 Mg/2 Ml Vial) 4 mg IVPUSH Q8H PRN PRN Reason: Nausea and Vomiting Home Medications Medication Instructions Recorded Confirmed Last Taken Type aspirin 81 mg tablet,delayed 81 mg PO BEDTIME 10/11/22 03/15/23 03/14/23 History release Physical Exam 2 Vital Signs and Narrative: Vital Signs: Last Vital Signs Pulse 84 05/19/23 17:55 Resp 25 H 05/19/23 17:55 BP 118/68 05/19/23 16:34 Pulse Ox 96 05/19/23 16:34 O2 Del Method Non-Rebreather Ma sk 05/19/23 16:34 Oxygen Flow Rate 15 05/19/23 16:34 BMI result Body Mass Index 16.7 Constitutional: Alert, cachectic, frail looking, in no acute distress. Mental Status: Oriented to person, place and time. Eyes: Pupils are equal, round, and reactive to light. Ear, Nose, and Throat: Oropharynx clear, mucous membranes moist. Ears and nose without deformities. Trachea midline. Respiratory: Diffuse bilateral wheezing. Cardiovascular: S1, S2 regular. No murmurs, rubs, or gallops. Gastrointestinal: Abdomen soft, non-tender, non-distended. Normal bowel sounds. Neurologic: Cranial nerves II-XII are grossly intact bilaterally. No focal neurological deficits. Moves all extremities spontaneously. Skin: Warm, dry. Musculoskeletal: No cyanosis or clubbing. Extremities: No edema. Psychiatric: Normal mood and affect. Results Labs 05/19/23 17:29 05/19/23 17:29 Labs: Laboratory Results - last 24 hr 05/19/23 05/19/2324 17:29 20:01 20:28 MCV 97.1 MCH 30.7 MCHC 31.6 RDW 16.0 Plt Count 240 D MPV 10.7 Immature Gran % (Auto) 1.0 H Neut % (Auto) 88.6 H Lymph % (Auto) 4.1 L [place] % (Auto) 5.9 Eos % (Auto) 0.1 Baso % (Auto) 0.3 Lymph # (Auto) 0.9 L [place] # (Auto) 1.3 H Eos # (Auto) 0.0 Baso # (Auto) 0.1 Abs Immat Gran (auto) 0.22 H Absolute Neuts (auto) 19.2 H Absolute Nucleated RBC 0.030 H Nucleated RBC % (auto) 0.1 PT 16.0 H D INR 1.3 H O2 Saturation 98.0 ABG pH at Pt Temp 7.22 L ABG pCO2 at Pt Temp 33 ABG pO2 at Pt Temp 111 H ABG HCO3 14 L ABG Base Excess (Actual) -12.4 Anion Gap 23 H Estim Creat Clear Calc 51.5 Estimated GFR > 60 Random Glucose 61 Lactic Acid 8.7 H* Lactic Acid F/U @ 2Hr 6.9 H* Calcium 9.1 Total Bilirubin 1.1 H AST 99 H ALT 53 H Alkaline Phosphatase 171 H Total Creatine Kinase 1222 H Troponin I High Sens 350.0 H* D B-Natriuretic Peptide 995 H Total Protein 6.9 Albumin 3.6 Lipase 10 COVID-19 (KAREL) Negative COVID-19 Clin Com See Note Imaging Radiologist's Impressions: Impressions Cervical Spine CT 05/19/23 21:08 IMPRESSION: No acute osseous cervical spine abnormality. Severe pulmonary disease as described. Please correlate with chest CT performed 05/19/2023. Fleischner guidelines were followed. Head CT 05/19/23 21:08 IMPRESSION: No acute intracranial pathology. Assessment and Plan (1) Acidosis, lactic: Status: Acute (2) Pneumonia: Status: Acute Plan Pt is a 58-year-old male with a PMH significant for??advanced COPD followed by Dr. Francois, chronic hypoxemic respiratory failure on 3L home O2 at baseline, HLD, multiple pulmonary nodules, left lung mass, multiple mediastinal lymph nodes (never diagnosed as cancer per patient) following with [facility] and Dr. Condon treated with right sided radiation who presents to the ED for evaluation of fall at home with unknown down time. Pt will be admitted to the hospital for treatment and further evaluation of acute pneumonia with sepsis as well as possible seizure activity in the setting of VICKY antibiotic use. Pneumonia with sepsis Chest CT with evidence of probable acute right lower lobe bronchopneumonia Patient meets sepsis criteria: Hypothermia, tachypnea, leukocytosis, and initial lactic acid 8.7 Patient given IVF and started on broad-spectrum antibiotics Will treat with levofloxacin 750 mg IV daily, started 05/19/2023 Acute on chronic COPD exacerbation in the setting of pneumonia Patient was significant wheezing upon exam, increased supplemental O2 requirement Will treat with DuoNerebecca Solu-Medrol Titrate supplemental O2 >90, wean as tolerated Monitor respiratory status Question of seizure Pt with fall out of bed this morning/afternoon; does not remember events surrounding episode Has had previous seizure or seizure-like activity attributed to triple antibiotic therapy for VICKY infection Recently restarted on rifampin at a lower dose Will get EEG Neurology consult VICKY infection Pulmonology consult for possible medication adjustment Lactic acidosis Initial lactic acid 8.7 with repeats 6.9 and 5.6 Possibly multifactorial: in the setting of seizure, pneumonia with sepsis and COPD exacerbation, and albuterol use Pt given IVF in the ED Continue to trend lactic acid Elevated troponins Initial troponin 350.0 with repeat 1488.9 Patient asymptomatic: Denies chest pain/pressure, palpitations; EKG without significant ischemic changes Will treat with therapeutic Lovenox and aspirin Echocardiogram Cardiology consult Monitor on telemetry Elevated BNP Patient does not clinically appear fluid overloaded Patient instead looks dry and receiving IVF No indication for diuretics at this time Possibly secondary to seizure activity and or NSTEMI Hyperkalemia Patient's potassium 5.7 at time of presentation Received Lokelma in the ED Follow BMP Elevated CPK CPK 1222 at time of presentation Likely secondary to fall at home and or seizure activity Patient receiving IVF in ED Follow CPK Moderate protein calorie malnutrition Secondary to reduced p.o. intake Will supplement with Ensure t.i.d. Full Code Attending:?Dr. Ramirez DVT Prophylaxis: Therapeutic Lovenox Pt will require a hospitalization of at least two nights for treatment of?pneumonia with sepsis, possible seizure activity, NSTEMI, as well as other acute issues. Given patient's multiple comorbidities and severely malnourished state, patient is at high risk for quick decompensation without hospitalization and the administration of IV antibiotics, IV fluids, and anticoagulation. Patient also needs specialist consultation from multiple lobo, and close monitoring of cardiac functioning, respiratory status, and labs. Quality Stroke Does the patient have a stroke diagnosis?: No VTE Prior VTE?: No VTE Risk Level:: Medical - moderate - high VTE Device Contraindication: Treatment Not Indicated VTE Drug Contraindication: N/A - Med Ordered
[2023-05-19] MEDS: Sodium Zirconium Cyclosilicate 10 GM POWD.PACK PO (22:02)
[2023-05-19] MEDS: levoFLOXacin/D5W 750 MG/150 ML PIGGYBACK 100 MG IV (22:12)
[2023-05-19 22:33] LABS: Reflex Lactate? 2 Y
[2023-05-19 22:41] LABS: IDNOW Serial# 6674DD1D; Influenza A Negative (Negative); Influenza B2 Negative (Negative)
[2023-05-19 22:47] VITALS: TEMP 35.6
[2023-05-19 23:06] LABS: ~Lactic Acid-LAB USE ONLY 5.6 mmol/L (0.5-2.0)
[2023-05-19 23:17] LABS: Troponin-I High Sensitivity 1488.9 ng/L (<3.5-35.0)
[2023-05-19] MEDS: Aspirin Enteric Coated 325 MG TABLET.DR PO (23:55)
[2023-05-20] VITALS (13 sets, daily range): BP systolic 89–115; BP diastolic 46–75; PULSE 96–215; RESP 14–27; TEMP 36.2–36.7; O2SAT 90–98; BMI 15.5
[2023-05-20 05:07] LABS: MANUAL DIFF FLAG NO
[2023-05-20 05:11] LABS: Basophils Percent Auto 0.1 % (0-2); Hematocrit 42.3 % (42.0-52.0); Hemoglobin 13.7 g/dl (14.0-18.0); Imm Gran Abs Auto 0.09 X10*3/uL (0.00-0.03); Imm Gran Pct Auto 0.6 % (0.0-0.4); Lymphocytes Absolute Auto 0.9 X10*3/uL (1.2-4.9); Lymphocytes Percent Auto 5.7 % (20-40); Mean Corpuscular HGB Conc 32.4 g/dl (31.0-36.0); Mean Corpuscular Hemoglobin 30.7 pg (27.0-33.0); Mean Corpuscular Volume 94.8 fL (80.0-98.0); Mean Platelet Volume 10.9 fL (9.4-12.4); Monocytes Absolute Auto 0.9 X10*3/uL (0.1-1.2); Monocytes Percent Auto 5.7 % (2-11); Neutrophils Absolute Auto 13.3 x10*3/uL (2.0-8.3); Neutrophils Percent Auto 87.9 % (45-73); Platelet Count 166 X10*3/uL (160-400); Red Blood Count 4.46 X10*6/uL (4.60-5.80); Red Cell Distribution Width 15.9 % (11.0-16.0); White Blood Count 15.2 X10*3/uL (4.8-10.8)
[2023-05-20 05:35] LABS: Anion Gap 15 (12-20); Blood Urea Nitrogen 23 mg/dL (9-16); Calcium 8.1 mg/dL (8.4-10.2); Carbon Dioxide 16 mmol/L (22-29); Chloride 107 mmol/L (96-108); Creatinine Clr Calc Pharmacy 71.4; Estimated Glomerular Filt Rate > 60; Glucose Random 100 mg/dL (60-115); Potassium 4.3 mmol/L (3.3-5.1); Sodium 134 mmol/L (135-145)
[2023-05-20] MEDS: Albuterol/Iprat 2.5/0.5MG 3 ML AMPUL.NEB INHALE ×4 (08:56→19:29)
--- NOTE | 2023-05-20 08:56 | PHA.MEDREC ---
Pharmacy Consult ? Medication Reconciliation Pharmacy has completed the medication reconciliation. spoke with patient to confirm medications. He reports that he believes the rifampin is why he is here.
[2023-05-20] MEDS: methylPREDNISolone Sod Succ 40 MG/ML VIAL IVPUSH ×2 (09:07→21:15)
--- NOTE | 2023-05-20 09:23 | PC.NURSE ---
pt received breathing tx by Marlin FALL and this RN administered solumedrol per JUN, pt started with severe diff breathing, tripoding, sats dropped to low 80s, pt restless. this RN increased O2 via NC to 9L waitng for RT to return. placed pt on 15L on oxymask with minial improvement to pts breathing. Courtney now at bedside placing pt on biPap - Anita SIMPSON made aware via tiger connect. pt has received IV Solumedrol previously per jun with no similar experience.
--- NOTE | 2023-05-20 10:13 | PM.NEUROCN ---
History of Present Illness Data of Consult Service Date: 05/20/23 Primary Care Provider: John Jurado, [facility]- HPI Reason for consult: Syncope 58 years old man with significant pulmonary pathology suggestive of malignancy and severe COPD, also relatively low blood pressure, fell down at home not witnessed by anyone. There was no significant physical injury and there was no reporting of any convulsion. There was no incontinence. He was not known to have seizure disorder. Presently he was treated with assisted ventilation. There was no complaint of headache or neck pain. 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) Pulmonary nodule, right Respiratory failure with hypoxia Lung mass Exercise hypoxemia Hyperlipidemia COPD (chronic obstructive pulmonary disease) Nicotine dependence, unspecified, uncomplicated Multiple pulmonary nodules Family History Family History Father Lung cancer Brother COPD (chronic obstructive pulmonary disease) Substance use disorder Son Substance use disorder Surgical History Surgical History History of bronchoscopy (~04/2021) History of eye surgery (~11/2020) History of bronchoscopy (~12/2019) Social History Social History Household Members: Spouse Household Members Other:: son Housing: House Do you presently have visiting nurse or other home services: No Alcohol intake: never Patient Tobacco Use Status: Never used Tobacco Tobacco use type: Cigarette Cigarette Packs Per Day: 0.5 Cigarettes Per Day: 4 e-Cigarette/Vaping Use: Never Used Second Hand Smoke Exposure: No Substance Use Type: Marijuana Advance Directives: Yes Advance Directives on File: Yes Advance Directives Date on File: 10/12/22 service: No Current occupational status: disabled Current occupational exposures/hazards: No Cognitive needs: No Hearing needs: No Vision needs: No Meds Allergies Allergy/AdvReac Type Severity Reaction Status Date / Time No Known Allergies Allergy Verified 04/11/23 13:58 [No Known Allergies*] Active Medications: Current Medications Acetaminophen (Acetaminophen 325 Mg Tablet) 650 mg PO Q6H PRN PRN Reason: Pain, Mild (Pain Scale 1-3) Albuterol/Ipratropium (Albuterol/Iprat 2.5/0.5mg 3 Ml Ampul.Neb) 3 ml INHALE RQ4H WHILE AWAKE [facility] [place] Last Admin: 05/20/23 08:56 Dose: 3 ml Albuterol/Ipratropium (Albuterol/Iprat 2.5/0.5mg 3 Ml Ampul.Neb) 3 ml INHALE Q4H PRN PRN Reason: Wheezing Enoxaparin Sodium (Enoxaparin Sodium 60 Mg/0.6 Ml Syringe) 50 mg SUBCUT Q12H [facility] [place] Last Admin: 05/20/23 01:26 Dose: Not Given Levofloxacin (Levaquin) 750 mg in 150 mls @ 100 mls/hr IV Q24H [facility] [place] Last Infusion: 05/20/23 00:34 Dose: Infused Melatonin (Melatonin 3 Mg Tablet) 6 mg PO BEDTIME PRN PRN Reason: Insomnia Methylprednisolone Sodium Succinate (Methylprednisolone Sod Succ 40 Mg/Ml Vial) 40 mg IVPUSH Q12H [facility] [place] Last Admin: 05/20/23 09:07 Dose: 40 mg Ondansetron HCl (Ondansetron Hcl 4 Mg/2 Ml Vial) 4 mg IVPUSH Q8H PRN PRN Reason: Nausea and Vomiting Home Medications Medication Instructions Recorded Confirmed Last Taken Type aspirin 81 mg tablet,delayed 81 mg PO BEDTIME 10/11/22 05/20/23 03/14/23 History release fluticasone fur. 100 mcg-umeclid 1 inh PO BEDTIME 05/20/23 05/20/23 Unknown History 62.5 mcg-vilant 25 mcg inhalat.powder (Trelegy Ellipta) Physical Exam Vital Signs: Vital Signs: Last Vital Signs Temp 97.1 F 05/20/23 00:05 Pulse 103 H 05/20/23 08:57 Resp 14 05/20/23 08:57 BP 115/75 05/20/23 06:42 Pulse Ox 97 05/20/23 06:42 O2 Del Method Nasal Cannula 05/20/23 06:42 Oxygen Flow Rate 15 05/19/23 16:34 BMI result Body Mass Index 16.7 Neuro: Other: He is alert and awake with normal spontaneity of speech fluency comprehension and depressed affect. Face is symmetrical. Visual lobo are full. There is no focal arm or leg weakness. Plantars are flexor. Deep tendon reflexes are trace to absent. Results Labs 05/20/23 04:56 05/20/23 04:56 Labs: Short CBC 05/19/23 05/20/23 Range/Units 17:29 04:56 WBC 21.7 H 15.2 H (4.8-10.8) X10*3/uL Hgb 14.6 13.7 L (14.0-18.0) g/dl Hct 46.2 D 42.3 (42.0-52.0) % Plt Count 240 D 166 D (160-400) X10*3/uL BMP 05/19/23 05/20/23 17:29 04:56 Sodium 137 134 L Potassium 5.7 H 4.3 D Chloride 104 107 Carbon Dioxide 16 L 16 L BUN 20 H 23 H Creatinine 1.15 0.83 Calcium 9.1 8.1 L D Cardiac Enzymes 05/19/23 05/20/23 Range/Units 17:29 04:56 Total Creatine Kinase 1222 H 2383 H (38-174) U/L Liver Function 05/19/23 Range/Units 17:29 Total Bilirubin 1.1 H (0.0-1.0) mg/dL AST 99 H (5-37) U/L ALT 53 H (0-40) U/L Alkaline Phosphatase 171 H (39-117) U/L Albumin 3.6 (3.5-5.0) g/dL Noncontrast head CT revealed [id number] diffuse cerebral atrophy and [id number] hypodense signal abnormalities and white matter suggestive of microvascular disease Assessment and Plan (1) Syncope and collapse: Status: Acute 58 years old man with significant lung pathology including severe COPD and relatively low blood pressure was brought to hospital after he fell at home. Exact circumstances around the fall were unclear. He was not known to have seizure disorder. At this time diagnosis of seizure disorder is a possibility but it might just be orthostatic syncope. A routine EEG is recommended for further evaluation. Noncontrast head CT did not reveal any obvious sign of malignancy but for better definition an MRI of brain with and without contrast is recommended Procedures Date of Service Date of Service: 05/20/23
--- NOTE | 2023-05-20 10:17 | PC.NURSE ---
at approx 0959 pt went into a run of SVT at 162 bpm. lasting several seconds. pt reports no distress. HR now back to 105. racing secretary printed strip and placed in chart, tiger connect sent to MD Howard, plan to recheck lab work at this time.
--- NOTE | 2023-05-20 10:22 | HO.PM.IMPN ---
Subjective Subjective Date of Service: 05/21/23 Interval History: Being followed for acute COPD exacerbation due to right-sided pneumonia, patient complaining of worsening shortness of breath for several weeks denies fever, no chills, later soon after updraft treatment patient desaturated did not response to OxyMask therefore placed on BiPAP and was successfully weaned down to OxyMask, tele monitor showed recurrent episode of supraventricular tachycardia patient denies chest pain or palpitation, no nausea, no vomiting, no abdominal pain no urinary symptoms, unable to recall events surrounding fall. Review of Systems All other system reviewed and negative. Physical Exam Vital Signs: Vital Signs: Last Vital Signs Temp 97.1 F 05/20/23 00:05 Pulse 103 H 05/20/23 08:57 Resp 14 05/20/23 08:57 BP 115/75 05/20/23 06:42 Pulse Ox 97 05/20/23 06:42 O2 Del Method Nasal Cannula 05/20/23 06:42 Oxygen Flow Rate 15 05/19/23 16:34 BMI result Body Mass Index 16.7 Const: Other: General awake alert, chronically sick looking, in no acute distress. Anicteric sclera Neck supple no JVD. CVS regular rate rhythm, Respiratory lungs diminished breath sound right side, no respiratory distress, no wheeze, no rhonchi. Gastrointestinal abdomen soft, non tender, bowel sounds audible, no guarding , no rigidity. Extremities no edema. Neuro non focal ,moving all 4 extremity, speech clear. Skin left leg multiple abrasions, left hand skin tear, areas of ecchymosis Psych appropriate affect Objective Data Active Medications Acetaminophen (Acetaminophen 325 Mg Tablet) 650 mg PO Q6H PRN PRN Reason: Pain, Mild (Pain Scale 1-3) Albuterol/Ipratropium (Albuterol/Iprat 2.5/0.5mg 3 Ml Ampul.Neb) 3 ml INHALE RQ4H WHILE AWAKE [facility] Last Admin: 05/20/23 08:56 Dose: 3 ml Documented By: ALISHA Albuterol/Ipratropium (Albuterol/Iprat 2.5/0.5mg 3 Ml Ampul.Neb) 3 ml INHALE Q4H PRN PRN Reason: Wheezing Enoxaparin Sodium (Enoxaparin Sodium 60 Mg/0.6 Ml Syringe) 50 mg SUBCUT Q12H [facility] Last Admin: 05/20/23 01:26 Dose: Not Given Documented By: AMMY Non-Admin Reason: Patient Refused Levofloxacin (Levaquin) 750 mg in 150 mls @ 100 mls/hr IV Q24H [facility] Last Infusion: 05/20/23 00:34 Dose: Infused Documented By: AMMY Melatonin (Melatonin 3 Mg Tablet) 6 mg PO BEDTIME PRN PRN Reason: Insomnia Methylprednisolone Sodium Succinate (Methylprednisolone Sod Succ 40 Mg/Ml Vial) 40 mg IVPUSH Q12H [facility] Last Admin: 05/20/23 09:07 Dose: 40 mg Documented By: CANDACE Ondansetron HCl (Ondansetron Hcl 4 Mg/2 Ml Vial) 4 mg IVPUSH Q8H PRN PRN Reason: Nausea and Vomiting Labs 05/20/23 04:56 05/20/23 14:08 Labs: Laboratory Results - last 24 hr 05/19/23 05/19/23 05/19/23 17:29 20:01 20:28 MCV 97.1 MCH 30.7 MCHC 31.6 RDW 16.0 Plt Count 240 D MPV 10.7 Immature Gran % (Auto) 1.0 H Neut % (Auto) 88.6 H Lymph % (Auto) 4.1 L Emanuel % (Auto) 5.9 Eos % (Auto) 0.1 Baso % (Auto) 0.3 Lymph # (Auto) 0.9 L Emanuel # (Auto) 1.3 H Eos # (Auto) 0.0 Baso # (Auto) 0.1 Abs Immat Gran (auto) 0.22 H Absolute Neuts (auto) 19.2 H Absolute Nucleated RBC 0.030 H Nucleated RBC % (auto) 0.1 PT 16.0 H D INR 1.3 H O2 Saturation 98.0 ABG pH at Pt Temp 7.22 L ABG pCO2 at Pt Temp 33 ABG pO2 at Pt Temp 111 H ABG HCO3 14 L ABG Base Excess (Actual) -12.4 Anion Gap 23 H Estim Creat Clear Calc 51.5 Estimated GFR > 60 Random Glucose 61 Lactic Acid 8.7 H* Lactic Acid F/U @ 2Hr 6.9 H* Lactic Acid F/U @ 4Hr Calcium 9.1 Total Bilirubin 1.1 H AST 99 H ALT 53 H Alkaline Phosphatase 171 H Total Creatine Kinase 1222 H Troponin I High Sens 350.0 H* D B-Natriuretic Peptide 995 H Total Protein 6.9 Albumin 3.6 Lipase 10 COVID-19 (KAREL) Negative COVID-19 Clin Com See Note Influenza Type A (DINESH) Negative Influenza Type B (DINESH) Negative Influenza A & B Note See Note 05/19/23 05/19/23 05/20/23 22:44 22:45 04:56 MCV 94.8 MCH 30.7 MCHC 32.4 RDW 15.9 Plt Count 166 D MPV 10.9 Immature Gran % (Auto) 0.6 H Neut % (Auto) 87.9 H Lymph % (Auto) 5.7 L Emanuel % (Auto) 5.7 Eos % (Auto) 0.0 Baso % (Auto) 0.1 Lymph # (Auto) 0.9 L Emanuel # (Auto) 0.9 Eos # (Auto) 0.0 Baso # (Auto) 0.0 Abs Immat Gran (auto) 0.09 H Absolute Neuts (auto) 13.3 H Absolute Nucleated RBC 0.000 Nucleated RBC % (auto) 0.0 PT INR O2 Saturation ABG pH at Pt Temp ABG pCO2 at Pt Temp ABG pO2 at Pt Temp ABG HCO3 ABG Base Excess (Actual) Anion Gap 15 Estim Creat Clear Calc 71.4 Estimated GFR > 60 Random Glucose 100 Lactic Acid Lactic Acid F/U @ 2Hr Lactic Acid F/U @ 4Hr 5.6 H* Calcium 8.1 L D Total Bilirubin AST ALT Alkaline Phosphatase Total Creatine Kinase 2383 H Troponin I High Sens 1488.9 H* D B-Natriuretic Peptide Total Protein Albumin Lipase COVID-19 (KAREL) COVID-19 Clin Com Influenza Type A (DINESH) Influenza Type B (DINESH) Influenza A & B Note Assessment and Plan (1) Acidosis, lactic: Status: Acute (2) Pneumonia: Status: Acute (3) Elevated troponin: Status: Acute Plan 58-year-old male with a PMH significant for??advanced COPD followed by Dr. Francois, chronic hypoxemic respiratory failure on 3L home O2 at baseline, HLD, multiple pulmonary nodules, left lung mass, multiple mediastinal lymph nodes (never diagnosed as cancer per patient) following with [facility] and Dr. Roussou treated with right sided radiation who presents to the ED for evaluation of fall at home with unknown down time. Pt will be admitted to the hospital for treatment and further evaluation of acute pneumonia with sepsis as well as possible seizure activity in the setting of VICKY antibiotic use. Sepsis due to community-acquired Pneumonia Denies fever, complaining of worsening shortness of breath with exertion times several weeks Chest CT with evidence of probable acute right lower lobe bronchopneumonia sepsis criteria: Hypothermia, tachypnea, leukocytosis, and initial lactic acid 8.7 WBC trending down, persistent lactic acidosis likely due to dehydration gradually improving Blood cultures x2 pending On IV Levaquin will discontinue due to side effect of seizures, place on IV Zosyn, started 05/20/2023 Acute on chronic hypoxic respiratory failure due to Acute on chronic COPD exacerbation in the setting of pneumonia and severe right-sided heart failure Noted to have severe shortness of breath, tripoding sat dropped to low 80s after receiving Solu Medrol treatment patient placed on 9 L of oxygen with no improvement placed on 15 L with minimal improvement therefore placed on BiPAP, patient tolerated it well BiPAP discontinued after couple hours and placed back on OxyMask Continue DuoNebs, IV Solu-Medrol Titrate supplemental Echo showed EF 55-60% no wall motion abnormality, severely increased right ventricular cavity size moderate to severely decreased right ventricular systolic function and severe pulmonary hypertension CTA chest showed no PE but showed advanced emphysema Patient evaluated at bedside by Dr. Fried, since patient is hemodynamically stable will continue current treatment , low threshold to transfer to ICU if noted to have respiratory decompensation. Continue treatment for underlying COPD and pneumonia Wean O2 as tolerated on 3 L of home oxygen Syncope/ Fall Question etiology Due to generalized weakness/ seizure /right-sided heart failure with decreased cardiac output History of seizure due to prior treatment with triple antibiotics for VICKY obtain EEG, Neurology consult Non-anion gap metabolic acidosis Noted to have severe lactic acidosis,Initial lactic acid 8.7 with repeats 6.9 ,5.6, down to 2.8 Likely due to right-sided heart failure, dehydration/fall and albuterol use Continue IV fluids follow lactic acid VICKY infection Spoke with continuous churn buttermaker Dr. Templeton will hold treatment for VICKY . Elevated troponins and BNP Initial troponin 350.0 with repeat 1488.9, repeat troponin trending down, Patient denies chest pain, palpitations; EKG without significant ischemic changes Continue therapeutic Lovenox and aspirin Echocardiogram showed severe dilated right ventricle , decreased right ventricular systolic function and severe pulmonary hypertension. EF 55-60%, no regional wall motion abnormality. Case discussed with kettle room helper, PE ruled out likely elevated troponin due to fall and demand ischemia. Hyperkalemia Patient's potassium 5.7 at time of presentation, treated with Lokelma potassium improved to 4.3 Follow BMP Elevated CPK CPK 1222 at time of presentation bumped to 2383,Likely secondary fall at home and or seizure activity Continue IV fluids, stable renal function Follow CPK Moderate protein calorie malnutrition Secondary to reduced p.o. intake, continue supplement with Ensure t.i.d. Full Code DVT Prophylaxis: Therapeutic Lovenox Pt will require continued inpatient hospitalization for treatment of?pneumonia with sepsis, lactic acidosis requiring IV fluids and IV antibiotic needs close monitoring of cardiac and pulmonary status. Quality Stroke Does the patient have a stroke diagnosis?: No VTE Prior VTE?: No VTE Risk Level:: Medical - moderate - high VTE Device Contraindication: Treatment Not Indicated VTE Drug Contraindication: N/A - Med Ordered
[2023-05-20] MEDS: 0.9 % Sodium Chloride 1,000 ML 100 ML IVCONT (11:20)
--- NOTE | 2023-05-20 11:20 | P.CONCA_ITS ---
History of Present Illness History of Present Illness Date of Service: 05/20/23 Requesting physician: Aide Howard Chief complaint: Elevated troponin, PNA Narrative: Pleasant 58 year gentleman with complex medical issues including mycobacterium avium complex lung infection, previous lung cancer with surgery and radiation to right lung, tobacco abuse and hyperlipidemia who is presenting from home after a fall out of bed. He does not recall how he fell out of bed. His found him on the floor and called EMS. He was found to have hypotension in the ER along with lactic acidosis. His workup has revealed a right lung pneumonia. At the same time he also had elevated CPK and troponin levels. BNP was 995. He is currently on BiPAP. He is saying that he is breathing okay. Was saturating anywhere from 80s to 90s on BiPAP. His rifampin has been held and he is currently started on levofloxacin for pneumonia treatment. Denying any chest discomfort and did not have any chest discomfort pain at home. Does not recall having any cardiovascular issues in the past specially no coronary disease. [facility] Past Medical History Medical History Malnutrition Mycobacterium avium complex VICKY (mycobacterium avium-intracellulare) Pulmonary nodule, right Respiratory failure with hypoxia Lung mass Exercise hypoxemia Hyperlipidemia COPD (chronic obstructive pulmonary disease) Nicotine dependence, unspecified, uncomplicated Multiple pulmonary nodules Family History Family History Father Lung cancer Brother COPD (chronic obstructive pulmonary disease) Substance use disorder Son Substance use disorder Surgical History Surgical History History of bronchoscopy (~04/2021) History of eye surgery (~11/2020) History of bronchoscopy (~12/2019) Social History Social History Household Members: Spouse Household Members Other:: son Housing: House Do you presently have visiting nurse or other home services: No Alcohol intake: never Patient Tobacco Use Status: Never used Tobacco Tobacco use type: Cigarette Cigarette Packs Per Day: 0.5 Cigarettes Per Day: 4 e-Cigarette/Vaping Use: Never Used Second Hand Smoke Exposure: No Substance Use Type: Marijuana Advance Directives: Yes Advance Directives on File: Yes Advance Directives Date on File: 10/12/22 service: No Current occupational status: disabled Current occupational exposures/hazards: No Cognitive needs: No Hearing needs: No Vision needs: No Meds Allergies Allergy/AdvReac Type Severity Reaction Status Date / Time No Known Allergies Allergy Verified 04/11/23 13:58 [No Known Allergies*] Active Medications: Current Medications Acetaminophen (Acetaminophen 325 Mg Tablet) 650 mg PO Q6H PRN PRN Reason: Pain, Mild (Pain Scale 1-3) Albuterol/Ipratropium (Albuterol/Iprat 2.5/0.5mg 3 Ml Ampul.Neb) 3 ml INHALE RQ4H WHILE AWAKE [facility] Last Admin: 05/20/23 08:56 Dose: 3 ml Albuterol/Ipratropium (Albuterol/Iprat 2.5/0.5mg 3 Ml Ampul.Neb) 3 ml INHALE Q4H PRN PRN Reason: Wheezing Aspirin (Aspirin Enteric Coated 81 Mg Tablet.Dr) 81 mg PO BEDTIME [facility] Enoxaparin Sodium (Enoxaparin Sodium 60 Mg/0.6 Ml Syringe) 50 mg SUBCUT Q12H [facility] Last Admin: 05/20/23 01:26 Dose: Not Given Fluticasone/Umeclidinium/Vilanterol (Fluticasone/Umeclidinium/Vilanterol 100/62.5/25 Blst.W.Dev) 1 puff INHALE RDAILY@2000 [facility] Levofloxacin (Levaquin) 750 mg in 150 mls @ 100 mls/hr IV Q24H [facility] Last Infusion: 05/20/23 00:34 Dose: Infused Sodium Chloride (Ns) 1,000 mls @ 100 mls/hr IVCONT .Q10H [facility] Melatonin (Melatonin 3 Mg Tablet) 6 mg PO BEDTIME PRN PRN Reason: Insomnia Methylprednisolone Sodium Succinate (Methylprednisolone Sod Succ 40 Mg/Ml Vial) 40 mg IVPUSH Q12H [facility] Last Admin: 05/20/23 09:07 Dose: 40 mg Ondansetron HCl (Ondansetron Hcl 4 Mg/2 Ml Vial) 4 mg IVPUSH Q8H PRN PRN Reason: Nausea and Vomiting Home Medications Medication Instructions Recorded Confirmed Last Taken Type aspirin 81 mg tablet,delayed 81 mg PO BEDTIME 10/11/22 05/20/2323 History release fluticasone fur. 100 mcg-umeclid 1 inh PO BEDTIME 05/20/23 05/20/23 Unknown History 62.5 mcg-vilant 25 mcg inhalat.powder (Trelegy Ellipta) Physical Exam 2 Vital Signs: Vital Signs: Last Vital Signs Temp 97.1 F 05/20/23 00:05 Pulse 100 05/20/23 11:19 Resp 17 05/20/23 11:19 BP 96/46 L 05/20/23 11:19 Pulse Ox 94 05/20/23 11:19 O2 Del Method BiPAP 05/20/23 11:19 Oxygen Flow Rate 15 05/19/23 16:34 BMI result Body Mass Index 16.7 GENERAL APPEARANCE: On BiPAP, in no distress currently. NECK: no carotid bruit, no jugular venous distention. SKIN: no suspicious lesions, warm and dry. HEART: no murmurs, regular rate and rhythm. LUNGS: clear to auscultation bilaterally. Diminished breath sounds right lung. ABDOMEN: soft, nontender. EXTREMITIES: no edema. PERIPHERAL PULSES: equal. NEUROLOGIC: No gross deficits, AAO X 3 Objective Labs and Meds 05/20/23 04:56 05/20/23 04:56 Lab results: Laboratory Results - last 24 hr 05/19/23 05/19/23 05/19/23 17:29 20:01 20:28 WBC 21.7 H RBC 4.76 Hgb 14.6 Hct 46.2 D MCV 97.1 MCH 30.7 MCHC 31.6 RDW 16.0 Plt Count 240 D MPV 10.7 Immature Gran % (Auto) 1.0 H Neut % (Auto) 88.6 H Lymph % (Auto) 4.1 L [place] % (Auto) 5.9 Eos % (Auto) 0.1 Baso % (Auto) 0.3 Lymph # (Auto) 0.9 L [place] # (Auto) 1.3 H Eos # (Auto) 0.0 Baso # (Auto) 0.1 Abs Immat Gran (auto) 0.22 H Absolute Neuts (auto) 19.2 H Absolute Nucleated RBC 0.030 H Nucleated RBC % (auto) 0.1 PT 16.0 H D INR 1.3 H O2 Saturation 98.0 ABG pH at Pt Temp 7.22 L ABG pCO2 at Pt Temp 33 ABG pO2 at Pt Temp 111 H ABG HCO3 14 L ABG Base Excess (Actual) -12.4 Sodium 137 Potassium 5.7 H Chloride 104 Carbon Dioxide 16 L Anion Gap 23 H BUN 20 H Creatinine 1.15 Estim Creat Clear Calc 51.5 Estimated GFR > 60 Random Glucose 61 Lactic Acid 8.7 H* Lactic Acid F/U @ 2Hr 6.9 H* Lactic Acid F/U @ 4Hr Calcium 9.1 Total Bilirubin 1.1 H AST 99 H ALT 53 H Alkaline Phosphatase 171 H Total Creatine Kinase 1222 H Troponin I High Sens 350.0 H* D B-Natriuretic Peptide 995 H Total Protein 6.9 Albumin 3.6 Lipase 10 COVID-19 (KAREL) Negative COVID-19 Clin Com See Note Influenza Type A (DINESH) Negative Influenza Type B (DINESH) Negative Influenza A & B Note See Note 05/19/23 05/19/23 05/20/23 22:44 22:45 04:56 WBC 15.2 H RBC 4.46 L Hgb 13.7 L Hct 42.3 MCV 94.8 MCH 30.7 MCHC 32.4 RDW 15.9 Plt Count 166 D MPV 10.9 Immature Gran % (Auto) 0.6 H Neut % (Auto) 87.9 H Lymph % (Auto) 5.7 L [place] % (Auto) 5.7 Eos % (Auto) 0.0 Baso % (Auto) 0.1 Lymph # (Auto) 0.9 L [place] # (Auto) 0.9 Eos # (Auto) 0.0 Baso # (Auto) 0.0 Abs Immat Gran (auto) 0.09 H Absolute Neuts (auto) 13.3 H Absolute Nucleated RBC 0.000 Nucleated RBC % (auto) 0.0 PT INR O2 Saturation ABG pH at Pt Temp ABG pCO2 at Pt Temp ABG pO2 at Pt Temp ABG HCO3 ABG Base Excess (Actual) Sodium 134 L Potassium 4.3 D Chloride 107 Carbon Dioxide 16 L Anion Gap 15 BUN 23 H Creatinine 0.83 Estim Creat Clear Calc 71.4 Estimated GFR > 60 Random Glucose 100 Lactic Acid Lactic Acid F/U @ 2Hr Lactic Acid F/U @ 4Hr 5.6 H* Calcium 8.1 L D Total Bilirubin AST ALT Alkaline Phosphatase Total Creatine Kinase 2383 H Troponin I High Sens 1488.9 H* D B-Natriuretic Peptide Total Protein Albumin Lipase COVID-19 (KAREL) COVID-19 Clin Com Influenza Type A (DINESH) Influenza Type B (DINESH) Influenza A & B Note Imaging Radiologist's impression: Impressions Cervical Spine CT 05/19/23 21:08 IMPRESSION: No acute osseous cervical spine abnormality. Severe pulmonary disease as described. Please correlate with chest CT performed 05/19/2023. Fleischner guidelines were followed. Head CT 05/19/23 21:08 IMPRESSION: No acute intracranial pathology. Chest CT 05/19/23 21:11 IMPRESSION: Severe bullous emphysema. Probable acute right lower lobe bronchopneumonia. Otherwise stable pulmonary findings from March 2023. Fleischner guidelines were followed. Assessment and Plan (1) Elevated troponin: Status: Acute (2) Acidosis, lactic: Status: Acute (3) Pneumonia: Status: Acute Plan [age] gentleman presenting with fall out of bed. He has no recollection how he felt. He is found to have lactic acidosis and right lung pneumonia. BNP and troponins are also significantly elevated. CPK is also elevated. CPK troponin can partially be elevated due to muscle injury as he fell to the ground and was on the ground for some time. He has background of lung cancer. Clinically he does not appear to be in heart failure but has significantly elevated BNP level. Given his background of lung cancer and unclear fall, lactic acidosis, hypotension and significantly elevated BNP levels-I think we should work him up for pulmonary embolism. He had a CT scan performed but this was not a CT pulmonary angiogram. His creatinine appears to be stable. Continue Lovenox for now. We will also arrange an echocardiogram to assess for wall motion and to assess the right ventricle. Thank you for allowing me to participate in the care of your patient. Please feel free to contact me if you have any questions. Procedures Date of Service Date of Service: 05/20/23
[2023-05-20] MEDS: Lactated Ringers 1,000 ML 100 ML IVCONT (11:57)
--- NOTE | 2023-05-20 11:57 | ECG_ITS ---
Test Reason : SVT Blood Pressure : / mmHG Vent. Rate : 103 BPM Atrial Rate : 103 BPM P-R Int : 154 ms QRS Dur : 076 ms QT Int : 304 ms P-R-T Axes : 000 -72 084 degrees QTc Int : 398 ms Sinus tachycardia Left axis deviation Pulmonary disease pattern ST & T wave abnormality, consider lateral ischemia Abnormal ECG When compared with ECG of 19-MAY-2023 17:12, Premature supraventricular complexes are no longer Present Questionable change in QRS axis QT has shortened Referred By: Desmond Naranjo Electronically Signed By:Miller Last
--- NOTE | 2023-05-20 12:00 | CA_ITS ---
Transthoracic Echocardiogram Patient (Last, First, Middle): Edenilson Nguyen, Gender: Male Date of : 1965 Age: 58 Procedure Date: 05/20/2023 Procedure Type: Transthoracic Echocardiogram Location: ER Height: 177.8 cm Weight: 52.62 kg BSA: 1.66 m2 Heart Rate: 106 bpm BP: 123 / 75 mmHg [employer] Faculty Member: SB Referring MD: Irwin Ramirez MD Symptoms: NSTEMI Study Quality: Adequate ECG Rhythm: Tachycardia Conclusions: - Decreased left ventricular cavity size. There is normal left ventricular wall thickness. The left ventricular systolic function is normal. The visually estimated ejection fraction is between 55-60%. - There is a flattened septum in systole and diastole consistent with right ventricular pressure and volume overload. - Severely increased right ventricular cavity size. There is moderate to severely decreased right ventricular systolic function. - Significantly elevated right atrial pressure. Severe pulmonary hypertension is present. Findings Left Ventricle Decreased left ventricular cavity size. There is normal left ventricular wall thickness. The left ventricular systolic function is normal. The visually estimated ejection fraction is between 55-60%. There is no evidence of regional wall motion abnormalities. There is a flattened septum in systole and diastole consistent with right ventricular pressure and volume overload. Diastolic function is indeterminate on the basis of available data. Right Ventricle Severely increased right ventricular cavity size. There is moderate to severely decreased right ventricular systolic function. Atria The left atrium is normal in size. Aortic Valve Normal aortic valve structure and function. There is no aortic valve stenosis. There is no aortic valve regurgitation. Mitral Valve The mitral valve appears normal. There is trace mitral valve regurgitation. There is no mitral valve stenosis. Pulmonic Valve Normal pulmonic valve structure and function. There is trace pulmonic valve regurgitation. Tricuspid Valve Normal tricuspid valve structure. There is mild to moderate tricuspid valve regurgitation. The right ventricular systolic pressure is 80 mmHg. Significantly elevated right atrial pressure. Severe pulmonary hypertension is present. Great Vessels All visible segments of the aorta are normal in size. Venous The inferior vena cava is dilated and collapses less than 50% with inspiration. Pericardium/Pleural There is no evidence of pericardial effusion. Prior Study Comparison No prior study available for comparison. Measurements 2D Linear Measurements IVSd: 0.59 0.6-0.9/0.6-1.0 cm LVIDd: 3.46 3.9-5.3/4.2-5.9 cm LVIDd Index: 2.08 2.4-3.2/2.2-3.1 cm/m2 LVIDs: 2.53 2.0-3.6 cm LVPWd: 0.79 0.7-1.1 cm LA Diam: 3.10 2.7-3.8/3.0-4.0 cm LAIDs Index: 1.87 1.5-2.3 cm/m2 LV Mass: 74.54 67-162/88-224 g LV Mass Index: 44.91 43-95/49-115 g/m2 LVOT Diam: 2.20 3.0+(-)1.3 cm 2D Systolic Function EF 4C: 52.30 >55% Mitral Valve MV Pk E: 0.75 MV PK A: 0.76 MV Decel Time: 96.00 E/A: 1.00 E'Medial: 5.38 E/E' Med: 13.90 PHT: 28.00 MVA PHT: 7.86 Decel Cloud: 7.80 Aortic Valve AoV Pk Elmer: 0.71 AoV Pk Grad: 2.00 CODEY: 3.02 LVOT LVOT Pk Elmer: 0.57 LVOT Mn Elmer: 0.40 LVOT VTI: 0.09 LVOT Pk Grad: 1.00 LVOT Mn Grad: 1.00 LVOT Diam: 2.20 LVOT Area: 3.80 Diastolic Function MV Pk E: 0.75 MV Pk A: 0.76 E/A: 1.00 E'Medial: 5.38 E/E' Med: 13.90 Right Ventricle TAPSE (mm): 9.60 TVS' Elmer: 8.00 Tricuspid Valve TR Pk Elmer: 4.03 TR Pk Grad: 65.00 RA Press: 15.00 RVSP: 80.00 Great Vessels Aorta Sinus of Valsalva: 3.60 2.0-3.5 cm Pulmonary Valve PV Pk Elmer: 0.72 Peak PV Grad: 2.00 Updated in Other Vendor System with Status of Final Miller Last MD electronically signed on 05/20/2023 2:20:45 PM with status of Final
[2023-05-20] MEDS: Piperacillin Sodium/Tazobactam 3.375 GM in 0.9 % Sodium Chloride 50 ML IV ×2 (12:07→20:34)
--- NOTE | 2023-05-20 12:31 | PC.NURSE ---
pt has had 3 episodes of SVT since ~11:50am. Dr. Naranjo pulled into room to assess pt. ordered EKG. highest HR 215-218. pt able to get back to NSR with tachycardia on own. Dr. Howard notified and aware.
--- NOTE | 2023-05-20 13:17 | PC.NURSE ---
j-loop changed and pt trialed in supine position for CT scan. tolerated well. pt asking for throat lozenge.
--- NOTE | 2023-05-20 13:47 | PC.NURSE ---
pt to CTA
[2023-05-20] MEDS: iohexoL 350 MG/ML 100 ML INFUS..BTL 60 ML IV (14:09)
[2023-05-20 14:29] LABS: Lactic Acid 2.8 mmol/L (0.5-2.0)
[2023-05-20 14:40] LABS: Anion Gap 16 (12-20); Blood Urea Nitrogen 22 mg/dL (9-16); Calcium 8.1 mg/dL (8.4-10.2); Carbon Dioxide 20 mmol/L (22-29); Chloride 104 mmol/L (96-108); Estimated Glomerular Filt Rate > 60; Glucose Random 106 mg/dL (60-115); Magnesium 2.3 mg/dL (1.6-2.6); Potassium 4.2 mmol/L (3.3-5.1); Sodium 136 mmol/L (135-145)
--- NOTE | 2023-05-20 15:24 | PC.NURSE ---
pt asked to change from oxymask to nasal canula to eat. pt desated to 84% on NC and placed back on oxymask. now sating 95%. awaiting pt transport to floor. inpatient report complete.
[2023-05-20 15:25] LABS: Appearance Urine Cloudy; Color Urine Dark Yellow; Glucose Urine UA Negative (Negative); Leukocyte Esterase Urine Negative (Negative); Nitrite Urine Negative (Negative); PH 5.5 (5.0-9.0); Specific Gravity - Urine >= 1.030 (1.005-1.025); UMIC TRIGGER UACC YES; Urine Blood Trace (Negative); Urine Ketones Trace mg/dL (Negative); Urine Protein 30 (1+) mg/dL (Neg-Trace)
[2023-05-20 16:11] LABS: Reflex Lactate? Lactic Acid Added
[2023-05-20 16:54] LABS: ~Lactic Acid-LAB USE ONLY 2.3 mmol/L (0.5-2.0)
--- NOTE | 2023-05-20 16:55 | P.CONPL_ITS ---
History of Present Illness History of Present Illness Consult date: 05/20/23 Chief complaint: Elevated troponin, PNA Narrative: This is an in patient pulmonary consultation. Pt is a 58-year-old male with a PMH significant for??advanced COPD followed by Dr. Francois, chronic hypoxemic respiratory failure on 3L home O2 at baseline, HLD, multiple pulmonary nodules, left lung mass, multiple mediastinal lymph nodes (never diagnosed as cancer per patient) following with [facility] and Dr. Condon treated with right sided radiation who presents to the ED for evaluation of fall at home with unknown downtime. Patient was found on the floor fallen out of bed by his at 14:00 this afternoon when she came home from lunch. Patient does not remember events surrounding fall, but states that it occurred sometime between 09:00 and 14:00. Unclear whether this was a seizure or. Seizure-like activity patient denies any loss of bowel or bladder function. No tongue bite. Patient reports he has had significant increase in SOB and overall general weakness with exertion, especially walking, the past 2 weeks. Reports has also had loss of appetite and been drinking less than normal during this time. Of note, patient developed a mycobacterium avium complex infection last year and started on triple antibiotic therapy on 06/06/2022 which was then stopped due to the pt having seizures or seizure-like activity. Was then started on azithromycin 500 mg daily. However, in April of this year bronchoscopic examination and bronchial washings again tested positive for VICKY infection and patient was started on rifampin 150 mg daily. Patient reports today's episode was his first one since restarting rifampin. Reports chronic cough around baseline. Denies chest pain/pressure, palpitations. Reports chronic chills, but denies fever. CT of chest showed severe bolus emphysema with probable acute right lower lobe bronchopneumonia, otherwise stable pulmonary findings. EKG demonstrated sinus rhythm with PSVCs with pulmonary disease pattern with nonspecific T-wave abnormalities. Pt was treated with Lokelma, IVF, DuoNebs, and Solu-Medrol. Pt will be admitted to the hospital for treatment and further evaluation of acute pneumonia with sepsis as well as possible seizure activity in the setting of VICKY antibiotic use. In the ED, he was noted to have a lactic acidosis and RLL pneumonia, He requiered BIPAP briefly. Review of Systems 2 Constitutional: Constitutional: Reports anorexia, Denies body ache(s), Denies chills, Reports fatigue and Denies fever(s) Cardiovascular: Cardiovascular: Denies chest pain and Reports dyspnea Respiratory: Respiratory: Reports dyspnea and Reports wheezing Gastrointestinal: Gastrointestinal: Denies abdominal pain, Denies nausea and Denies vomiting Musculoskeletal: Musculoskeletal: Denies back pain Integumentary/Breasts: Skin/Breast: Reports wounds (Left forearm) Endocrine: Endocrine: Reports fatigue Allergic/Immunologic: Allergic/Immunologic: Reports wheezing PMFSH Past Medical History Medical History (Updated 05/20/23 @ 17:06 by Romero Templeton MD) VICKY (mycobacterium avium-intracellulare) Malnutrition Mycobacterium avium complex Pulmonary nodule, right Respiratory failure with hypoxia Lung mass Exercise hypoxemia Hyperlipidemia COPD (chronic obstructive pulmonary disease) Nicotine dependence, unspecified, uncomplicated Multiple pulmonary nodules Family History Family History Father Lung cancer Brother COPD (chronic obstructive pulmonary disease) Substance use disorder Son Substance use disorder Surgical History Surgical History History of bronchoscopy (~04/2021) History of eye surgery (~11/2020) History of bronchoscopy (~12/2019) Social History Social History Household Members: Spouse Household Members Other:: son Housing: House Do you presently have visiting nurse or other home services: No Alcohol intake: never Patient Tobacco Use Status: Never used Tobacco Tobacco use type: Cigarette Cigarette Packs Per Day: 0.5 Cigarettes Per Day: 4 e-Cigarette/Vaping Use: Never Used Second Hand Smoke Exposure: No Substance Use Type: Marijuana Advance Directives: Yes Advance Directives on File: Yes Advance Directives Date on File: 10/12/22 service: No Current occupational status: disabled Current occupational exposures/hazards: No Cognitive needs: No Hearing needs: No Vision needs: No Meds Allergies Allergy/AdvReac Type Severity Reaction Status Date / Time No Known Allergies Allergy Verified 04/11/23 13:58 [No Known Allergies*] Active Medications: Current Medications Acetaminophen (Acetaminophen 325 Mg Tablet) 650 mg PO Q6H PRN PRN Reason: Pain, Mild (Pain Scale 1-3) Albuterol/Ipratropium (Albuterol/Iprat 2.5/0.5mg 3 Ml Ampul.Neb) 3 ml INHALE RQ4H WHILE AWAKE [facility] Last Admin: 05/20/23 16:09 Dose: 3 ml Albuterol/Ipratropium (Albuterol/Iprat 2.5/0.5mg 3 Ml Ampul.Neb) 3 ml INHALE Q4H PRN PRN Reason: Wheezing Aspirin (Aspirin Enteric Coated 81 Mg Tablet.Dr) 81 mg PO BEDTIME [facility] Enoxaparin Sodium (Enoxaparin Sodium 60 Mg/0.6 Ml Syringe) 50 mg SUBCUT Q12H [facility] Last Admin: 05/20/23 11:28 Dose: Not Given Fluticasone/Umeclidinium/Vilanterol (Fluticasone/Umeclidinium/Vilanterol 100/62.5/25 Blst.W.Dev) 1 puff INHALE RDAILY@2000 [facility] Piperacillin Sod/Tazobactam (Sod 3.375 gm/ Sodium Chloride) 50 mls @ 100 mls/hr IV Q6H [facility] Last Infusion: 05/20/23 13:16 Dose: Infused Lactated Ringer's (Lr) 1,000 mls @ 100 mls/hr IVCONT .Q10H [facility] Stop: 05/20/23 21:44 Last Infusion: 05/20/23 14:45 Dose: 100 mls/hr Melatonin (Melatonin 3 Mg Tablet) 6 mg PO BEDTIME PRN PRN Reason: Insomnia Methylprednisolone Sodium Succinate (Methylprednisolone Sod Succ 40 Mg/Ml Vial) 40 mg IVPUSH Q12H [facility] Last Admin: 05/20/23 09:07 Dose: 40 mg Ondansetron HCl (Ondansetron Hcl 4 Mg/2 Ml Vial) 4 mg IVPUSH Q8H PRN PRN Reason: Nausea and Vomiting Home Medications Medication Instructions Recorded Confirmed Last Taken Type aspirin 81 mg tablet,delayed 81 mg PO BEDTIME 10/11/22 05/20/23 03/14/23 History release fluticasone fur. 100 mcg-umeclid 1 inh PO BEDTIME 05/20/23 05/20/23 Unknown History 62.5 mcg-vilant 25 mcg inhalat.powder (Trelegy Ellipta) Physical Exam 2 Vital Signs: Vital Signs: Last Vital Signs Temp 97.7 F 05/20/23 15:11 Pulse 111 H 05/20/23 16:10 Resp 14 05/20/23 16:10 BP 109/69 05/20/23 15:11 Pulse Ox 97 05/20/23 15:11 O2 Del Method Aerosol Mask 05/20/23 15:11 O2 Flow Rate 9 05/20/23 15:11 Oxygen Flow Rate 15 05/19/23 16:34 BMI result Body Mass Index 16.7 Const: General: comfortable, alert and tired appearing Nutritional Appearance: thin HEENT: Head: Yes atraumatic Eyes: General: appearance normal, both eyes and all related structures S clerae: sclerae normal EOM: EOMs intact bilaterally Neck: Neck: Yes supple Lymphatic: no lymphadenopathy noted Chest: Chest palpation & inspection: normal inspection of the chest Resp: Other: on BIPAP Auscultation: crackles and diminished lung sounds Cardio: Rate: regular rate Rhythm: regular rhythm GI: Palpation (GI): Soft to palpation Skin: General skin exam: no rashes or lesions noted Extrem: General: No clubbing, No cyanosis and No edema Results Laboratory Findings 05/20/23 04:56 05/20/23 14:08 ABG, PT/INR, D-dimer: PT/INR, D-dimer PT 16.0 SEC (11.1-13.3) H D 05/19/23 20:28 INR 1.3 (0.9-1.1) H 05/19/23 20:28 Abnormal lab findings: Abnormal Labs 05/19/23 05/19/23 05/19/23 17:29 20:01 20:28 WBC 21.7 H RBC Hgb Immature Gran % (Auto) 1.0 H Neut % (Auto) 88.6 H Lymph % (Auto) 4.1 L Lymph # (Auto) 0.9 L [place] # (Auto) 1.3 H Abs Immat Gran (auto) 0.22 H Absolute Neuts (auto) 19.2 H Absolute Nucleated RBC 0.030 H PT 16.0 H D INR 1.3 H ABG pH at Pt Temp 7.22 L ABG pO2 at Pt Temp 111 H ABG HCO3 14 L Sodium Potassium 5.7 H Carbon Dioxide 16 L Anion Gap 23 H BUN 20 H Lactic Acid 8.7 H* Lactic Acid F/U @ 2Hr 6.9 H* Lactic Acid F/U @ 4Hr Calcium Total Bilirubin 1.1 H AST 99 H ALT 53 H Alkaline Phosphatase 171 H Total Creatine Kinase 1222 H Troponin I High Sens 350.0 H* D B-Natriuretic Peptide 995 H Ur Specific [place] Urine Protein Urine Blood 05/19/23 05/19/23 05/20/23 22:44 22:45 04:56 WBC 15.2 H RBC 4.46 L Hgb 13.7 L Immature Gran % (Auto) 0.6 H Neut % (Auto) 87.9 H Lymph % (Auto) 5.7 L Lymph # (Auto) 0.9 L [place] # (Auto) Abs Immat Gran (auto) 0.09 H Absolute Neuts (auto) 13.3 H Absolute Nucleated RBC PT INR ABG pH at Pt Temp ABG pO2 at Pt Temp ABG HCO3 Sodium 134 L Potassium Carbon Dioxide 16 L Anion Gap BUN 23 H Lactic Acid Lactic Acid F/U @ 2Hr Lactic Acid F/U @ 4Hr 5.6 H* Calcium 8.1 L D Total Bilirubin AST ALT Alkaline Phosphatase Total Creatine Kinase 2383 H Troponin I High Sens 1488.9 H* D B-Natriuretic Peptide Ur Specific [place] Urine Protein Urine Blood 05/20/23 05/20/23 05/20/23 14:08 15:13 16:25 WBC RBC Hgb Immature Gran % (Auto) Neut % (Auto) Lymph % (Auto) Lymph # (Auto) [place] # (Auto) Abs Immat Gran (auto) Absolute Neuts (auto) Absolute Nucleated RBC PT INR ABG pH at Pt Temp ABG pO2 at Pt Temp ABG HCO3 Sodium Potassium Carbon Dioxide 20 L Anion Gap BUN 22 H Lactic Acid 2.8 H* Lactic Acid F/U @ 2Hr 2.3 H* Lactic Acid F/U @ 4Hr Calcium 8.1 L Total Bilirubin AST ALT Alkaline Phosphatase Total Creatine Kinase Troponin I High Sens 1234.3 H* B-Natriuretic Peptide Ur Specific [place] >= 1.030 H Urine Protein 30 (1+) H Urine Blood Trace H Assessment and Plan (1) Pneumonia: Qualifiers: Pneumonia type: aspiration pneumonia Aspiration pneumonia type: u nspecified Laterality: right Lung location: lower lobe of lung Qualified Code(s): J69.0 - Pneumonitis due to inhalation of food and vomit Status: Acute (2) COPD (chronic obstructive pulmonary disease): Qualifiers: COPD type: COPD with acute exacerbation Qualified Code(s): J44.1 - Chronic obstructive pulmonary disease with (acute) exacerbation Status: Acute (3) Acidosis, lactic: Status: Acute (4) VICKY (mycobacterium avium-intracellulare): Status: Acute Plan Possibly developing Aspiration PNA due to LOC/seizure episode REC: stop Rifampin (Holding NICCI treatment) Fluid resucitation with LR, monitoring lactatic acid broad spectrum abx, d/c Levaquin due to ?seizure d/o recheck ABG transition BIPAP to ?HF respiratory therapy CPT with acapella valve Procedures Date of Service Date of Service: 05/20/23
[2023-05-20 17:22] LABS: Cancel Lactic Acid Canceled
[2023-05-20 17:23] LABS: Reflex Lactate? 2 N
[2023-05-20 17:27] LABS: Bacteria Urine None Seen (None Seen); RBC Urine 0-2 /HPF (0-2); WBC Urine 0-5 /HPF (0-5)
--- NOTE | 2023-05-20 17:58 | PC.NURSE ---
RT attempted to place pt on NC instead of oxymask after breathing treatment. pt desated to 80. placed back on oxymask at 6L sating 95%.
[2023-05-20] MEDS: Fluticasone/Umeclidinium/Vilanterol 100/62.5/25 BLST.W.DEV 1 PUFF INHALE (19:59)
[2023-05-20] MEDS: Aspirin Enteric Coated 81 MG TABLET.DR PO (21:15)
[2023-05-20] MEDS: traMADoL HCL 50 MG TABLET PO (21:51)
[2023-05-21] VITALS (19 sets, daily range): BP systolic 90–120; BP diastolic 61–79; PULSE 89–111; RESP 18–24; TEMP 36.2–37.1; O2SAT 84–100
[2023-05-21] MEDS: Piperacillin Sodium/Tazobactam 3.375 GM in 0.9 % Sodium Chloride 50 ML IV ×4 (03:00→21:38)
[2023-05-21] MEDS: Albuterol/Iprat 2.5/0.5MG 3 ML AMPUL.NEB INHALE ×2 (07:37→11:20)
[2023-05-21 08:10] LABS: Hematocrit 39.7 % (42.0-52.0); Mean Corpuscular HGB Conc 32.7 g/dl (31.0-36.0); Mean Corpuscular Volume 94.5 fL (80.0-98.0); Mean Platelet Volume 10.6 fL (9.4-12.4); NRBC Pct Auto 0.2 /100WBC (0.0-0.2); Platelet Count 145 X10*3/uL (160-400); Red Cell Distribution Width 16.5 % (11.0-16.0); White Blood Count 9.9 X10*3/uL (4.8-10.8)
[2023-05-21 08:14] LABS: Anion Gap 11 (12-20); Blood Urea Nitrogen 16 mg/dL (9-16); Calcium 8.5 mg/dL (8.4-10.2); Carbon Dioxide 24 mmol/L (22-29); Chloride 110 mmol/L (96-108); Creatinine Clr Calc Pharmacy 71.4; Estimated Glomerular Filt Rate > 60; Glucose Random 103 mg/dL (60-115); Potassium 3.8 mmol/L (3.3-5.1); Sodium 141 mmol/L (135-145)
[2023-05-21] MEDS: methylPREDNISolone Sod Succ 40 MG/ML VIAL IVPUSH ×2 (08:29→21:16)
--- NOTE | 2023-05-21 09:31 | MHC.CM.PN ---
Pt lives with his and son, he does not have home health services, for medical equipment he has supplemental O2 and a nebulizer. HCP is on file and confirmed, his , Leda. Family will transport upon DC. CM will follow and assist with DC plan.
--- NOTE | 2023-05-21 11:42 | P.PNPL_ITS ---
Subjective Subjective Date of Service: 05/21/23 Interval history: The patient was seen on exam. Feeling better. Had issues with SVT yesterday. Echo demonstrating severe pulmonary hypertension. Likely cor pulmonale. The patient is requiring 8 L of oxygen. Still not at his baseline. Difficulty with expectoration of secretions. Objective Data Labs 05/21/23 07:29 05/21/23 07:29 Labs: Laboratory Results - last 24 hr 05/20/23 05/20/23 05/20/23 14:08 15:13 16:25 WBC RBC Hgb Hct MCV MCH MCHC RDW Plt Count MPV Absolute Nucleated RBC Nucleated RBC % (auto) Sodium 136 Potassium 4.2 Chloride 104 Carbon Dioxide 20 L Anion Gap 16 BUN 22 H Creatinine 0.79 Estim Creat Clear Calc 75.0 Estimated GFR > 60 Random Glucose 106 Lactic Acid 2.8 H* Lactic Acid F/U @ 2Hr 2.3 H* Calcium 8.1 L Magnesium 2.3 Total Creatine Kinase Troponin I High Sens 1234.3 H* Urine Color Dark Yellow Urine Appearance Cloudy Urine pH 5.5 Ur Specific [place] >= 1.030 H Urine Protein 30 (1+) H Urine Glucose (UA) Negative Urine Ketones Trace Urine Blood Trace H Urine Nitrite Negative Ur Leukocyte Esterase Negative Urine RBC 0-2 Urine WBC 0-5 Ur Squamous Epith Cells 3-5 Urine Bacteria None Seen Hyaline Casts 3-5 05/21/23 07:29 WBC 9.9 RBC 4.20 L Hgb 13.0 L Hct 39.7 L MCV 94.5 MCH 31.0 MCHC 32.7 RDW 16.5 H Plt Count 145 L MPV 10.6 Absolute Nucleated RBC 0.020 H Nucleated RBC % (auto) 0.2 Sodium 141 Potassium 3.8 Chloride 110 H Carbon Dioxide 24 Anion Gap 11 L BUN 16 Creatinine 0.77 Estim Creat Clear Calc 71.4 Estimated GFR > 60 Random Glucose 103 Lactic Acid Lactic Acid F/U @ 2Hr Calcium 8.5 Magnesium Total Creatine Kinase 912 H Troponin I High Sens Urine Color Urine Appearance Urine pH Ur Specific [place] Urine Protein Urine Glucose (UA) Urine Ketones Urine Blood Urine Nitrite Ur Leukocyte Esterase Urine RBC Urine WBC Ur Squamous Epith Cells Urine Bacteria Hyaline Casts Microbiology Microbiology Results: Microbiology 05/19/23 20:28 Blood - Venous Blood Culture - Preliminary No growth after 24 hours. 05/19/23 17:29 Blood - Venous Blood Culture - Preliminary No growth after 24 hours. Review of Systems Constitutional: Reports anorexia, Denies body ache(s), Denies chills, Reports fatigue and Denies fever(s) Cardiovascular: Denies chest pain, Reports palpitations and Reports dyspnea Respiratory: Reports dyspnea and Reports wheezing Gastrointestinal: Denies abdominal pain, Denies nausea and Denies vomiting Musculoskeletal: Denies back pain Skin/Breast: Reports wounds (Left forearm) Endocrine: Reports fatigue and Reports palpitations Allergic/Immunologic: Reports wheezing Physical Exam 2 Vital Signs: Vital Signs: Last Vital Signs Temp 98 F 05/21/23 08:00 Pulse 98 05/21/23 11:21 Resp 22 H 05/21/23 11:21 BP 112/68 05/21/23 08:00 Pulse Ox 90 L 05/21/23 10:59 O2 Del Method Nasal Cannula 05/21/23 10:59 O2 Flow Rate 4 05/21/23 10:59 Oxygen Flow Rate 15 05/19/23 16:34 BMI result Body Mass Index 15.5 Const: General: comfortable, alert and tired appearing Nutritional Appearance: thin HEENT: Head: Yes atraumatic Eyes: General: appearance normal, both eyes and all related structures S clerae: sclerae normal EOM: EOMs intact bilaterally Neck: Neck: Yes supple Lymphatic: no lymphadenopathy noted Chest: Chest palpation & inspection: normal inspection of the chest Resp: Other: on BIPAP Auscultation: crackles and diminished lung sounds Cardio: Rate: regular rate Rhythm: regular rhythm GI: Palpation (GI): Soft to palpation Skin: General skin exam: no rashes or lesions noted Extrem: General: No clubbing, No cyanosis and No edema Procedures Date of Service Date of Service: 05/21/23 Assessment and Plan Assessment and plan (1) Pneumonia: Status: Acute (2) Tachycardia: Status: Acute (3) COPD (chronic obstructive pulmonary disease): Problem details: (Advanced/end stage COPD - COPD IS WELL CONTROLLED AND STABLE WITH HIS CURRENT REGIMEN BELOW . TRELEGY ELLIPTA 1 INHALATION DAILY DUONEB UPDRAFTS Q 6 HOURS WHILE AWAKE AND P.R.N.. BUT HE HAS FREQUENT URGE TO CLEAR SECRETIONS, Status: Acute (4) Cor pulmonale: Status: Acute (5) VICKY (mycobacterium avium-intracellulare): Status: Acute Plan Continue abx coverage CPT with acapella/aerobika 4 times a day Start Mucomyst nebs BID with TRAVIS Holding VICKY therapy oxygen to keep pox>90% diuresis as tolerated tobacco cessation Time Spent With Patient Time: Total time managing care of this patient today ____ minutes. Progress Note: Quality Stroke Does the patient have a stroke diagnosis?: No
--- NOTE | 2023-05-21 12:24 | P.PNCA_ITS ---
Subjective Subjective Date of Service: 05/21/23 Interval history: Seen and examined at bedside. Saying that he is feeling better than yesterday. Echocardiography report discussed in detail with the patient. Physical Exam Vital Signs: Last Vital Signs Temp 97.2 F 05/21/23 12:00 Pulse 108 H 05/21/23 12:00 Resp 20 05/21/23 12:00 BP 90/63 05/21/23 12:00 Pulse Ox 98 05/21/23 12:00 O2 Del Method Nasal Cannula 05/21/23 10:59 O2 Flow Rate 4 05/21/23 10:59 Oxygen Flow Rate 15 05/19/23 16:34 BMI result Body Mass Index 15.5 GENERAL APPEARANCE: On nasal cannula. In no acute distress. NECK: no carotid bruit, no significant jugular venous distention. SKIN: no suspicious lesions, warm and dry. HEART: no murmurs, regular rate and rhythm. LUNGS: clear to auscultation bilaterally. ABDOMEN: soft, nontender. EXTREMITIES: no edema. PERIPHERAL PULSES: equal. NEUROLOGIC: No gross deficits, AAO X 3 Objective Labs and Meds 05/21/23 07:29 05/21/23 07:29 Lab results: Laboratory Results - last 24 hr 05/20/23 05/20/23 05/20/23 14:08 15:13 16:25 WBC RBC Hgb Hct MCV MCH MCHC RDW Plt Count MPV Absolute Nucleated RBC Nucleated RBC % (auto) Sodium 136 Potassium 4.2 Chloride 104 Carbon Dioxide 20 L Anion Gap 16 BUN 22 H Creatinine 0.79 Estim Creat Clear Calc 75.0 Estimated GFR > 60 Random Glucose 106 Lactic Acid 2.8 H* Lactic Acid F/U @ 2Hr 2.3 H* Calcium 8.1 L Magnesium 2.3 Total Creatine Kinase Troponin I High Sens 1234.3 H* Urine Color Dark Yellow Urine Appearance Cloudy Urine pH 5.5 Ur Specific [place] >= 1.030 H Urine Protein 30 (1+) H Urine Glucose (UA) Negative Urine Ketones Trace Urine Blood Trace H Urine Nitrite Negative Ur Leukocyte Esterase Negative Urine RBC 0-2 Urine WBC 0-5 Ur Squamous Epith Cells 3-5 Urine Bacteria None Seen Hyaline Casts 3-5 05/21/23 07:29 WBC 9.9 RBC 4.20 L Hgb 13.0 L Hct 39.7 L MCV 94.5 MCH 31.0 MCHC 32.7 RDW 16.5 H Plt Count 145 L MPV 10.6 Absolute Nucleated RBC 0.020 H Nucleated RBC % (auto) 0.2 Sodium 141 Potassium 3.8 Chloride 110 H Carbon Dioxide 24 Anion Gap 11 L BUN 16 Creatinine 0.77 Estim Creat Clear Calc 71.4 Estimated GFR > 60 Random Glucose 103 Lactic Acid Lactic Acid F/U @ 2Hr Calcium 8.5 Magnesium Total Creatine Kinase 912 H Troponin I High Sens Urine Color Urine Appearance Urine pH Ur Specific [place] Urine Protein Urine Glucose (UA) Urine Ketones Urine Blood Urine Nitrite Ur Leukocyte Esterase Urine RBC Urine WBC Ur Squamous Epith Cells Urine Bacteria Hyaline Casts Imaging Radiologist's impression: Impressions Chest CTA 05/20/23 14:14 IMPRESSION: 1. No evidence for acute or chronic pulmonary embolism. 2. Advanced emphysema. 3. Evidence of pulmonary hypertension. Elevated right heart pressures. VTE: negative. Progress Note: A&P Assessment and plan (1) Cor pulmonale: Status: Acute Plan [age] year gentleman presenting for fall. He does not remember how he fell to the ground. He had elevated troponin and BNP levels. He was started on therapeutic Lovenox for acute coronary syndrome initially. Echocardiography was done which is showing cor pulmonale with severely dilated right ventricle with moderate to severe RV dysfunction and severe pulmonary hypertension. This is due to smoking and COPD. He also had lung surgery previously and radiation for cancer. Avoid beta-jim, Cardizem and verapamil. No pulmonary embolism on CT chest. Enoxaparin can be discontinued. Continue to treat the pneumonia. He should be on supplemental oxygen and hypoxia should be avoided as much as possible because hypoxic vasoconstriction will worsened pulmonary pressures and his right ventricle is already dilated and hypokinetic. Prognosis is poor and I have discussed this with the patient that we can only provide supportive care to him. Thank you for allowing me to participate in the care of your patient. Please feel free to contact me if you have any questions. Time Spent With Patient Time: Total time managing care of this patient today ____ minutes. Progress Note: Quality Stroke Does the patient have a stroke diagnosis?: No Procedures Date of Service Date of Service: 05/21/23
--- NOTE | 2023-05-21 13:43 | HO.PM.IMPN ---
Subjective Subjective Date of Service: 05/21/23 Interval History: Feeling better this morning, shortness of breath significantly improved denies cough has been smoking 3-4 cigarettes a day previously smoking 1 pack per day, denies fever, no chills no chest pain, no palpitations, no headache, no dizziness tolerating diet no acute issues overnight. Review of Systems All other system reviewed and negative Physical Exam Vital Signs: Vital Signs: Last Vital Signs Temp 97.2 F 05/21/23 12:00 Pulse 108 H 05/21/23 12:00 Resp 20 05/21/23 12:00 BP 90/63 05/21/23 12:00 Pulse Ox 91 L 05/21/23 13:00 O2 Del Method Nasal Cannula 05/21/23 13:00 O2 Flow Rate 6 05/21/23 13:00 Oxygen Flow Rate 15 05/19/23 16:34 BMI result Body Mass Index 15.5 Const: Other: General awake alert, chronically sick looking, in no acute distress. Anicteric sclera Neck supple no JVD. CVS regular rate rhythm, Respiratory lungs diminished breath sound right side, no respiratory distress, no wheeze, no rhonchi. Gastrointestinal abdomen soft, non tender, bowel sounds audible, no guarding , no rigidity. Extremities no edema. Neuro non focal ,moving all 4 extremity, speech clear. Skin left leg multiple abrasions, left hand skin tear, areas of ecchymosis Psych appropriate affect Objective Data Active Medications Acetaminophen (Acetaminophen 325 Mg Tablet) 650 mg PO Q6H PRN PRN Reason: Pain, Mild (Pain Scale 1-3) Acetylcysteine (Acetylcysteine 10 % 400 Mg/4 Ml Vial) 400 mg INHALE RBID [facility] Albuterol/Ipratropium (Albuterol/Iprat 2.5/0.5mg 3 Ml Ampul.Neb) 3 ml INHALE Q4H PRN PRN Reason: Wheezing Aspirin (Aspirin Enteric Coated 81 Mg Tablet.) 81 mg PO BEDTIME [facility] Last Admin: 05/20/23 21:15 Dose: 81 mg Documented By: ERNESTO Enoxaparin Sodium (Enoxaparin Sodium 40 Mg/0.4 Ml Syringe) 40 mg SUBCUT Q24H [facility] Fluticasone/Umeclidinium/Vilanterol (Fluticasone/Umeclidinium/Vilanterol 100/62.5/25 Blst.W.Dev) 1 puff INHALE RDAILY@1999 [facility] Last Admin: 05/20/23 19:59 Dose: 1 puff Documented By: TEJA Piperacillin Sod/Tazobactam (Sod 3.375 gm/ Sodium Chloride) 50 mls @ 100 mls/hr IV Q6H [facility] Last Infusion: 05/21/23 09:25 Dose: Infused Documented By: LALIT Levalbuterol HCl (Levalbuterol Hcl 1.25 Mg/3 Ml Vial.Neb) 1.25 mg INHALE RQID [facility] Melatonin (Melatonin 3 Mg Tablet) 6 mg PO BEDTIME PRN PRN Reason: Insomnia Methylprednisolone Sodium Succinate (Methylprednisolone Sod Succ 40 Mg/Ml Vial) 40 mg IVPUSH Q12H [facility] Last Admin: 05/21/23 08:29 Dose: 40 mg Documented By: LALIT Ondansetron HCl (Ondansetron Hcl 4 Mg/2 Ml Vial) 4 mg IVPUSH Q8H PRN PRN Reason: Nausea and Vomiting Tramadol HCl (Tramadol Hcl 50 Mg Tablet) 50 mg PO Q12H PRN PRN Reason: Pain, Severe (Pain Scale 7-10) Labs 05/21/23 07:29 05/21/23 07:29 Labs: Laboratory Results - last 24 hr 05/20/23 05/20/23 05/20/23 14:08 15:13 16:25 MCV MCH MCHC RDW Plt Count MPV Absolute Nucleated RBC Nucleated RBC % (auto) Anion Gap 16 Estim Creat Clear Calc 75.0 Estimated GFR > 60 Random Glucose 106 Lactic Acid 2.8 H* Lactic Acid F/U @ 2Hr 2.3 H* Calcium 8.1 L Magnesium 2.3 Total Creatine Kinase Troponin I High Sens 1234.3 H* Urine Color Dark Yellow Urine Appearance Cloudy Urine pH 5.5 Ur Specific [place] >= 1.030 H Urine Protein 30 (1+) H Urine Glucose (UA) Negative Urine Ketones Trace Urine Blood Trace H Urine Nitrite Negative Ur Leukocyte Esterase Negative Urine RBC 0-2 Urine WBC 0-5 Ur Squamous Epith Cells 3-5 Urine Bacteria None Seen Hyaline Casts 3-5 05/21/23 07:29 MCV 94.5 MCH 31.0 MCHC 32.7 RDW 16.5 H Plt Count 145 L MPV 10.6 Absolute Nucleated RBC 0.020 H Nucleated RBC % (auto) 0.2 Anion Gap 11 L Estim Creat Clear Calc 71.4 Estimated GFR > 60 Random Glucose 103 Lactic Acid Lactic Acid F/U @ 2Hr Calcium 8.5 Magnesium Total Creatine Kinase 912 H Troponin I High Sens Urine Color Urine Appearance Urine pH Ur Specific [place] Urine Protein Urine Glucose (UA) Urine Ketones Urine Blood Urine Nitrite Ur Leukocyte Esterase Urine RBC Urine WBC Ur Squamous Epith Cells Urine Bacteria Hyaline Casts Microbiology Microbiology Results: Microbiology 05/19/23 20:28 Blood Culture - Preliminary Blood - Venous No growth after 24 hours. 05/19/23 17:29 Blood Culture - Preliminary Blood - Venous No growth after 24 hours. Assessment and Plan (1) Acidosis, lactic: Status: Acute (2) Pneumonia: Status: Acute (3) Elevated troponin: Status: Acute Plan 58-year-old male with a PMH significant for??advanced COPD followed by Dr. Francois, chronic hypoxemic respiratory failure on 3L home O2 at baseline, HLD, multiple pulmonary nodules, left lung mass, multiple mediastinal lymph nodes (never diagnosed as cancer per patient) following with [facility] and Dr. Condon treated with right sided radiation who presents to the ED for evaluation of fall at home with unknown down time. Pt will be admitted to the hospital for treatment and further evaluation of acute pneumonia with sepsis as well as possible seizure activity in the setting of VICKY antibiotic use. Sepsis due to community-acquired Pneumonia No fevers, shortness of breath improved Chest CT with evidence of probable acute right lower lobe bronchopneumonia sepsis criteria: Hypothermia, tachypnea, leukocytosis, and initial lactic acid 8.7 WBC normalized , lactic acidosis improved to 2.3 Blood cultures x2 negative On IV Zosyn, started 05/20/2023 Acute on chronic hypoxic respiratory failure due to Acute on chronic COPD exacerbation in the setting of pneumonia and severe right ventricular dysfunction Shortness of breath significantly improved status post BiPAP , oxygenation 91% on nasal cannula Continue updrafts,, IV Solu-Medrol, Titrate supplemental Echo showed EF 55-60% no wall motion abnormality, severely increased right ventricular cavity size moderate to severely decreased right ventricular systolic function and severe pulmonary hypertension CTA chest showed no PE but showed advanced emphysema Wean O2 as tolerated on 3 L of home oxygen Seen by wet process head miller Dr. Templeton placed on Mucomyst inhaler b.i.d. and transitioned to Xopenex due to recurrent SVT Syncope/ Fall Question etiology Due to generalized weakness/ seizure /right-sided heart failure with decreased cardiac output Seen by Neurology they agree with EEG and also recommended MRI study with and without contrast to rule out malignancy that can be done as outpatient Follow EEG Non-anion gap metabolic acidosis Noted to have severe lactic acidosis,Initial lactic acid 8.7 with repeats 6.9 ,5.6, down to 2.3 Likely due to right-sided heart failure, dehydration/fall and albuterol use, will DC IV fluid VICKY infection Spoke with wet process head miller Dr. Templeton will hold treatment for VICKY . Elevated troponins and BNP Initial troponin 350.0 with repeat 1488.9, repeat troponin trending down, Patient denies chest pain, palpitations; EKG without significant ischemic changes Echocardiogram showed severe dilated right ventricle , decreased right ventricular systolic function and severe pulmonary hypertension. EF 55-60%, no regional wall motion abnormality. CTA chest showed no PE No acute coronary syndrome elevated trop due to fall muscle injury ,Cardiology discussed echo findings with patient and informed about poor prognosis recommend to continue oxygen therapy and avoid hypoxia Will DC therapeutic Lovenox cardio recommend to avoid beta-blockers Cardizem and verapamil Tobacco use disorder counseling done patient declined nicotine replacement treatment Hyperkalemia resolved Patient's potassium 5.7 at time of presentation, treated with Lokelma potassium improved to 4.3 Follow BMP Elevated CPK CPK 1222 at time of presentation bumped to 2383,Likely secondary fall at home and or seizure activity CPK improved to 912 will DC IV fluids Moderate protein calorie malnutrition Secondary to reduced p.o. intake, continue supplement with Ensure t.i.d. Full Code DVT Prophylaxis: Therapeutic Lovenox Pt will require continued inpatient hospitalization for treatment of?pneumonia with sepsis, on IV antibiotic needs close monitoring of cardiac and pulmonary status. Quality Stroke Does the patient have a stroke diagnosis?: No VTE Prior VTE?: No VTE Risk Level:: Medical - moderate - high VTE Device Contraindication: Treatment Not Indicated VTE Drug Contraindication: N/A - Med Ordered
[2023-05-21 14:15] LABS: Cholesterol 130 mg/dL (<200); HDL Cholesterol 30 mg/dL (>40); LDL Cholesterol Calculated 86 mg/dL (<100); Triglycerides 73 mg/dL (<150)
[2023-05-21] MEDS: levalbuterol HCL 1.25 MG/3 ML VIAL.NEB INHALE ×2 (15:29→20:17)
--- NOTE | 2023-05-21 16:23 | PC.NURSE ---
Per request of patient and his , Anne Nguyen (mother) not allowed to visit or call concerning patient. They do not want information released to her. Security call and made aware, switchboard aware and will make patient chart confidential at this time.
[2023-05-21] MEDS: Acetylcysteine 10 % 400 MG/4 ML VIAL INHALE (20:17)
[2023-05-21] MEDS: Fluticasone/Umeclidinium/Vilanterol 100/62.5/25 BLST.W.DEV 1 PUFF INHALE (20:23)
[2023-05-21] MEDS: Aspirin Enteric Coated 81 MG TABLET.DR PO (21:15)
[2023-05-21] MEDS: traMADoL HCL 50 MG TABLET PO (21:16)
[2023-05-22] VITALS (11 sets, daily range): BP systolic 99–123; BP diastolic 69–81; PULSE 99–111; RESP 18–20; TEMP 36–36.7; O2SAT 6–103; BMI 15.5
[2023-05-22] MEDS: Piperacillin Sodium/Tazobactam 3.375 GM in 0.9 % Sodium Chloride 50 ML IV ×4 (04:19→20:48)
[2023-05-22] MEDS: Acetylcysteine 10 % 400 MG/4 ML VIAL INHALE ×2 (07:45→19:59)
[2023-05-22] MEDS: levalbuterol HCL 1.25 MG/3 ML VIAL.NEB INHALE ×4 (07:45→19:59)
[2023-05-22] MEDS: methylPREDNISolone Sod Succ 40 MG/ML VIAL IVPUSH ×2 (09:02→20:48)
--- NOTE | 2023-05-22 11:44 | HO.WOUND ---
Wound Consult: Initial 58yr old?M admitted to [facility] on - See progress notes and H&P for detailed history.? Wound consult placed for left arm multiple skin tears present on admission..? Patient agreeable to assessment and photo documentation.? Pt and reports the skin tears are a result of him falling in between the nonworking radiator and a small wooden box - there was no burn associated with these injuries. Left hand Left Mid arm skin tear Etiology: Skin tears - ?Present on Admission Measurements: see charting for detailed measurements Wound Bed: hand: partial flap reapproximated - appears viable - partial thickness tissue loss with pale moist wound bed Left arm: no flap noted - wound bed is pink moist Drainage / Odor: serosang drainage noted on dressing when removed - no odor Edges: ? irregular and attached Evelia wound: bruising noted thin fragile tissue noted to both upper arms - No Induration, Fluctuance or Warmth noted Pain: reports tenderness Goals of Treatment: ? moist wound healing Of note the patient overall appears malnourished and this skin is noted to be thin and with bruising noted throughout his extremities. Recommendations: 1. Turn and Reposition every 2 hours and as needed for patient comfort.? Use pillows or wedges to support off loading positions. 2. Off Load all bony prominences with use of pillows and heel boots if needed.? Apply Preventative foams where needed. ? 3. Provide adequate and supplemental nutrition.? Nutrition consult in place. 4. Order low air loss mattress. 5. When applicable maintain blood glucose levels per Providers order. 6. Left Arm skin Tear - Cleanse with normal saline, pat dry. ?Apply double layer Xeroform secure with Abd pads, gauze wrap and tape. ?Do not apply tape to patients skin.? Avoid Adhesive application to skin - when necessary, apply skin prep prior.? Re-consult wound care Nurse for wound deterioration or wound changes.
--- NOTE | 2023-05-22 13:08 | P.PNIM_ITS ---
Subjective Subjective Date of Service: 05/22/23 Interval History: Feeling significantly better now on 6 L of nasal cannula, denies fever, no chills, no nausea, no vomiting, no abdominal pain,. no diarrhea, no cough no other acute events overnight. Review of Systems All other system reviewed and negative. Physical Exam 2 Vital Signs: Vital Signs: Last Vital Signs Temp 98.0 F 05/22/23 11:10 Pulse 102 H 05/22/23 11:30 Resp 18 05/22/23 11:30 BP 99/72 05/22/23 11:10 Pulse Ox 90 L 05/22/23 11:10 O2 Del Method Nasal Cannula 05/22/23 11:10 O2 Flow Rate 6 05/22/23 11:10 Oxygen Flow Rate 15 05/19/23 16:34 BMI result Body Mass Index 15.5 Const: Other: General awake alert, chronically sick looking, in no acute distress. Anicteric sclera Neck supple no JVD. CVS regular rate rhythm, Respiratory lungs breath sounds improved, no respiratory distress, no wheeze, no rhonchi. Gastrointestinal abdomen soft, non tender, bowel sounds audible, no guarding , no rigidity. Extremities no edema. Neuro non focal ,moving all 4 extremity, speech clear. Skin left leg multiple abrasions, left hand skin tear, areas of ecchymosis Psych appropriate affect Objective Data Active Medications Acetaminophen (Acetaminophen 325 Mg Tablet) 650 mg PO Q6H PRN PRN Reason: Pain, Mild (Pain Scale 1-3) Acetylcysteine (Acetylcysteine 10 % 400 Mg/4 Ml Vial) 400 mg INHALE RBID REPLACED BY [facility] Last Admin: 05/22/23 07:45 Dose: 400 mg Documented By: LOURDES Albuterol/Ipratropium (Albuterol/Iprat 2.5/0.5mg 3 Ml Ampul.Neb) 3 ml INHALE Q4H PRN PRN Reason: Wheezing Aspirin (Aspirin Enteric Coated 81 Mg Tablet.) 81 mg PO BEDTIME REPLACED BY [facility] Last Admin: 05/21/23 21:15 Dose: 81 mg Documented By: ERNESTO Enoxaparin Sodium (Enoxaparin Sodium 40 Mg/0.4 Ml Syringe) 40 mg SUBCUT Q24H REPLACED BY [facility] Fluticasone/Umeclidinium/Vilanterol (Fluticasone/Umeclidinium/Vilanterol 100/62.5/25 Blst.W.Dev) 1 puff INHALE RDAILY@1999 REPLACED BY [facility] Last Admin: 05/21/23 20:23 Dose: 1 puff Documented By: MARIUSZ Piperacillin Sod/Tazobactam (Sod 3.375 gm/ Sodium Chloride) 50 mls @ 100 mls/hr IV Q6H REPLACED BY [facility] Last Infusion: 05/22/23 09:45 Dose: Infused Documented By: NAIMA Levalbuterol HCl (Levalbuterol Hcl 1.25 Mg/3 Ml Vial.Neb) 1.25 mg INHALE RQID REPLACED BY [facility] Last Admin: 05/22/23 11:30 Dose: 1.25 mg Documented By: LOURDES Melatonin (Melatonin 3 Mg Tablet) 6 mg PO BEDTIME PRN PRN Reason: Insomnia Methylprednisolone Sodium Succinate (Methylprednisolone Sod Succ 40 Mg/Ml Vial) 40 mg IVPUSH Q12H REPLACED BY [facility] Last Admin: 05/22/23 09:02 Dose: 40 mg Documented By: NAIMA Ondansetron HCl (Ondansetron Hcl 4 Mg/2 Ml Vial) 4 mg IVPUSH Q8H PRN PRN Reason: Nausea and Vomiting Tramadol HCl (Tramadol Hcl 50 Mg Tablet) 50 mg PO Q12H PRN PRN Reason: Pain, Severe (Pain Scale 7-10) Last Admin: 05/21/23 21:16 Dose: 50 mg Documented By: ERNESTO Labs 05/21/23 07:29 05/21/23 07:29 Labs: Laboratory Results - last 24 hr 05/20/23 05/21/23 18:23 07:29 Triglycerides 73 Cholesterol 130 LDL Cholesterol, Calc 86 HDL Cholesterol 30 L Respiratory Panel Mckeon Cancelled Adenovirus (Rapid PCR) Cancelled B.pert (TEM-PCR) Cancelled B.parapertussis DNA PCR Cancelled C. pneumoniae DNA (PCR) Cancelled Coronavirus OC43 (PCR) Cancelled Coronavirus HKU1 (PCR) Cancelled Coronavirus 229E (PCR) Cancelled Coronavirus NL63 (PCR) Cancelled Human Metapneumovir PCR Cancelled Influenza A (RT-PCR) Cancelled Influenza B (RT-PCR) Cancelled M. pneumoniae (PCR) Cancelled Parainfluenza 1 (PCR) Cancelled Parainfluenza 2 (PCR) Cancelled Parainfluenza 3 (PCR) Cancelled Parainfluenza 4 (PCR) Cancelled RSV (PCR) Cancelled Entero/Rhino (PCR) Cancelled SARS-CoV-2 RNA (RT-PCR) Cancelled Microbiology Microbiology Results: Microbiology 05/19/23 20:28 Blood Culture - Preliminary Blood - Venous No growth after 48 hours. 05/19/23 17:29 Blood Culture - Preliminary Blood - Venous No growth after 48 hours. Assessment and Plan (1) Acidosis, lactic: Status: Acute (2) Pneumonia: Status: Acute (3) Elevated troponin: Status: Acute Plan 58-year-old male with a PMH significant for??advanced COPD followed by Dr. Francois, chronic hypoxemic respiratory failure on 3L home O2 at baseline, HLD, m ultiple pulmonary nodules, left lung mass, multiple mediastinal lymph nodes (never diagnosed as cancer per patient) following with [facility] and Dr. Condon treated with right sided radiation who presents to the ED for evaluation of fall at home with unknown down time. Pt will be admitted to the hospital for treatment and further evaluation of acute pneumonia with sepsis as well as possible seizure activity in the setting of VICKY antibiotic use. Sepsis due to community-acquired Pneumonia No fevers, shortness of breath improved Chest CT with evidence of probable acute right lower lobe bronchopneumonia sepsis criteria: Hypothermia, tachypnea, leukocytosis, and initial lactic acid 8.7 WBC normalized , lactic acidosis improved to 2.3 Blood cultures x2 negative On IV Zosyn, started 05/20/2023, continue IV antibiotic for 1 more day and transition to by mouth Acute on chronic hypoxic respiratory failure due to Acute on chronic COPD exacerbation in the setting of pneumonia and severe right ventricular dysfunction Shortness of breath significantly improved status post BiPAP , oxygenation 91% on 6 L nasal cannula Continue updrafts,, IV Solu-Medrol, Titrate supplemental Echo showed EF 55-60% no wall motion abnormality, severely increased right ventricular cavity size moderate to severely decreased right ventricular systolic function and severe pulmonary hypertension CTA chest showed no PE but showed advanced emphysema Wean O2 as tolerated on 3-4 L of home oxygen Seen by microsoft developer Dr. Templeton placed on Mucomyst inhaler b.i.d. and transitioned to Xopenex due to recurrent SVT Encourage out of bed to chair, will transition to by mouth steroids at a.m. Syncope/ Fall Question etiology Due to generalized weakness/ seizure /right-sided heart failure with decreased cardiac output Seen by Neurology they agree with EEG and also recommended MRI study with and without contrast to rule out malignancy that can be done as outpatient Follow EEG Non-anion gap metabolic acidosis Noted to have severe lactic acidosis,Initial lactic acid 8.7 with repeats 6.9 ,5.6, down to 2.3, responded to IV fluids Likely due to right-sided heart failure, dehydration/fall and albuterol use, VICKY infection Spoke with microsoft developer Dr. Templeton will hold treatment for VICKY . Elevated troponins and BNP Initial troponin 350.0 with repeat 1488.9, repeat troponin trending down, Patient denies chest pain, palpitations; EKG without significant ischemic changes Echocardiogram showed severe dilated right ventricle , decreased right ventricular systolic function and severe pulmonary hypertension. EF 55-60%, no regional wall motion abnormality. CTA chest showed no PE No acute coronary syndrome elevated trop due to fall muscle injury ,Cardiology discussed echo findings with patient and informed about poor prognosis recommend to continue oxygen therapy and avoid hypoxia cardio recommend to avoid beta-blockers Cardizem and verapamil Tobacco use disorder counseling done patient declined nicotine replacement treatment. Hyperkalemia resolved Patient's potassium 5.7 at time of presentation, treated with Lokelma potassium improved to 4.3 Follow BMP Elevated CPK CPK 1222 at time of presentation bumped to 2383,Likely secondary fall at home and or seizure activity CPK improved to 912 Moderate protein calorie malnutrition Secondary to reduced p.o. intake, continue supplement with Ensure t.i.d. Full Code DVT Prophylaxis: Therapeutic Lovenox Pt will require continued inpatient hospitalization for treatment of?pneumonia with sepsis, on IV antibiotic needs close monitoring of cardiac and pulmonary status. Quality Stroke Does the patient have a stroke diagnosis?: No VTE Prior VTE?: No VTE Risk Level:: Medical - moderate - high VTE Device Contraindication: Treatment Not Indicated VTE Drug Contraindication: N/A - Med Ordered
--- NOTE | 2023-05-22 13:49 | PM.PNCARD ---
Subjective Subjective Date of Service: 05/22/23 Principal diagnosis: Cor pulmonale Interval history: Patient still short of breath. Requirin oxygen and bronchodilators. Echo shows severely dilated RV with systolic dysfunction with significantly elevated right ventricular pressure consistent with acute RV dysfunction most likely related to acute respiratory failure in setting of known prior significant chronic obstructive pulmonary disease. Review of Systems Constitutional: Reports weakness Cardiovascular: Reports no additional cardiovascular complaints and Reports dyspnea on exertion Respiratory: Reports excessive phlegm production, Reports dyspnea on exertion and Reports wheezing Reports weakness Allergic/Immunologic: Reports wheezing Physical Exam Vital Signs: Last Vital Signs Temp 98.0 F 05/22/23 11:10 Pulse 102 H 05/22/23 11:30 Resp 18 05/22/23 11:30 BP 99/72 05/22/23 11:10 Pulse Ox 90 L 05/22/23 11:10 O2 Del Method Nasal Cannula 05/22/23 11:10 O2 Flow Rate 6 05/22/23 11:10 Oxygen Flow Rate 15 05/19/23 16:34 BMI result Body Mass Index 15.5 GENERAL APPEARANCE: On nasal cannula. In no acute distress. NECK: no carotid bruit, no significant jugular venous distention. SKIN: no suspicious lesions, warm and dry. HEART: no murmurs, regular rate and rhythm. LUNGS: clear to auscultation bilaterally. ABDOMEN: soft, nontender. EXTREMITIES: no edema. PERIPHERAL PULSES: equal. NEUROLOGIC: No gross deficits, AAO X 3 Objective Labs and Meds 05/21/23 07:29 05/21/23 07:29 Lab results: Laboratory Results - last 24 hr 05/20/23 05/21/23 18:23 07:29 Triglycerides 73 Cholesterol 130 LDL Cholesterol, Calc 86 HDL Cholesterol 30 L Respiratory Panel Mckeon Cancelled Adenovirus (Rapid PCR) Cancelled B.pert (TEM-PCR) Cancelled B.parapertussis DNA PCR Cancelled C. pneumoniae DNA (PCR) Cancelled Coronavirus OC43 (PCR) Cancelled Coronavirus HKU1 (PCR) Cancelled Coronavirus 229E (PCR) Cancelled Coronavirus NL63 (PCR) Cancelled Human Metapneumovir PCR Cancelled Influenza A (RT-PCR) Cancelled Influenza B (RT-PCR) Cancelled M. pneumoniae (PCR) Cancelled Parainfluenza 1 (PCR) Cancelled Parainfluenza 2 (PCR) Cancelled Parainfluenza 3 (PCR) Cancelled Parainfluenza 4 (PCR) Cancelled RSV (PCR) Cancelled Entero/Rhino (PCR) Cancelled SARS-CoV-2 RNA (RT-PCR) Cancelled Progress Note: A&P Assessment and plan (1) Cor pulmonale: Status: Acute Assessment and Plan: Acute on probably chronic cor pulmonale related to acute hypoxemic respiratory failure causing most likely vaso constriction related significantly elevated right ventricular systolic pressure and RV dysfunction. Clinically does appear to be significantly fluid overloaded at this point time. Prognosis is limited given his significantly advanced COPD as well as RV dysfunction. No specific treatment available for the same. Would treat his hypoxemia aggressively. Continue bronchodilators antibiotic treatment. Strongly recommended him to stop smoking at this point in time. If he develops any congestive signs or symptoms can use diuretics at that point in time. Will sign of the case at this point time. Thank you for allowing me to partake in his Time Spent With Patient Time: Total time managing care of this patient today ____ minutes. Progress Note: Quality Stroke Does the patient have a stroke diagnosis?: No Procedures Date of Service Date of Service: 05/22/23
--- NOTE | 2023-05-22 14:09 | MHC.CLN ---
NUTRITION CONSULT FOR NUTRITIONAL NEEDS. DIET=REGULAR. ENSURE TID PROVIDES ADDITIONAL 1050 KCALS, 60 G PROTEIN. PATIENT ACCEPTS SUPPLEMENT. NUTRITION DX SEVERE MALNUTRITION IN THE CONTEXT OF CHRONIC ILLNESS. SEVERE DEPLETION OF BODY FAT AND MUSCLE MASS NOTED. BMI=15.5 AND IS 65% OF IBW. SKIN TEARS TO LEFT HAND AND LEFT LOWER ARM. CONTINUE CURRENT DIET AND SUPPLEMENT. MONITOR FOR INTAKE AND WEIGHT. SEE CLINICAL NUTRITION ASSESSMENT 05/22/23.
[2023-05-22] MEDS: Fluticasone/Umeclidinium/Vilanterol 100/62.5/25 BLST.W.DEV 1 PUFF INHALE (19:59)
[2023-05-22] MEDS: Aspirin Enteric Coated 81 MG TABLET.DR PO (20:48)
[2023-05-22] MEDS: traMADoL HCL 50 MG TABLET PO (21:07)
[2023-05-23] VITALS (10 sets, daily range): BP systolic 103–120; BP diastolic 72–83; PULSE 66–115; RESP 16–20; TEMP 36.1–36.8; O2SAT 88–98
[2023-05-23] MEDS: Piperacillin Sodium/Tazobactam 3.375 GM in 0.9 % Sodium Chloride 50 ML IV ×4 (03:32→20:55)
[2023-05-23] MEDS: methylPREDNISolone Sod Succ 40 MG/ML VIAL IVPUSH ×2 (08:12→20:54)
[2023-05-23] MEDS: levalbuterol HCL 1.25 MG/3 ML VIAL.NEB INHALE ×4 (08:18→19:40)
[2023-05-23] MEDS: Acetylcysteine 10 % 400 MG/4 ML VIAL INHALE ×2 (08:18→19:39)
[2023-05-23] MEDS: Fluticasone/Umeclidinium/Vilanterol 100/62.5/25 BLST.W.DEV 1 PUFF INHALE (08:18)
--- NOTE | 2023-05-23 09:06 | P.PNPL_ITS ---
Subjective Subjective Date of Service: 05/23/23 Principal diagnosis: Cor pulmonale Interval history: The patient was seen and examined. He is currently on OxyMask. He is responding well to the Mucomyst. He is also provided in a recall for chest PT. Will go ahead and repeat his blood gas and chest x-ray today. White count now is normalized. Objective Data Labs 05/21/23 07:29 05/21/23 07:29 Labs: Laboratory Results - last 24 hr 05/20/23 18:23 Respiratory Panel Mckeon Cancelled Adenovirus (Rapid PCR) Cancelled B.pert (TEM-PCR) Cancelled B.parapertussis DNA PCR Cancelled C. pneumoniae DNA (PCR) Cancelled Coronavirus OC43 (PCR) Cancelled Coronavirus HKU1 (PCR) Cancelled Coronavirus 229E (PCR) Cancelled Coronavirus NL63 (PCR) Cancelled Human Metapneumovir PCR Cancelled Influenza A (RT-PCR) Cancelled Influenza B (RT-PCR) Cancelled M. pneumoniae (PCR) Cancelled Parainfluenza 1 (PCR) Cancelled Parainfluenza 2 (PCR) Cancelled Parainfluenza 3 (PCR) Cancelled Parainfluenza 4 (PCR) Cancelled RSV (PCR) Cancelled Entero/Rhino (PCR) Cancelled SARS-CoV-2 RNA (RT-PCR) Cancelled Microbiology Microbiology Results: Microbiology 05/19/23 20:28 Blood - Venous Blood Culture - Preliminary No growth after 48 hours. 05/19/23 17:29 Blood - Venous Blood Culture - Preliminary No growth after 48 hours. Review of Systems Constitutional: Reports anorexia, Denies body ache(s), Denies chills, Reports fatigue and Denies fever(s) Cardiovascular: Denies chest pain, Reports palpitations and Reports dyspnea Respiratory: Reports dyspnea and Reports wheezing Gastrointestinal: Denies abdominal pain, Denies nausea and Denies vomiting Musculoskeletal: Denies back pain Skin/Breast: Reports wounds (Left forearm) Endocrine: Reports fatigue and Reports palpitations Allergic/Immunologic: Reports wheezing Physical Exam 2 Vital Signs: Vital Signs: Last Vital Signs Temp 97.8 F 05/23/23 07:00 Pulse 92 05/23/23 08:22 Resp 16 05/23/23 08:22 BP 120/83 05/23/23 07:00 Pulse Ox 95 05/23/23 07:00 O2 Del Method Oxymask 05/23/23 07:00 O2 Flow Rate 6 05/23/23 07:00 Oxygen Flow Rate 15 05/19/23 16:34 BMI result Body Mass Index 15.5 Const: General: comfortable, alert and tired appearing Nutritional Appearance: thin HEENT: Head: Yes atraumatic Eyes: General: appearance normal, both eyes and all related structures S clerae: sclerae normal EOM: EOMs intact bilaterally Neck: Neck: Yes supple Lymphatic: no lymphadenopathy noted Chest: Chest palpation & inspection: normal inspection of the chest Resp: Other: on BIPAP Auscultation: diminished lung sounds Cardio: Rate: regular rate Rhythm: regular rhythm GI: Palpation (GI): Soft to palpation Skin: General skin exam: no rashes or lesions noted Extrem: General: No clubbing, No cyanosis and No edema Procedures Date of Service Date of Service: 05/23/23 Assessment and Plan Assessment and plan (1) Pneumonia: Status: Acute (2) COPD (chronic obstructive pulmonary disease): Problem details: (Advanced/end stage COPD - COPD IS WELL CONTROLLED AND STABLE WITH HIS CURRENT REGIMEN BELOW . TRELEGY ELLIPTA 1 INHALATION DAILY DUONEB UPDRAFTS Q 6 HOURS WHILE AWAKE AND P.R.N.. BUT HE HAS FREQUENT URGE TO CLEAR SECRETIONS, Status: Acute (3) Cor pulmonale: Status: Acute (4) VICKY (mycobacterium avium-intracellulare): Status: Acute Plan Continue abx coverage CPT with acapella/aerobika 4 times a day continue Mucomyst nebs BID with TRAVIS 1-2 more days Holding VICKY therapy oxygen to keep pox>90% diuresis as tolerated tobacco cessation repeat CXR repeat VBG Time Spent With Patient Time: Total time managing care of this patient today ____ minutes. Progress Note: Quality Stroke Does the patient have a stroke diagnosis?: No
[2023-05-23 09:23] LABS: Venous Blood Gas Refer to POC result
[2023-05-23 09:26] LABS: VBG Base Excess 7.4 mmol/L; VBG HCO3 34 mmol/L (22-26); VBG pCO2 57 mmHg; VBG pH 7.38 (7.32-7.43); VBG pO2 36 mmHg
--- NOTE | 2023-05-23 11:33 | P.PNIM_ITS ---
Subjective Subjective Date of Service: 05/23/23 Interval History: Feeling better able to cough up phlegm, no fevers no chills, no headache ,no dizziness, tolerating diet, finger oximetry 95% on OxyMask, no acute events overnight Review of Systems All other system reviewed and negative Physical Exam 2 Vital Signs: Vital Signs: Last Vital Signs Temp 98.3 F 05/23/23 10:54 Pulse 104 H 05/23/23 11:14 Resp 20 05/23/23 11:14 BP 103/72 05/23/23 10:54 Pulse Ox 91 L 05/23/23 10:54 O2 Del Method Nasal Cannula 05/23/23 10:54 O2 Flow Rate 6 05/23/23 10:54 Oxygen Flow Rate 15 05/19/23 16:34 BMI result Body Mass Index 15.5 Const: Other: General awake alert, chronically sick looking, in no acute distress. Anicteric sclera Neck supple no JVD. CVS regular rate rhythm, Respiratory lungs breath sounds improved, no respiratory distress, no wheeze, no rhonchi. Gastrointestinal abdomen soft, non tender, bowel sounds audible, no guarding , no rigidity. Extremities no edema. Neuro non focal ,moving all 4 extremity, speech clear. Skin left leg multiple abrasions, left hand skin tear healing well, areas of ecchymosis Psych appropriate affect Objective Data Active Medications Acetaminophen (Acetaminophen 325 Mg Tablet) 650 mg PO Q6H PRN PRN Reason: Pain, Mild (Pain Scale 1-3) Acetylcysteine (Acetylcysteine 10 % 400 Mg/4 Ml Vial) 400 mg INHALE RBID [facility] Last Admin: 05/23/23 08:18 Dose: 400 mg Documented By: ALISHA Albuterol/Ipratropium (Albuterol/Iprat 2.5/0.5mg 3 Ml Ampul.Neb) 3 ml INHALE Q4H PRN PRN Reason: Wheezing Aspirin (Aspirin Enteric Coated 81 Mg Tablet.) 81 mg PO BEDTIME [facility] Last Admin: 05/22/23 20:48 Dose: 81 mg Documented By: DARCI Enoxaparin Sodium (Enoxaparin Sodium 40 Mg/0.4 Ml Syringe) 40 mg SUBCUT Q24H [facility] Last Admin: 05/22/23 22:10 Dose: Not Given Documented By: DARCI Non-Admin Reason: Patient Refused Fluticasone/Umeclidinium/Vilanterol (Fluticasone/Umeclidinium/Vilanterol 100/62.5/25 Blst.W.Dev) 1 puff INHALE RDAILY@1999 [facility] Last Admin: 05/23/23 08:18 Dose: 1 puff Documented By: ALISHA Piperacillin Sod/Tazobactam (Sod 3.375 gm/ Sodium Chloride) 50 mls @ 100 mls/hr IV Q6H [facility] Last Infusion: 05/23/23 08:46 Dose: Infused Documented By: ERICK Levalbuterol HCl (Levalbuterol Hcl 1.25 Mg/3 Ml Vial.Neb) 1.25 mg INHALE RQID [facility] Last Admin: 05/23/23 11:13 Dose: 1.25 mg Documented By: ALISHA Melatonin (Melatonin 3 Mg Tablet) 6 mg PO BEDTIME PRN PRN Reason: Insomnia Methylprednisolone Sodium Succinate (Methylprednisolone Sod Succ 40 Mg/Ml Vial) 40 mg IVPUSH Q12H [facility] Last Admin: 05/23/23 08:12 Dose: 40 mg Documented By: ERICK Ondansetron HCl (Ondansetron Hcl 4 Mg/2 Ml Vial) 4 mg IVPUSH Q8H PRN PRN Reason: Nausea and Vomiting Tramadol HCl (Tramadol Hcl 50 Mg Tablet) 50 mg PO Q12H PRN PRN Reason: Pain, Severe (Pain Scale 7-10) Last Admin: 05/22/23 21:07 Dose: 50 mg Documented By: DARCI Labs 05/21/23 07:29 05/21/23 07:29 Labs: Laboratory Results - last 24 hr 05/23/23 09:19 VBG pH 7.38 VBG pCO2 57 VBG pO2 36 VBG HCO3 34 H VBG O2 Saturation 53.0 VBG Base Excess 7.4 Assessment and Plan (1) Acidosis, lactic: Status: Acute (2) Pneumonia: Status: Acute (3) Elevated troponin: Status: Acute Plan 58-year-old male with a PMH significant for??advanced COPD followed by Dr. Francois, chronic hypoxemic respiratory failure on 3L home O2 at baseline, HLD, m ultiple pulmonary nodules, left lung mass, multiple mediastinal lymph nodes (never diagnosed as cancer per patient) following with [facility] and Dr. Condon treated with right sided radiation who presents to the ED for evaluation of fall at home with unknown down time. Pt will be admitted to the hospital for treatment and further evaluation of acute pneumonia with sepsis as well as possible seizure activity in the setting of VICKY antibiotic use. Sepsis due to community-acquired Pneumonia No fevers, shortness of breath improved Chest CT with evidence of probable acute right lower lobe bronchopneumonia sepsis criteria: Hypothermia, tachypnea, leukocytosis, and initial lactic acid 8.7 WBC normalized , lactic acidosis improved to 2.3 , hypothermia and tachypnea resolved Blood cultures x2 negative On IV Zosyn, started 05/20/2023, continue IV antibiotic and gradually transition to by mouth. Acute on chronic hypoxic respiratory failure due to Acute on chronic COPD exacerbation in the setting of pneumonia and severe right ventricular dysfunction Shortness of breath significantly improved status post BiPAP , oxygenation 91% on 6 L nasal cannula Continue updrafts,, IV Solu-Medrol, Titrate supplemental Echo showed EF 55-60% no wall motion abnormality, severely increased right ventricular cavity size moderate to severely decreased right ventricular systolic function and severe pulmonary hypertension CTA chest showed no PE ,showed advanced emphysema Wean O2 as tolerated on 3-4 L of home oxygen Being followed by pulmonology they recommend Mucomyst inhaler b.i.d. , chest PT with acapella/aerobika 4 times a day Repeat ABG showed compensated hypercarbia, chest x-ray pending Encourage out of bed to chair, will gradually transitioned to by mouth antibiotics and steroids Syncope/ Fall Question etiology Due to generalized weakness/ seizure /right-sided heart failure with decreased cardiac output Seen by Neurology they agree with EEG and also recommended MRI study with and without contrast to rule out malignancy that can be done as outpatient Follow EEG Acute Non-anion gap metabolic acidosis Noted to have severe lactic acidosis,Initial lactic acid 8.7 with repeats 6.9 ,5.6, down to 2.3, responded to IV fluids Likely due to right-sided heart failure, dehydration/fall and albuterol use, VICKY infection Spoke with antique clocks repairer Dr. Templeton will hold treatment for VICKY . Elevated troponins and BNP Initial troponin 350.0 with repeat 1488.9, repeat troponin trending down, Patient denies chest pain, palpitations; EKG without significant ischemic changes Echocardiogram showed severe dilated right ventricle , decreased right ventricular systolic function and severe pulmonary hypertension. EF 55-60%, no regional wall motion abnormality. CTA chest showed no PE No acute coronary syndrome, elevated trop due to fall muscle injury and right- sided heart failure Cardiology discussed echo findings with patient and informed about poor prognosis recommend to continue oxygen therapy and no smoking. cardio recommend to avoid beta-blockers Cardizem and verapamil Tobacco use disorder counseling done patient declined nicotine replacement treatment. Hyperkalemia resolved Patient's potassium 5.7 at time of presentation, treated with Lokelma potassium normalized Follow BMP Elevated CPK CPK 1222 at time of presentation bumped to 2383,Likely secondary fall at home and or seizure activity CPK improved to 912 Severe protein calorie malnutrition Secondary to reduced p.o. intake, continue supplement with Ensure t.i.d. Full Code DVT Prophylaxis: Therapeutic Lovenox Pt will require continued inpatient hospitalization for treatment of?pneumonia with sepsis, on IV antibiotic needs close monitoring of cardiac and pulmonary status. Quality Stroke Does the patient have a stroke diagnosis?: No VTE Prior VTE?: No VTE Risk Level:: Medical - moderate - high VTE Device Contraindication: Treatment Not Indicated VTE Drug Contraindication: N/A - Med Ordered
[2023-05-23] MEDS: traMADoL HCL 50 MG TABLET PO (20:54)
[2023-05-23] MEDS: Aspirin Enteric Coated 81 MG TABLET.DR PO (20:54)
[2023-05-24] VITALS (12 sets, daily range): BP systolic 100–125; BP diastolic 67–78; PULSE 89–126; RESP 18–30; TEMP 36–36.9; O2SAT 90–96
[2023-05-24] MEDS: levalbuterol HCL 1.25 MG/3 ML VIAL.NEB INHALE ×5 (00:15→19:38)
[2023-05-24] MEDS: Morphine Sulfate 2 MG/ML CARTRIDGE IVPUSH (00:49)
[2023-05-24] MEDS: Piperacillin Sodium/Tazobactam 3.375 GM in 0.9 % Sodium Chloride 50 ML IV ×4 (03:10→20:36)
--- NOTE | 2023-05-24 03:17 | PC.NURSE ---
At 0015 patient with increased work of breathing, tripoding in the bed. Lung sounds with coarse wheezing throughout, respiratory called to bedside for prn breathing treatment. Dr. Chandu Springer notified, new order for one time dose of 2mg IV morphine. Morphine administered with good effect.
[2023-05-24] MEDS: Acetylcysteine 10 % 400 MG/4 ML VIAL INHALE (08:01)
[2023-05-24] MEDS: methylPREDNISolone Sod Succ 40 MG/ML VIAL IVPUSH ×2 (08:25→20:36)
--- NOTE | 2023-05-24 09:56 | MHC.CLN ---
F/U DIET=REGULAR. ENSURE TID PROVIDES ADDITIONAL 1050 KCALS, 60 G PROTEIN. INTAKE AT MEALS USUALLY GOOD, 75-100%. NUTRITION DX SEVERE MALNUTRITION. CONTINUE CURRENT DIET AND SUPPLEMENT. MONITOR FOR INTAKE AND WEIGHT.
--- NOTE | 2023-05-24 10:25 | MHC.CM.PN ---
Per ROUNDS discussion, Patient is not yet medically cleared for dc (IV Solu Medrol, IV Zosyn); home is the goal and CM will continue to follow.
--- NOTE | 2023-05-24 10:32 | P.CDIM_ITS ---
PROVIDER RESPONSE TEXT: To clarify, the appropriate diagnosis supported by the clinical indicators: Traumatic Rhabdomyolysis QUERY TEXT: PHYSICIAN'S DOCUMENTATION REQUEST Date of Query: 05/24/2023 09:46 AM EST Patient Name: Edenilson Nguyen Admit Date: 05/20/2023 Dear Aide Howard, A review of the medical record indicates additional documentation may be needed. Please review below and update the documentation accordingly. Clinical Indicators: ED 05/19 - Patient likely has some degree of rhabdomyolysis. IV fluids. PN: elevated trop due to fall muscle injury. CPK 2382 secondary to fall at home. Skin left leg multiple abrasions, left hand skin tear healing well, areas of ecchymosis. Is there a diagnosis that correlates with above: Non-traumatic Rhabdomyolysis suspected, probable, possible etc. Traumatic Rhabdomyolysis Rhabdomyolysis ruled out Other (explain) Clinically unable to determine (explain) Thank you, Jessica Marina, CCS, CDIS Use of terms such as suspected, likely, concern for, or probable (associated with a specific diagnosi s that is being evaluated, monitored, or treated as if it exists) are acceptable and can be coded in the inpatient se tting, when documented at the time of discharge. Please use your independent medical judgment in providing your response. THIS QUERY IS PART OF THE PERMANENT MEDICAL RECORD
--- NOTE | 2023-05-24 13:23 | P.PNPL_ITS ---
Subjective Subjective Date of Service: 05/24/23 Principal diagnosis: Cor pulmonale Interval history: The patient was seen on exam. He again had 1 episode last night where he was having shortness of breath and needed some benzodiazepines for his breathing. As it is he has extensive emphysema with end-stage COPD. Superimposed now on a right lower lobe pneumonia. Subsequently affecting his gas exchange. He was not Mucomyst for about 3 days with help clearing some secretions. Continues on broad-spectrum antibiotics in addition to prednisone. The patient baseline oxygen is around 4 L. Here he is varying between 6 and 8 L. I did his reasonable at this time based on his degree of lung disease. The patient did have a repeat blood gas demonstrating chronic hypercarbia. Therefore be reasonable to put him on nocturnal BiPAP or AVAP. Objective Data Labs 05/21/23 07:29 05/21/23 07:29 Microbiology Microbiology Results: Microbiology 05/19/23 20:28 Blood - Venous Blood Culture - Preliminary No growth after 48 hours. 05/19/23 17:29 Blood - Venous Blood Culture - Preliminary No growth after 48 hours. Review of Systems Constitutional: Reports anorexia, Denies body ache(s), Denies chills, Reports fatigue and Denies fever(s) Cardiovascular: Denies chest pain, Reports palpitations and Reports dyspnea Respiratory: Reports dyspnea and Reports wheezing Gastrointestinal: Denies abdominal pain, Denies nausea and Denies vomiting Musculoskeletal: Denies back pain Skin/Breast: Reports wounds (Left forearm) Endocrine: Reports fatigue and Reports palpitations Allergic/Immunologic: Reports wheezing Physical Exam 2 Vital Signs: Vital Signs: Last Vital Signs Temp 98.0 F 05/24/23 11:06 Pulse 102 H 05/24/23 11:34 Resp 18 05/24/23 11:34 BP 107/75 05/24/23 11:06 Pulse Ox 92 05/24/23 11:06 O2 Del Method Nasal Cannula 05/24/23 11:06 O2 Flow Rate 8 05/24/23 11:06 Oxygen Flow Rate 15 05/19/23 16:34 BMI result Body Mass Index 15.5 Const: General: comfortable, alert and tired appearing Nutritional Appearance: thin HEENT: Head: Yes atraumatic Eyes: General: appearance normal, both eyes and all related structures S clerae: sclerae normal EOM: EOMs intact bilaterally Neck: Neck: Yes supple Lymphatic: no lymphadenopathy noted Chest: Chest palpation & inspection: normal inspection of the chest Resp: Other: on BIPAP Auscultation: diminished lung sounds Cardio: Rate: regular rate Rhythm: regular rhythm GI: Palpation (GI): Soft to palpation Skin: General skin exam: no rashes or lesions noted Extrem: General: No clubbing, No cyanosis and No edema Procedures Date of Service Date of Service: 05/24/23 Assessment and Plan Assessment and plan (1) Pneumonia: Status: Acute (2) COPD (chronic obstructive pulmonary disease): Problem details: (Advanced/end stage COPD - COPD IS WELL CONTROLLED AND STABLE WITH HIS CURRENT REGIMEN BELOW . TRELEGY ELLIPTA 1 INHALATION DAILY DUONEB UPDRAFTS Q 6 HOURS WHILE AWAKE AND P.R.N.. BUT HE HAS FREQUENT URGE TO CLEAR SECRETIONS, Status: Acute (3) Cor pulmonale: Status: Acute (4) VICKY (mycobacterium avium-intracellulare): Status: Acute Plan Continue abx coverage CPT with acapella/aerobika 4 times a day stop Mucomyst nebs BID with TRAVIS 1-2 more days Holding VICKY therapy oxygen to keep pox>90% diuresis as tolerated tobacco cessation start nocturnal BIPAP Time Spent With Patient Time: Total time managing care of this patient today ____ minutes. Progress Note: Quality Stroke Does the patient have a stroke diagnosis?: No
--- NOTE | 2023-05-24 15:20 | P.PNIM_ITS ---
Subjective Subjective Date of Service: 05/24/23 Interval History: Noted to have episode of shortness of breath last night, patient denies chest tightness, no wheezing, no difficulty bringing up phlegm or choking, this morning feeling better, on 6 L of oxygen by nasal cannula finger oximetry 92- 94%, denies fever, no chills, no shortness of breath this morning no fever, no chills tolerating diet. Review of Systems All other system reviewed and negative. Physical Exam 2 Vital Signs: Vital Signs: Last Vital Signs Temp 98.0 F 05/24/23 11:06 Pulse 102 H 05/24/23 11:34 Resp 18 05/24/23 11:34 BP 107/75 05/24/23 11:06 Pulse Ox 92 05/24/23 11:06 O2 Del Method Nasal Cannula 05/24/23 11:06 O2 Flow Rate 8 05/24/23 11:06 Oxygen Flow Rate 15 05/19/23 16:34 BMI result Body Mass Index 15.5 Const: Other: General awake alert, chronically sick looking, in no acute distress. Anicteric sclera Neck supple no JVD. CVS regular rate rhythm, Respiratory lungs breath sounds improved, no respiratory distress, no wheeze, no rhonchi. Gastrointestinal abdomen soft, non tender, bowel sounds audible, no guarding , no rigidity. Extremities no edema. Neuro non focal ,moving all 4 extremity, speech clear. Skin left leg multiple abrasions, left hand skin tear healing well, areas of ecchymosis Psych appropriate affect Objective Data Active Medications Acetaminophen (Acetaminophen 325 Mg Tablet) 650 mg PO Q6H PRN PRN Reason: Pain, Mild (Pain Scale 1-3) Acetylcysteine (Acetylcysteine 10 % 400 Mg/4 Ml Vial) 400 mg INHALE RBID [facility] Last Admin: 05/24/23 08:01 Dose: 400 mg Documented By: PRECIOUS Albuterol/Ipratropium (Albuterol/Iprat 2.5/0.5mg 3 Ml Ampul.Neb) 3 ml INHALE Q4H PRN PRN Reason: Wheezing Aspirin (Aspirin Enteric Coated 81 Mg Tablet.) 81 mg PO BEDTIME [facility] Last Admin: 05/23/23 20:54 Dose: 81 mg Documented By: STEPHANY Enoxaparin Sodium (Enoxaparin Sodium 40 Mg/0.4 Ml Syringe) 40 mg SUBCUT Q24H [facility] Last Admin: 05/23/23 20:56 Dose: Not Given Documented By: STEPHANY Non-Admin Reason: Patient Refused Fluticasone/Umeclidinium/Vilanterol (Fluticasone/Umeclidinium/Vilanterol 100/62.5/25 Blst.W.Dev) 1 puff INHALE RDAILY@2000 [facility] Last Admin: 05/23/23 08:18 Dose: 1 puff Documented By: ALISHA Piperacillin Sod/Tazobactam (Sod 3.375 gm/ Sodium Chloride) 50 mls @ 100 mls/hr IV Q6H [facility] Last Infusion: 05/24/23 09:06 Dose: Infused Documented By: MAINOR Levalbuterol HCl (Levalbuterol Hcl 1.25 Mg/3 Ml Vial.Neb) 1.25 mg INHALE RQID [facility] Last Admin: 05/24/23 11:31 Dose: 1.25 mg Documented By: PRECIOUS Levalbuterol HCl (Levalbuterol Hcl 1.25 Mg/3 Ml Vial.Neb) 1.25 mg INHALE RQ4H PRN PRN Reason: shornness of breath or wheezin Melatonin (Melatonin 3 Mg Tablet) 6 mg PO BEDTIME PRN PRN Reason: Insomnia Methylprednisolone Sodium Succinate (Methylprednisolone Sod Succ 40 Mg/Ml Vial) 40 mg IVPUSH Q12H [facility] Last Admin: 05/24/23 08:25 Dose: 40 mg Documented By: MAINOR Ondansetron HCl (Ondansetron Hcl 4 Mg/2 Ml Vial) 4 mg IVPUSH Q8H PRN PRN Reason: Nausea and Vomiting Tramadol HCl (Tramadol Hcl 50 Mg Tablet) 50 mg PO Q12H PRN PRN Reason: Pain, Severe (Pain Scale 7-10) Last Admin: 05/23/23 20:54 Dose: 50 mg Documented By: STEPHANY Labs 05/21/23 07:29 05/21/23 07:29 Assessment and Plan (1) Acidosis, lactic: Status: Acute (2) Pneumonia: Status: Acute (3) Elevated troponin: Status: Acute Plan 58-year-old male with a PMH significant for??advanced COPD followed by Dr. Francois, chronic hypoxemic respiratory failure on 3L home O2 at baseline, HLD, m ultiple pulmonary nodules, left lung mass, multiple mediastinal lymph nodes (never diagnosed as cancer per patient) following with [facility] and Dr. Condon treated with right sided radiation who presents to the ED for evaluation of fall at home with unknown down time. Pt will be admitted to the hospital for treatment and further evaluation of acute pneumonia with sepsis as well as possible seizure activity in the setting of VICKY antibiotic use. Sepsis due to community-acquired Pneumonia No fevers, shortness of breath improved Chest CT with evidence of probable acute right lower lobe bronchopneumonia sepsis resolved, on admission had Hypothermia, tachypnea, leukocytosis, and initial lactic acid 8.7 WBC normalized , lactic acidosis improved to 2.3 , hypothermia and tachypnea resolved Blood cultures x2 negative On IV Zosyn, started 05/20/2023, continue IV antibiotic today and if remains stable overnight will transition to by mouth Augmentin for total 10 days Acute on chronic hypoxic respiratory failure due to Acute on chronic COPD exacerbation in the setting of pneumonia and severe right ventricular dysfunction Shortness of breath significantly improved status post BiPAP , oxygenation 91% on 6 L nasal cannula Continue updrafts,, IV Solu-Medrol, Titrate supplemental Echo showed EF 55-60% no wall motion abnormality, severely increased right ventricular cavity size moderate to severely decreased right ventricular systolic function and severe pulmonary hypertension CTA chest showed no PE ,showed advanced emphysema Wean O2 as tolerated on 3-4 L of home oxygen Will DC Mucomyst inhaler b.i.d. Continue chest PT with acapella/aerobika 4 times a day Repeat ABG showed compensated hypercarbia, chest x-ray unchanged Seen by pulmonology placed on BiPAP at nighttime. Encourage out of bed to chair, will gradually transitioned to by mouth antibiotics and steroids Syncope/ Fall Question etiology Likely due to Due to generalized weakness, right-sided heart failure with decreased cardiac output Seen by Neurology they recommended MRI study with and without contrast to rule out malignancy that can be done as outpatient EEG showed no seizure-like activity but showed intermittent bilateral posterior quadrant slowing consistent with posterior quadrant dysfunction or structural abnormalities. Acute Non-anion gap metabolic acidosis Noted to have severe lactic acidosis,Initial lactic acid 8.7 with repeats 6.9 ,5.6, down to 2.3, responded to IV fluids Likely due to right-sided heart failure, dehydration/fall and albuterol use, VICKY infection Spoke with web designer Dr. Templeton will hold treatment for VICKY . Elevated troponins and BNP Initial troponin 350.0 with repeat 1488.9, repeat troponin trending down, no chest pain, EKG showed no ischemia Echocardiogram showed severe dilated right ventricle , decreased right ventricular systolic function and severe pulmonary hypertension. EF 55-60%, no regional wall motion abnormality. CTA chest showed no PE No acute coronary syndrome, elevated trop due to fall with muscle injury and right-sided heart failure Cardiology discussed echo findings with patient and informed about poor prognosis recommend to continue oxygen therapy and no smoking. cardio recommend to avoid beta-blockers Cardizem and verapamil Tobacco use disorder counseling done patient declined nicotine replacement treatment. Hyperkalemia resolved Patient's potassium 5.7 at time of presentation, treated with Lokelma potassium normalized Follow BMP Traumatic rhabdomyolysis/ Elevated CPK CPK 1222 at time of presentation bumped to 2383,Likely secondary fall at home and or seizure activity CPK improved to 912 Severe protein calorie malnutrition Secondary to reduced p.o. intake, continue supplement with Ensure t.i.d. Full Code DVT Prophylaxis: Therapeutic Lovenox Disposition will obtain PT eval for possible pulmonary rehab Pt will require continued inpatient hospitalization for treatment of?pneumonia with sepsis, on IV antibiotic needs close monitoring of cardiac and pulmonary status. Quality Stroke Does the patient have a stroke diagnosis?: No VTE Prior VTE?: No VTE Risk Level:: Medical - moderate - high VTE Device Contraindication: Treatment Not Indicated VTE Drug Contraindication: N/A - Med Ordered
[2023-05-24] MEDS: Fluticasone/Umeclidinium/Vilanterol 100/62.5/25 BLST.W.DEV 1 PUFF INHALE (19:39)
[2023-05-24] MEDS: Aspirin Enteric Coated 81 MG TABLET.DR PO (20:35)
[2023-05-24] MEDS: traMADoL HCL 50 MG TABLET PO (20:35)
[2023-05-24] MEDS: guaiFENesin LA 600 MG TAB.ER.12H PO (20:35)
[2023-05-25] VITALS (10 sets, daily range): BP systolic 102–116; BP diastolic 70–83; PULSE 90–116; RESP 16–20; TEMP 36.2–36.4; O2SAT 88–97
[2023-05-25] MEDS: Piperacillin Sodium/Tazobactam 3.375 GM in 0.9 % Sodium Chloride 50 ML IV ×4 (03:45→21:28)
[2023-05-25 06:29] LABS: Anion Gap 12 (12-20); Blood Urea Nitrogen 18 mg/dL (9-16); Calcium 8.8 mg/dL (8.4-10.2); Carbon Dioxide 28 mmol/L (22-29); Chloride 104 mmol/L (96-108); Creatinine Clr Calc Pharmacy 82.1; Estimated Glomerular Filt Rate > 60; Glucose Random 141 mg/dL (60-115); Potassium 4.2 mmol/L (3.3-5.1); Sodium 140 mmol/L (135-145)
[2023-05-25] MEDS: Fluticasone/Umeclidinium/Vilanterol 100/62.5/25 BLST.W.DEV 1 PUFF INHALE (08:56)
[2023-05-25] MEDS: levalbuterol HCL 1.25 MG/3 ML VIAL.NEB INHALE ×4 (08:56→19:50)
[2023-05-25] MEDS: methylPREDNISolone Sod Succ 40 MG/ML VIAL IVPUSH (09:15)
--- NOTE | 2023-05-25 09:15 | PM.PNPUL ---
Subjective Subjective Date of Service: 05/25/23 Principal diagnosis: Cor pulmonale Interval history: The patient was seen on exam. He is still having difficulty with breathing. He has evidence of chronic hypercarbic and hypoxic respiratory failure. Therefore, he does carry a very high risk of read hospitalizations and a poor prognosis. He does benefit from a noninvasive ventilator at nighttime to help him with his gas exchange, decreased his hospitalizations and improve his motility. RUN: 05/25/23921 PAGE 1 [facility] [address] [place] [id number] Educational Technologist: Edenilson Keenan M.D. Specimen Inquiry Name: Edenilson Nguyen Age/Sex: 58/M : 1965 Unit#: [id number] Attend Dr: Paris Silver Re05/19/23 Status: ADM IN Location: [place] [address] Disch: SPEC : [id number] NILO: 05/23/23 STATUS: COMP REQ : [id number] RECD: 05/23/[address]: Aide Howard MD COMP: 05/23/23 ENTERED: 05/23/[address]: John Jurado [facility] ORDERED: VBGS - POC Test Result Flag Reference VBG pH 7.38 7.32-7.43 METER #: [id number] additional_comment: Cb crosbyt VBG pCO2 57 mmHg METER #: [id number] additional_comment: Cb crosbyt VBG pO2 36 mmHg METER #: [id number] additional_comment: Cb crosbyt VBG BE 7.4 mmol/L METER #: [id number] additional_comment: Cb crosbyt VBG HCO3- 34 H 22-26 mmol/L METER #: [id number] additional_comment: Cb crosbyt VBG O2 % Sat 53.0 % METER #: [id number] additional_comment: Edwin snowbyt END OF REPORT Objective Data Labs 05/21/23 07:29 05/25/23 05:58 Labs: Laboratory Results - last 24 hr 05/25/23 05:58 Hold Purple Top SEE NOTE Sodium 140 Potassium 4.2 Chloride 104 Carbon Dioxide 28 Anion Gap 12 BUN 18 H Creatinine 0.67 Estim Creat Clear Calc 82.1 Estimated GFR > 60 Random Glucose 141 H Calcium 8.8 Microbiology Microbiology Results: Microbiology 05/19/23 20:28 Blood - Venous Blood Culture - Final No growth after 5 days. 05/19/23 17:29 Blood - Venous Blood Culture - Final No growth after 5 days. Review of Systems Constitutional: Reports anorexia, Denies body ache(s), Denies chills, Reports fatigue and Denies fever(s) Cardiovascular: Denies chest pain, Reports palpitations and Reports dyspnea Respiratory: Reports dyspnea and Reports wheezing Gastrointestinal: Denies abdominal pain, Denies nausea and Denies vomiting Musculoskeletal: Denies back pain Skin/Breast: Reports wounds (Left forearm) Endocrine: Reports fatigue and Reports palpitations Allergic/Immunologic: Reports wheezing Physical Exam Vital Signs: Vital Signs: Last Vital Signs Temp 97.5 F 05/25/23 07:19 Pulse 100 05/25/23 08:58 Resp 18 05/25/23 08:58 BP 116/80 05/25/23 07:19 Pulse Ox 97 05/25/23 07:19 O2 Del Method Room Air 05/25/23 07:19 O2 Flow Rate 8 05/25/23 07:19 FiO2 35 05/25/23 03:24 Oxygen Flow Rate 15 05/19/23 16:34 BMI result Body Mass Index 15.5 Const: General: comfortable, alert and tired appearing Nutritional Appearance: thin HEENT: Head: Yes atraumatic Eyes: General: appearance normal, both eyes and all related structures Sclerae: sclerae normal EOM: EOMs intact bilaterally Neck: Neck: Yes supple Lymphatic: no lymphadenopathy noted Chest: Chest palpation & inspection: normal inspection of the chest Resp: Other: on BIPAP Auscultation: diminished lung sounds Cardio: Rate: regular rate Rhythm: regular rhythm GI: Palpation (GI): Soft to palpation Skin: General skin exam: no rashes or lesions noted Extrem: General: No clubbing, No cyanosis and No edema Procedures Date of Service Date of Service: 05/25/23 Assessment and Plan Assessment and plan (1) Pneumonia: Status: Acute (2) COPD (chronic obstructive pulmonary disease): Status: Acute (3) Cor pulmonale: Status: Acute (4) VICKY (mycobacterium avium-intracellulare): Status: Acute Plan Continue abx coverage x 10 days CPT with acapella/aerobika 4 times a day Holding VICKY therapy oxygen to keep pox>90% diuresis as tolerated tobacco cessation start noninvasive ventilator to treat his chronic hypercarbic respiratory failure due to his advanced COPD. He does carry a high risk for he hospitalizations and also carries a very poor prognosis. The noninvasive ventilator will help him with his gas exchange, decreased hospitalizations and improve prognosis. Will work with his local [employer] company to get him on an astral noninvasive ventilator at this time. Time Spent With Patient Time: Total time managing care of this patient today ____ minutes. Progress Note: Quality Stroke Does the patient have a stroke diagnosis?: No
[2023-05-25] MEDS: guaiFENesin LA 600 MG TAB.ER.12H PO ×2 (09:16→21:27)
--- NOTE | 2023-05-25 12:58 | P.PNIM_ITS ---
Subjective Subjective Date of Service: 05/25/23 Interval History: seen and examined this morning follow up for respiratory failure denies any sob at rest, but sob with exertion and desaturates with eating, talking and ambulation used bipap for part of the night but found it hard to sleep Review of Systems Review of Systems: Yes all other systems are reviewed and are negative Constitutional Constitutional: Denies chills and Denies fever(s) Cardiovascular Cardiovascular: Denies chest pain, Denies palpitations and Reports dyspnea on exertion Respiratory Respiratory: Denies cough and Reports dyspnea on exertion Endocrine Endocrine: Denies palpitations Physical Exam 2 Vital Signs: Vital Signs: Last Vital Signs Temp 97.6 F 05/25/23 11:30 Pulse 103 H 05/25/23 11:55 Resp 18 05/25/23 11:55 BP 102/70 05/25/23 11:30 Pulse Ox 93 05/25/23 11:30 O2 Del Method Room Air 05/25/23 11:30 O2 Flow Rate 8 05/25/23 11:30 FiO2 35 05/25/23 03:24 Oxygen Flow Rate 15 05/19/23 16:34 BMI result Body Mass Index 15.5 Const: Other: thin, chronically ill appearing General: comfortable, no acute distress, alert and awake O rientation/consciousness: patient oriented x3 Resp: Other: diminished breath sounds, no wheezing Effort & Inspection: normal respiratory effort, able to speak in complete sentences, no respiratory distress and no use of accessory muscles Cardio: Rate: regular rate GI: Inspection: No distended Palpation (GI): Soft to palpation and nontender Skin: Other: skin tear left arm wrapped in c/d/i bandage; abrasions left knee without surrounding erythema or swelling Neuro: General: patient oriented x3, moves all extremities and CN's II-XI intact bilaterally Extrem: General: Yes no pedal edema Objective Data Active Medications Acetaminophen (Acetaminophen 325 Mg Tablet) 650 mg PO Q6H PRN PRN Reason: Pain, Mild (Pain Scale 1-3) Albuterol/Ipratropium (Albuterol/Iprat 2.5/0.5mg 3 Ml Ampul.Neb) 3 ml INHALE Q4H PRN PRN Reason: Wheezing Aspirin (Aspirin Enteric Coated 81 Mg Tablet.) 81 mg PO BEDTIME [facility] Last Admin: 05/24/23 20:35 Dose: 81 mg Documented By: GHANSHYAM Enoxaparin Sodium (Enoxaparin Sodium 40 Mg/0.4 Ml Syringe) 40 mg SUBCUT Q24H [facility] Last Admin: 05/24/23 22:00 Dose: Not Given Documented By: GHANSHYAM Non-Admin Reason: Patient Refused Fluticasone/Umeclidinium/Vilanterol (Fluticasone/Umeclidinium/Vilanterol 100/62.5/25 Blst.W.Dev) 1 puff INHALE RDAILY@2000 [facility] Last Admin: 05/25/23 08:56 Dose: 1 puff Documented By: MISSAEL Guaifenesin (Guaifenesin La 600 Mg Tab.Er.12h) 600 mg PO BID [facility] Last Admin: 05/25/23 09:16 Dose: 600 mg Documented By: ZHENG Piperacillin Sod/Tazobactam (Sod 3.375 gm/ Sodium Chloride) 50 mls @ 100 mls/hr IV Q6H [facility] Last Infusion: 05/25/23 10:49 Dose: Infused Documented By: ZHENG Levalbuterol HCl (Levalbuterol Hcl 1.25 Mg/3 Ml Vial.Neb) 1.25 mg INHALE RQID [facility] Last Admin: 05/25/23 11:55 Dose: 1.25 mg Documented By: PRECIOUS Levalbuterol HCl (Levalbuterol Hcl 1.25 Mg/3 Ml Vial.Neb) 1.25 mg INHALE RQ4H PRN PRN Reason: shornness of breath or wheezin Melatonin (Melatonin 3 Mg Tablet) 6 mg PO BEDTIME PRN PRN Reason: Insomnia Methylprednisolone Sodium Succinate (Methylprednisolone Sod Succ 40 Mg/Ml Vial) 40 mg IVPUSH Q12H [facility] Last Admin: 05/25/23 09:15 Dose: 40 mg Documented By: ZHENG Ondansetron HCl (Ondansetron Hcl 4 Mg/2 Ml Vial) 4 mg IVPUSH Q8H PRN PRN Reason: Nausea and Vomiting Tramadol HCl (Tramadol Hcl 50 Mg Tablet) 50 mg PO Q12H PRN PRN Reason: Pain, Severe (Pain Scale 7-10) Last Admin: 05/24/23 20:35 Dose: 50 mg Documented By: GHANSHYAM Labs 05/21/23 07:29 05/25/23 05:58 Labs: Laboratory Results - last 24 hr 05/25/23 05:58 Hold Purple Top SEE NOTE Anion Gap 12 Estim Creat Clear Calc 82.1 Estimated GFR > 60 Random Glucose 141 H Calcium 8.8 Microbiology Microbiology Results: Microbiology 05/19/23 20:28 Blood Culture - Final Blood - Venous No growth after 5 days. 05/19/23 17:29 Blood Culture - Final Blood - Venous No growth after 5 days. Assessment and Plan (1) Acute on chronic respiratory failure with hypoxia and hypercapnia: Status: Acute (2) Cor pulmonale: Status: Acute (3) VICKY (mycobacterium avium-intracellulare): Status: Acute Plan This is a 58-year-old male with history of advanced COPD followed by Dr. Francois, chronic hypoxemic respiratory failure on 3L home O2, HLD, multiple pulmonary nodules, left lung mass, multiple mediastinal lymph nodes (never diagnosed as cancer per patient) following with [facility] and Dr. Condon treated with right sided radiation who presents to the ED for evaluation of fall at home with unknown down time admitted for acute pneumonia with sepsis as well as possible seizure activity in the setting of VICKY antibiotic use. Sepsis due to community-acquired Pneumonia No fevers, shortness of breath improved Chest CT with evidence of probable acute right lower lobe bronchopneumonia sepsis resolved, on admission had hypothermia, tachypnea, leukocytosis, and initial lactic acid 8.7 WBC normalized, lactic acidosis improved, hypothermia and tachypnea resolved Blood cultures x2 negative On IV Zosyn, started 05/20/2023, will transition to by mouth Augmentin for total 10 days Acute on chronic hypoxic respiratory failure due to Acute on chronic COPD exacerbation in the setting of pneumonia and severe right ventricular dysfunction Shortness of breath significantly improved status post BiPAP, still requiring 8- 9L NC Echo showed EF 55-60% no wall motion abnormality, severely increased right ventricular cavity size moderate to severely decreased right ventricular systolic function and severe pulmonary hypertension CTA chest showed no PE,showed advanced emphysema Wean O2 as tolerated on 3-4 L of home oxygen Mucomyst inhaler d/c Continue chest PT with acapella/aerobika 4 times a day Repeat ABG showed compensated hypercarbia, chest x-ray unchanged Seen by pulmonology placed on BiPAP at nighttime. Encourage out of bed to chair, will gradually transitioned to by mouth antibiotics and steroids duonebs d/c due to precipitating episodes of SVT Syncope/ Fall Question etiology Likely due to Due to generalized weakness, right-sided heart failure with decreased cardiac output Seen by Neurology they recommended MRI study with and without contrast to rule out malignancy - can be done as outpatient EEG showed no seizure-like activity but showed intermittent bilateral posterior quadrant slowing consistent with posterior quadrant dysfunction or structural abnormalities. Acute Non-anion gap metabolic acidosis Noted to have severe lactic acidosis,Initial lactic acid 8.7 with repeats 6.9 ,5.6, down to 2.3, responded to IV fluids Likely due to right-sided heart failure, dehydration/fall and albuterol use, VICKY infection Spoke with dye machine tender Dr. Templeton will hold treatment for VICKY for now Elevated troponins and BNP Initial troponin 350.0 with repeat 1488.9, repeat troponin trending down, no chest pain, EKG showed no ischemia Echocardiogram showed severe dilated right ventricle, decreased right ventricular systolic function and severe pulmonary hypertension. EF 55-60%, no regional wall motion abnormality. CTA chest showed no PE No acute coronary syndrome, elevated trop due to fall with muscle injury and right-sided heart failure Cardiology discussed echo findings with patient and informed about poor prognosis recommend to continue oxygen therapy and no smoking. cardio recommend to avoid beta-blockers Cardizem and verapamil Tobacco use disorder counseling done; declined nicotine replacement treatment. Hyperkalemia resolved Patient's potassium 5.7 at time of presentation, treated with Lokelma potassium normalized Follow BMP Traumatic rhabdomyolysis/ Elevated CPK CPK 1222 at time of presentation bumped to 2383,Likely secondary fall at home and or seizure activity CPK improved to 912 Severe protein calorie malnutrition Secondary to reduced p.o. intake, continue supplement with Ensure t.i.d. Full Code DVT Prophylaxis: Therapeutic Lovenox Disposition: seen by PT - rec pulmonary rehab Pt will require continued inpatient hospitalization for treatment of?pneumonia, close monitoring of cardiac and pulmonary status. Quality Stroke Does the patient have a stroke diagnosis?: No VTE Prior VTE?: No VTE Risk Level:: Medical - moderate - high VTE Device Contraindication: Treatment Not Indicated VTE Drug Contraindication: N/A - Med Ordered
--- NOTE | 2023-05-25 13:55 | MHC.CM.PN ---
CM met with Patient and his at bedside to discuss PT's recommendation for Inpatient Pulmonary Rehab. Patient prefers to go home but is agreeable for CM to ask [facility] to initiate HNE auth, in case Patient changes his mind.CM will follow.
[2023-05-25] MEDS: Aspirin Enteric Coated 81 MG TABLET.DR PO (21:27)
[2023-05-25] MEDS: traMADoL HCL 50 MG TABLET PO (21:32)
[2023-05-26] VITALS (13 sets, daily range): BP systolic 102–119; BP diastolic 67–79; PULSE 91–128; RESP 16–24; TEMP 36.1–37; O2SAT 86–96
[2023-05-26] MEDS: Amoxicillin/Potassium Clav 875 MG TABLET PO ×2 (06:41→17:21)
[2023-05-26] MEDS: levalbuterol HCL 1.25 MG/3 ML VIAL.NEB INHALE ×4 (08:08→19:42)
[2023-05-26] MEDS: guaiFENesin LA 600 MG TAB.ER.12H PO ×2 (09:21→20:19)
[2023-05-26] MEDS: methylPREDNISolone Sod Succ 40 MG/ML VIAL IVPUSH (09:21)
--- NOTE | 2023-05-26 09:44 | MHC.CLN ---
F/U DIET=REGULAR. ENSURE TID PROVIDES ADDITIONAL 1050 KCALS, 60 G PROTEIN. INTAKE AT MEALS VARIABLE, 0-100%. PROVIDER NOTED PT DESATURATES WITH EATING. NUTRITION DX SEVERE MALNUTRITION. CONTINUE CURRENT DIET AND SUPPLEMENT. MONITOR FOR INTAKE AND WEIGHT.
--- NOTE | 2023-05-26 09:56 | P.PNPL_ITS ---
Subjective Subjective Date of Service: 05/26/23 Principal diagnosis: Cor pulmonale Interval history: The patient was seen on exam. Use the BiPAP at nighttime. Oxygen needs have improved. Objective Data Labs 05/21/23 07:29 05/25/23 05:58 Microbiology Microbiology Results: Microbiology 05/19/23 20:28 Blood - Venous Blood Culture - Final No growth after 5 days. 05/19/23 17:29 Blood - Venous Blood Culture - Final No growth after 5 days. Review of Systems Constitutional: Reports anorexia, Denies body ache(s), Denies chills, Reports fatigue and Denies fever(s) Cardiovascular: Denies chest pain, Reports palpitations and Reports dyspnea Respiratory: Reports dyspnea and Reports wheezing Gastrointestinal: Denies abdominal pain, Denies nausea and Denies vomiting Musculoskeletal: Denies back pain Skin/Breast: Reports wounds (Left forearm) Endocrine: Reports fatigue and Reports palpitations Allergic/Immunologic: Reports wheezing Physical Exam 2 Vital Signs: Vital Signs: Last Vital Signs Temp 98.6 F 05/26/23 07:08 Pulse 99 05/26/23 08:09 Resp 18 05/26/23 08:09 BP 119/71 05/26/23 07:08 Pulse Ox 96 05/26/23 07:08 O2 Del Method Oxymask 05/26/23 07:08 O2 Flow Rate 3 05/26/23 07:08 FiO2 35 05/25/23 03:24 Oxygen Flow Rate 15 05/19/23 16:34 BMI result Body Mass Index 15.5 Const: General: comfortable, alert and tired appearing Nutritional Appearance: thin HEENT: Head: Yes atraumatic Eyes: General: appearance normal, both eyes and all related structures S clerae: sclerae normal EOM: EOMs intact bilaterally Neck: Neck: Yes supple Lymphatic: no lymphadenopathy noted Chest: Chest palpation & inspection: normal inspection of the chest Resp: Other: on BIPAP Auscultation: diminished lung sounds Cardio: Rate: regular rate Rhythm: regular rhythm GI: Palpation (GI): Soft to palpation Skin: General skin exam: no rashes or lesions noted Extrem: General: No clubbing, No cyanosis and No edema Procedures Date of Service Date of Service: 05/26/23 Assessment and Plan Assessment and plan (1) Pneumonia: Status: Acute (2) COPD (chronic obstructive pulmonary disease): Status: Acute (3) Cor pulmonale: Status: Acute (4) VICKY (mycobacterium avium-intracellulare): Status: Acute Plan Continue abx coverage x 10 days CPT with acapella/aerobika 4 times a day Holding VICKY therapy oxygen to keep pox>90% diuresis as tolerated tobacco cessation [employer] will be setting up NIV/Astral at home ok to go home with SVC. Will be Following up with Pulmonary next week Time Spent With Patient Time: Total time managing care of this patient today ____ minutes. Progress Note: Quality Stroke Does the patient have a stroke diagnosis?: No
--- NOTE | 2023-05-26 10:01 | P.PNPL_ITS ---
Subjective Subjective Date of Service: 05/26/23 Principal diagnosis: Cor pulmonale Interval history: The patient was seen on exam. Oxygen requirements have decreased. He did use the BiPAP last night. Wants to go home. Objective Data Labs 05/21/23 07:29 05/25/23 05:58 Microbiology Microbiology Results: Microbiology 05/19/23 20:28 Blood - Venous Blood Culture - Final No growth after 5 days. 05/19/23 17:29 Blood - Venous Blood Culture - Final No growth after 5 days. Review of Systems Constitutional: Reports anorexia, Denies body ache(s), Denies chills, Reports fatigue and Denies fever(s) Cardiovascular: Denies chest pain, Reports palpitations and Reports dyspnea Respiratory: Reports dyspnea and Reports wheezing Gastrointestinal: Denies abdominal pain, Denies nausea and Denies vomiting Musculoskeletal: Denies back pain Skin/Breast: Reports wounds (Left forearm) Endocrine: Reports fatigue and Reports palpitations Allergic/Immunologic: Reports wheezing Physical Exam 2 Vital Signs: Vital Signs: Last Vital Signs Temp 98.6 F 05/26/23 07:08 Pulse 99 05/26/23 08:09 Resp 18 05/26/23 08:09 BP 119/71 05/26/23 07:08 Pulse Ox 96 05/26/23 07:08 O2 Del Method Oxymask 05/26/23 07:08 O2 Flow Rate 3 05/26/23 07:08 FiO2 35 05/25/23 03:24 Oxygen Flow Rate 15 05/19/23 16:34 BMI result Body Mass Index 15.5 Const: General: comfortable, alert and tired appearing Nutritional Appearance: thin HEENT: Head: Yes atraumatic Eyes: General: appearance normal, both eyes and all related structures S clerae: sclerae normal EOM: EOMs intact bilaterally Neck: Neck: Yes supple Lymphatic: no lymphadenopathy noted Chest: Chest palpation & inspection: normal inspection of the chest Resp: Auscultation: diminished lung sounds Cardio: Rate: regular rate Rhythm: regular rhythm GI: Palpation (GI): Soft to palpation Skin: General skin exam: no rashes or lesions noted Extrem: General: No clubbing, No cyanosis and No edema Procedures Date of Service Date of Service: 05/26/23 Assessment and Plan Assessment and plan (1) Pneumonia: Status: Acute (2) COPD (chronic obstructive pulmonary disease): Status: Acute (3) Cor pulmonale: Status: Acute (4) VICKY (mycobacterium avium-intracellulare): Status: Acute Plan Continue abx coverage x 10 days CPT with acapella/aerobika 4 times a day Holding VICKY therapy oxygen to keep pox>90% diuresis as tolerated tobacco cessation [employer] will be setting up NIV/Astral at home ok to go home with SVC. Will be Following up with Pulmonary next week Time Spent With Patient Time: Total time managing care of this patient today ____ minutes. Progress Note: Quality Stroke Does the patient have a stroke diagnosis?: No
--- NOTE | 2023-05-26 11:36 | MHC.CM.PN ---
[facility] has accepted Patient and they have obtained [employer] auth but per Lining Cementer, Patient can go home with services. There are only 6 VNAs in this area that have a contract with Patient's insurance ([employer]) and none of them have accepted Patient. CM has made PA aware. CM will follow.
--- NOTE | 2023-05-26 11:58 | PC.RT ---
RT ambulated with patient in room from bed to bathroom and back, approximately 22 feet. Pt spo2 on 6 lpm cherry cannula 89% pre exertion. Pt desat to 81% post requiring 10 min recovery to 88%. RN aware, SW aware, SMOKE ROOM OPERATOR aware.
--- NOTE | 2023-05-26 12:29 | MHC.CM.PN ---
CM has informed [facility] that Patient has no accepting VNA. CM will follow.
--- NOTE | 2023-05-26 13:22 | PM.DS ---
DS: Providers Provider Date of Service: 05/26/23 Date of admission: 05/19/23 21:48 Date of discharge: 05/26/23 Primary care physician: LISA Ricks Consults: 05/19/23 21:52 Consult to Neurology Routine Consulting Provider: [facility] Reason for consultation: seizure Consult to Pulmonology Routine Consulting Provider: [facility] Reason for consultation: MAC, PNA 05/19/23 23:18 Consult to Cardiology Routine Consulting Provider: [facility] Reason for consultation: elevated troponin Has provider been notified: Yes 05/20/23 18:57 Consult to Wound Care Routine Reason for consultation: 2 skin tears to DELFINO 05/21/23 11:41 Consult to Pulmonology Routine Consulting Provider: Romero Templeton Reason for consultation: pneumonia Attending physician on discharge: Atif Velasquez Discharging clinician: Paris Silver DS: Diagnosis Discharge Diagnosis (1) Pneumonia: Status: Acute (2) COPD (chronic obstructive pulmonary disease): Status: Acute (3) Cor pulmonale: Status: Acute (4) VICKY (mycobacterium avium-intracellulare): Status: Acute DS: Summary Hospital Course Hospital Course: From H&P on the day of admission Pt is a 58-year-old male with a PMH significant for??advanced COPD followed by Dr. Francois, chronic hypoxemic respiratory failure on 3L home O2 at baseline, HLD, multiple pulmonary nodules, left lung mass, multiple mediastinal lymph nodes (never diagnosed as cancer per patient) following with [facility] and Dr. Condon treated with right sided radiation who presents to the ED for evaluation of fall at home with unknown downtime. Patient was found on the floor fallen out of bed by his at 14:00 this afternoon when she came home from lunch. Patient does not remember events surrounding fall, but states that it occurred sometime between 09:00 and 14:00. Unclear whether this was a seizure or. Seizure-like activity patient denies any loss of bowel or bladder function. No tongue bite. Patient reports he has had significant increase in SOB and overall general weakness with exertion, especially walking, the past 2 weeks. Reports has also had loss of appetite and been drinking less than normal during this time. Of note, patient developed a mycobacterium avium complex infection last year and started on triple antibiotic therapy on 06/06/2022 which was then stopped due to the pt having seizures or seizure-like activity. Was then started on azithromycin 500 mg daily. However, in April of this year bronchoscopic examination and bronchial washings again tested positive for VICKY infection and patient was started on rifampin 150 mg daily. Patient reports today's episode was his first one since restarting rifampin. Reports chronic cough around baseline. Denies chest pain/pressure, palpitations. Reports chronic chills, but denies fever. In the ED pt was tachypneic up to 25. Labs were significant for leukocytosis of 21.7. Potassium 5.7, bicarb 16, creatinine 1.15 (baseline around 0.70), initial lactic acid 8.7 with repeat 6.9, AST 99, ALT 53, alk-phos 171, CPK 1222, initial troponin 350.0, BNP elevated at 995. Head CT negative for acute intracranial pathology. CT of cervical spine negative for acute osseous abnormality. CT of chest showed severe bolus emphysema with probable acute right lower lobe bronchopneumonia, otherwise stable pulmonary findings. EKG demonstrated sinus rhythm with PSVCs with pulmonary disease pattern with nonspecific T-wave abnormalities. Pt was treated with Lokelma, IVF, DuoNebs, and Solu-Medrol. Pt will be admitted to the hospital for treatment and further evaluation of acute pneumonia with sepsis as well as possible seizure activity in the setting of VICKY antibiotic use. Hospital course by problem: Sepsis due to community-acquired Pneumonia Chest CT with evidence of probable acute right lower lobe bronchopneumonia. sepsis resolved, on admission had hypothermia, tachypnea, leukocytosis, and initial lactic acid 8.7. WBC normalized, lactic acidosis improved, hypothermia and tachypnea resolved. Blood cultures have remained negative. Initially treated with IV Zosyn, started 05/20/2023, will transition to by mouth Augmentin for total 10 days, end date 05/29 Acute on chronic hypoxic respiratory failure due to Acute on chronic COPD exacerbation in the setting of pneumonia and severe right ventricular dysfunction Echo showed EF 55-60% no wall motion abnormality, severely increased right ventricular cavity size moderate to severely decreased right ventricular systolic function and severe pulmonary hypertension. CTA chest showed no PE,showed advanced emphysema.Repeat ABG showed compensated hypercarbia, chest x-ray unchanged. Treated with chest PT with acapella/aerobika 4 times a day, antibiotics as above and steroids. Seen by pulmonology placed on BiPAP at nighttime, will continue NIV at bedtime according to orders from Dr. Templeton. duonebs were d/c due to precipitating episodes of SVT. Seen by cardiology, clinically did not appear to be significantly fluid overloaded. Prognosis is limited given his significantly advanced COPD as well as RV dysfunction. No specific treatment available for the same. Seen by PT who recommended inpatient pulmonary rehab due to persistently elevated oxygen requirements as well as dyspnea on exertion, and hypoxia with ambulation. Patient is agreeable and will be discharged to [place] pulmonary rehab. Syncope/ Fall Question etiology Likely due to Due to generalized weakness, right-sided heart failure with decreased cardiac output. Seen by Neurology they recommended MRI study with and without contrast to rule out malignancy - can be done as outpatient. EEG showed no seizure-like activity but showed intermittent bilateral posterior quadrant slowing consistent with posterior quadrant dysfunction or structural abnormalities. Acute Non-anion gap metabolic acidosis Noted to have severe lactic acidosis,Initial lactic acid 8.7 with repeats 6.9 ,5.6, down to 2.3, responded to IV fluids. Likely due to right-sided heart failure, dehydration/fall and albuterol use VICKY infection Spoke with grants officer Dr. Templeton will hold treatment for VICKY for now. Recommend outpatient follow-up with patient's primary grants officer, Dr. Francois in the next 1-2 weeks. Elevated troponins and BNP Initial troponin 350.0 with repeat 1488.9, repeat troponin trending down, no chest pain, EKG showed no ischemia. Echocardiogram showed severe dilated right ventricle, decreased right ventricular systolic function and severe pulmonary hypertension. EF 55-60%. CTA chest showed no PE. No acute coronary syndrome, elevated trop due to fall with muscle injury and right-sided heart failure Cardiology discussed echo findings with patient and informed about poor prognosis recommend to continue oxygen therapy and no smoking. cardiology recommend to avoid beta-blockers Cardizem and verapamil Tobacco use disorder counseling done; declined nicotine replacement treatment. Hyperkalemia resolved Patient's potassium 5.7 at time of presentation, treated with Lokelma potassium normalized Traumatic rhabdomyolysis/ Elevated CPK CPK 1222 at time of presentation bumped to 2383,Likely secondary fall at home and or seizure activity CPK improved to 912 Severe protein calorie malnutrition Secondary to reduced p.o. intake, continue supplement with Ensure t.i.d. Time Attestation Total time managing care of this patient today: 40 mintues. Discharge coordination time: Greater than 30 minutes Quality: Safe Use of Opioids Does Pt have an Active Cancer Diagnosis on the Problem List?: No Quality: Stroke Does the patient have a stroke diagnosis?: No Physical Exam Vital Signs: Vital Signs: Last Vital Signs Temp 97.9 F 05/26/23 11:45 Pulse 108 H 05/26/23 11:45 Resp 16 05/26/23 11:45 BP 109/75 05/26/23 11:45 Pulse Ox 92 05/26/23 11:45 O2 Del Method Nasal Cannula 05/26/23 11:45 O2 Flow Rate 2 05/26/23 11:45 FiO2 35 05/25/23 03:24 Oxygen Flow Rate 15 05/19/23 16:34 BMI result Body Mass Index 15.5 Const: Other: thin, chronically ill appearing General: comfortable, no acute distress, alert and awake Orientation/consciousness: patient oriented x3 Resp: Other: diminished breath sounds, no wheezing Effort & Inspection: normal respiratory effort, able to speak in complete sentences, no respiratory distress and no use of accessory muscles Cardio: Rate: regular rate GI: Inspection: No distended Palpation (GI): Soft to palpation and nontender Skin: Other: skin tear left arm wrapped in c/d/i bandage; abrasions left knee without surrounding erythema or swelling Neuro: General: patient oriented x3, moves all extremities and CN's II-XI intact bilaterally Extrem: General: Yes no pedal edema Discharge Plan Discharge Anticipated Discharge Date/Time: 05/26/23 13:11 Patient Disposition: Xfer SNF Discharge Diagnosis: pneumonia copd exacerbation possible syncope VICKY Referrals: [facility] [Outside] - 1 Week John Jurado [employer] [Primary Care Provider] - 1 Week Discharge Medications: New amoxicillin-pot clavulanate 875-125 mg Tablet 1 tab PO Q12H 3 Days Qty: 6 0RF levalbuterol HCl 1.25 mg/3 mL Solution For Nebulization 1.25 mg inhalation RQ4H PRN (Reason: shornness of breath or wheezin) Qty: 72 0RF levalbuterol HCl 1.25 mg/3 mL Solution For Nebulization 1.25 mg inhalation RQID Qty: 72 0RF guaifenesin [Mucinex] 600 mg Tablet Extended Release 12hr 600 mg PO BID Qty: 20 0RF prednisone 20 mg tablet 40 mg PO DAILY Qty: 1 0RF Continued simvastatin 40 mg tablet 40 mg PO BEDTIME Qty: 90 1RF tramadol 50 mg tablet 50 mg PO BID PRN (Reason: pain) 30 Days Qty: 60 1RF Trelegy Ellipta 100-62.5-25 mcg blister with device 1 inh PO BEDTIME 30 Days Qty: 60 4RF aspirin 81 mg Tablet,Delayed Release (Dr/Ec) 81 mg PO BEDTIME Held ipratropium-albuterol 0.5 mg-3 mg(2.5 mg base)/3 mL solution for nebulization 3 ml inhalation Q6-8H PRN (Reason: wheezing) 30 Days Qty: 180 2RF Hold Instructions: stopped in hospital as it was causing episodes of SVT Discontinued azithromycin 250 mg tablet 500 mg PO DAILY@1500 30 Days Qty: 60 5RF Hold Instructions: Hold while on Levofloxacin. can restart in 1 week rifampin 150 mg capsule 150 mg PO DAILY 30 Days Qty: 30 3RF Discharge Orders: Discharge Order (Routine); Ordered 05/26/23 Ordered By: Paris Silver Activity on Discharge: As tolerated Stand Alone Forms: Patient Portal Discharge page Care Plan Goals: see below Health Concerns: acute on chronic respiratory failure Pneumonia right ventricular dysfunction metabolic acidosis VICKY rhabdomyolysis Plan of Treatment: For pneumonia Continue amoxicillin, end date of May 29 prednisone taper, starting at 40 mg and decreasing by 10 mg every 3 days call to schedule follow up with grants officer in the next 1-2 weeks duonebs caused episodes of SVT and were changed to xopenex breathing treatments due to possible syncope - recommend outpatient MRI of brain with and without contrast call to schedule follow up appointment with PCP hold off on VICKY treatment, rifampin and azithromycin until follow-up with pulmonology use NIV at nightime per Dr. Templeton's orders Assessment: see discharge summary
--- NOTE | 2023-05-26 13:30 | MHC.CM.PN ---
Per PA, Patient is agreeable to STR @ [place] [facility]. Patient will dc to [facility] today at 6PM, via [facility] transport. CM has informed Patient's /HCP/Leda @ [phone] of the dc plan.
[2023-05-26] MEDS: traMADoL HCL 50 MG TABLET PO (17:23)
--- NOTE | 2023-05-26 18:34 | PC.NURSE ---
Patient care assumed at approximately 0700. Patient remains alert, oriented, calm, and cooperative. Currently receiving oxygen therapy via a 5 L hudsonl cannula, with oxygen saturation levels hovering at goal between 88%-92%. Initially planned for discharge home; however, cancelled due to poor oxygen saturation levels despite the 6 L with ambulation during home O2 evaluation by RT. Oxygen requirement escalated to 15 L via the [place] to achieve optimal saturation levels, during which patient also became tachycardia (heart rate in the 120s). Physician Marketing Programs Specialist made aware who came to bedside and had a detailed discussion regarding the risks and benefits of transfer to a pulmonary rehabilitation facility, to which the patient consented. Scheduled transfer to [place] [facility] at 1800 by CM. At approximately 1815, patient's oxygen saturation dropped to 78%, accompanied by tachycardia in the 130s. Upon assessing the patient, he was adamantly refusing to transfer despite education on the patient-centered approach of pulmonary rehab. oxygen titrated up to 15L via huynh to recover. PA notified and decision made to cancel transfer for the night. PA will initiate conversation with patient and family regarding palliative care options. Patient made aware of no transfer tonight. Patient currently satting at goal on 8L. Safety maintained throughout.
[2023-05-26] MEDS: Aspirin Enteric Coated 81 MG TABLET.DR PO (20:19)
--- NOTE | 2023-05-26 21:26 | PC.RT ---
MDI not on floor, pharmacy called by RN
[2023-05-26] MEDS: Fluticasone/Umeclidinium/Vilanterol 100/62.5/25 BLST.W.DEV 1 PUFF INHALE (22:16)
--- NOTE | 2023-05-27 00:07 | PC.RT ---
pt refused-states he can not sleep with it on
[2023-05-27 03:21] VITALS: BP 111/77; PULSE 94; RESP 18; TEMP 36.1; O2SAT 99
[2023-05-27] MEDS: Amoxicillin/Potassium Clav 875 MG TABLET PO (05:42)
[2023-05-27 07:48] VITALS: BP 110/73; PULSE 92; RESP 20; TEMP 36.2; O2SAT 97
[2023-05-27 08:15] VITALS: PULSE 95; RESP 20; O2SAT 93
[2023-05-27] MEDS: levalbuterol HCL 1.25 MG/3 ML VIAL.NEB INHALE ×2 (08:15→11:22)
[2023-05-27] MEDS: guaiFENesin LA 600 MG TAB.ER.12H PO (10:15)
[2023-05-27 11:17] VITALS: BP 114/78; PULSE 111; RESP 20; TEMP 36; O2SAT 94
[2023-05-27] MEDS: predniSONE 20 MG TABLET 40 MG PO (11:33)
[2023-05-27 12:51] VITALS: PULSE 112; PULSE 116; PULSE 119; PULSE 124; O2SAT 84; O2SAT 87; O2SAT 88; O2SAT 89
== END 2023-05-27 14:32 | disposition home or self-care (01) | DRG 720 ==
LOC: HO.ED 22:26 → HO.EDOVER 05-20 04:14 → HO.IMC 05-20 14:29
PROVIDERS: Hospitalist; Physician Assistant; Student in an Organized Health Care Education/Training Program; Admitting Provider Student in an Organized Health Care Education/Training Program; Emergency Provider Internal Medicine; PCP Nurse Practitioner Family; Visit Provider Physician Assistant Medical
DX: A41.9 Sepsis, unspecified organism (principal); J96.21 Acute and chronic respiratory failure with hypoxia; E87.20 Acidosis, unspecified; E43 Unspecified severe protein-calorie malnutrition; J18.9 Pneumonia, unspecified organism; I27.29 Other secondary pulmonary hypertension; A31.0 Pulmonary mycobacterial infection; Z99.81 Dependence on supplemental oxygen; I47.10 Supraventricular tachycardia, unspecified; Z68.1 Body mass index [BMI] 19.9 or less, adult; J96.22 Acute and chronic respiratory failure with hypercapnia; I27.81 Cor pulmonale (chronic); F17.210 Nicotine dependence, cigarettes, uncomplicated; Z71.6 Tobacco abuse counseling; J44.0 Chronic obstructive pulmonary disease with (acute) lower respiratory infection; E87.5 Hyperkalemia; E78.5 Hyperlipidemia, unspecified; J44.1 Chronic obstructive pulmonary disease with (acute) exacerbation; T79.6XXA Traumatic ischemia of muscle, initial encounter; Z85.118 Personal history of other malignant neoplasm of bronchus and lung; Z92.3 Personal history of irradiation; Z90.2 Acquired absence of lung [part of]; Z20.822 Contact with and (suspected) exposure to COVID-19; Z79.82 Long term (current) use of aspirin; Z79.51 Long term (current) use of inhaled steroids; Z79.899 Other long term (current) drug therapy
CPT/HCPCS: 36415; 70450; 71045; 71250; 71275; 72125; 80048; 80053; 80061; 81001; 82550; 82803; 83605; 83690; 83735; 83880; 84484; 85025; 85027; 85610; 87040; 87502; 87633; 87635; 93005; 93306; 94640; 94660; 95816; 97162; 99285; J1956; J2270; J2543; J2920; J2930; J7120; Q9957; Q9967

== ENCOUNTER → 2023-05-19 17:19 | Outpatient (BNV) | payer OTHER, SELFPAY | PROVIDERS: Emergency Provider Internal Medicine; PCP Nurse Practitioner Family; Visit Provider Student in an Organized Health Care Education/Training Program | DX: J69.0 Pneumonitis due to inhalation of food and vomit (principal); J44.1 Chronic obstructive pulmonary disease with (acute) exacerbation; I27.81 Cor pulmonale (chronic); A31.0 Pulmonary mycobacterial infection; A41.9 Sepsis, unspecified organism | CPT/HCPCS: 99223; 99233; 99238 ==

== ENCOUNTER 2023-05-19 21:48 | Outpatient (BNV) | payer OTHER, SELFPAY | END 2023-05-20 12:00 | PROVIDERS: Admitting Provider Student in an Organized Health Care Education/Training Program; Emergency Provider Internal Medicine; PCP Nurse Practitioner Family; Visit Provider Internal Medicine Cardiovascular Disease | DX: I21.4 Non-ST elevation (NSTEMI) myocardial infarction (principal); I36.1 Nonrheumatic tricuspid (valve) insufficiency | CPT/HCPCS: 93010; 93306 ==

== ENCOUNTER → 2023-05-19 21:48 | Outpatient (BNV) | payer OTHER, SELFPAY | PROVIDERS: Admitting Provider Student in an Organized Health Care Education/Training Program; Emergency Provider Internal Medicine; PCP Nurse Practitioner Family; Visit Provider Internal Medicine Cardiovascular Disease | DX: I27.81 Cor pulmonale (chronic) (principal) | CPT/HCPCS: 93010; 99223; 99233 ==

== ENCOUNTER → 2023-05-19 21:48 | Outpatient (BNV) | payer OTHER, SELFPAY | PROVIDERS: Admitting Provider Student in an Organized Health Care Education/Training Program; Emergency Provider Internal Medicine; PCP Nurse Practitioner Family; Visit Provider Hospitalist | DX: J69.0 Pneumonitis due to inhalation of food and vomit (principal); J44.1 Chronic obstructive pulmonary disease with (acute) exacerbation; I27.81 Cor pulmonale (chronic); A31.0 Pulmonary mycobacterial infection | CPT/HCPCS: 99223; 99233 ==

== ENCOUNTER → 2023-05-19 21:48 | Outpatient (BNV) | payer OTHER, SELFPAY | PROVIDERS: Admitting Provider Student in an Organized Health Care Education/Training Program; Emergency Provider Internal Medicine; PCP Nurse Practitioner Family; Visit Provider Psychiatry & Neurology Neurology | DX: R55 Syncope and collapse (principal) | CPT/HCPCS: 99222 ==

== ENCOUNTER 2023-05-30 14:01 | Outpatient (AMB) | payer OTHER, SELFPAY ==
--- NOTE | 2023-05-30 14:06 | A.OFFVIS_ITS ---
Intake Vital Signs 05/30/23 14:08 Height 5 ft 10 in BP 102/70 Blood Pressure Location Lt brachial Position Sitting Pulse 113 H Pulse Source Pulse Oximeter Pulse Oximetry (%) 88 L Oxygen Delivery Method Nasal Cannula Oxygen Flow Rate 5 Intake Visit Reasons: COPD Intake Note: pt is here for follow up from , needs script for face mask, and a bubbler., and he is using a nasal canula while eating. [employer] is DME, he feels good, eating but this is all due to being off the antiobiotics, quit smoking [id number]!!!! Purchasing Administrative Assistant Required: No Allergies No Known Allergies [No Known Allergies*] Allergy (Verified 05/30/23 14:21) Medication List - Last Reconciled 05/30/23 by Vance Francois MD amoxicillin-pot clavulanate 875-125 mg 1 tab PO Q12H 3 days aspirin 81 mg PO BEDTIME zzcpqkqouda-ygsgoknin-jxecswzl 100-62.5-25 mcg (Trelegy Ellipta) 1 inh PO BEDTIME 30 days guaifenesin ER (Mucinex) 600 mg PO BID levalbuterol HCl 1.25 mg (3 mL) inhalation RQ4H PRN levalbuterol HCl 1.25 mg (3 mL) inhalation RQID prednisone See Taper mg PO DAILY simvastatin 40 mg PO BEDTIME tramadol 50 mg PO BID PRN 30 days Do you need a note to return to daycare/school/sports/work: No HPI COPD HPI Details MR. ULRICH WAS DISCHARGE FROM THE HOSPITAL JUST LAST WEEK AND HE IS HERE TODAY FOR FOLLOW-UP. FOR HIS VICKY INFECTION IN THE LUNGS HE WAS ON AZITHROMYCIN 500 MG DAILY WHICH HE DID TOLERATE WELL. ON HIS LAST VISIT OVER HERE I ADDED RIFAMPIN 150 MG DAILY WITH GOAL TO INCREASE TO 300 MG DAILY. HOWEVER ON THE DAY OF ADMISSION HE HAD A SEIZURE-LIKE ACTIVITY, WHICH HE THINKS IS DUE TO ADDITION OF RIFAMPIN. HE WAS ADMITTED TO THE HOSPITAL AND, HAD MULTIPLE OPACITY IN THE LUNGS THE SUGGESTING POSSIBLE SUPER ADDED BACTERIAL PNEUMONIA EVEN THOUGH THE CULTURES WERE NEGATIVE HE HAS BEEN TREATED INITIALLY WITH IV ANTIBIOTICS AND THEN DISCHARGED HOME ON AUGMENTIN TO COMPLETE A COURSE OF 10 DAYS. DURING THIS TIME HE HAS BEEN OFF AZITHROMYCIN. AT THE TIME OF DISCHARGE HE HAS BEEN STARTED ON HOME VENTILATOR ( ASTRAL ) BECAUSE IN THE HOSPITAL HE HAD HYPERCAPNIA/HYPOXEMIA. HE IS USING THE ASTRAL AT NIGHT FOR 6-8 HOURS PER NIGHT, WITH O2 2 L/MINUTE. DURING THE DAYTIME HE IS USING O2 3 L/MINUTE VIA NASAL CANNULA. HE ALTERNATES NASAL CANNULA WITH FACIAL MASK WHEN O2 IS INCREASED TO 5 L/MINUTE. HE LIKES TO USE THE HUMIDIFIED AIR, AND ASKING FOR AN ORDER TO HAVE A BUBBLER ATTACHMENT. ANYWAY OVERALL HE FEELS BETTER. HE IS STARTING TO EAT BETTER LUCKILY HE HAS QUIT SMOKING COMPLETELY. AND PROMISES THAT HE IS NOT GOING TO TOUCH CIGARETTES. [facility] Medical History Cor pulmonale VICKY (mycobacterium avium-intracellulare) Malnutrition Mycobacterium avium complex Pulmonary nodule, right Respiratory failure with hypoxia Lung mass Exercise hypoxemia Hyperlipidemia COPD (chronic obstructive pulmonary disease) Nicotine dependence, unspecified, uncomplicated Multiple pulmonary nodules Surgical History History of bronchoscopy (~04/2021) History of eye surgery (~11/2020) History of bronchoscopy (~12/2019) Family History Father Lung cancer Brother COPD (chronic obstructive pulmonary disease) Substance use disorder Son Substance use disorder Social History Household Members: Spouse and Children Household Members Other:: son Housing: Apartment Do you presently have visiting nurse or other home services: No Alcohol intake: never Patient Tobacco Use Status: Former Tobacco user Tobacco use type: Cigarette Cigarette Packs Per Day: 0.25 Cigarettes Per Day: 5.0 e-Cigarette/Vaping Use: Currently Using Second Hand Smoke Exposure: Yes Substance Use Type: Marijuana Advance Directives Date on File: 10/12/22 service: No Current occupational status: disabled Current occupational exposures/hazards: No Cognitive needs: No Hearing needs: No Vision needs: No Review of Systems Const All systems reviewed & are unremarkable except as noted in HPI and below Eyes Details: Has had treatment to for 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 ENT Reports no additional complaints Card Reports no additional complaints Resp Reports as per HPI GI Reports no additional complaints Reports no additional complaints Musc Reports no additional complaints Skin/Breast Reports system reviewed and no additional complaints, except as documented Neuro Reports no additional complaints Physical Exam Vital Signs: Last Vital Signs Pulse 113 H 05/30/23 14:08 BP 102/70 05/30/23 14:08 Pulse Ox 88 L 05/30/23 14:08 Oxygen Delivery Method Nasal Cannula 05/30/23 14:08 Oxygen Flow Rate 5 05/30/23 14:08 Const Other: CHRONICALLY SICK-LOOKING AND EMACIATED General: comfortable, no acute distress, alert and awake Orientation/consciousness: patient oriented x3 HEENT Head: Yes normal to inspection General nose exam: No nasal polyps present and No nasal discharge present Face and sinus: Yes sinuses nontender Mouth: oropharynx normal Throat: Yes posterior oropharynx normal Eyes General: appearance normal, both eyes and all related structures Neck Neck: Yes normal visual inspection, Yes no lymphadenopathy, Yes trachea midline and Yes no JVD Thyroid: Thyroid normal Chest Chest palpation & inspection: normal inspection of the chest and no tenderness Resp Other: PERCUSSION NOTE HYPER-RESONANT, BREATH SOUNDS ARE VERY DISTANT ON BOTH SIDES. A FEW INSPIRATORY CRACKLES OVER THE BASILAR AREAS., NO WHEEZES. Cardio Palpation: normal PMI Rate: regular rate Rhythm: regular rhythm Heart sounds: no gallops and no murmurs GI Palpation (GI): Soft to palpation, nontender, No hepatosplenomegaly present and no masses Auscultation: normal bowel sounds Back/Spine/Pelvis Thoracic/Lumbar Spine: thoracic and lumbar spine normal to inspection Skin General skin exam: other (THERE ARE MULTIPLE PURPURIC SPOTS ON THE HANDS AND FOREARMS /SKIN AVUSIONS ) Neuro General: patient oriented x3, No gait normal (GAIT MARKEDLY IMPAIRED DUE TO GENERAL WEAKNESS, PATIENT IS IN WHEELCHAIR) and no focal motor deficits Cranial nerves: Yes CN's II-XII intact bilaterally Extrem General: Yes normal to inspection, Yes no clubbing, cyanosis or edema and Yes no calf tenderness Psych Appearance: grossly normal Speech and movement: Normal speech and movement present Results Reviewed Results Reviewed: HOSPITAL COURSE REVIEWED Assessment & Plan Assessment & Plan (1) COPD (chronic obstructive pulmonary disease): Comment: HE HAS ADVANCED CHRONIC OBSTRUCTIVE PULMONARY DISEASE. BEING TREATED WITH MAXIMUM MEDICAL TREATMENT INCLUDING OXYGEN. Code(s): J44.9 - Chronic obstructive pulmonary disease, unspecified Qualifiers: COPD type: COPD with acute exacerbation Qualified Code(s): J44.1 - Chronic obstructive pulmonary disease with (acute) exacerbation Plan: CONTINUE TRELEGY ELLIPTA 1 INHALATION DAILY. LEVALBUTEROL IN THE NEBULIZER Q 6 HOURS P.R.N. MAY USE UP TO 3 TIMES A DAY. MUCINEX 600 MG B.I.D. COMPLETE THE PREDNISONE TAPER. (2) Pulmonary nodule, right: Comment: PATIENT HAD A LARGE PULMONARY NODULE IN THE RIGHT UPPER LOBE, BIOPSY WAS INCONCLUSIVE, CLINICALLY HIGH SUSPICION OF THIS BEING NEOPLASTIC. IT WAS TREATED WITH PALLIATIVE RADIATION IN 2021 AND THE NODULE HAS RESOLVED. Code(s): R91.1 - Solitary pulmonary nodule Plan: ABOVE (3) Mycobacterium avium complex: Comment: He has VICKY and fibronodular disease. BRONCHOSCOPIC EXAMINATION AND BRONCHIAL WASHINGS ARE AGAIN POSITIVE FOR VICKY COMPLEX. PREVIOUSLY PATIENT WAS STARTED ON COMBINATION OF 3 ANTI TUBERCULOSIS AGENTS BY , BUT HE STOPPED DUE TO ONSET OF SEIZURE ACTIVITY. WE HAD DECIDED TO INTRODUCE 1 AGENT AT A TIME HE HAS BEEN TOLERATING AZITHROMYCIN 500 MG DAILY . RIFAMPIN 150 MG DAILY WAS ADDED. PATIENT THINKS THAT HIS SEIZURE ACTIVITY WAS DUE TO ADDITION OF RIFAMPIN. Code(s): A31.0 - Pulmonary mycobacterial infection Plan: CONTINUE AZITHROMYCIN 500 MG DAILY. DO NOT TAKE RIFAMPIN. I THINK HIS TREATMENT IS SUBOPTIMAL BUT IT IS BETTER THAN NOTHING. AND AT THIS POINT WE WILL CONTINUE JUST AZITHROMYCIN 500 MG DAILY (4) Malnutrition: Comment: DUE TO END-STAGE COPD/ VICKY INFECTION/ AND HISTORY OF LUNG CANCER, HIS APPETITE AND ORAL INTAKE IS VERY POOR. HE IS SEVERELY DEBILITATED AND MALNOURISHED. Code(s): E46 - Unspecified protein-calorie malnutrition Plan: ADVISED TO USE PROPER DIET AND ALSO MAY USE SUPPLEMENTS SUCH BOOST 3 TIMES A DAY (5) Acute on chronic respiratory failure with hypoxia and hypercapnia: Comment: HE DOES HAVE CHRONIC RESPIRATORY FAILURE DUE. TO HIS ADVANCED COPD DURING HOSPITALIZATION HE HAD ACUTE ON CHRONIC RESPIRATORY FAILURE WITH ELEVATED CO2. Code(s): J96.21 - Acute and chronic respiratory failure with hypoxia; J96.22 - Acute and chronic respiratory failure with hypercapnia Plan: USE HOME VENTILATOR ASTRAL AT NIGHT, WITH O2 2 L/MINUTE. (6) Nicotine dependence, unspecified, uncomplicated: Comment: UP UNTIL HIS HOSPITALIZATION HE WAS STILL SMOKING 3-4 CIGARETTES A DAY. NOW HE HAS QUIT COMPLETELY Code(s): F17.200 - Nicotine dependence, unspecified, uncomplicated Plan: ENCOURAGED TO QUIT COMPLETELY AND NOT GO BACK TO CIGARETTES AT ALL Coding Level of Care Code Est Pt Level 4 (19749) Diagnoses Chronic obstructive pulmonary disease with acute exacerbation J44.1 COPD type: COPD with acute exacerbation Pulmonary nodule, right R91.1 Mycobacterium avium complex A31.0 Malnutrition E46 Acute on chronic respiratory failure with hypoxia and hypercapnia J96.21; J96.22 Nicotine dependence, unspecified, uncomplicated F17.200
[2023-05-30 14:08] VITALS: BP 102/70; PULSE 113; O2SAT 88
== END 2023-05-30 14:41 | disposition home or self-care (01) ==
PROVIDERS: PCP Nurse Practitioner Family; Visit Provider Internal Medicine
DX: J44.1 Chronic obstructive pulmonary disease with (acute) exacerbation (principal); R91.1 Solitary pulmonary nodule; A31.0 Pulmonary mycobacterial infection; E46 Unspecified protein-calorie malnutrition; J96.21 Acute and chronic respiratory failure with hypoxia; J96.22 Acute and chronic respiratory failure with hypercapnia; F17.200 Nicotine dependence, unspecified, uncomplicated
CPT/HCPCS: 99214

== ENCOUNTER → 2023-05-30 14:01 | Outpatient (BNVA) | payer OTHER, SELFPAY | PROVIDERS: PCP Nurse Practitioner Family; Visit Provider Internal Medicine ==

== ENCOUNTER 2023-06-08 10:58 | Outpatient (AMB) | payer OTHER, SELFPAY ==
[2023-06-08 11:11] VITALS: BP 102/64; PULSE 101; O2SAT 93
--- NOTE | 2023-06-08 11:11 | A.OFFPC_ITS ---
Vital Signs 06/08/23 11:11 Height 5 ft 10 in BMI Reason not done Patient refused/unable BP 102/64 Blood Pressure Location Lt brachial Position Sitting Pulse 101 H Pulse Source Pulse Oximeter Pulse Oximetry (%) 93 Oxygen Delivery Method Room Air Intake Visit Reasons: 4 month fu Intake Note: patient is here for HDF follow up appt Allergies No Known Allergies [No Known Allergies*] Allergy (Verified 06/08/23 12:44) Medication List - Last Reconciled 06/08/23 by LARRY Kyle- aspirin 81 mg PO BEDTIME azithromycin mg PO xtpzksjxpcy-epliazlcc-wrwuyamm 100-62.5-25 mcg (Trelegy Ellipta) 1 inh PO BEDTIME 30 days levalbuterol HCl 1.25 mg (3 mL) inhalation RQID simvastatin 40 mg PO BEDTIME tramadol 50 mg PO BID PRN 30 days Tobacco use date assessed: 06/08/23 Dental Screening Dental Screen Date: 06/08/23 Did you have a dental visit in the last 12 months?: No Did you have a dental problem in the last 6 months where you did not have access to dental care?: No Was dental information given to patient?: Patient declined HPI 4 month fu HPI Details Pt was seen in the ER on 05/19 after falling from the edge of the bed and being found unconscious on the floor. Pt did not have bowel or bladder incontinence or tongue biting. It was unclear if this was a seizure or seizure- like activity. He reports coughing fits which cause him to black out, ? if symptoms are related to this syncopal episode. EEG was considered abnormal due to intermittent bilateral posterior quadrant slowing consistent with posterior quadrant dysfunction or structural abnormalities. No seizure discharges are seen. Head CT was negative for acute intracranial pathology. It was recommended that pt have an MRI of the brain, will order. Please see all hospital documentation. Pt is following up with pulmonology. He has quit smoking. Denies chest pain, increased shortness of breath, blurred vision, syncope, and dizziness. [facility] Medical History Cor pulmonale VICKY (mycobacterium avium-intracellulare) Malnutrition Mycobacterium avium complex Pulmonary nodule, right Respiratory failure with hypoxia Lung mass Exercise hypoxemia Hyperlipidemia COPD (chronic obstructive pulmonary disease) Nicotine dependence, unspecified, uncomplicated Multiple pulmonary nodules Surgical History History of bronchoscopy (~04/2021) History of eye surgery (~11/2020) History of bronchoscopy (~12/2019) Family History Father Lung cancer Brother COPD (chronic obstructive pulmonary disease) Substance use disorder Son Substance use disorder Social History Household Members: Spouse and Children Household Members Other:: son Housing: Apartment Do you presently have visiting nurse or other home services: No Alcohol intake: never Patient Tobacco Use Status: Former Tobacco user Tobacco use type: Cigarette Cigarette Packs Per Day: 0.25 Cigarettes Per Day: 5.0 e-Cigarette/Vaping Use: Currently Using Second Hand Smoke Exposure: Yes Substance Use Type: Marijuana Advance Directives Date on File: 10/12/22 service: No Current occupational status: disabled Current occupational exposures/hazards: No Cognitive needs: No Hearing needs: No Vision needs: No Questionnaire Thrive Questionnaire Date Thrive assessed: 05/21/23 Review of Systems Const Reports as per HPI Neuro Denies Abnormal speech present Physical exam (Primary Care) Vital Signs: Last Vital Signs Pulse 101 H 06/08/23 11:11 BP 102/64 06/08/23 11:11 Pulse Ox 93 06/08/23 11:11 Oxygen Delivery Method Room Air 06/08/23 11:11 Tobacco/Smoking Status: Tobacco use Status Tobacco use date assessed 06/08/23 06/08/23 11:19 Patient Tobacco Use Status Former Tobacco user 06/08/23 11:11 Tobacco use type Cigarette 06/08/23 11:11 e-Cigarette/Vaping Use Currently Using 06/08/23 11:11 Thrive Assessment: Date of Thrive Assessment Date Thrive assessed 05/21/23 06/08/23 11:11 Const Other: in wheelchair, with portable O2, very skinny stature General: cooperative, comfortable and no acute distress Orientation/consciousness: patient oriented x3 HENMT Mouth: tongue normal Resp Other: lungs diminished and coarse though moving air Effort & Inspection: normal respiratory effort Cardio Rate: regular rate Rhythm: regular rhythm Heart sounds: S1 normal heart sound present and S2 normal heart sound present Skin Other: fragile skin. healing scabbed lesions to dorsal left hand, left elbow, RUE, BLE Neuro Other: moving BUE equally, weakness to BLE, though moving equally (baseline), General: patient oriented x3 and CN's II-XI intact bilaterally Cognition (Neuro): normal cognition Speech: No Abnormal speech present Psych Appearance: grossly normal Mental Status: mental status grossly normal Speech and movement: Normal speech and movement present Affect: normal affect Attitude: cooperative Thought process: Normal thought process present Thought content: Normal thought content present Insight: Good insight present (Psych) Judgement: Good judgement present (Psych) Assessment and Plan Assessment & Plan (1) Syncope and collapse: Code(s): R55 - Syncope and collapse Plan: MRI and labs ordered Plan The patient agreed to the use of a medical care manager for this encounter. Scribed for LISA Mix by Alondra Cano medical care manager, on 06/08/2023 at 11:45 EST. Orders: Orders MR head/brain wo/w con Today R55 - Syncope and collapse Complete Blood Count Auto Diff Today R55 - Syncope and collapse Comprehensive Met. Panel Today R55 - Syncope and collapse TSH reflex Free T4 Today R55 - Syncope and collapse UA CC w/rflx Micro + Cult Today R55 - Syncope and collapse Coding Level of Care Code Est Pt Level 3 (40440) Diagnoses Syncope and collapse R55
== END 2023-06-08 12:04 | disposition home or self-care (01) ==
PROVIDERS: PCP Nurse Practitioner Family; Visit Provider Nurse Practitioner Family
DX: R55 Syncope and collapse (principal)
CPT/HCPCS: 99213

== ENCOUNTER 2023-06-20 13:41 | Outpatient (REF) | payer OTHER, SELFPAY ==
[2023-06-20 14:28] LABS: MANUAL DIFF FLAG NO
[2023-06-20 14:36] LABS: Basophils Absolute Auto 0.1 X10*3/uL (0.0-0.2); Basophils Percent Auto 0.6 % (0-2); Eosinophils Absolute Auto 0.1 X10*3/uL (0.0-0.4); Eosinophils Percent Auto 1.2 % (0-4); Hematocrit 45.2 % (42.0-52.0); Hemoglobin 14.7 g/dl (14.0-18.0); Imm Gran Abs Auto 0.05 X10*3/uL (0.00-0.03); Imm Gran Pct Auto 0.5 % (0.0-0.4); Lymphocytes Percent Auto 10.1 % (20-40); Mean Corpuscular HGB Conc 32.5 g/dl (31.0-36.0); Mean Corpuscular Hemoglobin 30.6 pg (27.0-33.0); Mean Platelet Volume 9.8 fL (9.4-12.4); Monocytes Percent Auto 9.9 % (2-11); Neutrophils Absolute Auto 7.5 x10*3/uL (2.0-8.3); Neutrophils Percent Auto 77.7 % (45-73); Platelet Count 356 X10*3/uL (160-400); Red Blood Count 4.81 X10*6/uL (4.60-5.80); Red Cell Distribution Width 15.2 % (11.0-16.0); White Blood Count 9.6 X10*3/uL (4.8-10.8)
[2023-06-20 15:16] LABS: Alanine Aminotransferase 32 U/L (0-40); Albumin Level 3.3 g/dL (3.5-5.0); Alkaline Phosphatase 387 U/L (39-117); Anion Gap 14 (12-20); Aspartate Amino Transferase 29 U/L (5-37); Bilirubin Total 0.8 mg/dL (0.0-1.0); Blood Urea Nitrogen 9 mg/dL (9-16); Calcium 9.3 mg/dL (8.4-10.2); Carbon Dioxide 26 mmol/L (22-29); Chloride 97 mmol/L (96-108); Estimated Glomerular Filt Rate > 60; Glucose Random 94 mg/dL (60-115); Potassium 4.2 mmol/L (3.3-5.1); Sodium 133 mmol/L (135-145); Total Protein 6.8 g/dL (6.5-8.0)
[2023-06-20 15:25] LABS: TSH reflex Free T4 1.64 uIU/mL (0.32-4.0)
[2023-06-20 15:47] LABS: Appearance Urine Clear; Color Urine Dark Yellow; Glucose Urine UA Negative (Negative); Leukocyte Esterase Urine Negative (Negative); Nitrite Urine Negative (Negative); UMIC TRIGGER UACC YES; Urine Blood Negative (Negative); Urine Ketones Trace mg/dL (Negative); Urine Protein 30 (1+) mg/dL (Neg-Trace)
[2023-06-20 16:45] LABS: Bacteria Urine None Seen (None Seen); Hyaline Casts Urine 0-2 /LPF (0-2); RBC Urine 0-2 /HPF (0-2); Squamous Epithelial Cell Urine 0-2 /HPF (0-2); WBC Urine 0-5 /HPF (0-5)
== END 2023-06-20 13:42 | disposition home or self-care (01) ==
LOC: HO.LAB 13:41
PROVIDERS: PCP Nurse Practitioner Family; Visit Provider Internal Medicine
DX: R55 Syncope and collapse (principal)
CPT/HCPCS: 36415; 80053; 81001; 84443; 85025

== ENCOUNTER 2023-06-20 13:41 | Outpatient (AMB) | payer OTHER, SELFPAY ==
[2023-06-20 13:46] VITALS: BP 82/58; PULSE 110; O2SAT 95; BMI 14.1
--- NOTE | 2023-06-20 13:46 | MHC.OFFVIS ---
Intake Vital Signs 06/20/23 13:46 Height 5 ft 10 in Weight 98 lb 1.691 oz BMI 14.1 BP 82/58 L Blood Pressure Location Lt brachial Position Sitting Pulse 110 H Pulse Source Pulse Oximeter Pulse Oximetry (%) 95 Oxygen Delivery Method Nasal Cannula Oxygen Flow Rate 5 Intake Visit Reasons: COPD Intake Note: pt is here for H f/u, pt states he has not much appetite, maybe trying to get dinner in, he is thinking something is not agreeing with him. [employer] Tender Required: No Allergies No Known Allergies [No Known Allergies*] Allergy (Verified 06/20/23 13:52) Medication List - Last Reconciled 06/20/23 by Vance Francois MD aspirin 81 mg PO BEDTIME azithromycin 500 mg PO DAILY docusate sodium 100 mg PO DAILY uywnrapptdt-etnrnpfqz-jmtmsnjl 100-62.5-25 mcg (Trelegy Ellipta) 1 inh PO BEDTIME 30 days levalbuterol HCl 1.25 mg (3 mL) inhalation RQID simvastatin 40 mg PO BEDTIME tramadol 50 mg PO BID PRN 30 days Do you need a note to return to daycare/school/sports/work: No HPI COPD HPI Details MR. VAIL IS BACK FOR FOLLOW-UP AFTER 1 MONTH BREATHING AMARO HE HAS BEEN STABLE, HE DOES HAVE MILD INTERMITTENT COUGH WITHOUT MUCH EXPECTORATION. HE HAS MILD SHORTNESS OF BREATH BUT MOSTLY HE IS SITTING IN THE CHAIR OR WALKING WITH A WALKER, WITH A SLOW PACE. HE IS TOLERATING AZITHROMYCIN 500 MG DAILY. HIS APPETITE IS QUITE POOR AND HE THINKS IT MAY BE DUE TO COMBINATION. OF MEDICATIONS AFFECTING HIS STOMACH HOWEVER HE DENIES NAUSEA OR VOMITING. [facility] Medical History Cor pulmonale VICKY (mycobacterium avium-intracellulare) Malnutrition Mycobacterium avium complex Pulmonary nodule, right Respiratory failure with hypoxia Lung mass Exercise hypoxemia Hyperlipidemia COPD (chronic obstructive pulmonary disease) Nicotine dependence, unspecified, uncomplicated Multiple pulmonary nodules Surgical History History of bronchoscopy (~04/2021) History of eye surgery (~11/2020) History of bronchoscopy (~12/2019) Family History Father Lung cancer Brother COPD (chronic obstructive pulmonary disease) Substance use disorder Son Substance use disorder Social History Household Members: Spouse and Children Household Members Other:: son Housing: Apartment Do you presently have visiting nurse or other home services: No Alcohol intake: never Patient Tobacco Use Status: Former Tobacco user Tobacco use type: Cigarette Cigarette Packs Per Day: 0.25 Cigarettes Per Day: 0 e-Cigarette/Vaping Use: Currently Using Second Hand Smoke Exposure: Yes Substance Use Type: Marijuana Advance Directives Date on File: 10/12/22 service: No Current occupational status: disabled Current occupational exposures/hazards: No Cognitive needs: No Hearing needs: No Vision needs: No Review of Systems Const All systems reviewed & are unremarkable except as noted in HPI and below Eyes Details: Has had treatment to for 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 ENT Reports no additional complaints Card Reports no additional complaints Resp Reports as per HPI GI Reports no additional complaints Reports no additional complaints Musc Reports no additional complaints Skin/Breast Reports system reviewed and no additional complaints, except as documented Neuro Reports no additional complaints Physical Exam Vital Signs: Last Vital Signs Pulse 110 H 06/20/23 13:46 BP 82/58 L 06/20/23 13:46 Pulse Ox 95 06/20/23 13:46 Oxygen Delivery Method Nasal Cannula 06/20/23 13:46 Oxygen Flow Rate 5 06/20/23 13:46 BMI result Body Mass Index 14.1 Const Other: CHRONICALLY SICK-LOOKING AND EMACIATED General: comfortable, no acute distress, alert and awake Orientation/consciousness: patient oriented x3 HEENT Head: Yes normal to inspection General nose exam: No nasal polyps present and No nasal discharge present Face and sinus: Yes sinuses nontender Mouth: oropharynx normal Throat: Yes posterior oropharynx normal Eyes General: appearance normal, both eyes and all related structures Neck Neck: Yes normal visual inspection, Yes no lymphadenopathy, Yes trachea midline and Yes no JVD Thyroid: Thyroid normal Chest Chest palpation & inspection: normal inspection of the chest and no tenderness Resp Other: PERCUSSION NOTE HYPER-RESONANT, BREATH SOUNDS ARE VERY DISTANT ON BOTH SIDIDES . NO WHEEZES OR RHONCHI ARE HEARD TODAY. Cardio Palpation: normal PMI Rate: regular rate Rhythm: regular rhythm Heart sounds: no gallops and no murmurs GI Palpation (GI): Soft to palpation, nontender, No hepatosplenomegaly present and no masses Auscultation: normal bowel sounds Back/Spine/Pelvis Thoracic/Lumbar Spine: thoracic and lumbar spine normal to inspection Skin General skin exam: other (THERE ARE MULTIPLE PURPURIC SPOTS ON THE HANDS AND FOREARMS /SKIN AVUSIONS ) Neuro General: patient oriented x3, No gait normal (GAIT MARKEDLY IMPAIRED DUE TO GENERAL WEAKNESS, PATIENT IS IN WHEELCHAIR) and no focal motor deficits Cranial nerves: Yes CN's II-XII intact bilaterally Extrem General: Yes normal to inspection, Yes no clubbing, cyanosis or edema and Yes no calf tenderness Psych Appearance: grossly normal Speech and movement: Normal speech and movement present Assessment & Plan Assessment & Plan (1) COPD (chronic obstructive pulmonary disease): Comment: HE HAS ADVANCED CHRONIC OBSTRUCTIVE PULMONARY DISEASE. BEING TREATED WITH MAXIMUM MEDICAL TREATMENT INCLUDING OXYGEN. Code(s): J44.9 - Chronic obstructive pulmonary disease, unspecified Qualifiers: COPD type: COPD with acute exacerbation Qualified Code(s): J44.1 - Chronic obstructive pulmonary disease with (acute) exacerbation Plan: CONTINUE TRELEGY 1 INHALATION DAILY. LEVALBUTEROL SOLUTION IN THE NEBULIZER Q 4 HOURS P.R.N. (2) Pulmonary nodule, right: Comment: PATIENT HAD A LARGE PULMONARY NODULE IN THE RIGHT UPPER LOBE, BIOPSY WAS INCONCLUSIVE, CLINICALLY HIGH SUSPICION OF THIS BEING NEOPLASTIC. IT WAS TREATED WITH PALLIATIVE RADIATION IN 2021 AND THE NODULE HAS RESOLVED. Code(s): R91.1 - Solitary pulmonary nodule Plan: NO FURTHER TREATMENT NEEDED (3) Acute on chronic respiratory failure with hypoxia and hypercapnia: Comment: HE DOES HAVE CHRONIC RESPIRATORY FAILURE DUE TO HIS ADVANCED COPD DURING HOSPITALIZATION HE HAD ACUTE ON CHRONIC RESPIRATORY FAILURE WITH ELEVATED CO2. Code(s): J96.21 - Acute and chronic respiratory failure with hypoxia; J96.22 - Acute and chronic respiratory failure with hypercapnia Plan: HE IS ON HOME RESPIRATOR. USES AT NIGHTTIME, . SLEEPS FAIRLY WELL MENTAL STATUS REMAINS NORMAL AND ALERT. ADVISED TO CONTINUE USING THE RESPIRATOR EVERY NIGHT (4) Mycobacterium avium complex: Comment: He has VICKY and fibronodular disease. BRONCHOSCOPIC EXAMINATION AND BRONCHIAL WASHINGS ARE AGAIN POSITIVE FOR VICKY COMPLEX. PREVIOUSLY PATIENT WAS STARTED ON COMBINATION OF 3 ANTI TUBERCULOSIS AGENTS BY , BUT HE STOPPED DUE TO ONSET OF SEIZURE ACTIVITY. WE HAD DECIDED TO INTRODUCE 1 AGENT AT A TIME HE HAS BEEN TOLERATING AZITHROMYCIN 500 MG DAILY . COULD NOT TOLERATE RIFAMPIN BECAUSE HAD A SEIZURE ACTIVITY. Code(s): A31.0 - Pulmonary mycobacterial infection Plan: STAY ON AZITHROMYCIN 500 MG DAILY. IT IS SUBOPTIMAL TREATMENT BUT STILL BETTER THAN NOTHING. (5) Malnutrition: Comment: DUE TO END-STAGE COPD/ VICKY INFECTION/ AND HISTORY OF LUNG CANCER, HIS APPETITE AND ORAL INTAKE IS VERY POOR. HE IS SEVERELY DEBILITATED AND MALNOURISHED. Code(s): E46 - Unspecified protein-calorie malnutrition Plan: MAY USE DIETARY SUPPLEMENTS SUCH BOOST OFTEN HE CAN . Coding Level of Care Code Est Pt Level 3 (18532) Diagnoses Chronic obstructive pulmonary disease with acute exacerbation J44.1 COPD type: COPD with acute exacerbation Pulmonary nodule, right R91.1 Acute on chronic respiratory failure with hypoxia and hypercapnia J96.21; J96.22 Mycobacterium avium complex A31.0 Malnutrition E46
== END 2023-06-20 14:01 | disposition home or self-care (01) ==
PROVIDERS: PCP Nurse Practitioner Family; Visit Provider Internal Medicine
DX: J44.1 Chronic obstructive pulmonary disease with (acute) exacerbation (principal); R91.1 Solitary pulmonary nodule; J96.21 Acute and chronic respiratory failure with hypoxia; J96.22 Acute and chronic respiratory failure with hypercapnia; A31.0 Pulmonary mycobacterial infection; E46 Unspecified protein-calorie malnutrition
CPT/HCPCS: 99213

== ENCOUNTER 2023-06-27 14:17 | Outpatient (REF) | payer OTHER, SELFPAY ==
[2023-06-27 15:55] LABS: Alanine Aminotransferase 36 U/L (0-40); Albumin Level 3.1 g/dL (3.5-5.0); Alkaline Phosphatase 457 U/L (39-117); Anion Gap 13 (12-20); Aspartate Amino Transferase 30 U/L (5-37); Bilirubin Total 0.7 mg/dL (0.0-1.0); Blood Urea Nitrogen 13 mg/dL (9-16); Calcium 9.3 mg/dL (8.4-10.2); Carbon Dioxide 30 mmol/L (22-29); Chloride 96 mmol/L (96-108); Estimated Glomerular Filt Rate > 60; Glucose Random 100 mg/dL (60-115); Potassium 3.9 mmol/L (3.3-5.1); Sodium 135 mmol/L (135-145); Total Protein 6.7 g/dL (6.5-8.0)
== END 2023-06-27 14:18 | disposition home or self-care (01) ==
LOC: HO.LAB 14:17
PROVIDERS: PCP Nurse Practitioner Family; Visit Provider Nurse Practitioner Family
DX: E87.1 Hypo-osmolality and hyponatremia (principal)
CPT/HCPCS: 36415; 80053

== ENCOUNTER 2023-07-26 15:06 | Outpatient (REF) | payer OTHER, SELFPAY ==
--- NOTE | ~2023-07-26 | MR_ITS ---
EXAMINATION: MR BRAIN WITHOUT AND WITH CONTRAST CLINICAL INFORMATION: History of malignant lung tumor, now complains of Syncope and collapse COMPARISON: None available. TECHNIQUE: Multiplanar, multisequence MRI of the brain was obtained before and after the intravenous administration of 4 mL Gadavist. FINDINGS: Ventricles, sulci and cisterns are abnormally dilated. Numerous patchy and focal nonenhancing T2 hyperintense lesions are seen in bilateral frontal and parietal subcortical and deep white matter. No focal cerebral, brainstem or cerebellar lesions with abnormal signal can be seen. Diffusion weighted images show no abnormal regional decrease in diffusion. Post contrast images show no enhancing cerebral, brainstem or cerebellar lesions. No abnormal meningeal enhancement is seen. The pituitary gland is not well visualized. Optic chiasm is not displaced. Cerebellar tonsils position is normal. MR/MR head/brain wo/w con IMPRESSION: 1. Cerebral atrophy and ventriculomegaly more than expected for the patient's age. 2. Extensive bilateral frontal and parietal nonenhancing T2 hyperintense lesions are present, compatible with ischemic white matter disease due to microangiopathy or multifocal demyelinating disease including multiple sclerosis. 3. No acute cerebral infarction is seen. 4. No evidence of space occupying or enhancing intracranial mass lesion could be found. 5. No evidence of intracranial hemorrhage. 6. Empty sella syndrome is present.
[2023-07-26] MEDS: gadobutroL 7.5 ML VIAL IVPUSH (16:13)
== END 2023-07-26 15:07 | disposition home or self-care (01) ==
LOC: HO.MRI 15:06
PROVIDERS: PCP Nurse Practitioner Family; Visit Provider Nurse Practitioner Family
DX: R55 Syncope and collapse (principal)
CPT/HCPCS: 70553; A9585

== ENCOUNTER 2023-08-07 13:57 | Outpatient (RCR) | payer OTHER, SELFPAY ==
[2023-08-07 14:13] VITALS: BP 99/66; TEMP 36.1; O2SAT 89
--- NOTE | 2023-08-07 14:19 | PM.HEMONCCN ---
Subjective - Subjective Chief complaint: Abnormal blood tests Patient: new to practice Consult date: 08/07/23 Primary Care Provider: LISA Ricks HPI - Consult Narrative Reason for consult: Elevated alkaline phosphatase level Narrative: Edenilson Nguyen is a 58 year old male referred for evaluation of chronically elevated alkaline phosphatase level. This was 1st noted to be slightly elevated in 2018 at 120 units/L. Most recent blood work in June 2023 shows alkaline phosphatase level of 457 units/L. Elevation of GGT was noted on blood work. Patient has chronic severe emphysema, he is followed by golf teacher. In 2020 he had radiation therapy for a lung nodule that was presumed to be malignant based on positive PET scan, biopsy was inconclusive. Since then he is being monitored closely by CT surgeon at [facility]. His PET scan in 2022 was reportedly negative. Other than chronic shortness of breath, he has no new symptoms. He is accompanied by his daughter today. He denies any new onset pain in his bones or recent fractures. Review of Systems - Constitutional Reports as per [facility] Medical History: Medical History (Last Reviewed 08/07/23 @ 14:08 by Rissa Lundberg) COPD (chronic obstructive pulmonary disease) Cor pulmonale Exercise hypoxemia Hyperlipidemia Lung mass VICKY (mycobacterium avium-intracellulare) Malnutrition Multiple pulmonary nodules Mycobacterium avium complex Nicotine dependence, unspecified, uncomplicated Pulmonary nodule, right Respiratory failure with hypoxia Family History: Family History (Last Reviewed 08/07/23 @ 14:09 by Rissa Lundberg) Father Lung cancer Brother COPD (chronic obstructive pulmonary disease) Substance use disorder Son Substance use disorder Surgical History: Surgical History (Last Reviewed 08/07/23 @ 14:08 by Rissa Lundberg) History of bronchoscopy Onset Date: ~12/2019 History of bronchoscopy Onset Date: ~04/2021 History of eye surgery Onset Date: ~11/2020 Social History: Social History (Last Updated 08/07/23 @ 14:10 by Rissa Lundberg) Living Situation History: Household Members: Spouse Household Members: Children Household Members Other:: son Housing: Apartment Do you presently have visiting nurse or other home services: No Alcohol History Details: 1. How often do you have a drink containing alcohol?: a. Never Tobacco History: Patient Tobacco Use Status: Former Tobacco user Tobacco use type: Cigarette Cigarette Packs Per Day: 0.25 e-Cigarette/Vaping Use: Currently Using Second Hand Smoke Exposure: Yes Substance Use History: Substance Use Type: Marijuana Domestic Abuse History: Do you feel safe in your current relationship?: Yes Advance Directives: Advance Directives Date on File: 10/12/22 Homicidal Assessment: Do you have thoughts of harming others: None Do you have a plan to hurt others: No Plan Occupation Assessmet: service: No Current occupational status: disabled Current occupational exposures/hazards: No Home Medications and Allergies Home Medications ?Medication ?Instructions ?Recorded ?Confirmed ?Type aspirin 81 mg tablet,delayed 81 mg PO BEDTIME 10/11/22 08/07/23 History release azithromycin 250 mg tablet 500 mg PO DAILY 06/20/23 08/07/23 History Allergies Allergy/AdvReac Type Severity Reaction Status Date / Time No Known Allergies Allergy Verified 08/07/23 14:10 [No Known Allergies*] Physical Exam Vital signs: Vital Signs Temp 97.0 F 08/07/23 14:13 BP 99/66 08/07/23 14:13 Pulse Ox 89 L 08/07/23 14:13 O2 Del Method Oxymizer 08/07/23 14:13 - Constitutional Present: cachectic, chronically ill appearing - Routine HEENT Exam Eye: Present: PERRL - Routine Neck Exam Present: supple. Absent: lymphadenopathy - Routine Respiratory Exam Present: accessory muscle use, decreased breath sounds - Routine Cardiovascular Exam Cardiovascular: Present: S1, S2 Assessment and Plan Patient Active problem list reviewed?: Yes (1) Elevated alkaline phosphatase level Status: Chronic Assessment and plan: 1. This is a 58-year-old male with chronic severe emphysema noted to have chronic elevation of alkaline phosphatase. Level ranges from 170 to 4 50 units/L. GGT level has been elevated at 170 units/liter and 104 units/liter on multiple occasions. This is more consistent with liver disease or liver origin of alkaline phosphatase. Imaging of his liver in 2022 was negative. He does not consume alcohol. He does not have an established diagnosis of lung cancer although he was treated for presumed lung cancer based on abnormal PET finding. He was treated with radiation therapy, 5 treatments at [facility]. He is followed by CT surgeon at [facility]. He had a PET-CT in November 2022 which was read as interval increase in bilateral metabolic activity in airspace disease likely infectious/inflammatory process with neoplasm not excluded. There was no metabolic activity in the bones. He is followed by Dr. Mathis at [facility] and Dr. Francois for his pulmonary disease. I recommend a gastroenterology referral if there is concern for liver disease. Other etiologies such as Paget's disease can also cause elevated alkaline phosphatase level. Thank you. If there are any further issues, please feel free to contact me. - Time Spent With Patient Time Spent with Patient (in minutes): 30
--- NOTE | 2023-08-07 16:43 | MHC.HEMONCMA ---
pt was seen in the office today for high alkaline phosphatese f/u, vss. pt decline to check his weight. pt will f/u prn.
--- NOTE | 2023-08-09 09:36 | HE.ONCSEC ---
Consults notes faxed to the PCP
== END 2023-09-08 | disposition home or self-care (01) ==
LOC: HO.ONC 13:57
PROVIDERS: PCP Nurse Practitioner Family; Referring Provider Nurse Practitioner Family; Visit Provider Internal Medicine
DX: R74.8 Abnormal levels of other serum enzymes (principal); J43.9 Emphysema, unspecified

== ENCOUNTER → 2023-08-07 13:57 | Outpatient (BNV) | payer OTHER, SELFPAY | PROVIDERS: PCP Nurse Practitioner Family; Referring Provider Nurse Practitioner Family; Visit Provider Internal Medicine | DX: R79.89 Other specified abnormal findings of blood chemistry (principal) | CPT/HCPCS: 99204 ==

== ENCOUNTER 2023-08-22 13:37 | Outpatient (AMB) | payer OTHER, SELFPAY ==
[2023-08-22 13:47] VITALS: BP 102/62; PULSE 112; O2SAT 88; BMI 13.8
--- NOTE | 2023-08-22 13:47 | MHC.OFFVIS ---
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 ON bi-pap and is having issues with clastrophobic with all masks tried. Short of breath is not any better. [employer] Required: No Allergies No Known Allergies [No Known Allergies*] Allergy (Verified 08/22/23 14:04) Medication List - Last Reconciled 08/22/23 by Vance Francois MD aspirin 81 mg PO BEDTIME azithromycin 500 mg PO DAILY docusate sodium 100 mg PO DAILY ejzbuqqjuts-sipfcxuxc-dbefwflr 100-62.5-25 mcg (Trelegy Ellipta) 1 inh PO BEDTIME 30 days ipratropium-albuterol 0.5 mg-3 mg(2.5 mg base)/3 mL 3 mL inhalation Q4-6H PRN 30 days levalbuterol HCl 1.25 mg (3 mL) inhalation RQID simvastatin 40 mg PO BEDTIME tramadol 50 mg PO BID PRN 30 days Do you need a note to return to daycare/school/sports/work: No HPI HPI COPD: Details: Edenilson is 58 years old gentleman, suffering from end-stage respiratory disease and respiratory failure, In addition he has been treated for lung cancer, with palliative radiation. Because of his respiratory failure he has been started on home respirator, which he has been using regularly every night. In the last few nights he has felt somewhat claustrophobic and he seems to be some but discouraged. However his compliance report indicates that he is using almost every night and on an average about 5 hours 8 minutes per night. Time is getting weaker, he is losing weight slowly. He does have runny nose may be due to irritation by the nasal prongs. His appetite remains poor. But he is relatively comfortable. [facility] Medical History Cor pulmonale VICKY (mycobacterium avium-intracellulare) Malnutrition Mycobacterium avium complex Pulmonary nodule, right Respiratory failure with hypoxia Lung mass Exercise hypoxemia Hyperlipidemia COPD (chronic obstructive pulmonary disease) Nicotine dependence, unspecified, uncomplicated Multiple pulmonary nodules Surgical History History of bronchoscopy (~04/2021) History of eye surgery (~11/2020) History of bronchoscopy (~12/2019) Family History Father Lung cancer Brother COPD (chronic obstructive pulmonary disease) Substance use disorder Son Substance use disorder Social History Household Members: Spouse and Children Household Members Other:: son Housing: Apartment Do you presently have visiting nurse or other home services: No Alcohol intake: never Patient Tobacco Use Status: Former Tobacco user Tobacco use type: Cigarette Cigarette Packs Per Day: 0.25 e-Cigarette/Vaping Use: Currently Using Second Hand Smoke Exposure: Yes Substance Use Type: Marijuana Advance Directives Date on File: 10/12/22 service: No Current occupational status: disabled Current occupational exposures/hazards: No Cognitive needs: No Hearing needs: No Vision needs: No Review of Systems Const All systems reviewed & are unremarkable except as noted in HPI and below Eyes Details: Has had treatment to for 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 ENT Reports no additional complaints Card Reports no additional complaints Resp Reports as per HPI GI Reports no additional complaints Reports no additional complaints Musc Reports no additional complaints Skin/Breast Reports system reviewed and no additional complaints, except as documented Neuro Reports no additional complaints Physical Exam Vital Signs: Last Vital Signs Pulse 112 H 08/22/23 13:47 BP 102/62 08/22/23 13:47 Pulse Ox 88 L 08/22/23 13:47 Oxygen Delivery Method Nasal Cannula 08/22/23 13:47 Oxygen Flow Rate 8 08/22/23 13:47 BMI result Body Mass Index 13.8 Const Other: CHRONICALLY SICK-LOOKING AND EMACIATED General: comfortable, no acute distress, alert and awake Orientation/consciousness: patient oriented x3 HEENT Head: Yes normal to inspection General nose exam: No nasal polyps present and No nasal discharge present Face and sinus: Yes sinuses nontender Mouth: oropharynx normal Throat: Yes posterior oropharynx normal Eyes General: appearance normal, both eyes and all related structures Neck Neck: Yes normal visual inspection, Yes no lymphadenopathy, Yes trachea midline and Yes no JVD Thyroid: Thyroid normal Chest Chest palpation & inspection: normal inspection of the chest and no tenderness Resp Other: PERCUSSION NOTE HYPER-RESONANT, BREATH SOUNDS ARE VERY DISTANT ON BOTH SIDIDES . NO WHEEZES OR RHONCHI ARE HEARD TODAY. Cardio Palpation: normal PMI Rate: regular rate Rhythm: regular rhythm Heart sounds: no gallops and no murmurs GI Palpation (GI): Soft to palpation, nontender, No hepatosplenomegaly present and no masses Auscultation: normal bowel sounds Back/Spine/Pelvis Thoracic/Lumbar Spine: thoracic and lumbar spine normal to inspection Skin General skin exam: other (THERE ARE MULTIPLE PURPURIC SPOTS ON THE HANDS AND FOREARMS /SKIN AVUSIONS ) Neuro General: patient oriented x3, No gait normal (GAIT MARKEDLY IMPAIRED DUE TO GENERAL WEAKNESS, PATIENT IS IN WHEELCHAIR) and no focal motor deficits Cranial nerves: Yes CN's II-XII intact bilaterally Extrem General: Yes normal to inspection, Yes no clubbing, cyanosis or edema and Yes no calf tenderness Psych Appearance: grossly normal Speech and movement: Normal speech and movement present Results Reviewed Results Reviewed: Compliance report for the use of home ventilator reviewed. He has used every night missed only 1 night. Average usage 5 hours 8 minutes. . He is on IVAPS- auto EPAP mode. Assessment & Plan Assessment & Plan (1) COPD (chronic obstructive pulmonary disease): Comment: HE HAS ADVANCED CHRONIC OBSTRUCTIVE PULMONARY DISEASE. BEING TREATED WITH MAXIMUM MEDICAL TREATMENT INCLUDING OXYGEN. Code(s): J44.9 - Chronic obstructive pulmonary disease, unspecified Category: Medical Qualifiers: COPD type: COPD with acute exacerbation Qualified Code(s): J44.1 - Chronic obstructive pulmonary disease with (acute) exacerbation Plan: Continue the present regimen (2) Mycobacterium avium complex: Comment: He has VICKY and fibronodular disease. BRONCHOSCOPIC EXAMINATION AND BRONCHIAL WASHINGS ARE AGAIN POSITIVE FOR VICKY COMPLEX. PREVIOUSLY PATIENT WAS STARTED ON COMBINATION OF 3 ANTI TUBERCULOSIS AGENTS BY , BUT HE STOPPED DUE TO ONSET OF SEIZURE ACTIVITY. WE HAD DECIDED TO INTRODUCE 1 AGENT AT A TIME HE HAS BEEN TOLERATING AZITHROMYCIN 500 MG DAILY . COULD NOT TOLERATE RIFAMPIN BECAUSE HAD A SEIZURE ACTIVITY. Code(s): A31.0 - Pulmonary mycobacterial infection Category: Medical Plan: Continue azithromycin 500 mg daily. He does not want to add any other agent. (3) Mass of left lung: Comment: PATIENT HAS A LARGE DENSITY IN THE LEFT MID LUNG/ LINGULAR LOBE PET-CT SCAN AT [facility] SHOWEDS INCREASED DENSITIES ON BOTH SIDES ESPECIALLY IN THE LEFT LUNG, DIFF DX :INFLAMMATORY /NFECTIOUS VS NEOPLASTIC PROCESS. BRONCHOSCOPY , BY DR. SHETH : BRONCHIAL WASHINGS GRAM STAIN AND CULTURE POSITIVE FOR MYCOBACTERIUM AVIUM INTERCELLULAIRE AND NEGATIVE FOR MALIGNANT CELLS. DISCUSSED WITH THE PATIENT AND HIS IN DETAIL. Code(s): R91.8 - Other nonspecific abnormal finding of lung field Category: Medical Plan: César is not candidate for any aggressive treatment. I have discussed with him and his. very frankly today Our feature goal is going to be to keep him on COMFORT MEASURES. (4) Acute on chronic respiratory failure with hypoxia and hypercapnia: Comment: HE DOES HAVE CHRONIC RESPIRATORY FAILURE DUE TO HIS ADVANCED COPD He is doing fairly well with the use of home ventilator. Lately he feels claustrophobic and not tolerating any mask. Also at times his O2 sats are dropping below 90% even with 8 L/minute. Code(s): J96.21 - Acute and chronic respiratory failure with hypoxia; J96.22 - Acute and chronic respiratory failure with hypercapnia Category: Medical Plan: I had a good talk with him. Told in that review of his compliance report is good. I advised him to keep on using the ventilator at night, but if he can not use for enough hours at night he can make it up the by using it during the daytime. As regards the O2 supply we have talked to the DME provider, and requested a high-flow concentrator , so that he can increase the O2 flow above 9 L/minute if needed. We will also think about providing him an oxymizer, unit. Coding Level of Care Code Est Pt Level 4 (89890) Diagnoses Chronic obstructive pulmonary disease with acute exacerbation J44.1 COPD type: COPD with acute exacerbation Mycobacterium avium complex A31.0 Mass of left lung R91.8 Acute on chronic respiratory failure with hypoxia and hypercapnia J96.21; J96.22
== END 2023-08-22 14:26 | disposition home or self-care (01) ==
PROVIDERS: PCP Nurse Practitioner Family; Visit Provider Internal Medicine
DX: J44.1 Chronic obstructive pulmonary disease with (acute) exacerbation (principal); A31.0 Pulmonary mycobacterial infection; R91.8 Other nonspecific abnormal finding of lung field; J96.21 Acute and chronic respiratory failure with hypoxia; J96.22 Acute and chronic respiratory failure with hypercapnia
CPT/HCPCS: 99214

== ENCOUNTER → 2023-08-22 13:37 | Outpatient (BNVA) | payer OTHER, SELFPAY | PROVIDERS: PCP Nurse Practitioner Family; Visit Provider Internal Medicine ==

== ENCOUNTER 2023-08-27 03:18 | Emergency (ER) | payer OTHER, SELFPAY ==
[2023-08-27] VITALS (7 sets, daily range): BP systolic 101–116; BP diastolic 66–86; PULSE 101–116; RESP 18–24; TEMP 36–36.8; O2SAT 91–95; BMI 13.6
--- NOTE | ~2023-08-27 | XR_ITS ---
EXAMINATION: XR CHEST CLINICAL INFORMATION: Dyspnea. COMPARISON: 05/23/2023. TECHNIQUE: 2 views of the chest were obtained. FINDINGS: The cardiomediastinal silhouette is stable. There is a linear irregular left upper lobe opacity which was seen previously and is similar in appearance. There is diffuse emphysematous change with bilateral mid to lower lung field increased markings also similar to previous. There are no new areas of consolidation. The bony structures and soft tissues are unremarkable. XR/XR chest 2V IMPRESSION: Emphysematous changes and linear irregular left upper lobe opacity which was seen previously and is similar in appearance to previous. No new areas of consolidation.
--- NOTE | 2023-08-27 03:33 | ECG_ITS ---
Test Reason : SOB Blood Pressure : / mmHG Vent. Rate : 114 BPM Atrial Rate : 114 BPM P-R Int : 140 ms QRS Dur : 090 ms QT Int : 358 ms P-R-T Axes : 090 240 088 degrees QTc Int : 493 ms Suspect limb lead reversal, interpretation assumes no reversal Sinus tachycardia Right superior axis deviation Right ventricular hypertrophy Inferior infarct , age undetermined Cannot rule out Anterior infarct , age undetermined Abnormal ECG When compared with ECG of 20-MAY-2023 11:59, Minimal criteria for Anterior infarct are now Present Nonspecific T wave abnormality, improved in Inferior leads T wave inversion no longer evident in Anterolateral leads Referred By: Generic ED Physician Electronically Signed By:Miller Last
--- NOTE | 2023-08-27 03:50 | PC.NURSE ---
pt from home, a&ox4, respirations even and unlabored, pt reports being placed on 9L nasal cannula by PCP a few weeks ago, has been going through home O2 tanks very quickly and reports running out. Daughter at bedside stated they called pharmacy and was unable to get delivery due to holiday. upon arrival to room, pt assisted out of wheel chair to bed, pt increasing shortness of breath. pt sinus tach on tele 110-115. pt sating 88-92% on 9L nc.
[2023-08-27 03:54] LABS: MANUAL DIFF FLAG NO
[2023-08-27 03:55] LABS: Basophils Absolute Auto 0.1 X10*3/uL (0.0-0.2); Basophils Percent Auto 0.8 % (0-2); Eosinophils Absolute Auto 0.2 X10*3/uL (0.0-0.4); Eosinophils Percent Auto 1.7 % (0-4); Hematocrit 45.2 % (42.0-52.0); Imm Gran Abs Auto 0.05 X10*3/uL (0.00-0.03); Imm Gran Pct Auto 0.4 % (0.0-0.4); Lymphocytes Absolute Auto 1.2 X10*3/uL (1.2-4.9); Mean Corpuscular HGB Conc 33.2 g/dl (31.0-36.0); Mean Corpuscular Hemoglobin 31.2 pg (27.0-33.0); Mean Platelet Volume 10.6 fL (9.4-12.4); Monocytes Absolute Auto 0.9 X10*3/uL (0.1-1.2); Monocytes Percent Auto 7.3 % (2-11); Neutrophils Absolute Auto 9.5 x10*3/uL (2.0-8.3); Neutrophils Percent Auto 79.8 % (45-73); Platelet Count 250 X10*3/uL (160-400); Red Blood Count 4.81 X10*6/uL (4.60-5.80); Red Cell Distribution Width 15.2 % (11.0-16.0); White Blood Count 11.9 X10*3/uL (4.8-10.8)
[2023-08-27 04:10] LABS: Alanine Aminotransferase 31 U/L (0-40); Albumin Level 3.7 g/dL (3.5-5.0); Alkaline Phosphatase 332 U/L (39-117); Anion Gap 18 (12-20); Aspartate Amino Transferase 34 U/L (5-37); Bilirubin Total 0.9 mg/dL (0.0-1.0); Blood Urea Nitrogen 14 mg/dL (9-16); Calcium 9.6 mg/dL (8.4-10.2); Carbon Dioxide 24 mmol/L (22-29); Chloride 99 mmol/L (96-108); Creatinine Clr Calc Pharmacy 62.9; Estimated Glomerular Filt Rate > 60; Glucose Random 122 mg/dL (60-115); Potassium 4.8 mmol/L (3.3-5.1); Sodium 136 mmol/L (135-145); Total Protein 7.4 g/dL (6.5-8.0)
--- NOTE | 2023-08-27 06:18 | PC.NURSE ---
pt reporting nasal cannula is painful, pt placed on oxymax for comfort.
--- NOTE | 2023-08-27 06:50 | ED_ITS ---
HPI - General Adult General Chief complaint: Dyspnea Stated complaint: o2 machine is not working does not have access to Time Seen by Provider: 08/27/23 06:37 Source: patient Mode of arrival: ambulatory Limitations: no limitations History of Present Illness ED Provider: Mariella Ambrose PA-C HPI narrative: Patient is a 58 year old assigned male at with a history of COPD on chronic oxygenation presenting to the emergency department today reporting a broken oxygen concentrator at home. Patient states that he has plenty of oxygen tanks but his concentrator has broken and he needs help getting a new one. Patient denies any dizziness, lightheadedness, abdominal pain, nausea, vomiting, fever, chills, blurry vision, double vision, loss of vision, chest pain, back pain, night sweats, pain with urination, increased urinary frequency, increased urinary urgency, blood in his urine or stool, syncope or a near syncopal episode, recent trauma or falls, bowel incontinence, bladder incontinence, bowel retention, bladder retention, or any other complaints at this time. Relieving factors: none Exacerbating factors: none Associated symptoms: denies other symptoms Treatments prior to arrival: none Related Data Home Medications ?Medication ?Instructions ?Recorded ?Confirmed aspirin 81 mg tablet,delayed 81 mg PO BEDTIME 10/11/22 08/07/23 release azithromycin 250 mg tablet 500 mg PO DAILY 06/20/23 08/07/23 Previous Rx's ?Medication ?Instructions ?Recorded fluticasone fur. 100 mcg-umeclid 1 inh PO BEDTIME copd 30 days #60 05/26/23 62.5 mcg-vilant 25 mcg ea inhalat.powder (Trelegy Ellipta) levalbuterol HCl 1.25 mg/3 mL 1.25 mg (3 mL) inhalation RQID #72 05/26/23 solution for nebulization mL simvastatin 40 mg tablet 40 mg PO BEDTIME #90 tabs 06/06/23 docusate sodium 100 mg capsule 100 mg PO DAILY #90 caps 06/13/23 tramadol 50 mg tablet 50 mg PO BID PRN pain 30 days #60 07/01/23 tabs ipratropium 0.5 mg-albuterol 3 mg 3 ml inhalation Q4-6H PRN 07/13/23 (2.5 mg base)/3 mL nebulization wheezing/SOB 30 days #180 mL soln Allergies Allergy/AdvReac Type Severity Reaction Status Date / Time No Known Allergies Allergy Verified 08/27/23 03:28 [No Known Allergies*] Review of Systems 2 Constitutional: Constitutional: Reports no additional constitutional complaints, Denies chills, Denies fever(s) and Denies night sweats Eyes: Eyes: Reports no additional eye complaints, Denies blurry vision, Denies change in vision, Denies diplopia, Denies eye discharge, Denies loss of vision and Denies eye pain ENT: Denies dizziness Cardiovascular: Cardiovascular: Reports no additional cardiovascular complaints, Denies chest pain, Denies lightheadedness, Denies Loss of Consciousness and Denies dyspnea Respiratory: Respiratory: Reports no additional respiratory complaints and Denies dyspnea Gastrointestinal: Gastrointestinal: Reports no additional gastrointestinal complaints, Denies abdominal pain, Denies melena, Denies hematochezia, Denies change in bowel habits and Denies change in stool character Genitourinary: Genitourinary: Reports no additional male genitourinary complaints, Denies hematuria, Denies oliguria, Denies difficulty urinating, Denies dysuria, Denies urinary frequency, Denies urinary hesitancy, Denies urinary incontinence and Denies urinary urgency Musculoskeletal: Musculoskeletal: Reports no additional musculoskeletal complaints, Denies numbness and Denies tingling Neurologic: Denies dizziness, Denies loss of vision, Denies numbness and Denies tingling Psychiatric: Psychiatric: Reports no additional psychiatric complaints Endocrine: Endocrine: Reports no additional endocrine complaints Hematologic/Lymphatic: Hematologic/Lymphatic: Reports no additional hematologic/lymphatic complaints Allergic/Immunologic: Allergic/Immunologic: Reports no additional allergic/immunologic complaints [facility] Past Medical History Attestation statement: The following information was validated with the patient. Source: old records reviewed and nursing notes reviewed Medical History Cor pulmonale VICKY (mycobacterium avium-intracellulare) Malnutrition Mycobacterium avium complex Pulmonary nodule, right Respiratory failure with hypoxia Lung mass Exercise hypoxemia Hyperlipidemia COPD (chronic obstructive pulmonary disease) Nicotine dependence, unspecified, uncomplicated Multiple pulmonary nodules Surgical History History of bronchoscopy (~04/2021) History of eye surgery (~11/2020) History of bronchoscopy (~12/2019) Family History Family History Father Lung cancer Brother COPD (chronic obstructive pulmonary disease) Substance use disorder Son Substance use disorder Social History Social History Household Members: Spouse and Children Household Members Other:: son Housing: Apartment Do you presently have visiting nurse or other home services: No Alcohol intake: never Patient Tobacco Use Status: Former Tobacco user Tobacco use type: Cigarette Cigarette Packs Per Day: 0.25 Smoked in Last 30 Days: No e-Cigarette/Vaping Use: Currently Using Second Hand Smoke Exposure: Yes Use of substances other than those prescribed or required for medical reasons: No Substance Use Type: Marijuana Advance Directives: Yes Advance Directives on File: Yes Advance Directives Date on File: 10/12/22 Do you have a plan to hurt others: No Plan service: No Current occupational status: disabled Current occupational exposures/hazards: No Cognitive needs: No Hearing needs: No Vision needs: No Physical Exam ED Vital Signs: Vital Signs - 24 hr 08/27/23 03:25 08/27/23 04:00 08/27/23 06:31 Temperature 98.1 F 97.7 F 98.2 F Pulse Rate 116 H 109 H 108 H Respiratory Rate 24 H 24 H 23 H Blood Pressure 116/75 107/86 102/69 Pulse Oximetry 91 L 93 93 Oxygen Delivery Method Nasal Cannula Oxymask Oxymask Oxygen Flow Rate 9 9 08/27/23 07:58 08/27/23 08:33 08/27/23 11:58 Temperature 96.8 F Pulse Rate 102 H 101 H Respiratory Rate 18 20 Blood Pressure 101/66 104/69 Pulse Oximetry 95 91 L 95 Oxygen Delivery Method Oxymask Oxymask Oxymask Oxygen Flow Rate 9 6 5 08/27/23 12:01 Temperature 96.8 F Pulse Rate 101 H Respiratory Rate 20 Blood Pressure 104/69 Pulse Oximetry 95 Oxygen Delivery Method Oxymask Oxygen Flow Rate 5 BMI result Body Mass Index 13.6 Const General: cooperative, no acute distress, alert and awake Nutritional Appearance: well nourished Orientation/consciousness: patient oriented x3 Limitations: no limitations HENMT Head: Yes normal to inspection and Yes atraumatic Ears: hearing grossly normal bilaterally and external ears normal General nose exam: Normal external nose present, no nasal discharge noted and no epistaxis Face and sinus: Yes normal facial exam, No abrasion and No laceration Mouth: Normal oral and palatal mucosa present, no drooling and no muffled voice Eyes General: appearance normal, both eyes and all related structures Periorbital: periorbital findings normal Eyelids: Yes eyelids normal Conjunctivae: conjunctivae normal Pupils: Equal, round and reactive pupils present EOM: EOMs intact bilaterally Neck Neck: Yes normal visual inspection, Yes full ROM and Yes no lymphadenopathy Chest Chest palpation & inspection: normal inspection of the chest Resp Other: on chronic oxygenation Effort & Inspection: able to speak in complete sentences GI Inspection: Yes normal to inspection Neuro General: patient oriented x3 and moves all extremities Cranial nerves: Yes Equal, round and reactive pupils present Cognition (Neuro): normal cognition Motor exam (neuro): 5/5 motor strength present throughout Sensory Exam: Normal double simultaneous stimulation for sensation Coordination: [id number] test normal Extrem General: Yes normal to inspection, Yes full ROM and Yes capillary refill normal Psych Appearance: grossly normal Mental Status: mental status grossly normal Affect: normal affect Attitude: cooperative Thought process: Normal thought process present Thought content: Normal thought content present Insight: Good insight present (Psych) Medical Decision Making Medical Decision Making MDM Narrative: Patient is a 58 year old assigned male at with a history of COPD on chronic oxygenation presenting to the emergency department today requesting a new oxygen concentrator. Patient's physical exam was consistent with the patient's baseline. I explained my physical exam findings to the patient. I answered all questions asked by the patient. Respiratory therapy worked with the patient and the oxygen company to get his concentrator repaired. I stressed the importance of the patient taking his medication as prescribed. I stressed the importance of the patient following up with his primary care provider. I stressed the importance of the patient returning to the emergency department immediately if his symptoms were to worsen or if he were to develop any dizziness, shortness of breath, difficulty breathing, chest pain, blurry vision, loss of vision, nausea, vomiting, abdominal pain, fever, chills, back pain, or any other complaints. Patient verbalized agreement and understanding with this treatment plan and discharge. Differential Diagnosis Differential Diagnoses: The differential diagnosis associated with the presentation includes COPD Oxygen concentrator replacement Admission/Observation Consideration of admission/observation: Escalation of care including admission/observation considered Patient would have been admitted to the hospital had his clinical presentation warranted hospital admission. Lab Data MDM Lab Attestation statement: I reviewed the patient's lab results. My interpretation of these studies and their corresponding values is that they are grossly normal. 08/27/23 03:49 08/27/23 03:49 Labs: Lab Results 08/27/23 Range/Units 03:49 WBC 11.9 H (4.8-10.8) X10*3/uL RBC 4.81 (4.60-5.80) X10*6/uL Hgb 15.0 (14.0-18.0) g/dl Hct 45.2 (42.0-52.0) % MCV 94.0 (80.0-98.0) fL MCH 31.2 (27.0-33.0) pg MCHC 33.2 (31.0-36.0) g/dl RDW 15.2 (11.0-16.0) % Plt Count 250 D (160-400) X10*3/uL MPV 10.6 (9.4-12.4) fL Immature Gran % (Auto) 0.4 (0.0-0.4) % Neut % (Auto) 79.8 H (45-73) % Lymph % (Auto) 10.0 L (20-40) % [place] % (Auto) 7.3 (2-11) % Eos % (Auto) 1.7 (0-4) % Baso % (Auto) 0.8 (0-2) % Lymph # (Auto) 1.2 (1.2-4.9) X10*3/uL [place] # (Auto) 0.9 (0.1-1.2) X10*3/uL Eos # (Auto) 0.2 (0.0-0.4) X10*3/uL Baso # (Auto) 0.1 (0.0-0.2) X10*3/uL Abs Immat Gran (auto) 0.05 H (0.00-0.03) X10*3/uL Absolute Neuts (auto) 9.5 H (2.0-8.3) x10*3/uL Absolute Nucleated RBC 0.000 (0.0-0.012) X10*3/uL Nucleated RBC % (auto) 0.0 (0.0-0.2) /100WBC Sodium 136 (135-145) mmol/L Potassium 4.8 D (3.3-5.1) mmol/L Chloride 99 (96-108) mmol/L Carbon Dioxide 24 (22-29) mmol/L Anion Gap 18 (12-20) BUN 14 (9-16) mg/dL Creatinine 0.77 (0.5-1.4) mg/dL Estim Creat Clear Calc 62.9 Estimated GFR > 60 Random Glucose 122 H (60-115) mg/dL Calcium 9.6 (8.4-10.2) mg/dL Total Bilirubin 0.9 (0.0-1.0) mg/dL AST 34 (5-37) U/L ALT 31 (0-40) U/L Alkaline Phosphatase 332 H (39-117) U/L Total Protein 7.4 (6.5-8.0) g/dL Albumin 3.7 (3.5-5.0) g/dL Independent Interpretation I performed an independent interpretation of an: EKG and Plain X-Ray Interpretation: My interpretation is in agreement with the radiologist's impression of this imaging study. - EXAMINATION: XR CHEST CLINICAL INFORMATION: Dyspnea. COMPARISON: 05/23/2023. TECHNIQUE: 2 views of the chest were obtained. FINDINGS: The cardiomediastinal silhouette is stable. There is a linear irregular left upper lobe opacity which was seen previously and is similar in appearance. There is diffuse emphysematous change with bilateral mid to lower lung field increased markings also similar to previous. There are no new areas of consolidation. The bony structures and soft tissues are unremarkable. XR/XR chest 2V IMPRESSION: Emphysematous changes and linear irregular left upper lobe opacity which was seen previously and is similar in appearance to previous. No new areas of consolidation. Dictated By: Bacilio Kaur Signed By: Electronically signed by Bacilio Kaur 08/27/23 0439 - Vent. Rate: 114 BPM Atrial Rate: 114 BPM P-R Int: 140 ms QRS Dur: 090 ms QT Int: 358 ms P-R-T Axes: 090 240 088 degrees QTc Inc: 493 ms Sinus tachycardia Right superior axis deviation Right ventricular hypertrophy Inferior infarct, age undetermined Cannot rule out Anterior infarct, age undetermined DD/ 0343 Radiology Impression Discussion of test interpretation with radiology: I have reviewed the radiologist's reading. Discharge Plan Discharge Clinical Impression: COPD (chronic obstructive pulmonary disease) Patient Disposition: Home, Self-Care Instructions: COPD (Chronic Obstructive Pulmonary Disease) (DC) Additional Instructions: Follow up with your primary care provider. Return to the emergency department immediately if your symptoms worsen or if you develop any dizziness, shortness of breath, difficulty breathing, chest pain, blurry vision, loss of vision, nausea, vomiting, abdominal pain, fever, chills, back pain, or any other complaints. Prescriptions: No Action Trelegy Ellipta 100-62.5-25 mcg blister with device 1 inh PO BEDTIME 30 Days Qty: 60 4RF simvastatin 40 mg tablet 40 mg PO BEDTIME Qty: 90 1RF docusate sodium 100 mg capsule 100 mg PO DAILY Qty: 90 1RF tramadol 50 mg tablet 50 mg PO BID PRN (Reason: pain) 30 Days Qty: 60 1RF ipratropium-albuterol 0.5 mg-3 mg(2.5 mg base)/3 mL solution for nebulization 3 ml inhalation Q4-6H PRN (Reason: wheezing/SOB) 30 Days Qty: 180 3RF aspirin 81 mg Tablet,Delayed Release (Dr/Ec) 81 mg PO BEDTIME levalbuterol HCl 1.25 mg/3 mL Solution For Nebulization 1.25 mg inhalation RQID Qty: 72 0RF azithromycin 250 mg tablet 500 mg PO DAILY Referrals: John Jurado, REWIND OPERATOR-BC [Primary Care Provider] - Interventions: ED Discharge Assessment Last Done: 08/27/23 12:01 Discharge Date/Time: 08/27/23 12:05 Print Language: Citizen Of [place]
--- NOTE | 2023-08-27 08:11 | PC.NURSE ---
a&ox4. vss and up to date aside from being slightly hypotensive. provider aware. nsr on the cardiac cath tech. pt remains on 9L via oxymask. pt usually on 9L via NC baseline but switched to oxymask d/t discomfort in nasal pathway. RT working w/ pt in regards to having new concentrate sent to pt's house as his original concentrate broke. pt denies any chest pain. no sob/wob noted. respirations even and unlabored. plan of care ongoing. call henderson placed within reach.
--- NOTE | 2023-08-27 08:33 | PC.NURSE ---
RT weaned pt down to 6L via oxymask. pt tolerating well. resting at 91%. no sob/wob noted. respirations even and unlabored. plan of care ongoing.
--- NOTE | 2023-08-27 10:29 | MHC.CM.ED ---
Received case management consult from Mariella FLOWER. Patient came to the ER because his concentrator is broken and he is out of oxygen tanks. Mariella FLOWER is currently working with respiratory to get this situation corrected. CM consult deferred at this time.
== END 2023-08-27 12:05 | disposition home or self-care (01) ==
PROVIDERS: Emergency Provider Student in an Organized Health Care Education/Training Program; PCP Nurse Practitioner Family
DX: J44.9 Chronic obstructive pulmonary disease, unspecified (principal); Z99.81 Dependence on supplemental oxygen
CPT/HCPCS: 36415; 71046; 80053; 85025; 93005; 99284; 99285

== ENCOUNTER → 2023-08-27 03:33 | Outpatient (BNV) | payer OTHER, SELFPAY | PROVIDERS: Emergency Provider Student in an Organized Health Care Education/Training Program; PCP Nurse Practitioner Family; Visit Provider Internal Medicine Cardiovascular Disease | DX: R00.0 Tachycardia, unspecified (principal) | CPT/HCPCS: 93010 ==